=== PATIENT | male | born 1940 | race Caucasian/White ===

== ENCOUNTER → 2016-07-21 | Outpatient (CLI) | payer OTHER, BC ==
[~2016-07-21] MED LIST: ALPR-411 PO; ASPEC81 PO; ASPI325T45 PO; ASPI81TA21 PO; ATOR-24 PO; BUPR-102 PO; CLR/5 PO; DOCU100C31 PO; DUTA0.5C PO; EPP3/2 IM; FURO-85 PO; IBUP-1427 PO; LPT40 PO; LSN25 PO; METH500T3 PO; METHPOW7 PO; METO-478 PO; METO25TA3 PO; MULT-506 PO; MULT-845 PO; NTRSLP4 SL; OMEG-112 PO; OMEP40CA41 PO; PLV75 PO; PRT40 PO; TAMS0.4C38 PO
== END | disposition home or self-care (01) ==
LOC: C.RDSM 11:58
PROVIDERS: ATTEND Orthopaedic Surgery
DX: M18.11 Unilateral primary osteoarthritis of first carpometacarpal joint, right hand (principal)

== ENCOUNTER 2016-11-14 23:30 | Inpatient (IN) | payer OTHER, BC ==
[~2016-11-14] VITALS: Ht 172.7 cm; Wt 70.2 kg
[~2016-11-14 23:30] MED LIST changes: -ASPI325T45 PO; -ASPI81TA21 PO; -ATOR-24 PO; -DUTA0.5C PO; -FURO-85 PO; -IBUP-1427 PO; -LPT40 PO; -LSN25 PO; -METH500T3 PO; -METO-478 PO; -METO25TA3 PO; -MULT-845 PO; -NTRSLP4 SL; -OMEP40CA41 PO; -PLV75 PO; -PRT40 PO
[2016-11-14] MEDS ORDERED: MoRPHine SULFATE 4 MG/ML 1 ML CARP\\VIAL IV STA (23:40)
[2016-11-14] MEDS ORDERED: ONDANSETRON INJ 2 MG/ML 2 ML VIAL IV STA (23:40)
[2016-11-14 23:48] LABS: BASO % 0.5 %; BASO ABS # 0.05 K/uL (0-0.2); COMPLETE YES; EOS % 2.1 %; HEMATOCRIT 44.6 % (42-52); IG% 0.4 %; LYMPH % 45.3 %; LYMPH ABS # 4.92 K/uL (1.2-3.4); MEAN CELL VOLUME 93.9 fL (80-100); MEAN CORPUSCULAR HEMOGLOBIN 31.4 pg (25-34); MEAN CORPUSCULAR HGB CONC 33.4 g/dl (32-36); MEAN PLATELET VOLUME 9.9 fL (7.4-10.4); MONO % 7.6 %; NEUT % 44.1 %; PLATELET COUNT 351 K/uL (130-400); RED BLOOD COUNT 4.75 M/uL (4.7-6.1); WHITE BLOOD COUNT 10.86 K/uL (4.8-10.8)
[2016-11-14] MEDS ORDERED: NITROGLYCERIN 0.4 MG SL PER TAB CHARGE ONE (23:55)
[2016-11-14] MEDS: NITROGLYCERIN 0.4 MG SL PER TAB CHARGE SL PRN (23:58)
[2016-11-15] VITALS (41 sets, daily range): BP systolic 122–164; BP diastolic 70–118; PULSE 60–98; TEMP 36.5–36.9; O2SAT 92–98; Ht 172.7 cm; Wt 70.2 kg
[2016-11-15] MEDS ORDERED: IBUP-1427 PO (00:01)
[2016-11-15] MEDS ORDERED: DUTA0.5C PO (00:01)
[2016-11-15] MEDS ORDERED: ASPI81TA21 PO (00:01)
[2016-11-15] MEDS ORDERED: OMEP40CA41 PO (00:01)
[2016-11-15] MEDS ORDERED: METH500T3 PO (00:01)
[2016-11-15] MEDS ORDERED: MULT-845 PO (00:01)
[2016-11-15 00:02] LABS: PROTHROMBIN TIME (PATIENT) 10.6 SECONDS (9.0-12.0)
[2016-11-15] MEDS ORDERED: ASPI325T45 PO (00:02)
[2016-11-15 00:03] LABS: ISTAT HEMOGLOBIN 13.9 g/dl (14.0-18.0); ISTAT IONIZED CALCIUM 1.16 mmol/l (1.12-1.32)
[2016-11-15] MEDS ORDERED: NiCARDipine HCL INJ 2.5 MG/ML 10 ML AMP ONE ×2 (00:03→16:54)
[2016-11-15] MEDS ORDERED: FENTANYL CITRATE INJ 50 MCG/1 ML 2 ML VIAL ONE ×2 (00:03→16:55)
[2016-11-15] MEDS ORDERED: HEPARIN SOD (PORCINE) 1000 UNIT/ML 10 ML VIAL ONE ×3 (00:04→16:54)
[2016-11-15] MEDS ORDERED: MIDAZOLAM HCL 1 MG/ML 2ML VIAL ONE ×2 (00:04→16:55)
[2016-11-15 00:05] LABS: ALT/SGPT 32 U/L (12-78); BLOOD UREA NITROGEN 22 mg/dl (7-18); BUN/CREATININE RATIO 21.5 (10-20); CALCIUM 9.5 mg/dl (8.5-10.1); CARBON DIOXIDE 28 mmol/L (21-32); CHLORIDE 107 mmol/L (98-107); GLUCOSE 130 mg/dl (70-99); POTASSIUM 3.8 mmol/L (3.5-5.1); SODIUM 141 mmol/L (136-145)
[2016-11-15 00:08] LABS: ALKALINE PHOSPHATASE 54 U/L (45-117); AST/SGOT 23 U/L (15-37)
[2016-11-15] MEDS: NITROGLYCERIN 0.4 MG SL PER TAB CHARGE SL PRN (00:08)
--- NOTE | 2016-11-15 00:20 | EMERGENCY ROOM VISIT NOTE ---
History Report prepared by Ron: Najma Burton Under the Supervision of: Dr. Gary Reveles D.O. First contact with patient: 23:32 Chief Complaint: CARDIAC ASSESSMENT Stated Complaint: SHORT OF BREATH/CARDIAC ASSESSMENT History of Present Illness The patient is a 76 year old male who presents to the Emergency Room with complaints of an episode of chest pain starting two hours ago. The patient states that when the pain started he was sitting at his computer and it was a 10 /10 in severity. The patient states that it centralized and radiates out to his left arm and middle of his back. The patient currently rates his pain as a 7/10 in severity. The patient denies ever having a heart attack in the past, shortness of breath, and nausea. Source of History: patient Onset: two hours ago Position: chest Symptom Intensity: 7/10 Quality: other (radiating) Timing: other (episode) Associated Symptoms: + back pain, No SOB, No nausea Note: The patient complains of left arm pain. The patient denies ever having a heart attack. Review of Systems See HPI for pertinent positives and negatives. A total of ten systems were reviewed and were otherwise negative. Past Medical & Surgical Medical Problems: (1) BPH (benign prostatic hyperplasia) (2) Sinus node dysfunction Surgical Problems: (1) H/O hemorrhoidectomy (2) History of carpal tunnel surgery (3) History of tonsillectomy and adenoidectomy Family History Patient reports no known family medical history. Social History Smoking Status: Former Smoker Drug Use: none Marital Status: Occupation Status: retired Current/Historical Medications Scheduled Aspirin Enteric Coated (Ecotrin Or Generic), 81 MG PO DAILY Bupropion Hcl (Smoking [place] (Bupropion Hcl Sr), 1 TAB PO QAM Dutasteride (Avodart), 0.5 MG PO DAILY Epinephrine (Epipen), 0.3 MG IM UD Methylcellulose (Laxative) (Citrucel), 2 TABS PO DAILY Multiple Vitamins W/ Minerals (Centrum Silver Adult 50+), 1 TAB PO DAILY Vjlsa-2-Eglv Ethyl Esters ([place]-3), 1 CAP PO QAM Omeprazole (Prilosec), 40 MG PO DAILY Tamsulosin Hcl (Flomax), 2 TABS PO QPM Scheduled PRN Alprazolam (Xanax), 0.5 MG PO TID PRN for Anxiety/Agitation Aspirin (Aspirin), 650 MG PO DIRECTED PRN for Chest Pain Desloratadine (Clarinex), 5 MG PO DAILY PRN for PRN Docusate Sodium (Docusate Sodium), 1 CAP PO QAM PRN for Constipation Ibuprofen Tab (Motrin), 600 MG PO TID PRN for Pain Allergies Coded Allergies: BEE STING (Verified Allergy, Intermediate, PASSED OUT, 11/14/16) Escitalopram (Verified Allergy, Unknown, UNKNOWN, 11/14/16) Paroxetine (Verified Allergy, Unknown, UNKNOWN, 11/14/16) Quetiapine (Verified Allergy, Unknown, UNKNOWN, 11/14/16) Venlafaxine (Verified Allergy, Unknown, UNKNOWN, 11/14/16) Codeine (Verified Adverse Reaction, Mild, NAUSEA AND VOMITNG, 11/14/16) Physical Exam Vital Signs Date Time Temp Pulse Resp B/P (MAP) Pulse Ox O2 Delivery O2 Flow Rate FiO2 11/15/16 00:20 66 12 144/85 98 11/15/16 00:16 66 12 144/85 98 Nasal Cannula 2.0 11/15/16 00:07 67 21 146/83 98 Room Air 11/15/16 00:01 67 14 156/84 99 Nasal Cannula 2.0 11/14/16 23:56 147/88 11/14/16 23:50 66 98 11/14/16 23:49 150/88 11/14/16 23:45 99 Nasal Cannula 2.0 11/14/16 23:40 64 19 11/14/16 23:35 64 11/14/16 23:33 158/95 11/14/16 23:30 97 Room Air 11/14/16 23:30 36.4 65 24 158/95 97 Room Air 11/14/16 23:30 97 Room Air Physical Exam GENERAL: Awake, alert, well-appearing, in no distress HENT: Normocephalic, atraumatic. Oropharynx unremarkable. EYES: Normal conjunctiva. Sclera non-icteric. NECK: Supple. No nuchal rigidity. FROM. No JVD. RESPIRATORY: Clear to auscultation. CARDIAC: Regular rate, normal rhythm. Extremities warm and well perfused. Pulses equal. ABDOMEN: Soft, non-distended. No tenderness to palpation. No rebound or guarding. No masses. RECTAL: Deferred. MUSCULOSKELETAL: Chest examination reveals no tenderness. The back is symmetrical on inspection without obvious abnormality. There is no CVA tenderness to palpation. No joint edema. LOWER EXTREMITIES: Calves are equal size bilaterally and non-tender. No edema. No discoloration. NEURO: Normal sensorium. No sensory or motor deficits noted. SKIN: No rash or jaundice noted. Diaphoretic. Medical Decision & Procedures ER Provider Diagnostic Interpretation: CHEST X-RAY: Findings: The results were interperted by me. There is a slight increased pulmonary markings bilaterally. Pacemaker present. No pneumothorax present. Laboratory Results 11/14/16 22:35 Red Blood Count 4.75, Mean Corpuscular Volume 93.9, Mean Corpuscular Hemoglobin 31.4, Mean Corpuscular Hemoglobin Concent 33.4, Mean Platelet Volume 9.9, Neutrophils (%) (Auto) 44.1, Lymphocytes (%) (Auto) 45.3, Monocytes (%) (Auto) 7.6, Eosinophils (%) (Auto) 2.1, Basophils (%) (Auto) 0.5, Neutrophils # (Auto) 4.79, Lymphocytes # (Auto) 4.92, Monocytes # (Auto) 0.83, Eosinophils # (Auto) 0.23, Basophils # (Auto) 0.05 11/14/16 22:35 Test 11/14/16 22:35 11/14/16 23:41 11/14/16 23:49 White Blood Count 10.86 K/uL (4.8-10.8) Red Blood Count 4.75 M/uL (4.7-6.1) Hemoglobin 14.9 g/dL (14.0-18.0) Hematocrit 44.6 % (42-52) Mean Corpuscular Volume 93.9 fL (80-100) Mean Corpuscular Hemoglobin 31.4 pg (25-34) Mean Corpuscular Hemoglobin Concent 33.4 g/dl (32-36) Platelet Count 351 K/uL (130-400) Mean Platelet Volume 9.9 fL (7.4-10.4) Neutrophils (%) (Auto) 44.1 % Lymphocytes (%) (Auto) 45.3 % Monocytes (%) (Auto) 7.6 % Eosinophils (%) (Auto) 2.1 % Basophils (%) (Auto) 0.5 % Neutrophils # (Auto) 4.79 K/uL (1.4-6.5) Lymphocytes # (Auto) 4.92 K/uL (1.2-3.4) Monocytes # (Auto) 0.83 K/uL (0.11-0.59) Eosinophils # (Auto) 0.23 K/uL (0-0.5) Basophils # (Auto) 0.05 K/uL (0-0.2) RDW Standard Deviation 46.3 fL (36.4-46.3) RDW Coefficient of Variation 13.5 % (11.5-14.5) Immature Granulocyte % (Auto) 0.4 % Immature Granulocyte # (Auto) 0.04 K/uL (0.00-0.02) Prothrombin Time 10.6 SECONDS (9.0-12.0) Prothromb Time International Ratio 1.0 (0.9-1.1) Est Creatinine Clear Calc Drug Dose 54.9 ml/min Estimated GFR () 83.2 Estimated GFR (Non- 71.8 BUN/Creatinine Ratio 21.5 (10-20) Calcium Level 9.5 mg/dl (8.5-10.1) Total Bilirubin 0.5 mg/dl (0.2-1) Direct Bilirubin < 0.1 mg/dl (0-0.2) Aspartate Amino Transf (AST/SGOT) 23 U/L (15-37) Alanine Aminotransferase (ALT/SGPT) 32 U/L (12-78) Alkaline Phosphatase 54 U/L (45-117) Total Protein 7.9 gm/dl (6.4-8.2) Albumin 4.0 gm/dl (3.4-5.0) Bedside Troponin I < 0.030 ng/ml (0-0.045) Bedside Hemoglobin 13.9 g/dl (14.0-18.0) Bedside Hematocrit 41 % (42-52) Bedside Sodium 140 mEq/L (135-144) Bedside Potassium 3.9 mEq/L (3.3-5.0) Bedside Chloride 104 mEq/L (101-112) Bedside Total CO2 22 mEq/l (24-31) Anion Gap 19.0 mmol/L (16-25) Bedside Blood Urea Nitrogen 21 mg/dl (7-18) Bedside Creatinine 1.0 mg/dl (0.6-1.3) Bedside Glucose (other) 154 mg/dl (70-99) Bedside Ionized Calcium (Shruthi) 1.16 mmol/l (1.12-1.32) Laboratory results reviewed by me Medications Administered Medications (Trade) Dose Ordered Sig/Aura Route Start Time Stop Time Status Last Admin Dose Admin Morphine Sulfate (MoRPHine SULFATE INJ) 4 mg NOW STAT IV 11/14/16 23:40 11/14/16 23:41 DC 11/14/16 23:47 4 MG Ondansetron HCl (Zofran Inj) 4 mg NOW STAT IV 11/14/16 23:40 11/14/16 23:41 DC 11/14/16 23:47 4 MG Nitroglycerin (Nitrostat Tab) 0.4 mg PRN PRN SL 11/15/16 00:00 12/15/16 00:00 11/15/16 00:08 0.4 MG ECG Indication: chest pain Rate (beats per minute): 64 Rhythm: other (paced rhythm) Findings: ST elevation, other (morphology change) Comparison ECG Date: 07/22/2015 Change: Change in morphology of V2-V6. ED Course 2333: The patient was evaluated in room B7. A complete history and physical exam was performed. 2339: I called a Heart Alert on the patient at this time. 2340: Ordered Zofran Inj 4 mg IV, Morphine Sulfate 4 mg IV. 2341: Discussed the patient's case with Dr. Osei. The patient will be evaluated for further treatment and disposition. 2355: Ordered Nitroglycerin 0.4 mg .ROUTE. 0021: The patient will be taken to the cardiac pharmacy laboratory technician. was at bedside at this time. Medical Decision Differential diagnosis: Etiologies such as cardiac ischemia, aortic dissection, pulmonary embolism, pneumonia, pneumothorax, musculoskeletal, infections, pericarditis, myocarditis , esophageal rupture, gastrointestinal, as well as others were entertained. Pt had cardiac alert called; EKG concerning for anterolateral LA; seen by Dr Osei at bedside; brought to pharmacy laboratory technician; I spoke with regarding patient's condition Medication Reconcilliation Current Medication List: was personally reviewed by me Blood Pressure Screening Patient's blood pressure: Elevated blood pressure Will be further evaluated in ICU. Consults Time Called: 2339 Consulting Physician: Dr. osei Returned Call: 2340 Discussed the patient's case with Dr. Osei. The patient will be evaluated for further treatment and disposition. Impression Primary Impression: Anterolateral myocardial infarction Critical Care I have personally spent greater than 35 minutes of critical care time in the direct management of this patient. This includes bedside care, interpretation of diagnostic studies, and testing, discussion with consultants, patient, and family members, and other required patient management activities. This 35 minutes is in excess of all separately billable procedures. Scribe Attestation The scribe's documentation has been prepared under my direction and personally reviewed by me in its entirety. I confirm that the note above accurately reflects all work, treatment, procedures, and medical decision making performed by me. Departure Information Dispostion Being Evaluated By Hospitalist Referrals Jay Salvador M.D. (PCP) Patient Instructions My [facility]
[2016-11-15] MEDS ORDERED: CLOPIDOGREL BISULFATE 300 MG TAB PO ONE (01:17)
[2016-11-15] MEDS ORDERED: EPTIFIBATIDE BOLUS / DRIP IV ONE (01:45)
[2016-11-15] MEDS ORDERED: ALPRAZOLAM 0.5 MG TAB PO PRN ×2 (01:45→16:45)
[2016-11-15] MEDS ORDERED: ACETAMINOPHEN 325 MG TAB PO PRN (01:45)
--- NOTE | 2016-11-15 01:50 | Procedure Note ---
Pre-Mod Sedation Assessment General Date of Moderate Sedation: Nov 15, 2016. Vital Signs: Vital Signs Past 12 Hours Date Time Temp Pulse Resp B/P (MAP) Pulse Ox O2 Delivery O2 Flow Rate FiO2 11/15/16 00:20 66 12 144/85 98 11/15/16 00:16 66 12 144/85 98 Nasal Cannula 2.0 11/15/16 00:07 67 21 146/83 98 Room Air 11/15/16 00:01 67 14 156/84 99 Nasal Cannula 2.0 11/14/16 23:56 147/88 11/14/16 23:50 66 98 11/14/16 23:49 150/88 11/14/16 23:45 99 Nasal Cannula 2.0 11/14/16 23:40 64 19 11/14/16 23:35 64 11/14/16 23:33 158/95 11/14/16 23:30 97 Room Air 11/14/16 23:30 36.4 65 24 158/95 97 Room Air 11/14/16 23:30 97 Room Air Review Cardiovascular: regular rate, rhythm, no edema Abdomen: normal bowel sounds, non tender Lungs: chest non-tender, lungs clear Airway Class: II Pre-Sedation Airway Assessment Oral Cavity: Dental Abnormalities Able to Visualize Vocal Cords: No Short Thick Neck: No Hx of Sleep Apnea: No Smoking Status: Former Smoker Mallampati Classification: Class III ASA Classification: Class III Procedure Planning Contraindications-for Mod Sed: None Yes Notes The planned sedation has been discussed with the patient and consent obtained. I have identified the patient, determined the appropriateness of sedation and have assessed the patient immediately prior to the procedure. All medicine(s) and interventions are by my order.
--- NOTE | 2016-11-15 01:51 | Procedure Note ---
Post-Mod Sedation Assessment General Date of Moderate Sedation Nov 15, 2016. Vital Signs: Vital Signs Past 12 Hours Date Time Temp Pulse Resp B/P (MAP) Pulse Ox O2 Delivery O2 Flow Rate FiO2 11/15/16 00:20 66 12 144/85 98 11/15/16 00:16 66 12 144/85 98 Nasal Cannula 2.0 11/15/16 00:07 67 21 146/83 98 Room Air 11/15/16 00:01 67 14 156/84 99 Nasal Cannula 2.0 11/14/16 23:56 147/88 11/14/16 23:50 66 98 11/14/16 23:49 150/88 11/14/16 23:45 99 Nasal Cannula 2.0 11/14/16 23:40 64 19 11/14/16 23:35 64 11/14/16 23:33 158/95 11/14/16 23:30 97 Room Air 11/14/16 23:30 36.4 65 24 158/95 97 Room Air 11/14/16 23:30 97 Room Air Review - Discharge Criteria Vital Signs Stable: Yes Alert/Oriented/Conversant: Yes Returned to Baseline Mental St: Yes Nausea Absent/Minimal: Yes Pain/Discomfort/Absent/Minimal: Yes Normal/Baseline Respirations: Yes Active Bleeding?: No Pt Received D/C Instructions: N/A Prescriptions Given: None Specific Proced. D/C Criteria Distal Pulses Present (Cardiac: Yes Groin site assessed-Card Cath: N/A Voided Prior To Discharge: N/A Discharged Patients Adult Escort/Transportation: Yes
--- NOTE | 2016-11-15 02:07 | Cardiac Catheterization ---
Procedure Note Procedure Date Nov 15, 2016. Pre-Procedure Diagnosis Acute Coronary Syndrome AUC Score 8 Post-Procedure Diagnosis Severe CAD, Successful PCI, Decreased LV Systolic Function, Normal Intracardiac Pressures Procedure(s) Performed Coronary Angiography, Left Heart Cath, LV Angiography, Drug Eluting Stent Call Center Representative Jose Entrance Guard(s) Adrian Estimated Blood Loss 20 Medication(s) Clopidogrel, Fentanyl, Heparin, Integrilin, Nitroglycerin, Versed, Lidocaine 1% Summary of Findings Indication: STEMI/Heart Alert Access: 6Fr Right Radial Artery Catheters: [place], Pigtail; EBU 3.5 guide Findings: LM - Luminal irregularities LAD - Moderate caliber, 30-40% diffuse proximal to mid disease, 100% acutely occluded mid LAD after take-off of small 2nd diagonal; Diffusely diseased small 1st diagonal. Post intervention distal LAD small vessel to apex with luminal irregularities. Circumflex - Large, dominant vessel with luminal irregularities; gives off 2 small OMs and 2 moderate caliber L-PLBs and L-PDA all without significant disease. RCA - Small, non-dominant vessel. LVEDP - 15 LVEF 45-50%, apical hypokinesis -- PCI -- Antithrombotic therapy: Heparin, Integrilin, Clopidogrel Procedure: LM cannulated with EBU 3.5 guide BMW wire passed across lesion into distal vessel Mid LAD lesion predilated with 2.0 compliant balloon Dilated lesion stented with 2.5 x 33 Xience REGULO Stent post-dilated with 2.75 noncompliant balloon IC vasodilators administered for spasm Post procedure BRITTANY 3 flow, stent well expanded with minimal residual stenosis and no apparent cardiac complications. Started on integrilin for questionable minimal residual thrombus. Arterial Closure: TR Band Summary: 1. Acutely occluded mid LAD 2. Mild-moderate residual proximal LAD disease (30-40%) 3. Normal intracardiac filling pressure 4. Successful PCI of mid LAD with 2.5 x 33 Xience REGULO (post-dilated to 2.75) Recommendations: Admit to ICU for continued monitoring Loaded with Clopidogrel 600 mg in laborer demolition Continue Integrilin for 8 hours Continue dual-antiplatelet therapy with ASA/Clopidogrel for 1 year Trend troponins until peak, Check Echo Uptitrate beta-saige/VIDYA as BP allows High-dose statin Consult cardiac Rehab Previously followed by Dr. Jackson for his cardiac disease. Hemodynamics Rest Ao: 137/64/99 Final Ao: 145/59/93 LV: 142/15 Recommendations PCI without planned CABG Specimens None Radiation Exposure (mGy) 3060 Contrast (mls) 175 Visi Fluids (cc crystalloids) 20 NSS Drains None Anesthesia Moderate Procedural Complication(s) None Disposition ICU ACC Data Cardiac Status Clinical evaluation leading to the procedure CAD Presntation: STEMI STEMI or Non-STEMI: Symptom Onset Date/Time: 20:00 Thrombolytics: No Anginal Classification: CCS IV Heart Failure: No, NYHA Class: CCS I Cardiogenic Shock w/in 24Hrs: No Cardiac Arrest w/in 24Hrs: No Imaging studies past 6 months: No Stress studies past 6 months: No Coronary Anatomy Dominant: Left Left Main (% Stenosis): Normal LAD (% Stenosis): Proximal (30-40%), Mid (100) Circumflex (% Stenosis): Normal L PDA (% Stenosis): Normal Diagnostic Physician's Name: Negro Garcia MD Status: Emergency Closure Device Percutaneous Entry Location: Radial Closure Device: Radial Band Recommendations: PCI without planned CABG PCI Indication: Immediate PCI for STEMI Lesion Segment Name: Mid LAD Culprit Artery: Yes Stenosis Prior to Rx (%): 100 Chronic Total Occlusion: No IVUS: No FFR: No Pre-Procedure BRITTANY Flow: 0 Previously Treated Lesion: No Lesion Complexity: Non-High/Non-C Lesion Length (mm): 25 Thrombus Present: Yes Bifurcation Lesion: Yes Guidewire Across Lesion: Yes Guidewire: Stenosis Post-Procedure (%): 0 Post-Procedure BRITTANY Flow: 3 Device(s) Deployed: Yes Intraprocedure Events Significant Dissection: No Perforation: No
--- NOTE | 2016-11-15 02:08 | Critical Care Consultation ---
Critical Care Consultation Date of Consultation: Nov 15, 2016. Attending Physician: Dr. Reddy Reason for Consultation: S/P Cardiac Catheterization secondary to STEMI History of Present Illness Te Brock a 76-year-old male who presented to the emergency department this evening for 10/10 chest pain that was central and radiated down his left arm and the middle his back while sitting at his computer. Patient was transported via EMS and upon arrival to emergency room severity had decreased to 7/10. Patient has denied prior heart attack and as of that time had not experienced nausea or vomiting. Patient underwent EKG that that was deemed somewhat unremarkable secondary to paced rhythm per cardiology report and had a negative [id number] troponin level. A heart alert was called secondary to patient's symptomatic details after patient was seen by Dr. Garcia. He was subsequently taken to the cardiac labelling machine operator and received 1 REGULO to the 100% occluded Mid-LAD via Right Radial approach. Per wholesale agronomist report left ventricle function appears about 40-45%. Patient left Research Quality Assurance Analyst chest pain-free on a Plavix load with Integrilin to run for 8 hours. Only other prior cardiac history was an episode of complete heart block at which time the patient received a pacemaker in 2015. Patient does take alpha blocking medication for BPH and was a prior smoker. Patient's past medical history is positive for recent episodes of GERD. Per outpatient records patient had been complaining of continued symptoms and was to be scheduled for an EGD. Omeprazole 40 mg daily was added to the patient's regimen and he was also told to continue Zantac as needed. Otherwise patient is treated by Jay Salvador, Internal Medicine, for hypertension, BPH and depression. At presentation to the intensive care unit patient denies fever/chills, malaise , dizziness or lightheadedness. Patient denies nausea/vomiting/recent change in bowel or bladder habits. Patient is now chest pain-free, without pressure or awareness of tachyarrhythmia. Patient denies cough, dyspnea, shortness of breath or wheezing. Patient denies abdominal pain. Patient denies numbness or tingling of extremities. Past Medical/Surgical History Medical Problems: BPH (benign prostatic hyperplasia) Sinus node dysfunction Acquired Heart Block requiring Cardiac Pacemaker Bee Sting Allergy Cardiac Murmur Constipation Diverticulitis Depression GERD Insomnia Erectile Dysfunction Internal Hemorrhoids Nocturia History of Pulmonary Nodule Surgical Problems: H/O hemorrhoidectomy History of carpal tunnel surgery History of tonsillectomy and adenoidectomy Pacemaker Placement Family History Patient reports no known family medical history. Family Hx of Bipolar Disorder, ETOH Abuse, Cardiac Disorders, Kidney Disease, Lung CA, OH, Heart Disease, and Throat CA. Social History Smoking Status: Former Smoker Drug Use: none Marital Status: Housing Status: lives with family Occupation Status: retired Allergies Coded Allergies: BEE STING (Verified Allergy, Intermediate, PASSED OUT, 11/14/16) Escitalopram (Verified Allergy, Unknown, UNKNOWN, 11/14/16) Paroxetine (Verified Allergy, Unknown, UNKNOWN, 11/14/16) Quetiapine (Verified Allergy, Unknown, UNKNOWN, 11/14/16) Venlafaxine (Verified Allergy, Unknown, UNKNOWN, 11/14/16) Codeine (Verified Adverse Reaction, Mild, NAUSEA AND VOMITNG, 11/14/16) Home Medications Scheduled Aspirin Enteric Coated (Ecotrin Or Generic), 81 MG PO DAILY Bupropion Hcl (Smoking Deterre (Bupropion Hcl Sr), 1 TAB PO QAM Dutasteride (Avodart), 0.5 MG PO DAILY Epinephrine (Epipen), 0.3 MG IM UD Methylcellulose (Laxative) (Citrucel), 2 TABS PO DAILY Multiple Vitamins W/ Minerals (Centrum Silver Adult 50+), 1 TAB PO DAILY Svstp-5-Lpil Ethyl Esters (Lydia-3), 1 CAP PO QAM Omeprazole (Prilosec), 40 MG PO DAILY Tamsulosin Hcl (Flomax), 2 TABS PO QPM Scheduled PRN Alprazolam (Xanax), 0.5 MG PO TID PRN for Anxiety/Agitation Aspirin (Aspirin), 650 MG PO DIRECTED PRN for Chest Pain Desloratadine (Clarinex), 5 MG PO DAILY PRN for PRN Docusate Sodium (Docusate Sodium), 1 CAP PO QAM PRN for Constipation Ibuprofen Tab (Motrin), 600 MG PO TID PRN for Pain Current Inpatient Medications Current Inpatient Medications Medications (Trade) Dose Ordered Sig/Aura Route Start Time Stop Time Status Last Admin Dose Admin Nitroglycerin (Nitrostat Tab) 0.4 mg PRN PRN SL 11/15/16 00:00 12/15/16 00:00 11/15/16 00:08 0.4 MG Review of Systems 12 systems reviewed and negative other than previously mentioned in the HPI. Physical Exam Date Time Temp Pulse Resp B/P (MAP) Pulse Ox O2 Delivery O2 Flow Rate FiO2 11/15/16 00:20 66 12 144/85 98 11/15/16 00:16 66 12 144/85 98 Nasal Cannula 2.0 11/15/16 00:07 67 21 146/83 98 Room Air 11/15/16 00:01 67 14 156/84 99 Nasal Cannula 2.0 11/14/16 23:56 147/88 11/14/16 23:50 66 98 11/14/16 23:49 150/88 11/14/16 23:45 99 Nasal Cannula 2.0 11/14/16 23:40 64 19 11/14/16 23:35 64 11/14/16 23:33 158/95 11/14/16 23:30 97 Room Air 11/14/16 23:30 36.4 65 24 158/95 97 Room Air 11/14/16 23:30 97 Room Air Vital Signs - as noted Laboratory Data - as noted Physical Exam: General - NAD Eyes - PERRL, EOMI No icterus, gaze conjugate ENT - Mucosa moist, absent upper teeth, multiple missing lower teeth, dentures in room, no lesions or candidiasis Neck - Supple, trachea midline, no masses or lymphadenopathy, no JVD or bruits Lungs - No paradoxical chest wall movement, clear to auscultation bilaterally, no wheezes, rales, or rhonchi Heart - Reg rate and rhythm, Grade 1 murmur; No rubs, clicks, or gallops appreciated Abdomen - BS present, no bruits noted, tympanic to percussion, soft, nontender, nondistended, no organomegaly Extremities - No edema, pedal pulses intact Neuro - A&O X 4 Strength extremities equal and appropriate bilaterally Reflexes: normal and equal CN:PERRL, EOMI, no facial asymmetry, uvula/tongue midline Laboratory Results Last 24 Hours Test 11/14/16 22:35 11/14/16 23:41 11/14/16 23:49 White Blood Count 10.86 K/uL Red Blood Count 4.75 M/uL Hemoglobin 14.9 g/dL Hematocrit 44.6 % Mean Corpuscular Volume 93.9 fL Mean Corpuscular Hemoglobin 31.4 pg Mean Corpuscular Hemoglobin Concent 33.4 g/dl Platelet Count 351 K/uL Mean Platelet Volume 9.9 fL Neutrophils (%) (Auto) 44.1 % Lymphocytes (%) (Auto) 45.3 % Monocytes (%) (Auto) 7.6 % Eosinophils (%) (Auto) 2.1 % Basophils (%) (Auto) 0.5 % Neutrophils # (Auto) 4.79 K/uL Lymphocytes # (Auto) 4.92 K/uL Monocytes # (Auto) 0.83 K/uL Eosinophils # (Auto) 0.23 K/uL Basophils # (Auto) 0.05 K/uL RDW Standard Deviation 46.3 fL RDW Coefficient of Variation 13.5 % Immature Granulocyte % (Auto) 0.4 % Immature Granulocyte # (Auto) 0.04 K/uL Prothrombin Time 10.6 SECONDS Prothromb Time International Ratio 1.0 Sodium Level 141 mmol/L Potassium Level 3.8 mmol/L Chloride Level 107 mmol/L Carbon Dioxide Level 28 mmol/L Anion Gap 6.0 mmol/L 19.0 mmol/L Blood Urea Nitrogen 22 mg/dl Creatinine 1.00 mg/dl Est Creatinine Clear Calc Drug Dose 54.9 ml/min Estimated GFR () 83.2 Estimated GFR (Non- 71.8 BUN/Creatinine Ratio 21.5 Random Glucose 130 mg/dl Calcium Level 9.5 mg/dl Total Bilirubin 0.5 mg/dl Direct Bilirubin < 0.1 mg/dl Aspartate Amino Transf (AST/SGOT) 23 U/L Alanine Aminotransferase (ALT/SGPT) 32 U/L Alkaline Phosphatase 54 U/L Total Protein 7.9 gm/dl Albumin 4.0 gm/dl Bedside Troponin I < 0.030 ng/ml Bedside Hemoglobin 13.9 g/dl Bedside Hematocrit 41 % Bedside Sodium 140 mEq/L Bedside Potassium 3.9 mEq/L Bedside Chloride 104 mEq/L Bedside Total CO2 22 mEq/l Bedside Blood Urea Nitrogen 21 mg/dl Bedside Creatinine 1.0 mg/dl Bedside Glucose (other) 154 mg/dl Bedside Ionized Calcium (Shruthi) 1.16 mmol/l Diagnostic Results CXR 11/14/16 4885 No Formal Read Pending Per my independent read: No acute bony abnormalities Possibly mild pulmonary congestion No consolidation or pleural effusion noted No pneumothorax noted Cardiac silhouette appears enlarged Pacemaker in place Spinal processes Assessment & Plan (1) AMI (acute myocardial infarction) (2) Anterolateral myocardial infarction PLAN: CV: Acute OH * Obtain EKG post-cath and with reoccurring chest pain * Trend troponin every 8 * Obtain ECHO * Remove R Radial TR Band per Protocol * Monitor on telemetry * Will order lipid panel * Consult cardiology: Dr. Jackson previously treated pt * Begin Post OH Medications * ASA, BB, ACEi, Statin * Dual Antiplatelet Therapy x 1yr (ASA & Plavix) Resp: * Supplemental oxygen as required * Currently adequate saturations on 2 L nasal cannula; wean as tolerated * Monitor for changes Neuro: * Pain free currently: May expect reperfusion pain * Continue home Wellbutrin regimen for depression * Xanax ordered for when necessary anxiety Fluids/Renal: * Monitor I's and O's * Normal saline at 100 mL per hour: Monitor for signs of overload * Follow daily PRP * Continue home tamsulosin regimen * will bring in Avodart (hospital does not stock) ID: * No current signs or symptoms of infection * Monitor CBC and fever curve GI/Nutrition: * Patient order Colace; PRN constipation * Outpatient records list as prior problem Heme: * Monitor for signs and symptoms of bleeding * Right radial TR Band in place Endocrine: * Accu-Checks per protocol, started insulin infusion for 2 blood sugars greater than 180 * No prior diagnosis of diabetes/thyroid disease * Obtain hemoglobin A1c CCT: 0 Minutes; Level 3 in-patient Billing; This time is exclusive of all separately billable procedures. Thank you for involving us in the care of this patient. Please refer to Dr. Ralph Garcia's addendum for further recommendations. I have personally evaluated and examined this patient. I agree with assessment and plan of Aileen Shelley PA-C. [facility], stable for downgrade. Episode of likely reperfusion chest pain. Anti-emetics for nausea.
[2016-11-15] MEDS ORDERED: EPTIFIBATIDE INJ 75 MG PREMIXED IV SCH (02:15)
[2016-11-15] MEDS ORDERED: SODIUM CHLORIDE 0.9% 1000ML 1,000 ML IV SCH (02:15)
[2016-11-15] MEDS ORDERED: DOCUSATE SODIUM 100 MG CAP PO PRN (02:15)
[2016-11-15] MEDS ORDERED: ONDANSETRON INJ 2 MG/ML 2 ML VIAL ONE (05:43)
--- NOTE | 2016-11-15 05:43 | DIAGNOSTIC IMAGING REPORT ---
CHEST ONE VIEW PORTABLE CLINICAL HISTORY: CHEST PAIN dyspnea COMPARISON STUDY: 07/23/2015 FINDINGS: Findings of developing interstitial edema. Mild stable cardiomegaly. Permanent bipolar cardiac pacemaker. IMPRESSION: Developing interstitial edema/congestive failure The above report was generated using voice recognition software. It may contain grammatical, syntax or spelling errors. Electronically signed by: Corey Cloud M.D. 11/15/2016 5:42 AM Dictated Date/Time: 11/15/2016 5:41 AM
[2016-11-15] MEDS ORDERED: NURSING VERBAL MED ORDER PRN (05:45)
[2016-11-15] MEDS ORDERED: ONDANSETRON INJ 2 MG/ML 2 ML VIAL IV PRN ×2 (06:00)
[2016-11-15 06:19] LABS: HEMATOCRIT 40.7 % (42-52); MEAN CELL VOLUME 93.6 fL (80-100); MEAN CORPUSCULAR HGB CONC 34.2 g/dl (32-36); MEAN PLATELET VOLUME 9.2 fL (7.4-10.4); PLATELET COUNT 280 K/uL (130-400); RED BLOOD COUNT 4.35 M/uL (4.7-6.1); WHITE BLOOD COUNT 13.77 K/uL (4.8-10.8)
[2016-11-15 07:09] LABS: BLOOD UREA NITROGEN 21 mg/dl (7-18); BUN/CREATININE RATIO 24.7 (10-20); CALCIUM 8.9 mg/dl (8.5-10.1); CARBON DIOXIDE 24 mmol/L (21-32); CHLORIDE 107 mmol/L (98-107); CREATININE 0.83 mg/dl (0.60-1.40); GLUCOSE 133 mg/dl (70-99); MAGNESIUM 2.1 mg/dl (1.8-2.4); SODIUM 138 mmol/L (136-145)
[2016-11-15] MEDS ORDERED: NURSING VERBAL MED ORDER ONE ×3 (07:15→18:30)
[2016-11-15 07:40] LABS: CHOLESTEROL/HDL RATIO 2.5
[2016-11-15] MEDS: AVODART~ORDER AWAITING ACTION SCH ×2 (08:00→16:00)
[2016-11-15] MEDS ORDERED: METOPROLOL TARTRATE 25 MG TAB PO SCH (09:00)
[2016-11-15] MEDS ORDERED: PANTOprazole SOD 40 MG TAB PO SCH (09:00)
[2016-11-15 09:46] LABS: ESTIMATED AVERAGE GLUCOSE 117 mg/dl; HA1C FLAG Normal (Normal)
[2016-11-15] MEDS: LISINOPRIL 5 MG TAB PO SCH (09:56)
[2016-11-15] MEDS: ASPIRIN 81 MG ECTAB PO SCH (09:56)
[2016-11-15] MEDS: CEROVITE ADV FORMULA TAB PO SCH (09:56)
[2016-11-15] MEDS: ATORVASTATIN 40 MG TAB PO SCH (09:56)
[2016-11-15] MEDS: BuPROPion SR 150 MG TABCR PO SCH (09:56)
[2016-11-15] MEDS: CLOPIDOGREL BISULFATE 75 MG TAB PO SCH (09:57)
[2016-11-15] MEDS ORDERED: Integrelin infusion --> STOP ORDER ONE (10:00)
--- NOTE | 2016-11-15 10:00 | History and Physical ---
History & Physical Date & Time of Service: Nov 15, 2016 at 08:08 Chief Complaint: AMI Primary Care Physician: Jay Salvador M.D. History of Present Illness Source: patient The patient is a 76 year old male who presents to the Emergency Room with complaints of an episode of chest pain starting two hours prior to arrival. The patient states that when the pain started he was sitting at his computer and it was a 10/10 in severity. The patient states that it centralized and radiates out to his left arm and middle of his back. He called 911 and apparently because he lives so far out in the [facility] [facility], it took 2 hours total to get to the ER. The patient denies ever having a heart attack in the past, no shortness of breath or nausea. He is very active and has never had anginal symptoms. He was taken as a heart alert to the slabber light and had an acute occlusion of the mid LAD found with REGULO placed. He was loaded with Plavix and started on Integrilin gtt, transferred to the ICU. Troponin this AM is > 200. He is currently chest pain free and feeling well. EF on cath was low at 45-50% Past Medical/Surgical History Past Medical Problems: BPH Heart block 2016 requiring PPM Diverticulitis Anxiety Insomnia Allergies GERD Past Surgical Problems: Hemorrhoidectomy Bilateral carpal tunnel surgery Tonsillectomy and adenoidectomy Pacemaker placement Left thumb repair Family History Patient reports no known family medical history. 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 Smoking Status: Former Smoker (quit age 31 after 10 pack year history) Alcohol Use: occasionally (1-2 beers daily) Drug Use: none Marital Status: Housing status: lives with significant other Occupational Status: retired Multi-Drug Resistant Organisms History of MDRO: No Allergies Coded Allergies: BEE STING (Verified Allergy, Intermediate, PASSED OUT, 11/14/16) Escitalopram (Verified Allergy, Unknown, UNKNOWN, 11/14/16) Paroxetine (Verified Allergy, Unknown, UNKNOWN, 11/14/16) Quetiapine (Verified Allergy, Unknown, UNKNOWN, 11/14/16) Venlafaxine (Verified Allergy, Unknown, UNKNOWN, 11/14/16) Codeine (Verified Adverse Reaction, Mild, NAUSEA AND VOMITNG, 11/14/16) Home Medications Scheduled Aspirin Enteric Coated (Ecotrin Or Generic), 81 MG PO DAILY Bupropion Hcl (Smoking Deterre (Bupropion Hcl Sr), 1 TAB PO QAM Dutasteride (Avodart), 0.5 MG PO DAILY Epinephrine (Epipen), 0.3 MG IM UD Methylcellulose (Laxative) (Citrucel), 2 TABS PO DAILY Multiple Vitamins W/ Minerals (Centrum Silver Adult 50+), 1 TAB PO DAILY Eutno-9-Vjst Ethyl Esters (Norman-3), 1 CAP PO QAM Omeprazole (Prilosec), 40 MG PO DAILY Tamsulosin Hcl (Flomax), 2 TABS PO QPM Scheduled PRN Alprazolam (Xanax), 0.5 MG PO TID PRN for Anxiety/Agitation Aspirin (Aspirin), 650 MG PO DIRECTED PRN for Chest Pain Desloratadine (Clarinex), 5 MG PO DAILY PRN for PRN Docusate Sodium (Docusate Sodium), 1 CAP PO QAM PRN for Constipation Ibuprofen Tab (Motrin), 600 MG PO TID PRN for Pain Review of Systems Constitutional: No problem reported Eyes: No problem reported ENT: No problem reported Respiratory: No problem reported Cardiovascular: No chest pain Abdomen: No pain Musculoskeletal: No problem reported Genitourinary - Male: No problem reported Neurologic: No problem reported Psychiatric: No problem reported Endocrine: No problem reported Hematologic / Lymphatic: No problem reported Integumentary: No problem reported Allergic / Immunologic: No problem reported Physical Exam Vital Signs Date Time Temp Pulse Resp B/P (MAP) Pulse Ox O2 Delivery O2 Flow Rate FiO2 11/15/16 07:01 80 22 154/85 (103) 95 11/15/16 06:42 70 21 157/92 (106) 98 11/15/16 06:31 76 23 160/103 (128) 96 11/15/16 06:01 77 23 163/100 (128) 97 11/15/16 05:31 73 17 154/83 (108) 95 11/15/16 05:01 70 19 154/90 (106) 95 11/15/16 04:31 73 28 155/87 (115) 96 11/15/16 04:01 71 21 148/89 (114) 96 11/15/16 04:00 36.9 11/15/16 04:00 96 Nasal Cannula 2.0 11/15/16 03:46 71 21 164/85 (116) 96 11/15/16 03:31 70 13 144/86 (110) 95 11/15/16 03:16 71 23 154/78 (103) 94 11/15/16 03:01 71 5 144/83 (111) 97 11/15/16 02:46 72 18 146/91 (105) 96 11/15/16 02:37 74 18 130/84 (94) 98 11/15/16 02:05 36.5 71 25 129/70 96 Nasal Cannula 2.0 11/15/16 01:30 69 16 138/78 (98) 97 11/15/16 00:20 66 12 144/85 98 11/15/16 00:16 66 12 144/85 98 Nasal Cannula 2.0 11/15/16 00:07 67 21 146/83 98 Room Air 11/15/16 00:01 67 14 156/84 99 Nasal Cannula 2.0 11/14/16 23:56 147/88 11/14/16 23:50 66 98 11/14/16 23:49 150/88 11/14/16 23:45 99 Nasal Cannula 2.0 11/14/16 23:40 64 19 11/14/16 23:35 64 11/14/16 23:33 158/95 11/14/16 23:30 97 Room Air 11/14/16 23:30 36.4 65 24 158/95 97 Room Air 11/14/16 23:30 97 Room Air General Appearance: WD/WN, no apparent distress Head: normocephalic, atraumatic Eyes: normal inspection, EOMI ENT: hearing grossly normal Neck: supple, no JVD, no carotid bruits, trachea midline Respiratory/Chest: lungs clear, normal breath sounds, no respiratory distress, no accessory muscle use Cardiovascular: regular rate, rhythm, no edema, no gallop, no JVD, no murmur, normal peripheral pulses Abdomen/GI: normal bowel sounds, non tender, soft, no organomegaly, no pulsatile mass Back: normal inspection Extremities/Musculoskelatal: normal inspection, no calf tenderness, no pedal edema, normal range of motion Neurologic/Psych: alert, normal mood/affect, oriented x 3 Skin: normal color, warm/dry, no rash Diagnostics Laboratory Results Results Past 24 Hours Test 11/14/16 22:35 11/14/16 23:41 11/14/16 23:49 11/15/16 01:01 Range/Units White Blood Count 10.86 4.8-10.8 K/uL Red Blood Count 4.75 4.7-6.1 M/uL Hemoglobin 14.9 14.0-18.0 g/dL Hematocrit 44.6 42-52 % Mean Corpuscular Volume 93.9 80-100 fL Mean Corpuscular Hemoglobin 31.4 25-34 pg Mean Corpuscular Hemoglobin Concent 33.4 32-36 g/dl Platelet Count 351 130-400 K/uL Mean Platelet Volume 9.9 7.4-10.4 fL Neutrophils (%) (Auto) 44.1 % Lymphocytes (%) (Auto) 45.3 % Monocytes (%) (Auto) 7.6 % Eosinophils (%) (Auto) 2.1 % Basophils (%) (Auto) 0.5 % Neutrophils # (Auto) 4.79 1.4-6.5 K/uL Lymphocytes # (Auto) 4.92 1.2-3.4 K/uL Monocytes # (Auto) 0.83 0.11-0.59 K/uL Eosinophils # (Auto) 0.23 0-0.5 K/uL Basophils # (Auto) 0.05 0-0.2 K/uL RDW Standard Deviation 46.3 36.4-46.3 fL RDW Coefficient of Variation 13.5 11.5-14.5 % Immature Granulocyte % (Auto) 0.4 % Immature Granulocyte # (Auto) 0.04 0.00-0.02 K/uL Prothrombin Time 10.6 9.0-12.0 SECONDS Prothromb Time International Ratio 1.0 0.9-1.1 Sodium Level 141 136-145 mmol/L Potassium Level 3.8 3.5-5.1 mmol/L Chloride Level 107 98-107 mmol/L Carbon Dioxide Level 28 21-32 mmol/L Anion Gap 6.0 19.0 16-25 mmol/L Blood Urea Nitrogen 22 7-18 mg/dl Creatinine 1.00 0.60-1.40 mg/dl Est Creatinine Clear Calc Drug Dose 54.9 ml/min Estimated GFR () 83.2 Estimated GFR (Non- 71.8 BUN/Creatinine Ratio 21.5 10-20 Random Glucose 130 70-99 mg/dl Calcium Level 9.5 8.5-10.1 mg/dl Total Bilirubin 0.5 0.2-1 mg/dl Direct Bilirubin < 0.1 0-0.2 mg/dl Aspartate Amino Transf (AST/SGOT) 23 15-37 U/L Alanine Aminotransferase (ALT/SGPT) 32 12-78 U/L Alkaline Phosphatase 54 45-117 U/L Total Protein 7.9 6.4-8.2 gm/dl Albumin 4.0 3.4-5.0 gm/dl Bedside Troponin I < 0.030 0-0.045 ng/ml Bedside Hemoglobin 13.9 14.0-18.0 g/dl Bedside Hematocrit 41 42-52 % Bedside Sodium 140 135-144 mEq/L Bedside Potassium 3.9 3.3-5.0 mEq/L Bedside Chloride 104 101-112 mEq/L Bedside Total CO2 22 24-31 mEq/l Bedside Blood Urea Nitrogen 21 7-18 mg/dl Bedside Creatinine 1.0 0.6-1.3 mg/dl Bedside Glucose (other) 154 70-99 mg/dl Bedside Ionized Calcium (Shruthi) 1.16 1.12-1.32 mmol/l Kaolin Activated Coagulation Time 197 94-140 SECONDS Test 11/15/16 05:49 11/15/16 06:11 Range/Units Bedside Glucose 126 70-99 mg/dl White Blood Count 13.77 4.8-10.8 K/uL Red Blood Count 4.35 4.7-6.1 M/uL Hemoglobin 13.9 14.0-18.0 g/dL Hematocrit 40.7 42-52 % Mean Corpuscular Volume 93.6 80-100 fL Mean Corpuscular Hemoglobin 32.0 25-34 pg Mean Corpuscular Hemoglobin Concent 34.2 32-36 g/dl RDW Standard Deviation 46.9 36.4-46.3 fL RDW Coefficient of Variation 13.5 11.5-14.5 % Platelet Count 280 130-400 K/uL Mean Platelet Volume 9.2 7.4-10.4 fL Sodium Level 138 136-145 mmol/L Potassium Level 4.0 3.5-5.1 mmol/L Chloride Level 107 98-107 mmol/L Carbon Dioxide Level 24 21-32 mmol/L Anion Gap 7.0 3-11 mmol/L Blood Urea Nitrogen 21 7-18 mg/dl Creatinine 0.83 0.60-1.40 mg/dl Est Creatinine Clear Calc Drug Dose 70.9 ml/min Estimated GFR () 97.7 Estimated GFR (Non- 84.3 BUN/Creatinine Ratio 24.7 10-20 Random Glucose 133 70-99 mg/dl Calcium Level 8.9 8.5-10.1 mg/dl Phosphorus Level 3.0 2.5-4.9 mg/dl Magnesium Level 2.1 1.8-2.4 mg/dl Troponin I > 200.000 0-0.045 ng/ml Triglycerides Level 87 0-150 mg/dl Cholesterol Level 152 0-200 mg/dl HDL Cholesterol 62 mg/dl LDL Cholesterol, Calculated 73 mg/dl VLDL Cholesterol, Calculated 17 mg/dl Cholesterol/HDL Ratio 2.5 Microbiology Results 11/15/16 MRSA DNA Surveillance Screen, Received Pending Diagnostic Radiology CHEST ONE VIEW PORTABLE CLINICAL HISTORY: CHEST PAIN dyspnea COMPARISON STUDY: 07/23/2015 FINDINGS: Findings of developing interstitial edema. Mild stable cardiomegaly. Permanent bipolar cardiac pacemaker. IMPRESSION: Developing interstitial edema/congestive failure EKG 1st ECG: AV-dual paced, possible ST elevation anterolateral leads 2nd ECG: AV dual paced, ST elevation/morphology improved more towards normal Impression Assessment and Plan Pt is a 76 yo male with a h/o BPH, heart block with PPM, here with STEMI. Had urgent placement of REGULO to mid LAD which was acutely occluded. STEMI/CAD/Acute systolic CHF, s/p REGULO to mid LAD. Age is really his only risk factor. Lipid panel actually looks excellent. -Admitted to ICU for monitoring on Integrilin gtt--> ok to transfer to tele after Integrilin gtt completed this AM -Loaded with Clopidogrel 600 mg in slab[facility] -Continue dual-antiplatelet therapy with ASA/Clopidogrel for 1 year -Trend troponins until peak -Check Echo -Primary Waiter consulted -Uptitrate beta-saige/VIDYA as BP allows -started High-dose statin -Consult cardiac Rehab -monitor for signs of worsening CHF and given IV lasix prn -follow for arrhythmia, lyte changes BPH-stable, no current issues -continue Flomax -his will bring in his dutasteride from home Anxiety, Insomnia- stable -continue buproprion 150mg SR daily although unclear why he is on this once daily as it is a bid drug--> perhaps it caused trouble sleeping with the evening dosing -continue alprazolam prn sleep but he reports he only takes 1/2 tab at home of the 0.5mg tabs--> change dose here to 0.25mg prn Proph-can start heparin SQ in the AM Dispo-tx to tele today from ICU -likely to home tomorrow if stable Advanced Directives Existing Living Will: Yes Existing Power of Digital Marketing Officer: Yes VTE Prophylaxis VTE Risk Assessment Done? Y/N: Yes Risk Level: Moderate Given or contraindicated: Other Anticoagulation (Integrilin gtt) Additional Copies To Jay Salvador M.D.
--- NOTE | 2016-11-15 10:06 | ECHOCARDIOGRAM REPORT ---
*NOTICE TO RECEIVING DEMOCRAT AGENCY This information is strictly Confidential and protected under [place] law. [place] law prohibits you from making any further disclosure of this information unless further disclosure is expressly permitted by the written consent of the person to whom it pertains or is authorized by law. A general authorization for the release of medical or other information is not sufficient for this purpose. Hospital accepts no responsibility if the information is made available to any other person, INCLUDING THE PATIENT. Interpretation Summary * Name: JUAN ALBERTO MEADOWS Study Date: 11/15/2016 06:46 AM BP: 154/90 mmHg * Patient Location: E110 HR: 70 * : 1940 (M/d/yyyy) Gender: Male Height: 66 in * Age: 76 yrs Ethnicity: CA Weight: 160 lb * Ordering Physician: Negro Garcia * Referring Physician: Self, Referred * Performed By: Susan Og RCS * * Reason For Study: AMI * BSA: 1.8 m2 * -- Conclusions -- * Normal LV chamber size with mild concentric LVH. * Moderately reduced LV systolic function, EF 35-40%. * Severe hypokinesis to akinesis of the mid to apical anterior/anteroseptal quiroga. Akinesis of the apex along with moderate hypokinesis of the mid inferior wall. * The right ventricular cavity size is normal (basal dimension <4.2 cm in right ventricular apical 4-chamber view). Normal RV systolic function by TAPSE. * Mild mitral regurgitation. * Mild tricuspid regurgitation. * Mild left atrial enlargement. * PASP of 38 mmHg assuming a RA pressure of 3 mmHg. Procedure Details * A complete two-dimensional transthoracic echocardiogram was performed (2D, M-mode, Doppler and color flow Doppler). Left Ventricle * The left ventricle is normal in size. * There is mild concentric left ventricular hypertrophy. * Ejection Fraction = 35-40%. * Left ventricular systolic function is moderately reduced. * Severe hypokinesis to akinesis of the mid to apical anterior/anteroseptal quiroga. Akinesis of the apex along with moderate hypokinesis of the mid inferior wall. Right Ventricle * The right ventricular cavity size is normal (basal dimension <4.2 cm in right ventricular apical 4-chamber view). * There is a pacemaker lead in the right ventricle. * The right ventricular systolic function is normal as assessed by tricuspid annular plane systolic excursion (TAPSE) (normal >1.5 cm). Atria * The left atrium is mildly dilated. * Right atrial size is normal. * No ASD detected; PFO is not assessed. Mitral Valve * The mitral valve anatomy is normal. * There is no mitral valve stenosis. * There is mild mitral regurgitation. Tricuspid Valve * The tricuspid valve anatomy is normal. * There is no tricuspid stenosis. * There is mild tricuspid regurgitation. Aortic Valve * The aortic valve is normal in structure and function. Pulmonic Valve * The pulmonary valve is not well seen, but the Doppler examination is normal without significant regurgitation or stenosis. Great Vessels * The aortic root and proximal ascending aorta are normal sized. Pericardium/Pleural * There is no pericardial effusion. MMode 2D Measurements and Calculations IVSd 1.1 cm IVSs 1.2 cm LVIDd 4.8 cm LVIDs 4.0 cm LVPWd 1.1 cm LVPWs 1.3 cm IVS/LVPW 1.0 FS 16.4 % EDV(Teich) 108.5 ml ESV(Teich) 71.2 ml EF(Teich) 34.4 % EDV(cubed) 111.9 ml ESV(cubed) 65.4 ml EF(cubed) 41.5 % % IVS thick 6.5 % % LVPW thick 22.1 % LV mass(C)d 193.6 grams LV mass(C)dI 106.4 grams/m\S\2 LV mass(C)s 177.6 grams LV mass(C)sI 97.6 grams/m\S\2 CO(Teich) 2.6 l/min CI(Teich) 1.4 l/min/m\S\2 SV(Teich) 37.3 ml SI(Teich) 20.5 ml/m\S\2 CO(cubed) 3.3 l/min CI(cubed) 1.8 l/min/m\S\2 SV(cubed) 46.5 ml SI(cubed) 25.5 ml/m\S\2 Ao root diam 3.5 cm Ao root area 9.7 cm\S\2 ACS 1.7 cm LA dimension 4.6 cm asc Aorta Diam 2.9 cm LA/Ao 1.3 LVAd ap4 32.8 cm\S\2 LVLd ap4 8.2 cm EDV(MOD-sp4) 106.0 ml LVAs ap4 25.4 cm\S\2 LVLs ap4 7.9 cm ESV(MOD-sp4) 66.0 ml EF(MOD-sp4) 37.7 % LVAd ap2 24.3 cm\S\2 LVLd ap2 7.7 cm EDV(MOD-sp2) 64.0 ml LVAs ap2 18.2 cm\S\2 LVLs ap2 6.9 cm ESV(MOD-sp2) 39.0 ml EF(MOD-sp2) 39.1 % CO(MOD-sp4) 2.8 l/min CI(MOD-sp4) 1.5 l/min/m\S\2 SV(MOD-sp4) 40.0 ml SI(MOD-sp4) 22.0 ml/m\S\2 CO(MOD-sp2) 1.8 l/min CI(MOD-sp2) 0.96 l/min/m\S\2 SV(MOD-sp2) 25.0 ml SI(MOD-sp2) 13.7 ml/m\S\2 Doppler Measurements and Calculations MV E max patricia 133.3 cm/sec MV P1/2t max patricia 180.0 cm/sec MV P1/2t 54.9 msec MVA(P1/2t) 4.0 cm\S\2 MV dec slope 960.1 cm/sec\S\2 MV dec time 0.16 sec Ao V2 max 95.0 cm/sec Ao max PG 3.6 mmHg Ao max PG (full) 0.96 mmHg LV V1 max PG 2.7 mmHg LV V1 max 81.4 cm/sec PA V2 max 123.9 cm/sec PA max PG 6.1 mmHg PI max patricia 268.8 cm/sec PI max PG 28.9 mmHg PI dec slope 151.7 cm/sec\S\2 PI P1/2t 519.0 msec TR max patricia 297.5 cm/sec
--- NOTE | 2016-11-15 11:50 | CARDIOLOGY CONSULTATION ---
DATE OF CONSULTATION: 11/15/2016 DATE OF CONSULTATION: 11/15/2016 CONSULTATION REQUESTED BY: Dr. Rodriguez. REASON FOR CONSULTATION: Acute myocardial infarction. HISTORY OF PRESENT ILLNESS: Mr. Brock is a very pleasant 76-year-old gentleman who was previously seen in our cardiology practice by Dr. Jackson, Dr. Sharma and Corey Joseph for his underlying conduction system disease. He presented to [facility] very early in the morning of 11/15/2016 with a complaint of chest and back pain. The patient states he was in his normal state of health yesterday and simply sitting at his computer last night reading, not feeling overly anxious or stressed when he suddenly developed severe left shoulder pain. He states it started in his shoulder and then radiated into his back and then up into his chest and into his neck. He never had any previous similar episodes and ranks the pain as 10/10. He did have some associated diaphoresis and shortness of breath. He became concerned and his called EMS. In the ambulance his EKG showed a paced rhythm. He was given sublingual nitroglycerin without any significant improvement. Upon arrival to the Emergency Department a heart alert was called. He was seen emergently by Dr. Garcia. He was taken to the cardiac catheterization lab where he was found to have occluded mid LAD that was opened successfully with a Xience drug-eluting stent and he was admitted to the intensive care unit. The patient states his symptoms completely resolved with dilation of the artery and he has not had any further since. Currently, he is resting comfortably in the intensive care unit and feeling well overall. PAST SURGICAL HISTORY: 1. Medtronic dual chamber permanent pacemaker placement July 2015. 2. Colonoscopy. 3. Trigger finger repair. 4. Tonsil and adenoidectomy. 5. Bilateral carpal tunnel surgery. 6. Hemorrhoidectomy. MEDICAL ILLNESSES: 1. 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 2. Anxiety. 3. Benign prostatic hypertrophy. 4. Insomnia. 5. Diverticulosis. FAMILY HISTORY: Noncontributory. SOCIAL HISTORY: The patient has a very remote tobacco use history, quit 45 years ago. Drinks beer on a regular basis. Denies any recreational drug use. He is and lives at home with his . He has 2 daughters who are in good health. 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 REVIEW OF SYSTEMS: As per HPI, all other review of systems reviewed and negative at this time. ALLERGIES: No known drug allergies. BEE STINGS CAUSE ANAPHYLAXIS. MEDICATIONS AN OUTPATIENT: 1. Aspirin 81 mg daily. 2. Xanax as needed. 3. Flomax b.i.d. 4. Bupropion b.i.d. 5. Clarinex daily. 6. Multivitamin daily. PHYSICAL EXAMINATION: VITALS: Temperature 36.8, pulse 79, respiratory rate 12, blood pressure 145/86, saturating 97% on 2 liters nasal cannula. GENERAL: Awake, alert, oriented x3 in no acute distress. HEAD, EYES, EARS, NOSE, AND THROAT: Normocephalic, atraumatic. Pupils equal, round, and reactive to light and accommodation. Extraocular muscles intact. Anicteric sclerae. Moist mucous membranes. NECK: No JVD, no bruit. CARDIOVASCULAR: Regular. Positive S4. Normal S1 and S2. No S3. Mild 2/6 holosystolic ejection murmur greatest at the left sternal border midclavicular line, fifth intercostal space with radiation to the left axilla. No rubs. PULMONARY: Clear to auscultation bilaterally. No rales, rhonchi, or wheezing. ABDOMEN: Bowel sounds x4, soft. No rebound, guarding, tenderness. No organomegaly. EXTREMITIES: No clubbing, cyanosis or edema. +2 pedal pulses bilaterally. SKIN: Warm and dry. TEST RESULTS: Cardiac catheterization showed a left main with mild luminal irregularities. LAD was a moderate caliber vessel, 30-40% proximal to mid disease, 100% acutely occluded mid LAD after the takeoff of small second diagonal. Post-intervention distal LAD was a small vessel to the apex with luminal irregularities. RCA was small, nondominant vessel. Circumflex was large, dominant with luminal irregularities. EF 45-50% with apical hypokinesis. A 2D echocardiogram was read as normal LV chamber size with mild concentric LVH, moderately reduced LV systolic function, EF 35-40%. Severe hypokinesis to akinesis of the mid to apical anterior and anterior septal quiroga. Akinesis of the apex along with moderate hypokinesis of the mid inferior wall. Normal RV systolic function, mild mitral regurgitation, mild tricuspid regurgitation. PA systolic pressure of 30 mmHg. Troponin of greater than 200. IMPRESSIONS: 1. Acute myocardial infarction, status post successful angioplasty with a drug-eluting stent to the mid left anterior descending. 2. Moderately reduced left ventricular systolic function, ejection fraction 35-40%, acutely. 3. History of trifascicular block status post permanent pacemaker placement. RECOMMENDATIONS: It was my pleasure to see Mr. Brock in consultation today. From a cardiac standpoint, he is doing very well considering the circumstances. He is now completely symptom free and he was successfully revascularized. He has been on Integrilin drip as per protocol from the phlebotomy lab assistant. He has been started on aspirin and Plavix along with beta saige and VIDYA inhibitor. His blood pressure is a little on the high side at this point, so I will increase the frequency of his beta saige and take the metoprolol to 25 mg q. 6 hours. Luckily, he does have the pacemaker in place for heart rate control. Otherwise, he will be monitored in the intensive care unit for approximately 24 hours and then likely be moved to telemetry where I would like to monitor him for an additional 48 hours. His medications will be titrated at that time. Thank you very much for allowing me to participate in the care of your patient.
--- NOTE | 2016-11-15 12:18 | History & Physical Bridge Note ---
H&P Re-Evaluation Bridge Note: I have examined the patient, reviewed the History & Physical and in the interval since the performance of the History & Physical I have noted the following changes of clinical significance: No changes noted family at bedside pt marked was totally shaved of manning
[2016-11-15] MEDS ORDERED: NITROGLYCERIN 0.4 MG SL PER TAB CHARGE SL STA (12:32)
[2016-11-15] MEDS ORDERED: NITROGLYCERIN 0.4 MG SL PER TAB CHARGE ONE (12:36)
[2016-11-15] MEDS ORDERED: MoRPHine SULFATE 2 MG/ML CARP ONE (12:36)
[2016-11-15] MEDS ORDERED: MoRPHine SULFATE 2 MG/ML CARP IV PRN (12:45)
[2016-11-15] MEDS ORDERED: NITROGLYCERIN 0.4 MG SL PER TAB CHARGE SL PRN (12:45)
[2016-11-15] MEDS: METOPROLOL TARTRATE 25 MG TAB PO SCH ×2 (13:17→19:35)
[2016-11-15] MEDS ORDERED: ALPRAZOLAM 0.25 MG TAB PO PRN (14:00)
[2016-11-15] MEDS ORDERED: PROMETHAZINE HCL INJ 12.5 MG in SODIUM CHLORIDE 0.9% 50ML 50 ML IV PRN (16:00)
[2016-11-15] MEDS ORDERED: METOPROLOL TARTRATE 1 MG/ML VIAL IV STA (16:32)
[2016-11-15] MEDS ORDERED: LORAZEPAM 0.5 MG TAB ONE (16:35)
[2016-11-15] MEDS ORDERED: HYDROmorphone INJ 0.5 MG/0.5 ML SYR IV PRN (16:45)
--- NOTE | 2016-11-15 16:48 | Progress Note ---
Progress Note Date of Service Nov 15, 2016. Progress Note Called by nursing: patient with recurrent chest pressure along with nausea and vomiting did receive morphine earlier for recurrent pain that was thought to be reperfusion in nature hx of nausea/vomiting with codeine but not morphine at bedside, discussed with her: states that patient is anxious at baseline and she believes he is anxious now ekg unchanged with v-pacing no benefit to repeat echo at this time given wall motion abnormalities on previous study patient did already receive plavix load, aspirin and 8 hour of integrilin patient given lopressor 5mg IV, zofran, nitro and to be given ativan pain now radiating through to the back discussed with Dr. Garcia, patient to be taken back to labeling strategist now to re- evaluate stent to rule out acute stent thombosis discussed with patient and , both in agreement
[2016-11-15] MEDS ORDERED: NITROGLYCERIN/D5W 100MCG/ML 20ML SYR ONE (16:55)
--- NOTE | 2016-11-15 16:57 | Critical Care Progress Note ---
Critical Care Progress Note Date of Service Nov 15, 2016. Critical Care Progress Note I was approached by nursing staff and asked to assess patient secondary to complaints of chest discomfort and ongoing nausea. A repeat EKG was ordered secondary to complaints of pain. I did assess the patient. He did appear somewhat uncomfortable and described his main complaint is been nauseated. He does report that he has been nauseated since his catheterization. He does have some reproducible tenderness to palpation to the LEFT-sided anterior chest wall. Heart sounds demonstrate a regular rate and rhythm without pericardial friction rub, murmur, or gallop appreciated. Lungs are clear to auscultation without wheezing or rales. Cranial nerves II through XII grossly intact. Repeat EKG was obtained and reviewed by myself as well as cardiology and interventional cardiology. EKG shows normalization of lateral T-wave elevation in the setting of a paced rhythm. This does appear to have improved from this morning's reading. After conversation with the patient, cardiology felt it best for repeat catheterization secondary to the patient's vague symptomatology in the setting of difficult to assess EKG paced rhythms as well as poor echo data secondary to stunned myocardium. The patient was emergently taken to the catheterization suite for repeat cardiac catheterization.
[2016-11-15] MEDS ORDERED: FUROSEMIDE 40 MG/4 ML VIAL ONE (17:23)
--- NOTE | 2016-11-15 18:18 | Procedure Note ---
Post-Mod Sedation Assessment General Date of Moderate Sedation Nov 15, 2016. Vital Signs: Vital Signs Past 12 Hours Date Time Temp Pulse Resp B/P (MAP) Pulse Ox O2 Delivery O2 Flow Rate FiO2 11/15/16 16:00 Nasal Cannula 2.0 11/15/16 16:00 36.9 72 19 158/89 (112) 95 Nasal Cannula 2.0 11/15/16 14:00 60 24 131/74 (93) 94 Nasal Cannula 2.0 11/15/16 12:00 Nasal Cannula 2.0 11/15/16 12:00 36.9 82 18 155/95 (115) 93 Nasal Cannula 2.0 11/15/16 10:00 81 18 143/118 (126) 92 Nasal Cannula 2.0 11/15/16 08:00 Nasal Cannula 2.0 11/15/16 08:00 36.8 79 18 145/86 (105) 97 Nasal Cannula 2.0 11/15/16 07:01 80 22 154/85 (103) 95 11/15/16 06:42 70 21 157/92 (106) 98 11/15/16 06:31 76 23 160/103 (128) 96 Review - Discharge Criteria Vital Signs Stable: Yes Alert/Oriented/Conversant: Yes Returned to Baseline Mental St: Yes Nausea Absent/Minimal: Yes Pain/Discomfort/Absent/Minimal: Yes Normal/Baseline Respirations: Yes Active Bleeding?: No Pt Received D/C Instructions: N/A Prescriptions Given: None Specific Proced. D/C Criteria Distal Pulses Present (Cardiac: Yes Groin site assessed-Card Cath: N/A Voided Prior To Discharge: N/A Discharged Patients Adult Escort/Transportation: Yes
--- NOTE | 2016-11-15 18:18 | Procedure Note ---
Pre-Mod Sedation Assessment General Date of Moderate Sedation: Nov 15, 2016. Vital Signs: Vital Signs Past 12 Hours Date Time Temp Pulse Resp B/P (MAP) Pulse Ox O2 Delivery O2 Flow Rate FiO2 11/15/16 16:00 Nasal Cannula 2.0 11/15/16 16:00 36.9 72 19 158/89 (112) 95 Nasal Cannula 2.0 11/15/16 14:00 60 24 131/74 (93) 94 Nasal Cannula 2.0 11/15/16 12:00 Nasal Cannula 2.0 11/15/16 12:00 36.9 82 18 155/95 (115) 93 Nasal Cannula 2.0 11/15/16 10:00 81 18 143/118 (126) 92 Nasal Cannula 2.0 11/15/16 08:00 Nasal Cannula 2.0 11/15/16 08:00 36.8 79 18 145/86 (105) 97 Nasal Cannula 2.0 11/15/16 07:01 80 22 154/85 (103) 95 11/15/16 06:42 70 21 157/92 (106) 98 11/15/16 06:31 76 23 160/103 (128) 96 Review Cardiovascular: regular rate, rhythm, no edema Abdomen: normal bowel sounds, non tender Lungs: chest non-tender, + respiratory distress, + accessory muscle use, + rales Airway Class: II Pre-Sedation Airway Assessment Oral Cavity: Dentures Able to Visualize Vocal Cords: No Short Thick Neck: No Hx of Sleep Apnea: No Smoking Status: Former Smoker (quit age 31 after 10 pack year history) Mallampati Classification: Class III ASA Classification: Class III Procedure Planning Contraindications-for Mod Sed: None Yes Notes The planned sedation has been discussed with the patient and consent obtained. I have identified the patient, determined the appropriateness of sedation and have assessed the patient immediately prior to the procedure. All medicine(s) and interventions are by my order.
[2016-11-15 18:43] LABS: ISTAT ARTERIAL BLOOD GAS HCO3 24 meq/L (19-24); ISTAT ARTERIAL BLOOD GAS PCO2 43 mmHg (35-46); ISTAT ARTERIAL BLOOD GAS PO2 < 32 mmHg (80-95); ISTAT ARTERIAL BLOOD GAS pH 7.36 (7.35-7.45); ISTAT CARBON DIOXIDE 25 mEq/l (24-31)
[2016-11-15 18:43] LABS: ISTAT ARTERIAL BLOOD GAS HCO3 26 meq/L (19-24); ISTAT ARTERIAL BLOOD GAS PCO2 44 mmHg (35-46); ISTAT ARTERIAL BLOOD GAS PO2 < 32 mmHg (80-95); ISTAT ARTERIAL BLOOD GAS pH 7.38 (7.35-7.45); ISTAT CARBON DIOXIDE 27 mEq/l (24-31)
[2016-11-15 18:43] LABS: ISTAT ARTERIAL BLOOD GAS HCO3 24 meq/L (19-24); ISTAT ARTERIAL BLOOD GAS PCO2 38 mmHg (35-46); ISTAT ARTERIAL BLOOD GAS PO2 64 mmHg (80-95); ISTAT ARTERIAL BLOOD GAS pH 7.41 (7.35-7.45); ISTAT CARBON DIOXIDE 25 mEq/l (24-31)
--- NOTE | 2016-11-15 18:54 | Cardiac Catheterization ---
Procedure Note Procedure Date Nov 15, 2016. Pre-Procedure Diagnosis Acute Coronary Syndrome AUC Score 8 Post-Procedure Diagnosis Severe CAD, Successful PCI, Elevated Intracardiac Pressures Procedure(s) Performed Coronary Angiography, Left Heart Cath, Right Heart Cath, PTCA Contingents Supervisor Jose Paperhanger Apprentice(s) Domingo Estimated Blood Loss 20 Medication(s) Fentanyl, Heparin, Nitroglycerin, Lidocaine 1% lasix Summary of Findings Indication: Recurrent severe angina with concern for acute stent thrombosis following PPCI to acutely occluded LAD Access: 6Fr Right Radial Artery; 7Fr Right Femoral Vein Catheters: EBU 3.5 guide; pigtail, 7Fr [place] Findings: LM - Luminal irregularities (unchanged) LAD - Moderate caliber, 30-40% diffuse proximal to mid disease, patent mid LAD stent with BRITTANY 3 flow (unchanged). 95% ostial stenosis of 2nd diagonal at the site of previously placed stent with BRITTANY 2 flow in diagonal (Ostial stenosis more severe than immediately post procedure) Circumflex - Large, dominant vessel with luminal irregularities; gives off 2 small OMs and 2 moderate caliber L-PLBs and L-PDA all without significant disease (unchanged) RCA - Small, non-dominant vessel. At beginning of case patient became increasingly dyspneic, hypoxic and appeared to be in acute heart failure. RHC done to assess hemodynamics: Initially pre-intervention: PA 54/21/41 PCW 30 AoSat 92% on 10L PaSat 55% ESTEFANIA/CI 3.2/1.8 Given 40mg IV lasix, IC nitroglycerin, and fentanyl 2nd diagonal small but as still having active pain decision made to proceed with PCI -- PCI -- Antithrombotic therapy: Heparin, Clopidogrel Procedure: LM cannulated with EBU 3.5 guide Solar Business Developer 50 wire passed into inferior branch of 2nd diagonal Ostial stenosis/stent struts dilated with 1.5 compliant balloon. Whisper placed into superior branch of 2nd diagonal Lesion gently dilated with 2.0 compliant balloon. Post procedure improved flow in diagonal, now BRITTANY 3. 30-40% residual stenosis, minimal non-flow limiting dissection at ostium. Arterial Closure: TR Band Post Intervention RHC: RA 2 RV 47/5 PA 46/18 (34) LVEDP 23 PaSat 54% Summary: 1. Severe ostial stenosis of small 2nd diagonal 2. Acute heart failure/pulmonary edema/hypoxemia 3. Successful PTCA of 2nd diagonal ostium with 2.0 balloon. 4. Improved left sided filling pressures and respiratory status post diuresis Recommendations: Return to ICU for continued monitoring Continue dual-antiplatelet therapy with ASA/Clopidogrel Will remove right femoral sheath in 2 hours Hold additional IV fluids, monitor I/Os -- additional nitrates, diuretics as needed for symptoms overnight. Continued heart failure management in AM per Dr. Pritchard. Hemodynamics Rest Ao: 144/84/111 Final Ao: 162/90/120 LV: 161/23 Recommendations PCI without planned CABG Specimens None Radiation Exposure (mGy) 2322 Contrast (mls) 120 Visi Fluids (cc crystalloids) 110 Drains None Anesthesia Moderate Procedural Complication(s) None Disposition ICU ACC Data Cardiac Status Clinical evaluation leading to the procedure CAD Presntation: Non STEMI Anginal Classification: CCS IV Heart Failure: Yes, NYHA Class: CCS IV Cardiogenic Shock w/in 24Hrs: No Cardiac Arrest w/in 24Hrs: No Imaging studies past 6 months: Yes Stress studies past 6 months: No Diagnostic Physician's Name: Negro Garcia MD Status: Urgent Closure Device Percutaneous Entry Location: Radial Closure Device: Radial Band Recommendations: PCI without planned CABG PCI Indication: PCI for high risk Non-STEMI Lesion Segment Name: 2nd diagonal ostium Culprit Artery: Yes Stenosis Prior to Rx (%): 95 Chronic Total Occlusion: No IVUS: No FFR: No Pre-Procedure BRITTANY Flow: 2 Previously Treated Lesion: No Lesion Complexity: Non-High/Non-C Lesion Length (mm): 6 Thrombus Present: No Bifurcation Lesion: Yes Guidewire Across Lesion: Yes Guidewire: Stenosis Post-Procedure (%): 30 Post-Procedure BRITTANY Flow: 3 Device(s) Deployed: No Intraprocedure Events Significant Dissection: No Perforation: No
--- NOTE | 2016-11-15 20:35 | Progress Note ---
Progress Note Date of Service Nov 15, 2016. (Phillip Mccrary MD) Resident Physician Supervision Note: Dr. Mccrary was resident physician during care of patient. I separately evaluated patient and did history and exam. I discussed the case with the resident and generally agree with the findings and plan. Patient had persistent vague symptoms of mild chest pain as well as nausea with significant vomiting and retching. He ultimately went back to the cardiovascular lab director and had balloon angioplasty of small vessels. He has significant improvement in his symptomatology. This patient wasn't obviously had a atypical presentation. He remains in the ICU for further monitoring. Documented By: Ralph Garcia DO (Ralph Garcia, D.O.) Progress Note Around 16:20 patient experienced recurrence of Chest pain radiating to back. Previous Troponins were trending down from >200 however patient was evaluated by Cardiology and it was decided he would go back to flower shop laborer/designer for evaluation. During Cath, patient was found to have severe ostial stenosis of small 2nd diagonal which was managed with 2.0 DIRECTOR OF EDUCATION AND TRAINING balloon in addition to Acute Heart Failure, Hypoxia, , Pulmonary Edema . Patient was subsequently returned to ICU for monitoring . He denied further Chest pain, SOB, palpitation. although did report lightheadedness following procedure. He was maintained on dual antiplatelet therapy with ASA, Clopidogrel. Per Cardiology, IV fluids to be held, with monitoring of I/Os (Phillip Mccrary MD)
[2016-11-15] MEDS ORDERED: FUROSEMIDE INJ 40 MG in SYRINGE 0 ML IV ONE (21:00)
[2016-11-15] MEDS ORDERED: TAMSULOSIN HCL 0.4 MG CAP PO SCH (21:00)
[2016-11-16] VITALS (78 sets, daily range): BP systolic 74–140; BP diastolic 50–119; PULSE 60–94; TEMP 36.6–36.8; O2SAT 90–98
[2016-11-16] MEDS: METOPROLOL TARTRATE 25 MG TAB PO SCH ×4 (01:02→18:00)
[2016-11-16 05:52] LABS: BASO % 0.1 %; BASO ABS # 0.02 K/uL (0-0.2); COMPLETE YES; EOS % 0.1 %; HEMATOCRIT 47.9 % (42-52); IG% 0.4 %; LYMPH % 12.8 %; LYMPH ABS # 2.33 K/uL (1.2-3.4); MEAN CELL VOLUME 93.2 fL (80-100); MEAN CORPUSCULAR HEMOGLOBIN 30.5 pg (25-34); MEAN CORPUSCULAR HGB CONC 32.8 g/dl (32-36); MEAN PLATELET VOLUME 9.5 fL (7.4-10.4); MONO % 10.1 %; NEUT % 76.5 %; PLATELET COUNT 319 K/uL (130-400); RED BLOOD COUNT 5.14 M/uL (4.7-6.1); WHITE BLOOD COUNT 18.22 K/uL (4.8-10.8)
[2016-11-16 06:25] LABS: CALCIUM 8.6 mg/dl (8.5-10.1); CREATININE 0.92 mg/dl (0.60-1.40); POTASSIUM 3.7 mmol/L (3.5-5.1)
[2016-11-16 06:30] LABS: MAGNESIUM 2.2 mg/dl (1.8-2.4); PHOSPHORUS 3.2 mg/dl (2.5-4.9)
[2016-11-16] MEDS: POTASSIUM CHLORIDE 20 MEQ TABCR PO SCH ×2 (06:35→10:13)
[2016-11-16] MEDS: CLOPIDOGREL BISULFATE 75 MG TAB PO SCH (08:05)
[2016-11-16] MEDS: ATORVASTATIN 40 MG TAB PO SCH (08:06)
[2016-11-16] MEDS: ASPIRIN 81 MG ECTAB PO SCH (08:06)
[2016-11-16] MEDS: LISINOPRIL 5 MG TAB PO SCH (08:08)
[2016-11-16] MEDS: PANTOprazole SOD 40 MG TAB PO SCH (08:09)
[2016-11-16] MEDS: BuPROPion SR 150 MG TABCR PO SCH (08:09)
[2016-11-16] MEDS: CEROVITE ADV FORMULA TAB PO SCH (08:09)
[2016-11-16] MEDS: DUTASTERIDE 0.5MG PO SCH ×2 (08:14)
[2016-11-16] MEDS ORDERED: BISACODYL 5 MG TABEC PO ONE (09:45)
--- NOTE | 2016-11-16 09:49 | Cardiology Follow-Up ---
Subjective Subjective Date of Service: Nov 16, 2016. Pt evaluation today including: conversation w/ patient, physical exam, chart review, lab review, review of studies, review of inpatient medication list Additional Details: Pt seen and examined, states that he feels well today, just a little tired. Denies any further chest pain since coming back from labor conciliator last PM. No significant sob either, diuresing well after receiving 2 doses of lasix. Denies palpitations, lightheadedness or dizziness. Tele reviewed: sinus rhythm with ventricular pacing without arrhythmia or significant ecopy or pauses. Problem List Medical Problems: (1) Anterolateral myocardial infarction Status: Acute (2) Colonic diverticular abscess Status: Acute (3) Diverticulitis Status: Acute Review of Systems Respiratory: No see HPI, No cough, No sputum, No wheezing, No shortness of breath, No dyspnea on exertion, No dyspnea at rest, No hemoptysis, No problem reported Cardiac: No see HPI, No chest pain, No orthopnea, No PND, No edema, No claudication, No palpitations, No problem reported Objective Vital Signs Last Vital Signs Documentation Date Time Temp Pulse Resp B/P (MAP) Pulse Ox O2 Delivery O2 Flow Rate FiO2 11/16/16 09:13 83 78/53 (61) 78 11/16/16 08:07 17 96 11/16/16 07:30 Nasal Cannula 2.0 11/16/16 07:30 36.7 Physical Exam: General Appearance: WD/WN, no apparent distress Eyes: bilateral eyes normal inspection, bilateral eyes PERRL, bilateral eyes EOMI ENT: normal ENT inspection, hearing grossly normal, pharynx normal Neck: supple, no adenopathy, thyroid normal, no JVD, no carotid bruits, trachea midline Respiratory/Chest: chest non-tender, normal breath sounds, no respiratory distress, no accessory muscle use, + crackles (faint bibasilar) Cardiovascular: regular rate, rhythm, no edema, no JVD, no murmur, + gallop/S4 Abdomen: normal bowel sounds, non tender, soft, no organomegaly, no pulsatile mass Extremities: normal inspection, no pedal edema, no calf tenderness Neurologic/Psychiatric: check and transfer beader II-XII nml as tested, no motor/sensory deficits, alert, normal mood/affect, oriented x 3 Skin: normal color, warm/dry, no rash Lymphatic: no adenopathy Assessment and Plan 1. CAD s/p STEMI and subsequent NSTEMI repeat cath revealed a widely patent LAD stent with new branch vessel disease underwent poba of two relatively small diags with resolution of chest discomfort has been tolerating asa and plavix without issue bp a little low this AM, will hold morning meds and follow closely ideally would like to get metoprolol into him if possible 2. acute ischemic cardiomyopathy wall motion pattern follow LAD distribution hopefully myocardium is only stunned will ultimately place patient on metoprolol succinate, chay-i and possible spironolactone to aid in myocardial recovery no indication for ICD or lifevest, will follow will hold off further diuretics for now given relatively low bp but will follow volume status clinically ok to transfer to [facility] from cardiac standpoint
--- NOTE | 2016-11-16 11:24 | Critical Care Progress Note ---
Critical Care Progress Note Date of Service Nov 16, 2016. ICU Day ICU Day Number: [address] Garcia Subjective Patient is a 76-year-old male who initially presented to the emergency setting on 11/14 in the early hours complaining of chest discomfort. He subsequently underwent cardiac catheterization with stenting of his LAD. Throughout yesterday (11/15) the patient had complaints of ongoing nausea as well as transient episodes of chest discomfort which culminated in significant chest pressure on the way to repeat cardiac catheterization. He did have what was thought to be acute heart failure. He did receive IV Lasix during cath procedure. He was found to have a 95% ostial stenosis of the second diagonal which was corrected with balloon angioplasty with success. After procedure, the patient was reportedly pain-free. Patient reports no events throughout the night. He denies any discomfort rated his pain as 0/10. He reports feeling "100% better" and than yesterday. He is tolerating his breakfast. He does not feel nauseated. He has no complaints of LEFT-sided arm pain. The patient denies any headaches, dizziness, lightheadedness, chest pain, palpitations, shortness of breath, nausea, vomiting, or abdominal pain. Objective VITAL SIGNS - Vital signs and nursing notes were reviewed. GENERAL - 76-year-old male appearing his stated age who is in no acute distress. Communicates well with provider and answers questions appropriately. NECK - Neck with FROM. Supple to palpation. LUNGS - Chest wall symmetric without accessory muscle use, intercostals retractions, or central cyanosis. Normal vesicular breath sounds CTA B/L. No wheezes, rales, or rhonchi appreciated. CARDIAC - RRR with S1/S2. No murmur, rubs, or gallops appreciated. No reproducible tenderness to palpation appreciated over the anterior chest wall. ABDOMEN - Abdominal contour flat and without pulsations or visible masses. BS normoactive all four quadrants. No tenderness, palpable masses, hepatosplenomegaly, or ascites noted. EXTREMITIES - No clubbing or peripheral cyanosis. No pretibial edema present. +3 /5 radial and dorsalis pedis pulses palpated throughout. +5/5 strength noted in UE/LE bilaterally. NEUROLOGIC - Cranial nerves II through XII grossly intact. Sensory intact to light touch throughout. PSYCH - A&Ox3 and cooperates fully with examiner. Pt is very pleasant and interacts well with examiner. Current SOFA Score SOFA Score Response (Comments) Value Platelets (x10) > 150 0 Bilirubin (mg/dL) < 1.2 0 Wilda Coma Score 15 0 Level of Hypotension MAP less than 70 1 Creatinine (mg/dL) < 1.2 0 Total 1 Assessment & Plan (1) AMI (acute myocardial infarction) (2) Anterolateral myocardial infarction Neuro - * Patient alert and oriented. CAM ICU - NEGATIVE. * Complaining of no discomfort at this point. * Continue Rx for Anxiety as needed. CV - * s/p Anterolateral VA with REGULO to Mid LAD. Patient with persistent symptoms of nausea as well as return of chest discomfort later in the afternoon. Patient was assessed by cardiology and taken back to the laborer/key man. At this point, the patient became hypoxic and had significant chest discomfort. He developed acute heart failure. The patient responded well to treatments during catheterization. * Successful balloon angioplasty to a 95% occluded ostial stenosis of the second diagonal. Patient pain-free throughout the night. * Patient remains slightly hypotensive. This certainly may be attributed to medication effect. Additionally, repeat echocardiogram within the next few days may be prudent for evaluation of improvement of cardiac contractility in the setting of recent VA, especially given his poor function noted on initial electrocardiogram. * Will discontinue IV fluids and transition to by mouth fluids primarily in the setting of Acute Heart Failure s/o VA. * Overall, patient doing well and will be transferred to telemetry per Cardiology. RESPIRATORY - * Saturating well on 2 L nasal cannula. No distress. * Continue to titrate to room air. GI - * Patient tolerating diet. * Patient is complaining of not having a bowel movement since Monday. Did provide 5 mg Dulcolax to facilitate BM. RENAL/LYTES: * Continue to monitor BMP in the setting of 2 catheterizations with dye load in a 24 hour period. BUN/creatinine stable at this time. * Discontinue IV fluids secondary to acute heart failure status post VA. Patient tolerating by mouth food/fluids. : * Continue his home medications. ENDO: * Continue monitoring BSG's. HEME: * H&H stable. * Slight leukocytosis in the setting of recent cardiac stress. * TR Band site without active bleeding or significant hematoma. ID: * Leukocytosis in the setting of recent stress of VA with catheterization 2. Likely related to stress and demargination effect versus infectious etiology, but will continue to trend fever curve and monitor for signs of infection. LINES: * PIVs intact. DVT Prophylaxis: * Heparin SQ. CCT: 0 Minutes; Level 3 in-patient Billing; This time is exclusive of all separately billable procedures. Thank you for involving us in the care of this patient. Please refer to Dr. Ralph Garcia's addendum for further recommendations. I have personally evaluated and examined this patient. I agree with assessment and plan of Marguerite Galloway PA-C. Blood pressures remained soft, however patient remains asymptomatic. Held morning dose of antihypertensives. Patient may require holding his Flomax or separate the dosing of antihypertensives throughout the day Consults & Procedures Consultants: Drs. Garcia and Macho Procedures: Pt s/p repeat cardiac cath w/ balloon angioplasty. Data Medications: Current Inpatient Medications Medications (Trade) Dose Ordered Sig/Aura Route Start Time Stop Time Status Last Admin Dose Admin Aspirin (Ecotrin Tab) 81 mg QAM PO 11/15/16 09:00 12/15/16 08:59 11/16/16 08:06 81 MG Clopidogrel Bisulfate (plAVix TAB) 75 mg QAM PO 11/15/16 09:00 12/15/16 08:59 11/16/16 08:05 75 MG Atorvastatin Calcium (Lipitor Tab) 80 mg QAM PO 11/15/16 09:00 12/15/16 08:59 11/16/16 08:06 80 MG Lisinopril (Zestril Tab) 5 mg QAM PO 11/15/16 09:00 12/15/16 08:59 11/15/16 09:56 5 MG Acetaminophen (Tylenol Tab) 650 mg Q4H PRN PO 11/15/16 01:45 12/15/16 01:44 Docusate Sodium (coLACE CAP) 100 mg QAM PRN PO 11/15/16 02:15 12/15/16 02:14 Multivitamins/ Minerals (Multivitamin W/ Minerals Tab) 1 tab DAILY PO 11/15/16 09:00 12/15/16 08:59 11/16/16 08:09 1 TAB Tamsulosin HCl (Flomax Cap) 0.8 mg QPM PO 11/15/16 21:00 12/15/16 20:59 11/15/16 21:15 0.8 MG Bupropion HCl (Wellbutrin-Sr Tab) 150 mg DAILY PO 11/15/16 09:00 12/15/16 08:59 11/16/16 08:09 150 MG Ondansetron HCl (Zofran Inj) 4 mg Q6H PRN IV 11/15/16 06:00 12/15/16 05:59 Pantoprazole Sodium (Protonix Tab) 40 mg Q24H PO 11/15/16 07:00 12/15/16 06:59 Future hold 11/16/16 08:09 40 MG Heparin Sodium (Porcine) (Heparin Sq 5000 Unit/0.5ml) 5,000 unit Q8 SQ 11/16/16 14:00 12/16/16 13:59 Metoprolol Tartrate (Lopressor Tab) 25 mg Q6 PO 11/15/16 12:00 12/15/16 11:59 11/16/16 01:02 25 MG Nitroglycerin (Nitrostat Tab) 0.4 mg PRN PRN SL 11/15/16 12:45 12/15/16 12:44 Morphine Sulfate (MoRPHine SULFATE INJ) 2 mg Q4 PRN IV 11/15/16 12:45 11/29/16 12:44 Promethazine HCl 12.5 mg/Sodium Chloride 50.5 ml @ 204 mls/hr Q6H PRN IV 11/15/16 16:00 12/15/16 15:59 11/15/16 16:18 204 MLS/HR Dutasteride (Avodart) 0.5 mg DAILY PO 11/16/16 09:00 12/16/16 08:59 11/16/16 08:14 0.5 MG Alprazolam (Xanax Tab) 0.5 mg Q6H PRN PO 11/15/16 16:45 12/15/16 16:44 Hydromorphone HCl (Dilaudid Inj) 0.5 mg Q3HWA PRN IV 11/15/16 16:45 11/29/16 16:44 Vital Signs: Date Time Temp Pulse Resp B/P (MAP) Pulse Ox O2 Delivery O2 Flow Rate FiO2 11/16/16 09:13 83 78/53 (61) 78 11/16/16 08:07 79 17 90/53 (60) 96 11/16/16 08:06 79 18 80/50 (54) 96 11/16/16 08:04 73 15 88/55 (63) 95 11/16/16 08:01 76 25 95/58 (67) 11/16/16 08:00 76 25 94 11/16/16 07:45 80 9 95 11/16/16 07:30 Nasal Cannula 2.0 11/16/16 07:30 83 16 96 11/16/16 07:30 36.7 66 16 102/63 (76) 98 Nasal Cannula 2.0 11/16/16 07:16 66 18 102/63 (67) 97 11/16/16 07:15 66 26 98 11/16/16 07:01 66 25 107/62 (71) 95 11/16/16 07:00 64 27 96 11/16/16 06:01 60 27 112/63 (79) 95 Nasal Cannula 2.0 11/16/16 05:01 36.8 60 27 112/63 (79) 95 Nasal Cannula 2.0 11/16/16 04:01 79 28 132/79 (96) 93 Nasal Cannula 2.0 11/16/16 04:00 Nasal Cannula 2.0 11/16/16 03:01 68 26 113/75 (88) 91 Nasal Cannula 2.0 11/16/16 02:01 67 23 130/76 (94) 95 Nasal Cannula 2.0 11/16/16 01:31 88 29 138/82 (100) 94 Nasal Cannula 2.0 11/16/16 01:01 87 27 134/86 (102) 95 Nasal Cannula 2.0 11/16/16 00:35 88 25 128/89 (102) 95 Nasal Cannula 2.0 11/16/16 00:31 36.8 91 16 140/119 (126) 94 Nasal Cannula 2.0 11/16/16 00:01 86 28 132/82 (99) 95 Nasal Cannula 2.0 11/16/16 00:00 Nasal Cannula 2.0 11/15/16 23:31 90 27 132/79 (96) 94 Nasal Cannula 2.0 11/15/16 23:01 89 24 127/85 (99) 94 Nasal Cannula 2.0 11/15/16 22:31 86 29 122/83 (96) 94 11/15/16 22:01 88 29 138/90 (106) 94 11/15/16 21:32 98 21 140/94 (109) 93 Nasal Cannula 2.0 11/15/16 21:01 89 28 142/82 (102) 93 Nasal Cannula 2.0 11/15/16 20:36 90 27 143/79 (100) 95 Nasal Cannula 2.0 11/15/16 20:31 90 31 143/79 (100) 95 Nasal Cannula 2.0 11/15/16 20:30 88 20 143/79 (100) 95 Nasal Cannula 2.0 11/15/16 20:26 89 26 149/93 (111) 95 Nasal Cannula 2.0 11/15/16 20:25 88 20 149/93 (111) 95 Nasal Cannula 2.0 11/15/16 20:21 90 27 145/95 (112) 95 Nasal Cannula 2.0 11/15/16 20:20 89 20 145/95 (112) 95 Nasal Cannula 2.0 11/15/16 20:16 88 19 145/87 (106) 95 Nasal Cannula 2.0 11/15/16 20:15 87 19 145/87 (106) 95 Nasal Cannula 2.0 11/15/16 20:11 87 21 146/94 (111) 95 Nasal Cannula 2.0 11/15/16 20:10 87 21 146/94 (111) 95 Nasal Cannula 2.0 11/15/16 20:09 86 28 143/95 (111) 96 Nasal Cannula 2.0 11/15/16 20:01 88 26 148/91 (110) 95 Nasal Cannula 2.0 11/15/16 20:00 Nasal Cannula 2.0 11/15/16 19:46 36.9 83 28 148/107 (121) 95 Nasal Cannula 2.0 11/15/16 18:28 87 24 149/95 (113) 94 Nasal Cannula 6 11/15/16 18:13 91 27 156/105 (122) 94 Mask 15 11/15/16 16:00 Nasal Cannula 2.0 11/15/16 16:00 36.9 72 19 158/89 (112) 95 Nasal Cannula 2.0 11/15/16 14:00 60 24 131/74 (93) 94 Nasal Cannula 2.0 11/15/16 12:00 Nasal Cannula 2.0 11/15/16 12:00 36.9 82 18 155/95 (115) 93 Nasal Cannula 2.0 Laboratory Results: Last 24 Hours Test 11/15/16 13:51 11/15/16 17:22 11/15/16 17:30 11/15/16 17:41 Troponin I 96.600 ng/ml Bedside Blood Gas pH (LAB) 7.36 7.41 Bedside Blood Gas pCO2 (LAB) 43 mmHg 38 mmHg Bedside Blood Gas pO2 (LAB) < 32 mmHg 64 mmHg Bedside Blood Gas HCO3 (LAB) 24 meq/L 24 meq/L Bedside Blood Gas Total CO2 25 mEq/l 25 mEq/l Bedside Blood Gas Base Excess (LAB) -1.0 meq/L -1.0 meq/L Bedside Blood Gas O2 Saturation 55.0 % 92.0 % Kaolin Activated Coagulation Time 230 SECONDS Test 11/15/16 18:09 11/15/16 18:12 11/15/16 22:00 11/16/16 05:36 Bedside Blood Gas pH (LAB) 7.38 Bedside Blood Gas pCO2 (LAB) 44 mmHg Bedside Blood Gas pO2 (LAB) < 32 mmHg Bedside Blood Gas HCO3 (LAB) 26 meq/L Bedside Blood Gas Total CO2 27 mEq/l Bedside Blood Gas Base Excess (LAB) 1.0 meq/L Bedside Blood Gas O2 Saturation 54.0 % Kaolin Activated Coagulation Time 241 SECONDS Troponin I 87.200 ng/ml White Blood Count 18.22 K/uL Red Blood Count 5.14 M/uL Hemoglobin 15.7 g/dL Hematocrit 47.9 % Mean Corpuscular Volume 93.2 fL Mean Corpuscular Hemoglobin 30.5 pg Mean Corpuscular Hemoglobin Concent 32.8 g/dl Platelet Count 319 K/uL Mean Platelet Volume 9.5 fL Neutrophils (%) (Auto) 76.5 % Lymphocytes (%) (Auto) 12.8 % Monocytes (%) (Auto) 10.1 % Eosinophils (%) (Auto) 0.1 % Basophils (%) (Auto) 0.1 % Neutrophils # (Auto) 13.95 K/uL Lymphocytes # (Auto) 2.33 K/uL Monocytes # (Auto) 1.84 K/uL Eosinophils # (Auto) 0.01 K/uL Basophils # (Auto) 0.02 K/uL RDW Standard Deviation 46.8 fL RDW Coefficient of Variation 13.6 % Immature Granulocyte % (Auto) 0.4 % Immature Granulocyte # (Auto) 0.07 K/uL Sodium Level 137 mmol/L Potassium Level 3.7 mmol/L Chloride Level 103 mmol/L Carbon Dioxide Level 28 mmol/L Anion Gap 6.0 mmol/L Blood Urea Nitrogen 21 mg/dl Creatinine 0.92 mg/dl Est Creatinine Clear Calc Drug Dose 64.0 ml/min Estimated GFR () 92.0 Estimated GFR (Non- 79.4 BUN/Creatinine Ratio 23.0 Random Glucose 136 mg/dl Calcium Level 8.6 mg/dl Phosphorus Level 3.2 mg/dl Magnesium Level 2.2 mg/dl
[2016-11-16] MEDS: HEPARIN SOD 5000 UNIT/0.5 ML CARP SQ SCH ×2 (13:43→22:48)
--- NOTE | 2016-11-16 14:30 | Hospitalist Progress Note ---
Hospitalist Progress Note Date of Service Nov 16, 2016. Subjective Pt evaluation today including: conversation w/ patient, physical exam, conversation w/ recruiting and selection consultant ([employer]) Pt feeling much better than yesterday. 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 No SOB but was diuresed last night with lasix 40mg IV x 2 after having acute pulm edema and hypoxia. Has diuresed and now no longer hypoxic. BPs running quite low today down to 70s systolic. He thea not able to get his metoprolol or lisinopril today Respiratory: No shortness of breath Cardiovascular: No chest pain Abdomen: + constipation, No nausea, No vomiting Musculoskeletal: + joint pain (chronic right shoulder pain) All Other Systems: Reviewed and Negative Objective Vital Signs Date Time Temp Pulse Resp B/P (MAP) Pulse Ox O2 Delivery O2 Flow Rate FiO2 11/16/16 13:10 84/56 (65) 11/16/16 13:04 81 16 77/50 (54) 94 11/16/16 13:01 81 9 80/54 (57) 93 11/16/16 13:00 82 24 83/57 (61) 93 11/16/16 12:45 80 21 95 11/16/16 12:31 84 18 74/51 (58) 95 11/16/16 12:30 87 21 96 11/16/16 12:15 81 22 96 11/16/16 12:01 79 22 91/58 (62) 95 11/16/16 12:00 81 25 95 11/16/16 11:47 82 16 92/61 (71) 95 11/16/16 11:45 85 22 92 11/16/16 11:37 84 17 96/58 (61) 94 11/16/16 11:30 80 26 95 11/16/16 11:14 36.7 80 16 96/58 (71) 95 Room Air 11/16/16 11:01 77 20 103/57 (63) 92 11/16/16 11:00 74 23 93 11/16/16 10:46 76 20 99/59 (63) 92 11/16/16 10:45 75 20 92 11/16/16 10:31 75 20 99/59 (68) 95 8/2/17 10:30 77 24 96 11/16/16 10:16 76 18 96/56 (63) 96 11/16/16 10:15 77 22 96 11/16/16 10:01 66 25 92/53 (58) 95 11/16/16 10:00 67 26 95 11/16/16 09:46 66 25 92/56 (61) 94 11/16/16 09:45 66 25 94 11/16/16 09:31 70 24 89/52 (68) 94 11/16/16 09:30 75 25 94 11/16/16 09:16 65 24 95/54 (63) 96 11/16/16 09:15 67 26 97 11/16/16 09:13 83 78/53 (61) 78 11/16/16 09:11 81 18 78/53 (60) 96 11/16/16 09:01 81 27 92/62 (64) 96 11/16/16 09:00 79 18 96 11/16/16 08:07 79 17 90/53 (60) 96 11/16/16 08:06 79 18 80/50 (54) 96 11/16/16 08:04 73 15 88/55 (63) 95 11/16/16 08:01 76 25 95/58 (67) 11/16/16 08:00 76 25 94 11/16/16 07:45 80 9 95 11/16/16 07:30 Nasal Cannula 2.0 11/16/16 07:30 83 16 96 11/16/16 07:30 36.7 66 16 102/63 (76) 98 Nasal Cannula 2.0 11/16/16 07:16 66 18 102/63 (67) 97 11/16/16 07:15 66 26 98 11/16/16 07:01 66 25 107/62 (71) 95 11/16/16 07:00 64 27 96 11/16/16 06:01 60 27 112/63 (79) 95 Nasal Cannula 2.0 11/16/16 05:01 36.8 60 27 112/63 (79) 95 Nasal Cannula 2.0 11/16/16 04:01 79 28 132/79 (96) 93 Nasal Cannula 2.0 11/16/16 04:00 Nasal Cannula 2.0 11/16/16 03:01 68 26 113/75 (88) 91 Nasal Cannula 2.0 11/16/16 02:01 67 23 130/76 (94) 95 Nasal Cannula 2.0 11/16/16 01:31 88 29 138/82 (100) 94 Nasal Cannula 2.0 11/16/16 01:01 87 27 134/86 (102) 95 Nasal Cannula 2.0 11/16/16 00:35 88 25 128/89 (102) 95 Nasal Cannula 2.0 11/16/16 00:31 36.8 91 16 140/119 (126) 94 Nasal Cannula 2.0 11/16/16 00:01 86 28 132/82 (99) 95 Nasal Cannula 2.0 11/16/16 00:00 Nasal Cannula 2.0 11/15/16 23:31 90 27 132/79 (96) 94 Nasal Cannula 2.0 11/15/16 23:01 89 24 127/85 (99) 94 Nasal Cannula 2.0 11/15/16 22:31 86 29 122/83 (96) 94 11/15/16 22:01 88 29 138/90 (106) 94 11/15/16 21:32 98 21 140/94 (109) 93 Nasal Cannula 2.0 11/15/16 21:01 89 28 142/82 (102) 93 Nasal Cannula 2.0 11/15/16 20:36 90 27 143/79 (100) 95 Nasal Cannula 2.0 11/15/16 20:31 90 31 143/79 (100) 95 Nasal Cannula 2.0 11/15/16 20:30 88 20 143/79 (100) 95 Nasal Cannula 2.0 11/15/16 20:26 89 26 149/93 (111) 95 Nasal Cannula 2.0 11/15/16 20:25 88 20 149/93 (111) 95 Nasal Cannula 2.0 11/15/16 20:21 90 27 145/95 (112) 95 Nasal Cannula 2.0 11/15/16 20:20 89 20 145/95 (112) 95 Nasal Cannula 2.0 11/15/16 20:16 88 19 145/87 (106) 95 Nasal Cannula 2.0 11/15/16 20:15 87 19 145/87 (106) 95 Nasal Cannula 2.0 11/15/16 20:11 87 21 146/94 (111) 95 Nasal Cannula 2.0 11/15/16 20:10 87 21 146/94 (111) 95 Nasal Cannula 2.0 11/15/16 20:09 86 28 143/95 (111) 96 Nasal Cannula 2.0 11/15/16 20:01 88 26 148/91 (110) 95 Nasal Cannula 2.0 11/15/16 20:00 Nasal Cannula 2.0 11/15/16 19:46 36.9 83 28 148/107 (121) 95 Nasal Cannula 2.0 11/15/16 18:28 87 24 149/95 (113) 94 Nasal Cannula 6 11/15/16 18:13 91 27 156/105 (122) 94 Mask 15 11/15/16 16:00 Nasal Cannula 2.0 11/15/16 16:00 36.9 72 19 158/89 (112) 95 Nasal Cannula 2.0 Physical Exam General Appearance: WD/WN, no apparent distress Eyes: normal inspection, sclerae normal ENT: hearing grossly normal Neck: trachea midline Respiratory/Chest: lungs clear, normal breath sounds, no respiratory distress, no accessory muscle use Cardiovascular: regular rate, rhythm, no edema, no gallop, no murmur Abdomen: normal bowel sounds, non tender, soft, no organomegaly, no pulsatile mass Extremities: non-tender, normal inspection, no pedal edema, no calf tenderness Neurologic/Psychiatric: alert, normal mood/affect, oriented x 3 Skin: normal color, warm/dry, no rash Laboratory Results Last 24 Hours Test 11/15/16 17:22 11/15/16 17:30 11/15/16 17:41 11/15/16 18:09 Bedside Blood Gas pH (LAB) 7.36 7.41 7.38 Bedside Blood Gas pCO2 (LAB) 43 mmHg 38 mmHg 44 mmHg Bedside Blood Gas pO2 (LAB) < 32 mmHg 64 mmHg < 32 mmHg Bedside Blood Gas HCO3 (LAB) 24 meq/L 24 meq/L 26 meq/L Bedside Blood Gas Total CO2 25 mEq/l 25 mEq/l 27 mEq/l Bedside Blood Gas Base Excess (LAB) -1.0 meq/L -1.0 meq/L 1.0 meq/L Bedside Blood Gas O2 Saturation 55.0 % 92.0 % 54.0 % Kaolin Activated Coagulation Time 230 SECONDS Test 11/15/16 18:12 11/15/16 22:00 11/16/16 05:36 Kaolin Activated Coagulation Time 241 SECONDS Troponin I 87.200 ng/ml White Blood Count 18.22 K/uL Red Blood Count 5.14 M/uL Hemoglobin 15.7 g/dL Hematocrit 47.9 % Mean Corpuscular Volume 93.2 fL Mean Corpuscular Hemoglobin 30.5 pg Mean Corpuscular Hemoglobin Concent 32.8 g/dl Platelet Count 319 K/uL Mean Platelet Volume 9.5 fL Neutrophils (%) (Auto) 76.5 % Lymphocytes (%) (Auto) 12.8 % Monocytes (%) (Auto) 10.1 % Eosinophils (%) (Auto) 0.1 % Basophils (%) (Auto) 0.1 % Neutrophils # (Auto) 13.95 K/uL Lymphocytes # (Auto) 2.33 K/uL Monocytes # (Auto) 1.84 K/uL Eosinophils # (Auto) 0.01 K/uL Basophils # (Auto) 0.02 K/uL RDW Standard Deviation 46.8 fL RDW Coefficient of Variation 13.6 % Immature Granulocyte % (Auto) 0.4 % Immature Granulocyte # (Auto) 0.07 K/uL Sodium Level 137 mmol/L Potassium Level 3.7 mmol/L Chloride Level 103 mmol/L Carbon Dioxide Level 28 mmol/L Anion Gap 6.0 mmol/L Blood Urea Nitrogen 21 mg/dl Creatinine 0.92 mg/dl Est Creatinine Clear Calc Drug Dose 64.0 ml/min Estimated GFR () 92.0 Estimated GFR (Non- 79.4 BUN/Creatinine Ratio 23.0 Random Glucose 136 mg/dl Calcium Level 8.6 mg/dl Phosphorus Level 3.2 mg/dl Magnesium Level 2.2 mg/dl Assessment and Plan Pt is a 76 yo male with a h/o BPH, heart block with PPM, here with STEMI. Had urgent placement of REGULO to mid LAD which was acutely occluded. STEMI/CAD/Acute systolic CHF, s/p REGULO to mid LAD and then went back to pathology laboratory aides teacher later the same day for recurrent angina and had POBA of 2 branch vessels that were worse than on first cath. Age is really his only risk factor. Lipid panel actually looks excellent. He had no h/o angina ever by history. He did receive a steroid injection in his right shoulder a few days prior to his STEMI but not clear if this played any role. Troponin >200--> 96--> 87 ECHO: Normal LV chamber size with mild concentric LVH. * Moderately reduced LV systolic function, EF 35-40%. * Severe hypokinesis to akinesis of the mid to apical anterior/anteroseptal quiroga. Akinesis of the apex along with moderate hypokinesis of the mid inferior wall. * The right ventricular cavity size is normal (basal dimension <4.2 cm in right ventricular apical 4-chamber view). Normal RV systolic function by TAPSE. * Mild mitral regurgitation. * Mild tricuspid regurgitation. * Mild left atrial enlargement. * PASP of 38 mmHg assuming a RA pressure of 3 mmHg. -continue ICU for monitoring given hypotension which is likely secondary to diuretics and metoprolol,lisinopril (he normally runs low on his BP he states) -Continue dual-antiplatelet therapy with ASA/Clopidogrel for at least 1 year -hopeful that EF will recover -Primary Operator Control Room consulted -hold metoprolol and lisinopril for low BP but hopefully can eventually get back on and give Toprol XL, lisinopril,, and possibly aldactone as per Cardiology -started High-dose statin -Consult cardiac Rehab -monitor for signs of worsening CHF and give IV lasix prn -follow for arrhythmia, lyte changes BPH-stable, no current issues -hold Flomax for hypotension for now -continue dutasteride from home Anxiety, Insomnia- stable -continue buproprion 150mg SR daily although unclear why he is on this once daily as it is a bid drug--> perhaps it caused trouble sleeping with the evening dosing -continue alprazolam prn sleep but he reports he only takes 1/2 tab at home of the 0.5mg tabs--> change dose here to 0.25mg prn Proph- heparin SQ Dispo-continued ICU status
[2016-11-17] VITALS (30 sets, daily range): BP systolic 76–110; BP diastolic 47–68; PULSE 68–122; TEMP 36.6–37.2; O2SAT 88–98
[2016-11-17] MEDS: METOPROLOL TARTRATE 25 MG TAB PO SCH ×4 (06:00→18:40)
[2016-11-17 06:05] LABS: BASO % 0.2 %; BASO ABS # 0.03 K/uL (0-0.2); COMPLETE YES; EOS % 0.8 %; HEMATOCRIT 42.7 % (42-52); IG% 0.4 %; LYMPH % 23.5 %; LYMPH ABS # 3.23 K/uL (1.2-3.4); MEAN CELL VOLUME 93.4 fL (80-100); MEAN CORPUSCULAR HEMOGLOBIN 31.7 pg (25-34); MEAN PLATELET VOLUME 9.5 fL (7.4-10.4); MONO % 12.9 %; NEUT % 62.2 %; PLATELET COUNT 275 K/uL (130-400); RED BLOOD COUNT 4.57 M/uL (4.7-6.1); WHITE BLOOD COUNT 13.75 K/uL (4.8-10.8)
[2016-11-17] MEDS: HEPARIN SOD 5000 UNIT/0.5 ML CARP SQ SCH ×3 (06:38→21:38)
[2016-11-17] MEDS: PANTOprazole SOD 40 MG TAB PO SCH (06:39)
[2016-11-17 06:43] LABS: BUN/CREATININE RATIO 27.4 (10-20); CALCIUM 8.6 mg/dl (8.5-10.1); MAGNESIUM 2.2 mg/dl (1.8-2.4); POTASSIUM 3.8 mmol/L (3.5-5.1)
[2016-11-17 06:49] LABS: PHOSPHORUS 2.4 mg/dl (2.5-4.9)
[2016-11-17] MEDS: ATORVASTATIN 40 MG TAB PO SCH (08:08)
[2016-11-17] MEDS: BuPROPion SR 150 MG TABCR PO SCH (08:08)
[2016-11-17] MEDS: CLOPIDOGREL BISULFATE 75 MG TAB PO SCH (08:09)
[2016-11-17] MEDS: DUTASTERIDE 0.5MG PO SCH ×2 (08:09)
[2016-11-17] MEDS: CEROVITE ADV FORMULA TAB PO SCH (08:09)
[2016-11-17] MEDS: ASPIRIN 81 MG ECTAB PO SCH (08:09)
[2016-11-17] MEDS: LISINOPRIL 5 MG TAB PO SCH (08:10)
[2016-11-17] MEDS: POT PHOSPHATE MONOBASIC W/ SOD TAB PO SCH ×3 (08:10→18:39)
--- NOTE | 2016-11-17 08:49 | Critical Care Progress Note ---
Critical Care Progress Note Date of Service Nov 17, 2016. ICU Day ICU Day Number: [address] Garcia Subjective Overnight, per nursing, patient has been hypotensive in the 80's to 90's systolic, tachycardic up to 110's to 120's. HR has since improved. Patient reports he was asymptomatic during the period of tachycardia. He does report 2 episodes of sharp epigastric pain that lasted a few second which has since resolved. . Patient denies Chest pain, SOB, palpitation, presyncope/syncope, orthopnea, PND Objective GENERAL: alert, well appearing, well nourished, no distress, non-toxic EYE EXAM: normal conjunctiva, PERRL and EOM's grossly intact OROPHARYNX: no exudate, no erythema, lips, buccal mucosa, and tongue normal and mucous membranes are moist, + missing teeth NECK: supple, no nuchal rigidity, no adenopathy, non-tender, mildly elevated JVD LUNGS: Clear to auscultation. Normal chest wall mechanics HEART: no murmurs, S1 normal and S2 normal ABDOMEN: abdomen soft, non-tender, normo-active bowel sounds, no masses, no rebound or guarding. SKIN: no rashes and no bruising UPPER EXTREMITIES: upper extremities are grossly normal. LOWER EXTREMITIES: No pitting edema. NEURO EXAM: Normal sensorium, cranial nerves II-XII grossly intact, normal speech, no gross weakness of arms, no gross weakness of legs. 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 Dec'd Metoprolol to12.5 g q6, Continue Lisinopril, Flomax Held CV drips: off vasoactive medications Rhythm: Sinus ECHO: Echo dated (11/15): Moderately reduced LV systolic function, EF 35-40% . Severe hypokinesis to akinesis of the mid to apical anterior/ anteroseptal quiroga. Akinesis of the apex along with moderate hypokinesis of the mid inferior wall Fluids/Renal: Mild Hypophosphatemia: Continue KPhos supplementation IV Fluids: Fluids from intravenous medications Net Urine:IN 900, Out: 2074, Net Output put x24 hrs 1175 Smith: None GI/Nutrition: Feeding: AHA diet Prophylaxis: On PPI Bowel movements: 1 BM today Stool softeners: Colace Endocrine: Last 24 hour glucose: Ranging 106 to 136 Hematology: Hemoglobin: 14.5 DVT prophylaxis: Heparin 5000 3 times a day Infectious Disease/Immunology: Tmax: 36.6 Disposition: Transfer to Tele PT/OT Resident Physician Supervision Note: Dr. Mccrary was resident physician during care of patient. I separately evaluated patient and did history and exam. I discussed the case with the resident and generally agree with the findings and plan. discussed with Dr. Rodriguez of hospitalist service Documented By: Ralph Garcia DO Consults & Procedures Consultants: Drs. Garcia and Macho Procedures: Pt s/p repeat cardiac cath w/ balloon angioplasty. Data Medications: Current Inpatient Medications Medications (Trade) Dose Ordered Sig/Aura Route Start Time Stop Time Status Last Admin Dose Admin Aspirin (Ecotrin Tab) 81 mg QAM PO 11/15/16 09:00 12/15/16 08:59 11/17/16 08:09 81 MG Clopidogrel Bisulfate (plAVix TAB) 75 mg QAM PO 11/15/16 09:00 12/15/16 08:59 11/17/16 08:09 75 MG Atorvastatin Calcium (Lipitor Tab) 80 mg QAM PO 11/15/16 09:00 12/15/16 08:59 11/17/16 08:08 80 MG Lisinopril (Zestril Tab) 5 mg QAM PO 11/15/16 09:00 12/15/16 08:59 11/15/16 09:56 5 MG Acetaminophen (Tylenol Tab) 650 mg Q4H PRN PO 11/15/16 01:45 12/15/16 01:44 Docusate Sodium (coLACE CAP) 100 mg QAM PRN PO 11/15/16 02:15 12/15/16 02:14 Multivitamins/ Minerals (Multivitamin W/ Minerals Tab) 1 tab DAILY PO 11/15/16 09:00 12/15/16 08:59 11/17/16 08:09 1 TAB Tamsulosin HCl (Flomax Cap) 0.8 mg QPM PO 11/15/16 21:00 12/15/16 20:59 Future Hold 11/15/16 21:15 0.8 MG Bupropion HCl (Wellbutrin-Sr Tab) 150 mg DAILY PO 11/15/16 09:00 12/15/16 08:59 11/17/16 08:08 150 MG Ondansetron HCl (Zofran Inj) 4 mg Q6H PRN IV 11/15/16 06:00 12/15/16 05:59 Pantoprazole Sodium (Protonix Tab) 40 mg Q24H PO 11/15/16 07:00 12/15/16 06:59 Future hold 11/17/16 06:39 40 MG Heparin Sodium (Porcine) (Heparin Sq 5000 Unit/0.5ml) 5,000 unit Q8 SQ 11/16/16 14:00 12/16/16 13:59 11/17/16 06:38 5,000 UNIT Nitroglycerin (Nitrostat Tab) 0.4 mg PRN PRN SL 11/15/16 12:45 12/15/16 12:44 Morphine Sulfate (MoRPHine SULFATE INJ) 2 mg Q4 PRN IV 11/15/16 12:45 11/29/16 12:44 Promethazine HCl 12.5 mg/Sodium Chloride 50.5 ml @ 204 mls/hr Q6H PRN IV 11/15/16 16:00 12/15/16 15:59 11/15/16 16:18 204 MLS/HR Dutasteride (Avodart) 0.5 mg DAILY PO 11/16/16 09:00 12/16/16 08:59 11/17/16 08:09 0.5 MG Alprazolam (Xanax Tab) 0.5 mg Q6H PRN PO 11/15/16 16:45 12/15/16 16:44 Hydromorphone HCl (Dilaudid Inj) 0.5 mg Q3HWA PRN IV 11/15/16 16:45 11/29/16 16:44 Potassium/ Phosphorus/Sodium (Phospha 250 Neutral 155-852-130 Mg) 1 tab Q4H PO 11/17/16 07:30 11/17/16 15:31 11/17/16 08:10 1 TAB Metoprolol Tartrate (Lopressor Tab) 12.5 mg Q6 PO 11/17/16 12:00 12/17/16 11:59 11/17/16 08:09 12.5 MG Vital Signs: Date Time Temp Pulse Resp B/P (MAP) Pulse Ox O2 Delivery O2 Flow Rate FiO2 11/17/16 07:30 Room Air 11/17/16 07:30 36.6 71 18 104/53 (70) 93 Room Air 11/17/16 06:01 71 21 86/51 (63) 93 11/17/16 04:01 79 25 96/53 (67) 95 11/17/16 04:00 Room Air 11/17/16 03:01 105 23 93/53 (66) 90 11/17/16 03:01 105 23 93/53 (66) 90 11/17/16 03:00 101 24 91 11/17/16 02:04 102 16 92/55 (67) 94 11/17/16 02:04 102 16 92/55 (67) 94 11/17/16 02:03 103 14 76/47 (57) 94 11/17/16 02:03 103 14 76/47 (57) 94 11/17/16 02:02 100 12 78/47 (57) 91 11/17/16 02:02 100 12 78/47 (57) 91 11/17/16 02:00 101 0 90 11/17/16 01:01 93 23 89/61 (70) 93 11/17/16 01:01 93 23 89/61 (70) 93 11/17/16 01:00 96 17 91 11/17/16 00:01 95 24 97/59 (72) 94 11/17/16 00:01 95 24 97/59 (72) 94 11/17/16 00:00 98 25 94 11/17/16 00:00 Room Air 11/16/16 23:01 94 23 93/53 (66) 92 11/16/16 22:01 93 21 90/59 (69) 94 Room Air 11/16/16 21:01 91 23 103/69 (80) 92 Room Air 11/16/16 20:02 36.6 92 21 84/62 (69) 93 Room Air 11/16/16 20:00 Room Air 11/16/16 19:30 93 24 94 11/16/16 19:01 92 22 99/60 (85) 93 11/16/16 19:00 89 19 95 11/16/16 18:30 91 16 94 11/16/16 18:08 88 25 83/56 (66) 96 11/16/16 18:01 89 28 93/55 (65) 96 11/16/16 18:00 91 25 98 11/16/16 17:30 88 26 95 11/16/16 17:01 92 23 90/55 (78) 93 11/16/16 17:00 90 18 95 11/16/16 16:30 87 22 95 11/16/16 16:01 36.6 84 20 84/53 (56) 11/16/16 16:00 87 21 95 11/16/16 15:31 79 23 104/57 (61) 11/16/16 15:30 80 23 91 11/16/16 15:16 80 23 98/68 (79) 91 11/16/16 15:01 78 23 89/56 (65) 90 11/16/16 15:00 80 25 90 11/16/16 13:10 84/56 (65) 11/16/16 13:04 81 16 77/50 (54) 94 11/16/16 13:01 81 9 80/54 (57) 93 11/16/16 13:00 82 24 83/57 (61) 93 11/16/16 12:45 80 21 95 11/16/16 12:31 84 18 74/51 (58) 95 11/16/16 12:30 87 21 96 11/16/16 12:15 81 22 96 11/16/16 12:01 79 22 91/58 (62) 95 11/16/16 12:00 81 25 95 11/16/16 11:47 82 16 92/61 (71) 95 11/16/16 11:45 85 22 92 11/16/16 11:37 84 17 96/58 (61) 94 11/16/16 11:30 80 26 95 11/16/16 11:14 36.7 80 16 96/58 (71) 95 Room Air 11/16/16 11:01 77 20 103/57 (63) 92 11/16/16 11:00 74 23 93 11/16/16 10:46 76 20 99/59 (63) 92 11/16/16 10:45 75 20 92 11/16/16 10:31 75 20 99/59 (68) 95 11/16/16 10:30 77 24 96 11/16/16 10:16 76 18 96/56 (63) 96 11/16/16 10:15 77 22 96 11/16/16 10:01 66 25 92/53 (58) 95 11/16/16 10:00 67 26 95 11/16/16 09:46 66 25 92/56 (61) 94 11/16/16 09:45 66 25 94 11/16/16 09:31 70 24 89/52 (68) 94 11/16/16 09:30 75 25 94 11/16/16 09:16 65 24 95/54 (63) 96 11/16/16 09:15 67 26 97 11/16/16 09:13 83 78/53 (61) 78 11/16/16 09:11 81 18 78/53 (60) 96 11/16/16 09:01 81 27 92/62 (64) 96 11/16/16 09:00 79 18 96 Laboratory Results: Last 24 Hours Test 11/17/16 05:56 White Blood Count 13.75 K/uL Red Blood Count 4.57 M/uL Hemoglobin 14.5 g/dL Hematocrit 42.7 % Mean Corpuscular Volume 93.4 fL Mean Corpuscular Hemoglobin 31.7 pg Mean Corpuscular Hemoglobin Concent 34.0 g/dl Platelet Count 275 K/uL Mean Platelet Volume 9.5 fL Neutrophils (%) (Auto) 62.2 % Lymphocytes (%) (Auto) 23.5 % Monocytes (%) (Auto) 12.9 % Eosinophils (%) (Auto) 0.8 % Basophils (%) (Auto) 0.2 % Neutrophils # (Auto) 8.56 K/uL Lymphocytes # (Auto) 3.23 K/uL Monocytes # (Auto) 1.77 K/uL Eosinophils # (Auto) 0.11 K/uL Basophils # (Auto) 0.03 K/uL RDW Standard Deviation 46.9 fL RDW Coefficient of Variation 13.7 % Immature Granulocyte % (Auto) 0.4 % Immature Granulocyte # (Auto) 0.05 K/uL Sodium Level 137 mmol/L Potassium Level 3.8 mmol/L Chloride Level 104 mmol/L Carbon Dioxide Level 29 mmol/L Anion Gap 4.0 mmol/L Blood Urea Nitrogen 27 mg/dl Creatinine 1.00 mg/dl Est Creatinine Clear Calc Drug Dose 58.9 ml/min Estimated GFR () 83.2 Estimated GFR (Non- 71.8 BUN/Creatinine Ratio 27.4 Random Glucose 106 mg/dl Calcium Level 8.6 mg/dl Phosphorus Level 2.4 mg/dl Magnesium Level 2.2 mg/dl Resident Tracking Resident Involvement: Resident Care Provided Care Provided: Adult Hospital Medicine
[2016-11-17] MEDS ORDERED: BACITRACIN OINT 15 GM TUBE EXT ONE (10:23)
--- NOTE | 2016-11-17 10:30 | Hospitalist Progress Note ---
Hospitalist Progress Note Date of Service Nov 17, 2016. Subjective Pt evaluation today including: conversation w/ patient Voiding: no voiding problems Pt doing very well, BPs improved, voiding, had a BM. No further CP, no SOB. Is OOB to chair currently. No arrhythmias on tele All Other Systems: Reviewed and Negative Objective Vital Signs Date Time Temp Pulse Resp B/P (MAP) Pulse Ox O2 Delivery O2 Flow Rate FiO2 11/17/16 10:01 88 20 99/57 (69) 94 11/17/16 10:00 89 22 96 11/17/16 09:31 99 19 95/68 (89) 90 11/17/16 09:30 90 20 88 11/17/16 09:01 85 20 96/60 (75) 94 11/17/16 09:00 85 16 94 11/17/16 08:31 107 20 98/59 (66) 95 11/17/16 08:30 108 20 95 11/17/16 08:01 111 25 96/57 (67) 97 11/17/16 08:00 112 22 97 11/17/16 07:30 Room Air 11/17/16 07:30 36.6 71 18 104/53 (70) 93 Room Air 11/17/16 07:30 122 27 98 11/17/16 07:01 68 1 104/59 (66) 94 11/17/16 07:00 69 13 96 11/17/16 06:01 71 21 86/51 (63) 93 11/17/16 04:01 79 25 96/53 (67) 95 11/17/16 04:00 Room Air 11/17/16 03:01 105 23 93/53 (66) 90 11/17/16 03:01 105 23 93/53 (66) 90 11/17/16 03:00 101 24 91 11/17/16 02:04 102 16 92/55 (67) 94 11/17/16 02:04 102 16 92/55 (67) 94 11/17/16 02:03 103 14 76/47 (57) 94 11/17/16 02:03 103 14 76/47 (57) 94 11/17/16 02:02 100 12 78/47 (57) 91 11/17/16 02:02 100 12 78/47 (57) 91 11/17/16 02:00 101 0 90 11/17/16 01:01 93 23 89/61 (70) 93 11/17/16 01:01 93 23 89/61 (70) 93 11/17/16 01:00 96 17 91 11/17/16 00:01 95 24 97/59 (72) 94 11/17/16 00:01 95 24 97/59 (72) 94 11/17/16 00:00 98 25 94 11/17/16 00:00 Room Air 11/16/16 23:01 94 23 93/53 (66) 92 11/16/16 22:01 93 21 90/59 (69) 94 Room Air 11/16/16 21:01 91 23 103/69 (80) 92 Room Air 11/16/16 20:02 36.6 92 21 84/62 (69) 93 Room Air 11/16/16 20:00 Room Air 11/16/16 19:30 93 24 94 11/16/16 19:01 92 22 99/60 (85) 93 11/16/16 19:00 89 19 95 11/16/16 18:30 91 16 94 11/16/16 18:08 88 25 83/56 (66) 96 11/16/16 18:01 89 28 93/55 (65) 96 11/16/16 18:00 91 25 98 11/16/16 17:30 88 26 95 11/16/16 17:01 92 23 90/55 (78) 93 11/16/16 17:00 90 18 95 11/16/16 16:30 87 22 95 11/16/16 16:01 36.6 84 20 84/53 (56) 11/16/16 16:00 87 21 95 11/16/16 15:31 79 23 104/57 (61) 11/16/16 15:30 80 23 91 11/16/16 15:16 80 23 98/68 (79) 91 11/16/16 15:01 78 23 89/56 (65) 90 11/16/16 15:00 80 25 90 11/16/16 13:10 84/56 (65) 11/16/16 13:04 81 16 77/50 (54) 94 11/16/16 13:01 81 9 80/54 (57) 93 11/16/16 13:00 82 24 83/57 (61) 93 11/16/16 12:45 80 21 95 11/16/16 12:31 84 18 74/51 (58) 95 11/16/16 12:30 87 21 96 11/16/16 12:15 81 22 96 11/16/16 12:01 79 22 91/58 (62) 95 11/16/16 12:00 81 25 95 11/16/16 11:47 82 16 92/61 (71) 95 11/16/16 11:45 85 22 92 11/16/16 11:37 84 17 96/58 (61) 94 11/16/16 11:30 80 26 95 11/16/16 11:14 36.7 80 16 96/58 (71) 95 Room Air 11/16/16 11:01 77 20 103/57 (63) 92 11/16/16 11:00 74 23 93 11/16/16 10:46 76 20 99/59 (63) 92 11/16/16 10:45 75 20 92 11/16/16 10:31 75 20 99/59 (68) 95 11/16/16 10:30 77 24 96 Physical Exam General Appearance: WD/WN, no apparent distress Eyes: normal inspection, sclerae normal ENT: hearing grossly normal Neck: trachea midline Respiratory/Chest: lungs clear, normal breath sounds, no respiratory distress, no accessory muscle use Cardiovascular: regular rate, rhythm, no edema, no gallop, no murmur Abdomen: normal bowel sounds, non tender, soft, no organomegaly, no pulsatile mass Extremities: non-tender, normal inspection, no pedal edema, no calf tenderness Neurologic/Psychiatric: alert, normal mood/affect, oriented x 3 Skin: normal color, warm/dry, no rash Laboratory Results Last 24 Hours Test 11/17/16 05:56 White Blood Count 13.75 K/uL Red Blood Count 4.57 M/uL Hemoglobin 14.5 g/dL Hematocrit 42.7 % Mean Corpuscular Volume 93.4 fL Mean Corpuscular Hemoglobin 31.7 pg Mean Corpuscular Hemoglobin Concent 34.0 g/dl Platelet Count 275 K/uL Mean Platelet Volume 9.5 fL Neutrophils (%) (Auto) 62.2 % Lymphocytes (%) (Auto) 23.5 % Monocytes (%) (Auto) 12.9 % Eosinophils (%) (Auto) 0.8 % Basophils (%) (Auto) 0.2 % Neutrophils # (Auto) 8.56 K/uL Lymphocytes # (Auto) 3.23 K/uL Monocytes # (Auto) 1.77 K/uL Eosinophils # (Auto) 0.11 K/uL Basophils # (Auto) 0.03 K/uL RDW Standard Deviation 46.9 fL RDW Coefficient of Variation 13.7 % Immature Granulocyte % (Auto) 0.4 % Immature Granulocyte # (Auto) 0.05 K/uL Sodium Level 137 mmol/L Potassium Level 3.8 mmol/L Chloride Level 104 mmol/L Carbon Dioxide Level 29 mmol/L Anion Gap 4.0 mmol/L Blood Urea Nitrogen 27 mg/dl Creatinine 1.00 mg/dl Est Creatinine Clear Calc Drug Dose 58.9 ml/min Estimated GFR () 83.2 Estimated GFR (Non- 71.8 BUN/Creatinine Ratio 27.4 Random Glucose 106 mg/dl Calcium Level 8.6 mg/dl Phosphorus Level 2.4 mg/dl Magnesium Level 2.2 mg/dl Assessment and Plan Pt is a 76 yo male with a h/o BPH, heart block with PPM, here with STEMI. Had urgent placement of REGULO to mid LAD which was acutely occluded. STEMI/CAD/Acute systolic CHF, s/p REGULO to mid LAD and then went back to labor commissioner later the same day for recurrent angina and had POBA of 2 branch vessels that were worse than on first cath. Age is really his only risk factor. Lipid panel actually looks excellent. He had no h/o angina ever by history. He did receive a steroid injection in his right shoulder a few days prior to his STEMI but not clear if this played any role. Troponin >200--> 96--> 87 ECHO: Normal LV chamber size with mild concentric LVH. * Moderately reduced LV systolic function, EF 35-40%. * Severe hypokinesis to akinesis of the mid to apical anterior/anteroseptal quiroga. Akinesis of the apex along with moderate hypokinesis of the mid inferior wall. * The right ventricular cavity size is normal (basal dimension <4.2 cm in right ventricular apical 4-chamber view). Normal RV systolic function by TAPSE. * Mild mitral regurgitation. * Mild tricuspid regurgitation. * Mild left atrial enlargement. * PASP of 38 mmHg assuming a RA pressure of 3 mmHg. -Doing very well, no arrhythmias on tele, Hypotensive but asymptomatic, has improved today, able to give lower dose metoprolol -Continue dual-antiplatelet therapy with ASA/Clopidogrel for at least 1 year -hopeful that EF will recover -Primary Learning And Development Associate consulted -continue metoprolol 12.5mg po q6h but may need to decrease to q12 -continue lisinopril 5mg daily if BP can tolerate--> if BP still too low, will have to hold off and add on in the future -on dc will switch to Toprol XL, possible lisinopril, and possibly aldactone as per Cardiology -started High-dose statin -Consult cardiac Rehab -monitor for signs of worsening CHF and give IV lasix prn -follow for arrhythmia, lyte changes -can probably dc to home tomorrow BPH-stable, no current issues -continue to hold Flomax for hypotension for now but he does have a significant problem with this in so hopefully can add it back on -continue dutasteride from home Anxiety, Insomnia- stable -continue buproprion 150mg SR daily although unclear why he is on this once daily as it is a bid drug--> perhaps it caused trouble sleeping with the evening dosing -continue alprazolam prn sleep but he reports he only takes 1/2 tab at home of the 0.5mg tabs--> change dose here to 0.25mg prn Proph- heparin SQ Dispo-transfer to tele possibly to home tomorrow
--- NOTE | 2016-11-17 13:21 | Cardiology Follow-Up ---
Subjective Subjective Date of Service: Nov 17, 2016. Pt evaluation today including: conversation w/ patient, physical exam, chart review, lab review, review of studies, review of inpatient medication list Additional Details: Pt seen and examined, oob in chair eating lunch. Denies cp, sob, palpitations, lightheadedness or dizziness. Tolerating walking well. Tele reviewed: v-paced in 90's -100's Problem List Medical Problems: (1) Anterolateral myocardial infarction Status: Acute (2) Colonic diverticular abscess Status: Acute (3) Diverticulitis Status: Acute Review of Systems Respiratory: No see HPI, No cough, No sputum, No wheezing, No shortness of breath, No dyspnea on exertion, No dyspnea at rest, No hemoptysis, No problem reported Cardiac: No see HPI, No chest pain, No orthopnea, No PND, No edema, No claudication, No palpitations, No problem reported Abdomen: + constipation, No nausea, No vomiting Musculoskeletal: + joint pain (chronic right shoulder pain) Objective Vital Signs Last Vital Signs Documentation Date Time Temp Pulse Resp B/P (MAP) Pulse Ox O2 Delivery O2 Flow Rate FiO2 11/17/16 13:18 36.7 96 18 95 2.0 11/17/16 11:01 Room Air 11/17/16 11:01 97/53 (68) Physical Exam: General Appearance: WD/WN, no apparent distress Eyes: bilateral eyes normal inspection, bilateral eyes PERRL, bilateral eyes EOMI ENT: hearing grossly normal, pharynx normal Neck: supple, no adenopathy, thyroid normal, no JVD, trachea midline Respiratory/Chest: lungs clear, normal breath sounds, no respiratory distress, no accessory muscle use Cardiovascular: regular rate, rhythm, no edema, no JVD, no murmur, + gallop/S4 Abdomen: normal bowel sounds, non tender, soft, no organomegaly, no pulsatile mass Extremities: non-tender, normal inspection, no pedal edema, no calf tenderness Neurologic/Psychiatric: financial services intern II-XII nml as tested, no motor/sensory deficits, alert, normal mood/affect, oriented x 3 Skin: normal color, warm/dry, no rash Lymphatic: no adenopathy Assessment and Plan 1. CAD s/p STEMI and subsequent NSTEMI repeat cath revealed a widely patent LAD stent with new branch vessel disease underwent poba of two relatively small diags with resolution of chest discomfort has been tolerating asa and plavix without issue bp remains on the low side tolerating metoprolol tartrate 12.5 mg bid will attempt to uptitrate will hold off on chay for now 2. acute ischemic cardiomyopathy wall motion pattern follow LAD distribution hopefully myocardium is only stunned will ultimately place patient on metoprolol succinate, chay-i and possible spironolactone to aid in myocardial recovery no indication for ICD or lifevest, will follow does not examine as volume overloaded, can give lasix po prn but will follow volume status clinically ok to transfer to tele from cardiac standpoint
[2016-11-17] MEDS: BACITRACIN OINT 15 GM TUBE EXT SCH (21:00)
[2016-11-18 00:16] VITALS: BP 96/56; PULSE 86; TEMP 37.1; O2SAT 95
[2016-11-18 04:49] VITALS: BP 105/63; PULSE 83; TEMP 37.3; O2SAT 96
[2016-11-18 05:58] LABS: BASO % 0.4 %; BASO ABS # 0.05 K/uL (0-0.2); COMPLETE YES; EOS % 1.6 %; HEMATOCRIT 41.3 % (42-52); IG% 0.5 %; LYMPH % 34.8 %; LYMPH ABS # 4.14 K/uL (1.2-3.4); MEAN CELL VOLUME 94.3 fL (80-100); MEAN CORPUSCULAR HEMOGLOBIN 30.6 pg (25-34); MEAN CORPUSCULAR HGB CONC 32.4 g/dl (32-36); MEAN PLATELET VOLUME 9.6 fL (7.4-10.4); NEUT % 50.7 %; PLATELET COUNT 269 K/uL (130-400); RED BLOOD COUNT 4.38 M/uL (4.7-6.1); WHITE BLOOD COUNT 11.89 K/uL (4.8-10.8)
[2016-11-18] MEDS: HEPARIN SOD 5000 UNIT/0.5 ML CARP SQ SCH (06:25)
[2016-11-18 06:30] LABS: BUN/CREATININE RATIO 25.5 (10-20); CALCIUM 8.4 mg/dl (8.5-10.1); MAGNESIUM 2.2 mg/dl (1.8-2.4); POTASSIUM 3.9 mmol/L (3.5-5.1)
[2016-11-18] MEDS: BACITRACIN OINT 15 GM TUBE EXT SCH (07:33)
[2016-11-18] MEDS: PANTOprazole SOD 40 MG TAB PO SCH (07:33)
[2016-11-18] MEDS: CEROVITE ADV FORMULA TAB PO SCH (07:34)
[2016-11-18] MEDS: CLOPIDOGREL BISULFATE 75 MG TAB PO SCH (07:35)
[2016-11-18] MEDS: ASPIRIN 81 MG ECTAB PO SCH (07:35)
[2016-11-18] MEDS: ATORVASTATIN 40 MG TAB PO SCH (07:35)
[2016-11-18 07:36] VITALS: BP 98/65; PULSE 84; TEMP 36.8; O2SAT 96
[2016-11-18] MEDS: BuPROPion SR 150 MG TABCR PO SCH (07:36)
[2016-11-18] MEDS: DUTASTERIDE 0.5MG PO SCH ×2 (07:36)
[2016-11-18] MEDS ORDERED: METOPROLOL TARTRATE 25 MG TAB PO SCH (09:00)
[2016-11-18] MEDS ORDERED: LISINOPRIL 2.5 MG TAB PO SCH (09:00)
--- NOTE | 2016-11-18 10:19 | Cardiology Follow-Up ---
Subjective Subjective Date of Service: Nov 18, 2016. Pt evaluation today including: conversation w/ patient, physical exam, chart review, lab review, review of studies, review of inpatient medication list Additional Details: Pt seen and examined, states that he feels great. Denies cp, sob, palpitations, lightheadedness or dizziness. Tele reviewed: sinus rhythm, v-pacing Problem List Medical Problems: (1) Anterolateral myocardial infarction Status: Acute (2) Colonic diverticular abscess Status: Acute (3) Diverticulitis Status: Acute Review of Systems Respiratory: No see HPI, No cough, No sputum, No wheezing, No shortness of breath, No dyspnea on exertion, No dyspnea at rest, No hemoptysis, No problem reported Cardiac: No see HPI, No chest pain, No orthopnea, No PND, No edema, No claudication, No palpitations, No problem reported Abdomen: + constipation, No nausea, No vomiting Musculoskeletal: + joint pain (chronic right shoulder pain) Objective Vital Signs Last Vital Signs Documentation Date Time Temp Pulse Resp B/P (MAP) Pulse Ox O2 Delivery O2 Flow Rate FiO2 11/18/16 08:00 Room Air 11/18/16 07:36 36.8 84 18 98/65 (76) 96 11/17/16 13:18 2.0 Physical Exam: General Appearance: WD/WN, no apparent distress Eyes: bilateral eyes normal inspection, bilateral eyes PERRL, bilateral eyes EOMI ENT: hearing grossly normal, pharynx normal Neck: supple, no adenopathy, thyroid normal, no JVD, trachea midline Respiratory/Chest: lungs clear, normal breath sounds, no respiratory distress, no accessory muscle use Cardiovascular: regular rate, rhythm, no edema, no JVD, no murmur, + gallop/S4 Abdomen: normal bowel sounds, non tender, soft, no organomegaly, no pulsatile mass Extremities: non-tender, normal inspection, no pedal edema, no calf tenderness Neurologic/Psychiatric: accounts receivable representative II-XII nml as tested, no motor/sensory deficits, alert, normal mood/affect, oriented x 3 Skin: normal color, warm/dry, no rash Lymphatic: no adenopathy Assessment and Plan 1. CAD s/p STEMI and subsequent NSTEMI repeat cath revealed a widely patent LAD stent with new branch vessel disease underwent poba of two relatively small diags with resolution of chest discomfort has been tolerating asa and plavix without issue bp remains on the low side would d/c to home on metoprolol succinate 25mg daily, lisinopril 2.5mg daily , atorvastatin 80mg daily, asa 81mg daily and plavix 75mg daily also lasix 20mg po daily prn sob 2. acute ischemic cardiomyopathy wall motion pattern follow LAD distribution hopefully myocardium is only stunned will arrange f/u with Dr. Jackson in 1 month and likely echo to be ordered at that time ok to d/c to home from cardiac standpoint
[2016-11-18 12:01] VITALS: BP 95/73; PULSE 81; TEMP 36.7; O2SAT 97
[2016-11-18] MEDS ORDERED: NTRSLP4 SL (12:54)
[2016-11-18] MEDS ORDERED: PLV75 PO (12:54)
[2016-11-18] MEDS ORDERED: LSN25 PO (12:54)
[2016-11-18] MEDS ORDERED: METO1TAB31 PO (12:54)
[2016-11-18] MEDS ORDERED: FURO-85 PO (12:54)
[2016-11-18] MEDS ORDERED: PRT40 PO (12:54)
[2016-11-18] MEDS ORDERED: LPT40 PO (12:54)
--- NOTE | 2016-11-18 12:57 | Discharge Instructions ---
Discharge Instructions Date of Service Nov 18, 2016. Admission Reason for Admission: AMI Discharge Discharge Diagnosis / Problem: STEMI, Acute systolic CHF Discharge Goals Goal(s): Improve disease control, Diagnostic testing, Therapeutic intervention Activity Recommendations Activity Limitations: as noted below Exercise/Sports Limitations: until after follow-up appointment (do not exercise or perform strenuous physical activity until cleared by your doctor) Shower/Bathe: no limitations . Instructions / Follow-Up Instructions / Follow-Up Home Care: * Take your medications exactly as directed. Don't skip doses. * Remember that recovery after a heart attack takes time. Plan to rest for at lease 4-8 weeks while you recover. Then return to normal activity when your doctor says it's okay. * Ask your doctor about joining a heart rehabilitation program. * Tell your doctor if you are feeling depressed. Feelings of sadness are common after a heart attack, but it is important that you speak to someone if you are feeling overwhelmed by these feelings. * If you are having chest pain, call 911 for an ambulance. Do NOT drive yourself to the hospital. * Ask your family members to learn CPR. * Learn to take your own blood pressure and pulse. Keep a record of your results. Ask your doctor when you should seek emergency medical attention. He or she will tell you which blood pressure reading is dangerous. Lifestyle Changes: * Maintain a healthy weight. Get help to lose any extra pounds. * Cut back on salt. * Limit canned, dried, packaged, and fast foods. * Don't add salt to your food. * Season foods with herbs instead of salt when you cook. * Break the smoking habit. Enroll in a stop-smoking program to improve your chances of success. * Limit fatty foods. * Ask your doctor about having your lipid levels checked regularly. * Build up your activity according to your doctor's recommendation. * Ask your doctor when it's okay to resume sexual activity. * Tell your doctor about any erectile dysfunction (ED) medication you are taking. Some ED medications are not safe if you take certain heart medications. * Try to manage stress. Follow Up: It is important for you to keep your follow up appointments with your medical provider. Call 911 and go to the Emergency Room if: * You have tightness or pain in your chest that does not go away with rest or Nitroglycerin * You are very short of breath even with rest Call your doctor if any of the following symptoms or problems start or get worse: * Shortness of breath or difficulty breathing * Wake up at night short of breath * Chest pain * Cough * Swelling of your hands, fee, or legs * More fatigued or tired with your normal activity * Palpitations - sudden fast heart beats WEIGHT * Weigh yourself every morning after using the bathroom. * Use the same scale. * Wear the same amount of clothing. * Write your weight down on your chart. * Call your doctor if you gain more than 2-3 pounds in 1-2 days. MEDICATIONS * Use this discharge instruction sheet for instructions. * Take your medications at the time your doctor ordered. * Do not skip a dose of your medicines. * If you miss a dose of medicine, take as soon as possible, but DO NOT DOUBLE A DOSE. * Read your medicine information when you get home. * Know all of the side effects of your medicine. * Call your doctor's office if you have any side effects. * Be sure all of your doctors know what medicine and herbs you take (including cold, flu, and herbal medicine). * Pain Medicine: If you do not get relief from your pain, please call your doctor for help. Take the following with you to your follow-up doctor appointments: * Weight Chart * Medication List * List of questions Do not drink excessive alcohol, beer or wine. Current Hospital Diet Patient's current hospital diet: AHA Diet (Heart Healthy) Discharge Diet Recommended Diet: AHA Diet (Heart Healthy), Low Sodium Diet (2gm Na) Procedures Procedures Performed: Cardiac catheterization x 2 Chest xray Echocardiogram Pending Studies Studies pending at discharge: no Laboratory Results Hemoglobin A1c Test 11/15/16 06:11 Range/Units Estimated Average Glucose 117 mg/dl Hemoglobin A1c 5.7 H 4.5-5.6 % Lipid Panel Test 11/15/16 06:11 Range/Units Triglycerides Level 87 0-150 mg/dl Cholesterol Level 152 0-200 mg/dl HDL Cholesterol 62 mg/dl Cholesterol/HDL Ratio 2.5 LDL Cholesterol, Calculated 73 mg/dl Medical Emergencies . Who to Call and When: Medical Emergencies: If at any time you feel your situation is an emergency, please call 911 immediately. Call 911 immediately or go to your nearest Emergency Room if you experience any of the following: Warning Signs and Symptoms of a Heart Attack * Chest pain that is not relieved by medication * Shortness of breath . Non-Emergent Contact Non-Emergency issues call your: Primary Care Provider, [facility] Erector Call Non-Emergent contact if: you have a fever, your pain is not controlled, your pain is worsening, your pain is unusual for you, your pain is concerning you, wound has increased drainage, wound has increased redness, wound has increased pain, you have any medication questions . . "Provider Documentation" section prepared by Jamaica Rodriguez. . AMI Core Measures Reason no ASA as I/P: Treatment provided - N/A Reason no ASA at D/C: Treatment provided - N/A Reason no statin as I/P: Treatment provided - N/A Reason no statin at D/C: Treatment provided - N/A VTE Core Measure Inpt VTE Proph given/why not?: Unfractionated heparin SQ, Other Anticoagulation (Integrilin gtt)
[2016-11-18 13:10] VITALS: BP 95/73; PULSE 81; TEMP 36.7; O2SAT 97
--- NOTE | 2016-11-23 16:07 | Discharge Summary ---
Discharge Summary Date of Service Nov 18, 2016. Discharge Summary Admission Date: Nov 15, 2016 at 01:49 Discharge Date: Nov 18, 2016 Discharge Disposition: Home Principal Diagnosis: STEMI Problems/Secondary Diagnoses: BPH H/o heart block with PPM CAD Acute systolic CHF Right shoulder impingement syndrome Mild mitral regurgitation. Mild tricuspid regurgitation. Anxiety Insomnia Procedures: Cardiac Catheterization 11/15/16: Summary of Findings Indication: STEMI/Heart Alert Access: 6Fr Right Radial Artery Catheters: Piffard, Pigtail; EBU 3.5 guide Findings: LM - Luminal irregularities LAD - Moderate caliber, 30-40% diffuse proximal to mid disease, 100% acutely occluded mid LAD after take-off of small 2nd diagonal; Diffusely diseased small 1st diagonal. Post intervention distal LAD small vessel to apex with luminal irregularities. Circumflex - Large, dominant vessel with luminal irregularities; gives off 2 small OMs and 2 moderate caliber L-PLBs and L-PDA all without significant disease. RCA - Small, non-dominant vessel. LVEDP - 15 LVEF 45-50%, apical hypokinesis -- PCI -- Antithrombotic therapy: Heparin, Integrilin, Clopidogrel Procedure: LM cannulated with EBU 3.5 guide BMW wire passed across lesion into distal vessel Mid LAD lesion predilated with 2.0 compliant balloon Dilated lesion stented with 2.5 x 33 Xience REGULO Stent post-dilated with 2.75 noncompliant balloon IC vasodilators administered for spasm Post procedure BRITTANY 3 flow, stent well expanded with minimal residual stenosis and no apparent cardiac complications. Started on integrilin for questionable minimal residual thrombus. Arterial Closure: TR Band Summary: 1. Acutely occluded mid LAD 2. Mild-moderate residual proximal LAD disease (30-40%) 3. Normal intracardiac filling pressure 4. Successful PCI of mid LAD with 2.5 x 33 Xience REGULO (post-dilated to 2.75) Repeat Cardiac catheterization 11/15/16: Summary of Findings Indication: Recurrent severe angina with concern for acute stent thrombosis following PPCI to acutely occluded LAD Access: 6Fr Right Radial Artery; 7Fr Right Femoral Vein Catheters: EBU 3.5 guide; pigtail, 7Fr Graton Findings: LM - Luminal irregularities (unchanged) LAD - Moderate caliber, 30-40% diffuse proximal to mid disease, patent mid LAD stent with BRITTANY 3 flow (unchanged). 95% ostial stenosis of 2nd diagonal at the site of previously placed stent with BRITTANY 2 flow in diagonal (Ostial stenosis more severe than immediately post procedure) Circumflex - Large, dominant vessel with luminal irregularities; gives off 2 small OMs and 2 moderate caliber L-PLBs and L-PDA all without significant disease (unchanged) RCA - Small, non-dominant vessel. At beginning of case patient became increasingly dyspneic, hypoxic and appeared to be in acute heart failure. RHC done to assess hemodynamics: Initially pre-intervention: PA 54/21/41 PCW 30 AoSat 92% on 10L PaSat 55% ESTEFANIA/CI 3.2/1.8 Given 40mg IV lasix, IC nitroglycerin, and fentanyl 2nd diagonal small but as still having active pain decision made to proceed with PCI -- PCI -- Antithrombotic therapy: Heparin, Clopidogrel Procedure: LM cannulated with EBU 3.5 guide Allergist 50 wire passed into inferior branch of 2nd diagonal Ostial stenosis/stent struts dilated with 1.5 compliant balloon. Whisper placed into superior branch of 2nd diagonal Lesion gently dilated with 2.0 compliant balloon. Post procedure improved flow in diagonal, now BRITTANY 3. 30-40% residual stenosis, minimal non-flow limiting dissection at ostium. Arterial Closure: TR Band Post Intervention RHC: RA 2 RV 47/5 PA 46/18 (34) LVEDP 23 PaSat 54% Summary: 1. Severe ostial stenosis of small 2nd diagonal 2. Acute heart failure/pulmonary edema/hypoxemia 3. Successful PTCA of 2nd diagonal ostium with 2.0 balloon. 4. Improved left sided filling pressures and respiratory status post diuresis CHEST ONE VIEW PORTABLE CLINICAL HISTORY: CHEST PAIN dyspnea COMPARISON STUDY: 07/23/2015 FINDINGS: Findings of developing interstitial edema. Mild stable cardiomegaly. Permanent bipolar cardiac pacemaker. IMPRESSION: Developing interstitial edema/congestive failure ECHO: * Normal LV chamber size with mild concentric LVH. * Moderately reduced LV systolic function, EF 35-40%. * Severe hypokinesis to akinesis of the mid to apical anterior/anteroseptal quiroga. Akinesis of the apex along with moderate hypokinesis of the mid inferior wall. * The right ventricular cavity size is normal (basal dimension <4.2 cm in right ventricular apical 4-chamber view). Normal RV systolic function by TAPSE. * Mild mitral regurgitation. * Mild tricuspid regurgitation. * Mild left atrial enlargement. * PASP of 38 mmHg assuming a RA pressure of 3 mmHg. Consultations: Cardiology Critical Care Medicine Medication Reconciliation New Medications: Furosemide (Lasix) 20 Mg Tab 20 MG PO QAM for Shortness of Breath, #30 TAB Metoprolol Succinate (Toprol Xl) 25 Mg Tab 1 TAB PO QPM for 30 Days, #30 TAB 0 Refills Atorvastatin (Atorvastatin Calcium) 40 Mg Tab 80 MG PO QAM for 30 Days, #60 TAB Clopidogrel Bisulfate (Clopidogrel) 75 Mg Tab 75 MG PO QAM for 30 Days, #30 TAB Lisinopril (Lisinopril) 2.5 Mg Tab 2.5 MG PO QAM for 30 Days, #30 TAB Nitroglycerin (Nitrostat) 0.4 Mg/1 Tab Subl 0.4 MG SL PRN PRN for Chest Pain, #15 TAB may repeat dose q5min x 3 doses and call 911/go to the ER Pantoprazole (Pantoprazole Sodium) 40 Mg Tab 40 MG PO BID for 30 Days, #60 TAB Continued Medications: Alprazolam (Xanax) 0.5 Mg Tab 0.5 MG PO TID PRN for Anxiety/Agitation, TAB Aspirin Enteric Coated (Ecotrin Or Generic) 81 Mg Tab 81 MG PO DAILY, TAB Bupropion Hcl (Smoking Deterre (Bupropion Hcl Sr) 150 Mg Tab 1 TAB PO QAM for 30 Days, #30 TAB 5 Refills Desloratadine (Clarinex) 5 Mg Tab 5 MG PO DAILY PRN for PRN, TAB Docusate Sodium (Docusate Sodium) 100 Mg Cap 1 CAP PO QAM PRN for Constipation, CAP Dutasteride (Avodart) 0.5 Mg Cap 0.5 MG PO DAILY, CAP Epinephrine (Epipen) 0.3 Mg/0.3 Ml Inj 0.3 MG IM UD Methylcellulose (Laxative) (Citrucel) 500 Mg Tab 2 TABS PO DAILY Multiple Vitamins W/ Minerals (Centrum Silver Adult 50+) 1 Tab Tab 1 TAB PO DAILY Tamsulosin Hcl (Flomax) 0.4 Mg Cap 2 TABS PO QPM, CAP Discontinued Medications: Aspirin (Aspirin) 325 Mg Tab 650 MG PO DIRECTED PRN for Chest Pain GAVE TO HIM WITH C/O "CHEST PAIN". Ibuprofen Tab (Motrin) 600 Mg Tab 600 MG PO TID PRN for Pain, #15 TAB Htqak-6-Ogly Ethyl Esters ([place]-3) 1 Cap Cap 1 CAP PO QAM, CAP Omeprazole (Prilosec) 40 Mg Cap 40 MG PO DAILY, CAP Discharge Exam Doing very well on day of discharge. No further chest pain, no SOB, no significant arrhythmias on tele Review of Systems: Constitutional: No fever Eyes: No problem reported ENT: No problem reported Respiratory: No shortness of breath, No dyspnea on exertion Cardiovascular: No chest pain, No edema, No palpitations Abdomen: No pain, No nausea, No vomiting Musculoskeletal: + joint pain (occasional left pinky toe shooting pains) Genitourinary - Male: No problem reported Neurologic: No problem reported Psychiatric: No problem reported Endocrine: No problem reported Hematologic / Lymphatic: No problem reported Integumentary: No problem reported Physical Exam: General Appearance: WD/WN, no apparent distress Eyes: normal inspection, sclerae normal ENT: hearing grossly normal Neck: trachea midline Respiratory/Chest: lungs clear, normal breath sounds, no respiratory distress, no accessory muscle use Cardiovascular: regular rate, rhythm, no edema, no gallop, no murmur (2+ DP pulses bilat, left pinky toe with no lesions, no erythema, no tenderness), normal peripheral pulses Abdomen / GI: normal bowel sounds, non tender, soft, no organomegaly Extremities: normal inspection, no calf tenderness, normal capillary refill , no pedal edema, normal range of motion Neurologic/Psychiatric: alert, normal mood/affect, oriented x 3 Skin: normal color, warm/dry, no rash Hospital Course Pt is a 76 yo male with a h/o BPH, heart block with PPM, here with STEMI. Had urgent placement of REGULO to mid LAD which was acutely occluded. 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 Age is really his only risk factor. Lipid panel actually looks excellent. He had no h/o angina ever by history. He did receive a steroid injection in his right shoulder a few days prior to his STEMI but not clear if this played any role. Troponin >200--> 96--> 87 ECHO: Normal LV chamber size with mild concentric LVH. * Moderately reduced LV systolic function, EF 35-40%. * Severe hypokinesis to akinesis of the mid to apical anterior/anteroseptal quiroga. Akinesis of the apex along with moderate hypokinesis of the mid inferior wall. * The right ventricular cavity size is normal (basal dimension <4.2 cm in right ventricular apical 4-chamber view). Normal RV systolic function by TAPSE. * Mild mitral regurgitation. * Mild tricuspid regurgitation. * Mild left atrial enlargement. * PASP of 38 mmHg assuming a RA pressure of 3 mmHg. -Doing very well, no arrhythmias on tele, Hypotensive but asymptomatic, has improved today, able to give lower dose metoprolol -Continue dual-antiplatelet therapy with ASA/Clopidogrel for at least 1 year -hopeful that EF will recover in future -[employer] consulted -discharge on Toprol XL 25mg daily, lisinopril 2.5mg daily, atorvastatin 80mg daily, ASA 81 daily, Plavix 75mg daily -Consult cardiac Rehab as outpat -monitor for signs of worsening CHF and may take lasix 20mg daily prn edema or worsening SOB or weight gain -low Na+ diet, daily weights at home -SL NTG tabs prescribed for home use -serious concerns about his remote home location for future-discussed with pt to call 911 urgently if has recurrent symptoms -f/u Cardiology within 2 weeks BPH-stable, no current issues -held Flomax for hypotension in hospital, but added back on for discharge -continue dutasteride Anxiety, Insomnia- stable -continue bupropion 150mg SR daily although unclear why he is on this once daily as it is a bid drug--> perhaps it caused trouble sleeping with the evening dosing -continue alprazolam prn sleep Dispo- to home Total Time Spent: Greater than 30 minutes This includes examination of the patient, discharge planning, medication reconciliation, and communication with other providers. Discharge Instructions Please refer to the electronic Patient Visit Report (Discharge Instructions) for additional information. Follow-Up PCP within 1 week Cardiology within 1-2 weeks Additional Copies To Jay Salvador M.D.; Jordon Jackson M.D.
[2016-12-13] MEDS ORDERED: ATOR-24 PO (15:33)
[2016-12-13] MEDS ORDERED: METO25TA3 PO (15:34)
== END 2016-11-18 13:48 | disposition home or self-care (01) | DRG 246 ==
LOC: EDBD 23:30 → C.EDB 23:31 → C.MSICU 11-15 01:49 → C.2E 11-17 14:49
PROVIDERS: ADMIT Internal Medicine; ATTEND Family Medicine
PROC: 027034Z Dilation of Coronary Artery, One Artery with Drug-eluting Intraluminal Device, Percutaneous Approach (ICD-10-PCS; 2016-11-15)
PROC: 4A023N8 Measurement of Cardiac Sampling and Pressure, Bilateral, Percutaneous Approach (ICD-10-PCS; 2016-11-15)
PROC: 027034Z Dilation of Coronary Artery, One Artery with Drug-eluting Intraluminal Device, Percutaneous Approach (ICD-10-PCS; principal; 2016-11-15 01:55)
PROC: B2151ZZ Fluoroscopy of Left Heart using Low Osmolar Contrast (ICD-10-PCS; principal; 2016-11-15 01:55)
PROC: 4A023N7 Measurement of Cardiac Sampling and Pressure, Left Heart, Percutaneous Approach (ICD-10-PCS; principal; 2016-11-15 01:55)
PROC: B2111ZZ Fluoroscopy of Multiple Coronary Arteries using Low Osmolar Contrast (ICD-10-PCS; principal; 2016-11-15 01:55)
PROC: 3E033GC Introduction of Other Therapeutic Substance into Peripheral Vein, Percutaneous Approach (ICD-10-PCS; principal; 2016-11-15 01:55)
DX: I21.09 ST elevation (STEMI) myocardial infarction involving other coronary artery of anterior wall (principal); I50.21 Acute systolic (congestive) heart failure; T82.855A Stenosis of coronary artery stent, initial encounter; I25.119 Atherosclerotic heart disease of native coronary artery with unspecified angina pectoris; N40.1 Benign prostatic hyperplasia with lower urinary tract symptoms; R35.1 Nocturia; G47.00 Insomnia, unspecified; N52.9 Male erectile dysfunction, unspecified; K21.9 Gastro-esophageal reflux disease without esophagitis; F32.9 Major depressive disorder, single episode, unspecified; F41.9 Anxiety disorder, unspecified; I25.5 Ischemic cardiomyopathy; K57.30 Diverticulosis of large intestine without perforation or abscess without bleeding; K59.00 Constipation, unspecified; I08.3 Combined rheumatic disorders of mitral, aortic and tricuspid valves; E83.39 Other disorders of phosphorus metabolism; Z79.899 Other long term (current) drug therapy; Z79.82 Long term (current) use of aspirin; Z95.0 Presence of cardiac pacemaker; Z91.030 Bee allergy status; Z87.891 Personal history of nicotine dependence; Z88.5 Allergy status to narcotic agent; Z88.8 Allergy status to other drugs, medicaments and biological substances; Z81.1 Family history of alcohol abuse and dependence; Z82.49 Family history of ischemic heart disease and other diseases of the circulatory system; Z80.3 Family history of malignant neoplasm of breast; Z80.8 Family history of malignant neoplasm of other organs or systems; Z81.8 Family history of other mental and behavioral disorders

== ENCOUNTER → 2017-03-02 | Outpatient (CLI) | payer OTHER, BC ==
[~2017-03-02] MED LIST changes: -ASPEC81 PO; +ASPI81TA21 PO; +ATOR-24 PO; +DUTA0.5C PO; +FURO-85 PO; +LSN25 PO; +METH500T3 PO; -METHPOW7 PO; +METO25TA3 PO; -MULT-506 PO; +MULT-845 PO; +NTRSLP4 SL; -OMEG-112 PO; +PLV75 PO; +PRT40 PO
[2017-03-02 13:18] LABS: BASO % 0.2 %; BASO ABS # 0.02 K/uL (0-0.2); COMPLETE YES; EOS % 2.4 %; HEMATOCRIT 39.5 % (42-52); IG% 0.4 %; LYMPH % 35.7 %; LYMPH ABS # 2.88 K/uL (1.2-3.4); MEAN CELL VOLUME 96.6 fL (80-100); MEAN CORPUSCULAR HEMOGLOBIN 31.3 pg (25-34); MEAN CORPUSCULAR HGB CONC 32.4 g/dl (32-36); MEAN PLATELET VOLUME 10.2 fL (7.4-10.4); MONO % 8.1 %; NEUT % 53.2 %; PLATELET COUNT 250 K/uL (130-400); RED BLOOD COUNT 4.09 M/uL (4.7-6.1); WHITE BLOOD COUNT 8.07 K/uL (4.8-10.8)
[2017-03-02 14:22] LABS: FERRITIN 71.2 ng/ml (8.0-388.0)
== END | disposition home or self-care (01) ==
LOC: C.LABBC 09:54
PROVIDERS: ATTEND Internal Medicine
DX: D64.9 Anemia, unspecified (principal)

== ENCOUNTER → 2017-05-05 | Outpatient (CLI) | payer OTHER, BC ==
[2017-05-05 16:56] LABS: BASO % 0.2 %; BASO ABS # 0.02 K/uL (0-0.2); COMPLETE YES; EOS % 1.4 %; EOS ABS # 0.12 K/uL (0-0.5); HEMATOCRIT 40.6 % (42-52); HEMOGLOBIN 13.4 g/dL (14.0-18.0); IG# 0.03 K/uL (0.00-0.02); IG% 0.4 %; LYMPH ABS # 3.12 K/uL (1.2-3.4); MEAN CELL VOLUME 95.1 fL (80-100); MEAN CORPUSCULAR HEMOGLOBIN 31.4 pg (25-34); MEAN PLATELET VOLUME 10.2 fL (7.4-10.4); MONO % 5.8 %; MONO ABS # 0.49 K/uL (0.11-0.59); NEUT % 55.2 %; NEUT ABS # 4.65 K/uL (1.4-6.5); PLATELET COUNT 242 K/uL (130-400); RED BLOOD COUNT 4.27 M/uL (4.7-6.1); RED CELL DISTRIBUTION WIDTH CV 14.1 % (11.5-14.5); RED CELL DISTRIBUTION WIDTH SD 48.6 fL (36.4-46.3); WHITE BLOOD COUNT 8.43 K/uL (4.8-10.8)
[2017-05-05 17:06] LABS: FERRITIN 85.4 ng/ml (8.0-388.0)
== END | disposition home or self-care (01) ==
LOC: C.LABBC 12:48
DX: D64.9 Anemia, unspecified (principal)

== ENCOUNTER → 2017-06-15 | Outpatient (CLI) | payer OTHER, BC ==
[~2017-06-15] MED LIST changes: +CLOP1TAB15 PO; -CLR/5 PO; +FRS/40 PO; +LORA10CA2 PO; -LSN25 PO; +NTRGSL/4 UT; -NTRSLP4 SL; +PANT40TA PO; -PLV75 PO; +POTASSIUM PO; -PRT40 PO; +VITRON C PO
--- NOTE | 2017-06-15 11:14 | DIAGNOSTIC IMAGING REPORT ---
MRI OF THE RIGHT SHOULDER WITHOUT CONTRAST CLINICAL HISTORY: Right shoulder pain and decreased range of motion. Injury in September 2016. COMPARISON STUDY: Right shoulder radiographs November 09, 2016. TECHNIQUE: Utilizing a 1.5 Shahana magnet and dedicated coil, multiplanar, multiecho imaging of the right shoulder was performed without intravenous or intra-articular contrast. FINDINGS: Alignment of the right shoulder is anatomic. There is moderate osteoarthritis of the acromioclavicular joint with subacromial spurring. There is a moderate amount of fluid within the subacromial/subdeltoid bursa. There is mild arthritis of the right glenohumeral joint. There is no suspicious marrow replacement. There is no fracture. The proximal long head of the biceps tendon is medially subluxed and the tendon is enlarged and contains increased signal consistent with tendinopathy and partial-thickness tear. The glenoid labrum is suboptimally assessed on this nonarthrogram exam. However, there is a suspected tear within the posterior superior glenoid labrum. Note is made of a large full-thickness tear of distal supraspinatus which is retracted 1.9 cm proximally. There is moderate muscular atrophy of supraspinous. There is a high grade partial-thickness tear of distal infraspinatus with tendinopathy. There is mild muscular atrophy of infraspinatus. Interstitial tear within infraspinatus is noted. Teres minor is intact. Distal subscapularis is attenuated with possible partial-thickness tear. There is no full-thickness tear of subscapularis. IMPRESSION: 1. Large full-thickness tear of distal supraspinatus with 1.9 cm of tendon retraction and moderate muscular atrophy. 2. High-grade partial-thickness tears of infraspinatus with interstitial tears and mild muscular atrophy of infraspinatus. 3. Possible partial-thickness tear of subscapularis. 4. Proximal long head of the biceps tendon medially subluxed with partial-thickness tear and associated tendinopathy. 5. Suspected posterior superior glenoid labral tear. 6. Moderate amount of fluid within the subacromial/subdeltoid bursa. Moderate acromioclavicular joint osteoarthritis with spurring. Electronically signed by: Scott Frank M.D. 06/15/2017 11:13 AM Dictated Date/Time: 06/15/2017 11:04 AM
== END | disposition home or self-care (01) ==
LOC: C.MRI 09:41
PROVIDERS: ATTEND Orthopaedic Surgery
DX: M25.511 Pain in right shoulder (principal)

== ENCOUNTER → 2017-11-24 | Day surgery (SDC) | payer OTHER, BC ==
[2017-10-16 15:08] VITALS: BMI 25.0
--- NOTE | 2017-10-23 13:00 | PAT Medication Instructions ---
Service Date Oct 23, 2017. Current Home Medication List Alprazolam (Xanax), 0.5 MG PO HS Aspirin Enteric Coated (Ecotrin Or Generic), 81 MG PO QAM Atorvastatin (Lipitor), 40 MG PO QAM Bupropion Hcl (Smoking Deterre (Bupropion Hcl Sr), 1 TAB PO QAM Clopidogrel (Plavix), 75 MG PO QAM Dutasteride (Avodart), 0.5 MG PO QPM Epinephrine (Epipen), 0.3 MG IM UD Furosemide (Lasix), 20 MG PO 5XWEEK Furosemide (Lasix), 40 MG PO 2XWEEK Loratadine (Claritin), 10 MG PO PRN Losartan Potassium (Cozaar), 25 MG PO QAM Methylcellulose (Laxative) (Citrucel), 2 TABS PO QAM Metoprolol Succ (Toprol Xl) (Toprol-Xl), 25 MG PO QAM Multiple Vitamins W/ Minerals (Centrum Silver Adult 50+), 1 TAB PO QAM Nitroglycerin (Nitrostat), 0.4 MG UT PRN Pantoprazole (Protonix), 40 MG PO QAM Potassium Chloride (Micro-K Ext Rel), 10 MEQ PO QPM Tamsulosin Hcl (Flomax), 1 TABS PO BID [Vitron C], 1 TAB PO QPM Medication Instructions For Your Scheduled Surgery -Check with surgeon and cardiology for instructions for: Aspirin Enteric Coated (Ecotrin Or Generic), 81 MG PO QAM Clopidogrel (Plavix), 75 MG PO QAM -Continue as directed: Epinephrine (Epipen), 0.3 MG IM UD Nitroglycerin (Nitrostat), 0.4 MG UT PRN - Hold the following medications the morning of surgery: Furosemide (Lasix), 20 MG PO 5XWEEK Furosemide (Lasix), 40 MG PO 2XWEEK Loratadine (Claritin), 10 MG PO PRN Losartan Potassium (Cozaar), 25 MG PO QAM Methylcellulose (Laxative) (Citrucel), 2 TABS PO QAM Multiple Vitamins W/ Minerals (Centrum Silver Adult 50+), 1 TAB PO QAM - Take the following medications the morning of surgery with a sip of water: Atorvastatin (Lipitor), 40 MG PO QAM Bupropion Hcl (Smoking Deterre (Bupropion Hcl Sr), 1 TAB PO QAM Metoprolol Succ (Toprol Xl) (Toprol-Xl), 25 MG PO QAM Pantoprazole (Protonix), 40 MG PO QAM Tamsulosin Hcl (Flomax), 1 TABS PO BID - Take the following medications as scheduled the night before surgery: Alprazolam (Xanax), 0.5 MG PO HS Dutasteride (Avodart), 0.5 MG PO QPM Loratadine (Claritin), 10 MG PO PRN Potassium Chloride (Micro-K Ext Rel), 10 MEQ PO QPM Tamsulosin Hcl (Flomax), 1 TABS PO BID [Vitron C], 1 TAB PO QPM If you have any questions please call us at [phone] or [phone] or [phone]
--- NOTE | 2017-11-22 08:13 | HISTORY & PHYSICAL EXAMINATION ---
DATE OF ADMISSION: 11/24/2017 CHIEF COMPLAINT: Right rotator cuff repair and CMC arthritis. HISTORY OF PRESENT ILLNESS: Te is a 77-year-old male who was diagnosed a year ago with rotator cuff tear of his right shoulder. Unfortunately, after his diagnosis, he had a heart attack and had to have stents placed. He has had constant pain and weakness in his shoulder since. MRI showed an anterior superior rotator cuff tear. He has finally been cleared by cardiology to proceed with shoulder arthroscopy. He is also complaining of a lot of pain in his right thumb. He had injections in his CMC joint in the past which have helped but are no longer helping. He does have a history of CMC arthroplasty of his left thumb, which was successful. He was hoping to have a CMC arthroplasty of his right at the time of surgery. PAST MEDICAL HISTORY: Significant for pacemaker placement for bradycardia in 2017 and an PA in 2017, which required stent placement. PAST SURGICAL HISTORY: Significant for CMC arthroplasty of his left hand, tonsillectomy, pacemaker placement in 2017, hemorrhoids removed, and cardiac stent placement in 2017. ALLERGIES: BEE STINGS AND CODEINE. MEDICATIONS: Include Avodart, loratadine, Lipitor, Plavix, Lasix, Toprol, Protonix, Flomax, Wellbutrin, Xanax, aspirin, and losartan. FAMILY HISTORY: Significant for heart disease and lung cancer. SOCIAL HISTORY: Patient is , has 1-2 drinks a week, has a 15-year-old history of tobacco use. He is very active, has 2 kids. REVIEW OF SYSTEMS: He complains mostly of right shoulder and thumb pain. All other pertinent review of systems negative. PHYSICAL EXAMINATION: GENERAL: He is awake, alert, and oriented x3. He is in no apparent distress. He is very pleasant. HEENT: Pupils are equal, round, and reactive to light. Extraocular motions intact. Oral mucosa is pink and moist. CARDIOVASCULAR: The heart has regular rate per radial pulse. RESPIRATORY: The lungs enid symmetrically bilaterally with no audible breath sounds. GASTROINTESTINAL: The abdomen is soft, nontender, nondistended. MUSCULOSKELETAL: On physical examination of the right shoulder, he has decreased range of motion with 120 degrees of forward elevation and 120 degrees of abduction. He has 3/5 muscle strength with a full can testing and 4/5 muscle strength with external rotation. Mildly positive belly press test. Tenderness to palpation on the far anterior lateral subacromial space. He also has tenderness to palpation over CMC joint of his right thumb. He has a mild deformity in that area. Positive axial grind test. 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 IMPRESSION: 1. Large anterior superior rotator cuff tear of the right shoulder. 2. Carpometacarpal arthritis of the right hand. PLAN: We will proceed with a right shoulder arthroscopy to include rotator cuff repair as well as CMC arthroplasty of the right hand. Postoperatively, he will be placed in an arm sling and discharged to home with oral pain medications.
[~2017-11-24] VITALS: Ht 167.6 cm; Wt 76.5 kg
[~2017-11-24] MED LIST changes: +ASPI-319 PO; -ASPI81TA21 PO; +ATROPINE SULFATE 0.1 MG/ML 5ML SYR IV PRN; +BUPIVACAINE/EPINEPHRINE 0.5% MPF 1:200,000 30 ML VIAL ONE; +CEFAZOLIN 2000MG IV PUSH 15 ML IV SCH; +DEXAMETHASONE SOD INJ 4 MG/ML VIAL ONE; -DOCU100C31 PO; +ETOMIDATE 2 MG/ML 20 ML VIAL IV ONE; +EpHEDrine SULFATE INJ 50 MG/ML AMP IV PRN; +EpINEphrine HCL INJ 1 MG/ML 1ML SYRINGE ONE; +FENTANYL CITRATE INJ 50 MCG/1 ML 2 ML VIAL IV PRN; +FENTANYL CITRATE INJ 50 MCG/1 ML 2 ML VIAL ONE; +LACTATED RINGER'S 1000ML 1,000 ML IV SCH; +LACTATED RINGER'S 1000ML IV SCH; +LOSA25TA18 PO; +MIDAZOLAM HCL 1 MG/ML 2ML VIAL ONE; +ONDANSETRON INJ 2 MG/ML 2 ML VIAL IV PRN; +ONDANSETRON INJ 2 MG/ML 2 ML VIAL ONE; +OXYC-57 PO; +OXYCODONE/ACETAMINOPHEN 5-325 TAB PO PRN; +POTA10CA28 PO; -POTASSIUM PO; +PROPOFOL IV EMULSION 10 MG/ML 20 ML VIAL ONE; +ROCURONIUM BROMIDE 10 MG/ML 5 ML VIAL ONE; +ROPIVACAINE 0.5% 5 MG/ML 30 ML VIAL ONE; +SODIUM CHLORIDE 0.9% 1000ML 1,000 ML IV SCH
--- NOTE | 2017-11-24 08:36 | History & Physical Bridge Note ---
H&P Re-Evaluation Bridge Note: I have examined the patient, reviewed the History & Physical and in the interval since the performance of the History & Physical I have noted the following changes of clinical significance: No changes noted
[2017-11-24 09:39] VITALS: BP 152/79; PULSE 64; TEMP 36.5; O2SAT 97; Ht 167.6 cm; Wt 76.5 kg
--- NOTE | 2017-11-24 12:42 | DIAGNOSTIC IMAGING REPORT ---
R WRIST 2 VIEWS CLINICAL HISTORY: 77 years-old Male presenting with RT ARTHOPLASTY. TECHNIQUE: 1 fluoroscopic image(s) recorded as part of an intraoperative procedure. COMPARISON: 10/23/2017. FINDINGS/IMPRESSION: Soft tissue defect at the level of the radial aspect of the second carpal row. Interval resection of the trapezium. Soft tissue emphysema noted. Please see surgical report for further details. Fluoroscopy dosage (mGy): 0.71. Fluoroscopy time: 43.5 seconds. Number or time of fluoroscopic spot images: 0. Electronically signed by: Jay Madrid M.D. 11/24/2017 12:40 PM Dictated Date/Time: 11/24/2017 12:39 PM
--- NOTE | 2017-11-24 13:19 | [facility] Post Operative Brief Note ---
Immediate Operative Summary Operative Date Nov 24, 2017. Pre-Operative Diagnosis Large anterior superior rotator cuff tear of the right shoulder; Carpometacarpal arthritis of the right hand. Post-Operative Diagnosis Same as preoperative Procedure(s) Performed Right Shoulder Arthroscopy with Large Rotator Cuff Repair, Right Carpometacarpal Arthroplasty Surgeon Dr. Ralph Hodges Side Piece Coverer Surgeon(s) Cyril Galdamez PA-C Estimated Blood Loss 5ml Findings Consistent with Post-Op Diagnosis Specimens None Anesthesia Type General Regional
--- NOTE | 2017-11-24 13:43 | Discharge Instructions ---
Discharge Instructions Date of Service Nov 24, 2017. Admission Reason for Admission: Large Rotator Cuff Tear Right Shoulder Discharge Discharge Diagnosis / Problem: SAME ABOVE Discharge Goals Goal(s): Decrease discomfort, Improve function Activity Recommendations Activity Limitations: as noted below Lifting Limitations: until after follow-up appointment Exercise/Sports Limitations: until after follow-up appointment Shower/Bathe: tomorrow . Instructions / Follow-Up Instructions / Follow-Up MEDICATIONS: * Resume previous medications unless instructed otherwise by your surgeon. * Always take pain medication on a full stomach or with food to avoid upset stomach. * Do not drink alcohol or drive while taking narcotics. * Ibuprofen or Tylenol may be taken if narcotic not needed. SPECIAL CARE INSTRUCTIONS: __ None _X_ Keep extremity elevated and iced x 48 hours; apply ice 20-30 minutes 8-10 times/day. May remove at night. __ Sling __24 hrs/day __ Remove at night _X_ Shoulder Immobilizer (MAY REMOVE AFTER 48 HOURS ONLY TO SHOWER AND FOR THERAPY) _X_ 24 hrs/day __ Remove at night _X_ Dressing __ Maintain until seen in office, may shower with plastic over site _X_ Remove dressings in 24-48 hours and then may shower MAY REMOVE DRESSING ON HAND IN 5 DAYS. COVER WITH PLASTIC BAG WHILE SHOWERING OR KEEP DRY. _X_ Cover incisions with band-aids after showering __ Do not remove steri-strips Call physician if chills or temperature rises above 102 degrees or pain unrelieved by prescribed pain medications at . . Current Hospital Diet Patient's current hospital diet: Discharge Diet Recommended Diet: AHA Diet (Heart Healthy) Fluid Restriction: None Procedures Procedures Performed: Right Shoulder Arthroscopy with Large Rotator Cuff Repair, Right Carpometacarpal Arthroplasty Pending Studies Studies pending at discharge: no Work Instructions Lifting Limitations: NO LIFTING WITH RIGHT ARM Medical Emergencies . Who to Call and When: Medical Emergencies: If at any time you feel your situation is an emergency, please call 911 immediately. . Non-Emergent Contact Non-Emergency issues call your: Surgeon . "Provider Documentation" section prepared by Rene Galdamez. .
--- NOTE | 2017-11-24 13:58 | OPERATIVE REPORT ---
DATE OF OPERATION: 11/24/2017 PREOPERATIVE DIAGNOSIS: Large right rotator cuff tear, with chronic carpometacarpal arthritis of the right wrist. POSTOPERATIVE DIAGNOSIS: Same. PROCEDURE: Right shoulder diagnostic arthroscopy with limited debridement, acromioplasty, large rotator cuff repair, and arthroscopic biceps tenodesis, with a right carpometacarpal suspension arthroplasty using an Arthrex TightRope. SURGEON: Ralph Hodges DO. TOLL LINE REPAIRER: Rene Galdamez PA-C, whose assistance was necessary for positioning the arm and helping with instrumentation. ANESTHESIA: General, with a right interscalene nerve block. COMPLICATIONS: None. CONDITION: Stable to PACU. INDICATIONS: Te is a pleasant 77-year-old male who was diagnosed a year ago with a right rotator cuff tear. He reports after the diagnosis he had a heart attack and stents placed. After a year of conservative treatment, he has been finally cleared for rotator cuff repair. He has also been complaining of chronic right CMC arthritis. He did have a CMC arthroplasty done on his contralateral side in the past and that worked very well. He was hoping to have that done on his right wrist during the procedure. He understands the risks, benefits, alternatives to procedure and elected to proceed. DESCRIPTION OF PROCEDURE: On 11/24/2017, he arrived at [facility] for the above procedures. He was seen in the preoperative holding area, and the operative extremity was identified and signed. He was given a preoperative antibiotic and a right interscalene nerve block. He was taken back to the operating room, laid on table in supine position, and put under general anesthesia. The right hand was prepped and draped in sterile fashion. Timeout was done. The patient's operative extremity was properly identified. The CMC arthroplasty was done first. A radial incision was made along the radial axis of the CMC joint. Care was taken not to disrupt the superficial digital nerves. The adductor tendon was slightly elevated anteriorly, and the thenar muscle was retracted palmarly. The joint capsule was then incised. The trapezium was easily identified. I was able to look at the center of the radius to curvature of the base of the thumb metacarpal. An Arthrex TightRope guidepin was placed through the central axis of the thumb metacarpal into the proximal third of the index metacarpal. A small incision was made at the index metacarpal, and a guidepin was passed out the dorsal side. A 2-0 FiberWire was then passed in a retrograde fashion, and an Arthrex TightRope was then passed from the index metacarpal out the thumb metacarpal. The button then sat flush on the index metacarpal. The wound was irrigated. An additional button was then placed on the thumb metacarpal, and the tails were tied. The placement of the TightRope was checked under fluoroscopy. The trapezium was then removed in piecemeal fashion. Final fluoroscopic images showed anatomic alignment and good tensioning of the TightRope. The wound was then irrigated, and the capsule was closed with 0 Vicryl suture. The tourniquet was deflated. Hemostasis was obtained. Skin was closed with 3-0 Vicryl and 4-0 nylon suture in a mattress fashion. It was then placed in a soft dressing. Attention was then turned to the right shoulder. He was then put into the beachchair position. The right shoulder was then prepped and draped in sterile fashion. Timeout was done. The patient's operative extremity was once again properly identified. A scope was introduced in the posterior portal. Diagnostic arthroscopy showed no cartilage damage to the humeral head or the glenoid. The biceps tendon was subluxated medially and had torn the upper border of the subscapularis but not enough to consider fixation. There was a tear of the entire supraspinatus extending to the upper border of the infraspinatus. The remainder of the infraspinatus and the teres minor were intact. An anterior portal was made. A shaver was used to do a limited debridement of the intraarticular structures, and the biceps tendon was arthroscopically tenotomized for later tenodesis. The scope was then put into the subacromial space. A lateral portal was made. A shaver was used to do a complete subacromial and subdeltoid bursectomy. An ablator was used to tease the coracoacromial ligament off the undersurface of the acromion. A shaver was then used to do a limited acromioplasty to ensure that there were no areas of impingement. Attention was then turned to the rotator cuff. An additional anterior lateral portal was made, and Kalli cannulae were placed in each of the lateral portals. The greater tuberosity was prepared with a ring curette and a microfracture. The rotator cuff was then fixed with an Arthrex SpeedBridge configuration using 4.75 mm BioComposite SwiveLock suture anchors and FiberTapes. This gave a nice knotless SpeedBridge repair. Multiple pictures were taken. The long head of the biceps tendon had been tagged with an Arthrex FiberLink and incorporated into the anterior medial anchor to complete an arthroscopic biceps tenodesis. The scope was then placed back into the glenohumeral joint. The articular margin of the rotator cuff had been restored. Pictures were taken. Arthroscopic instruments removed from the shoulder. Portal sites closed with 3-0 nylon. We then placed it in a soft dressing and regular arm sling. He was then extubated, transferred to a litter. and taken to the postanesthesia care unit in stable condition. He tolerated the procedure well. I attest to the content of the Intraoperative Record and any orders documented therein. Any exception s are noted below.
--- NOTE | 2017-11-24 14:15 | Anesthesiology Progress Note ---
Anesthesia Post Op Note Date & Time Nov 24, 2017 at 14:15 Vital Signs Pain Intensity: 0 Vital Signs Past 12 Hours Date Time Temp Pulse Resp B/P (MAP) Pulse Ox O2 Delivery O2 Flow Rate FiO2 11/24/17 14:10 36.2 60 16 132/75 96 Room Air 11/24/17 14:05 60 16 128/77 96 Room Air 11/24/17 13:55 60 16 133/81 96 Oxymask 11/24/17 13:45 60 16 128/74 95 Oxymask 11/24/17 13:36 36.0 68 16 123/78 98 Oxymask 10 11/24/17 09:39 36.5 64 20 152/79 (103) 97 Room Air Notes Mental Status: alert / awake / arousable, participated in evaluation Pt Amnestic to Procedure: Yes Nausea / Vomiting: adequately controlled Pain: adequately controlled Airway Patency, RR, SpO2: stable & adequate BP & HR: stable & adequate Hydration State: stable & adequate Anesthetic Complications: no major complications apparent
[2017-11-24 14:25] VITALS: BP 122/84; PULSE 61; TEMP 36; O2SAT 95
[2017-11-24 14:55] VITALS: BP 129/71; PULSE 60; TEMP 36.1; O2SAT 63
[2017-11-24 15:25] VITALS: BP 135/79; PULSE 75; TEMP 36.1; O2SAT 95
== END | disposition home or self-care (01) ==
LOC: C.ACU 09:02
PROVIDERS: ATTEND Orthopaedic Surgery
DX: M75.101 Unspecified rotator cuff tear or rupture of right shoulder, not specified as traumatic (principal); M19.041 Primary osteoarthritis, right hand; E78.5 Hyperlipidemia, unspecified; J44.9 Chronic obstructive pulmonary disease, unspecified; I25.10 Atherosclerotic heart disease of native coronary artery without angina pectoris; I50.22 Chronic systolic (congestive) heart failure; M19.90 Unspecified osteoarthritis, unspecified site; K21.9 Gastro-esophageal reflux disease without esophagitis; I25.2 Old myocardial infarction; F41.9 Anxiety disorder, unspecified; I10 Essential (primary) hypertension; Z95.0 Presence of cardiac pacemaker; Z79.02 Long term (current) use of antithrombotics/antiplatelets; Z88.5 Allergy status to narcotic agent; Z88.1 Allergy status to other antibiotic agents; Z88.8 Allergy status to other drugs, medicaments and biological substances; Z79.82 Long term (current) use of aspirin; Z87.891 Personal history of nicotine dependence

== ENCOUNTER 2020-09-16 16:00 | Inpatient (IN) ==
[2020-09-16] MEDS ORDERED: ACETAMINOPHEN 1000 MG/100 ML IV IV ONE (16:24)
[2020-09-16] MEDS ORDERED: ACETAMINOPHEN 1000 MG/100 ML IV IV STA (16:25)
[2020-09-16] MEDS ORDERED: ONDANSETRON INJ 2 MG/ML 2 ML VIAL IV STA (16:29)
[2020-09-16 16:30] LABS: Basophils # (auto) 0.01 K/uL (0-0.2); Basophils % (auto) 0.1 %; Hematocrit (blood only) 39.7 % (42-52); Hemoglobin 13.5 g/dL (14.0-18.0); Immature Granulocytes # (auto) 0.03 K/uL (0.00-0.02); Immature Granulocytes % (auto) 0.4 %; Lymphocytes # (auto) 1.01 K/uL (1.2-3.4); Lymphocytes % (auto) 12.4 %; Mean Corpuscular Hemoglobin 32.1 pg (25-34); Mean Corpuscular Volume 94.3 fL (80-100); Mean Platelet Volume 9.1 fL (7.4-10.4); Monocytes # (auto) 0.45 K/uL (0.11-0.59); Monocytes % (auto) 5.5 %; Neutrophils # (auto) 6.66 K/uL (1.4-6.5); Neutrophils % (auto) 81.6 %; Platelet Count 206 K/uL (130-400); RDW Coefficient of Variation 13.8 % (11.5-14.5); RDW Standard Deviation 47.7 fL (36.4-46.3); Red Blood Count 4.21 M/uL (4.7-6.1); White Blood Count 8.16 K/uL (4.8-10.8)
[2020-09-16 16:53] LABS: Albumin Level 3.2 gm/dl (3.4-5.0); BUN Creatinine Ratio 21.7 (10-20); Calcium 8.9 mg/dl (8.5-10.1); Creatinine Clr Calc Pharmacy 57.7 ml/min; Est GFR (African American) 92.3 ml/min; Est GFR (Non-African American) 79.6 ml/min; Magnesium 2.1 mg/dl (1.8-2.4)
[2020-09-16 16:58] LABS: Albumin Globulin Ratio 0.9 (0.9-2); Bilirubin,Total 0.9 mg/dl (0.2-1); Globulin 3.6 gm/dl (2.5-4.0); Total Protein 6.8 gm/dl (6.4-8.2); Troponin I 0.019 ng/ml (0-0.045)
[2020-09-16 17:09] LABS: Appearance Urine Clear (Clear); Bacteria Urine Automated Negative (Negative); Bilirubin Urine Negative (Negative); Blood Urine 3+ (Negative); Color Urine Dark Yellow; Glucose Urine UA Negative (Negative); Ketones Urine 2+ (Negative); Leukocyte Esterase Urine Negative (Negative); Nitrite Urine Negative (Negative); Protein Urine 1+ (Negative); RBC Urine Automated >30 /hpf (0-4); Specific Gravity Urine 1.023 (1.000-1.030); Urobilinogen Urine Negative (Negative); pH Urine 5.5 (4.5-7.5)
[2020-09-16 17:30] LABS: INR 1.1 (0.9-1.1); Prothrombin Time 11.3 Seconds (9.0-12.0)
--- NOTE | 2020-09-16 17:58 | CT Scan Report ---
CT SCAN OF THE BRAIN WITHOUT IV CONTRAST CLINICAL HISTORY: Generalized weakness. COMPARISON STUDY: CT of the brain dated 11/19/2008. TECHNIQUE: Unenhanced axial CT scan of the brain is performed from the vertex to the skull base. A do se lowering technique was utilized adhering to the principles of ALARA. CT DOSE: 690.05 mGycm FINDINGS: Brain parenchyma: There are age-related involutional changes noting moderate subcortical and periven tricular microangiopathic change. There is no hemorrhage, mass effect, or evidence of acute territori al ischemia by CT criteria. Green-white matter differentiation is preserved. No extra-axial fluid raegan ection is seen. Ventricles, sulci, cisterns: Prominent secondary to involutional change. Intracranial vasculature: There is atherosclerotic calcification of the cavernous carotid and vertebr al arteries. Calvarium: Unremarkable. Sinuses and mastoids: The visualized paranasal sinuses are clear. The mastoid air cells are well pneu matized. Orbits: The bony orbits are grossly intact. There are bilateral ocular lens implants. IMPRESSION: There is no hemorrhage, mass effect, or evidence of acute territorial ischemia by CT nathalia foster. ACT 112: Negative or not required by law. Electronically signed by: Satnam Verdugo M.D. 09/16/2020 5:57 PM
--- NOTE | 2020-09-16 18:13 | CT Scan Report ---
CT SCAN OF THE ABDOMEN AND PELVIS WITHOUT IV CONTRAST CLINICAL HISTORY: Fever. Hematuria. COMPARISON STUDY: Abdominal CT dated 07/03/2015. TECHNIQUE: CT scan of the abdomen and pelvis is performed from the lung bases to the proximal femora. Images are reviewed in the axial, sagittal, and coronal planes. IV contrast was not administered for this examination. Note that the examination was performed in suboptimal fashion without IV contrast. A dose lowering technique was utilized adhering to the principles of ALARA. CT DOSE: 918.90 mGycm FINDINGS: Lung bases: The heart is enlarged and without pericardial effusion. Pacemaker leads are noted. Emphys ematous change is suggested at the lung bases. There is bibasilar scarring/atelectasis. There is trac e right pleural effusion. No airspace consolidation is seen typical for pneumonia. Scattered calcifie d granulomas are observed. A small hiatal hernia is noted. Liver: The unenhanced liver is normal in size, contour, and attenuation. There is no intrahepatic arlene iary ductal dilatation. Gallbladder: Unremarkable. Spleen: Normal in size and attenuation. Pancreas: The unenhanced pancreas is moderately atrophic and grossly unremarkable. Adrenal glands: Unremarkable. Kidneys: The unenhanced kidneys are normal in size and without hydronephrosis. There are no renal terry culi identified. A 4.2 cm cyst is noted in the left upper pole. Abdominal vasculature: The abdominal aorta is normal in course and caliber noting moderate to advance d atherosclerotic calcification. Bowel: There is moderate to advanced diverticulosis of left colon without CT evidence of acute divert iculitis. No bowel obstruction is seen. Mild fecal retention is seen throughout the colon. A portion of the normal appendix is likely seen on image #[id number]. Peritoneum: There is no intraperitoneal free air or abdominal ascites. Lymphadenopathy: None. Pelvic viscera: The prostate gland is diminutive and heterogeneous. The bladder is normal as visualiz ed. There is a fat-containing left inguinal hernia. Skeletal structures: The skeletal structures are osteopenic. There is moderate to advanced lumbosacra l spondylosis. No lytic or blastic lesions are seen. IMPRESSION: 1. There are no acute infectious or inflammatory findings in the abdomen or pelvis. 2. Cardiomegaly and cardiac pacemaker. 3. Trace right pleural effusion. 4. Colonic diverticulosis without CT evidence of acute diverticulitis. 5. Additional findings as above. ACT 112: Negative or not required by law. Electronically signed by: Satnam Verdugo M.D. 09/16/2020 6:11 PM
--- NOTE | 2020-09-16 18:53 | XRay Report ---
SINGLE VIEW CHEST CLINICAL HISTORY: Sepsis. FINDINGS: An AP, portable, upright chest radiograph is compared to study dated 09/01/2020 and correlat ed with chest CT dated 02/23/2010. A 2-lead cardiac pacemaker is unchanged in position. The heart is e nlarged. The pulmonary vasculature is noncongested. Emphysema and chronic interstitial thickening is similar to previous. There is bibasilar scarring/atelectasis. No airspace consolidation or large pleu ral effusion is identified. No pneumothorax is seen. The skeletal structures are osteopenic. The bony thorax is grossly intact. IMPRESSION: 1. Cardiomegaly and cardiac pacemaker. There is no radiographic evidence of congestive failure. 2. Emphysema. 3. No airspace consolidation or large pleural effusion is identified. ACT 112: Negative or not required by law. Electronically signed by: Satnam Verdugo M.D. 09/16/2020 6:52 PM
[2020-09-16] MEDS ORDERED: OPTIRAY 350 500ml IV ONE (19:13)
--- NOTE | 2020-09-16 19:36 | CT Scan Report ---
CT ANGIOGRAM OF THE CHEST CLINICAL HISTORY: Sepsis. COMPARISON STUDY: Chest x-ray dated 09/16/2020. Chest CT dated 02/23/2010. TECHNIQUE: Following the IV administration of 108 cc of Optiray 350, CT angiogram of the chest was pe rformed from the upper abdomen to the thoracic inlet utilizing the pulmonary embolus protocol. Images are reviewed in the axial, sagittal, and coronal planes. 3-D MIPS images are created and assessed. I V contrast was administered without complication. A dose lowering technique was utilized adhering to the principles of ALARA. CT DOSE: 348.24 mGy.cm FINDINGS: Thyroid: Imaged portions of the thyroid gland are normal in size and attenuation. Thoracic aorta: There is atherosclerotic calcification of the thoracic aorta, which is normal in azar chavez and demonstrates standard 3-vessel arch anatomy. No dissection is seen. Pulmonary vasculature: The pulmonary trunk is normal in caliber. There are no filling defects identif ied in main, lobar, or segmental pulmonary branches to suggest pulmonary embolus. Heart: A cardiac pacemaker is present in the left chest wall. The heart is mildly enlarged and withou t pericardial effusion. The coronary arteries are densely calcified. Lungs and pleural spaces: Emphysematous change is noted. The trachea and central airways are clear. T here is trace right pleural effusion. No airspace consolidation is seen typical for pneumonia. Scarri ng/atelectasis is noted at the lung bases. There are scattered calcified granulomas. Mild diffuse per ibronchial thickening is noted. Mediastinum: Subcentimeter mediastinal lymph nodes are not pathologically enlarged by size criteria. Angie: Clear. Axillae: There is no axillary lymphadenopathy. Upper abdomen: Partially visualized upper abdominal viscera is within normal limits. Skeletal structures: The skeletal structures are heterogeneously osteopenic. Degenerative change is n oted in the shoulders and thoracic spine. No lytic or blastic bony lesions are seen. IMPRESSION: 1. There is no evidence of pulmonary embolus in the main, lobar, or segmental pulmonary arteries. 2. Cardiomegaly and cardiac pacemaker. There is no radiographic evidence of congestive failure. 3. Emphysema. 4. There is no airspace consolidation typical for pneumonia. 5. Trace right pleural effusion. 6. Additional findings as above. ACT 112: Negative or not required by law. Electronically signed by: Satnam Verdugo M.D. 09/16/2020 7:35 PM
[2020-09-16] MEDS ORDERED: CEFEPIME 2,000 MG/20 ML VIAL IV STA (19:39)
[2020-09-16] MEDS ORDERED: VANCOMYCIN CONSULT ACTIVE PRN (19:39)
[2020-09-16] MEDS ORDERED: VANCOMYCIN HCL 1,500 MG in SODIUM CHLORIDE 0.9% 500 ML IV ONE (19:39)
--- NOTE | 2020-09-16 19:52 | Emergency Department Note ---
History of Present Illness General Chief complaint: Fever Stated complaint: Fever Weakness Time Seen by Provider: 09/16/20 16:12 History of Present Illness Provider complaint: Fever and weakness Onset (ago): day(s) 2 Associated symptoms: + cough, + fever/chills, + nausea/vomiting (Nausea no vomiting) and + weakness; no chest pain, no headaches and no shortness of breath 80-year-old male presents emergency department for cough and fever. Patient also reports weakness. Patient states his symptoms began 2 days ago. Patient reports nausea but no vomiting. Patient states he has vaccine gets COVID-19 but states he has not been vaccinated against influenza. Patient denies any falls. No vomiting or diarrhea. No hematuria or dysuria. Home Medications Medication Instructions Recorded Confirmed Type aspirin 81 mg PO QAM 02/20/18 09/16/20 History atorvastatin 40 mg PO QAM 02/20/18 09/16/20 History clopidogrel [Plavix] 75 mg PO QAM 02/20/18 09/16/20 History furosemide [Lasix] 20 mg PO QAM 02/20/18 09/16/20 History metoprolol succinate 25 mg PO QAM 02/20/18 09/16/20 History epinephrine 0.3 mg/0.3 mL 0.3 mg IM UD PRN ea 11/09/18 09/16/20 History injection, auto-injector iron,carbonyl 65 mg-vitamin C 125 1 tab PO QPM 11/09/18 09/16/20 History mg tablet,delayed release methylcellulose (laxative) 500 mg 500 mg PO BID tab 11/09/18 09/16/20 History tablet ucuohuoy-opt-xcvei acid 300 1 tab PO QAM 11/09/18 09/16/20 History mcg-lycopene 600 mcg-lutein 300 mcg tablet loratadine 10 mg capsule 10 mg PO QAM 11/26/18 09/16/20 History telmisartan 20 mg tablet 20 mg PO QAM 11/26/18 09/16/20 History nitroglycerin 0.4 mg sublingual 0.4 mg SUBLINGUAL UD PRN #30 tab 05/07/20 09/16/20 Rx tablet alprazolam [Xanax] 2 mg PO HS 08/26/20 09/16/20 History mupirocin 1 appln TOP BID PRN 08/26/20 09/16/20 History pantoprazole 80 mg PO QAM 08/26/20 09/16/20 History potassium chloride 10 meq PO QPM 08/26/20 09/16/20 History alfuzosin 10 mg tablet,extended 10 mg PO DAILY #90 tab 09/09/20 09/16/20 Rx release 24 hr dutasteride 0.5 mg capsule 0.5 mg PO DAILY #90 cap 09/09/20 09/16/20 Rx amoxicillin 2,000 mg PO UD PRN 09/16/20 09/16/20 History Allergies Allergy/AdvReac Type Severity Reaction Status Date / Time bee venom protein (honey bee) Allergy Intermediate stinging Verified 09/16/20 17:06 insects - PASSED OUT/syncope codeine AdvReac Mild NAUSEA AND Verified 09/16/20 17:06 VOMITNG Past Med/Surg History Medical History Anemia Anxiety BPH (benign prostatic hyperplasia) Cancer SKIN 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 Myocardial Infarction 11/14/2016 -- PCI x 1 to LAD, then balloon angioplasty the following day to 2nd Dx due to recurrent symptoms. 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 Follows with [facility] cardio David). Surgical History H/O hemorrhoidectomy History of cardiac cath 2017 History of carpal tunnel release RT/LEFT History of cataract surgery RT/LEFT History of colonoscopy History of esophagogastroduodenoscopy (EGD) History of heart artery stent 2017 1 STENT History of permanent cardiac pacemaker placement For symptomatic bradycardia. History of repair of rotator cuff RT History of thumb surgery RT/LEFT THUMB History of tonsillectomy and adenoidectomy History of tooth extraction Hx of transurethral resection of prostate Nausea and vomiting after administration of anesthetic agent Family History Unknown No problems noted. Mother Alcohol abuse Bipolar disorder Cardiac disorder Myocardial infarction Breast cancer Brother Throat cancer Alcohol abuse Kidney disease Father Alcohol abuse Lung cancer Sister Lung cancer Other No family history of adverse response to anesthesia Denies family history of Ovarian cancer Prostate cancer Clotting disorder Colorectal cancer Social History Smoking Status: Former smoker Tobacco Type: Cigarettes packs per day: 1; Years Smoked: 15; Second Hand Exposure: Yes (hx); Hx Alcohol Use: Yes Alcohol type: beer Alcohol Intake Frequency: Monthly or Less Hx Substance Use: No Preferred Language: Vietnamese Communication Ability: Effective Wind Site Manager Required: No Beliefs That Will Affect Care: None marital status: Current Living Situation: Spouse current occupational status: retired Feels Safe at Home: Yes Childhood Exposure to Second-Hand Smoke: No Dental Care, Regularly: Yes Physical Activity Frequency: Does not Exercise Seatbelt Use: always Sunscreen Use: No Assistive Devices: Denture - Upper, Denture - Lower and Glasses Review of Systems A total of 10 systems reviewed and were otherwise negative Physical Exam Vital Signs Vital Signs - 24 hr 09/16/20 16:04 09/16/20 16:05 09/16/20 16:06 Temperature 38.8 C H Temperature Source Oral Pulse Rate 88 79 77 Pulse Rate from SpO2 Sensor 87 85 Pulse Rhythm Regular Pulse Strength Normal Respiratory Rate 21 19 21 Respiratory Effort / Characteristics Non-Labored Respiratory Depth Normal Respiratory Pattern Regular Blood Pressure 144/98 H 144/98 H Blood Pressure Mean 113 113 Blood Pressure Position Lying Pulse Oximetry 95 95 94 Oxygen Delivery Method Room Air Oxygen Flow Rate Sepsis Recent Fever Within 48 Hours Yes Sepsis New/Unexplained Change in Mental Status No Sepsis Action Taken by Nursing No Action Required 09/16/20 16:11 09/16/20 16:15 09/16/20 16:16 Temperature Temperature Source Pulse Rate 95 H 79 80 Pulse Rate from SpO2 Sensor 92 H 80 80 Pulse Rhythm Pulse Strength Respiratory Rate 19 22 18 Respiratory Effort / Characteristics Respiratory Depth Respiratory Pattern Blood Pressure 125/71 131/64 Blood Pressure Mean 89 86 Blood Pressure Position Pulse Oximetry 93 94 93 Oxygen Delivery Method Oxygen Flow Rate Sepsis Recent Fever Within 48 Hours Sepsis New/Unexplained Change in Mental Status Sepsis Action Taken by Nursing 09/16/20 16:30 09/16/20 16:31 09/16/20 16:43 Temperature Temperature Source Pulse Rate Pulse Rate from SpO2 Sensor Pulse Rhythm Pulse Strength Respiratory Rate 22 24 19 Respiratory Effort / Characteristics Non-Labored Respiratory Depth Respiratory Pattern Blood Pressure 155/70 H Blood Pressure Mean 98 Blood Pressure Position Pulse Oximetry 95 Oxygen Delivery Method Room Air Oxygen Flow Rate Sepsis Recent Fever Within 48 Hours Sepsis New/Unexplained Change in Mental Status Sepsis Action Taken by Nursing 09/16/20 16:45 09/16/20 16:46 09/16/20 17:00 Temperature Temperature Source Pulse Rate 82 79 88 Pulse Rate from SpO2 Sensor 81 79 87 Pulse Rhythm Pulse Strength Respiratory Rate 23 23 16 Respiratory Effort / Characteristics Respiratory Depth Respiratory Pattern Blood Pressure 118/65 102/56 L Blood Pressure Mean 82 71 Blood Pressure Position Pulse Oximetry 94 96 94 Oxygen Delivery Method Oxygen Flow Rate Sepsis Recent Fever Within 48 Hours Sepsis New/Unexplained Change in Mental Status Sepsis Action Taken by Nursing 09/16/20 17:01 09/16/20 17:12 09/16/20 17:15 Temperature 37.5 C Temperature Source Oral Pulse Rate 85 78 Pulse Rate from SpO2 Sensor 82 78 Pulse Rhythm Pulse Strength Respiratory Rate 24 19 Respiratory Effort / Characteristics Respiratory Depth Respiratory Pattern Blood Pressure 105/58 L Blood Pressure Mean 73 Blood Pressure Position Pulse Oximetry 93 91 Oxygen Delivery Method Oxygen Flow Rate Sepsis Recent Fever Within 48 Hours Sepsis New/Unexplained Change in Mental Status Sepsis Action Taken by Nursing 09/16/20 17:16 09/16/20 17:30 09/16/20 17:31 Temperature Temperature Source Pulse Rate 83 86 84 Pulse Rate from SpO2 Sensor 84 85 84 Pulse Rhythm Pulse Strength Respiratory Rate 19 14 14 Respiratory Effort / Characteristics Respiratory Depth Respiratory Pattern Blood Pressure 106/59 L Blood Pressure Mean 74 Blood Pressure Position Pulse Oximetry 92 93 95 Oxygen Delivery Method Oxygen Flow Rate Sepsis Recent Fever Within 48 Hours Sepsis New/Unexplained Change in Mental Status Sepsis Action Taken by Nursing 09/16/20 17:34 09/16/20 18:00 09/16/20 18:16 Temperature Temperature Source Pulse Rate Pulse Rate from SpO2 Sensor 83 Pulse Rhythm Pulse Strength Respiratory Rate 18 18 Respiratory Effort / Characteristics Non-Labored Non-Labored Respiratory Depth Respiratory Pattern Blood Pressure 108/64 Blood Pressure Mean 78 Blood Pressure Position Pulse Oximetry 88 L 98 96 Oxygen Delivery Method Room Air Nasal Cannula Oxygen Flow Rate 2 Sepsis Recent Fever Within 48 Hours Sepsis New/Unexplained Change in Mental Status Sepsis Action Taken by Nursing 09/16/20 18:30 09/16/20 19:00 09/16/20 19:22 Temperature Temperature Source Pulse Rate 71 Pulse Rate from SpO2 Sensor 71 71 Pulse Rhythm Pulse Strength Respiratory Rate 18 17 Respiratory Effort / Characteristics Non-Labored Non-Labored Respiratory Depth Respiratory Pattern Blood Pressure 117/61 Blood Pressure Mean 79 Blood Pressure Position Pulse Oximetry 98 95 98 Oxygen Delivery Method Nasal Cannula Nasal Cannula Nasal Cannula Oxygen Flow Rate 2 2 2 Sepsis Recent Fever Within 48 Hours Sepsis New/Unexplained Change in Mental Status Sepsis Action Taken by Nursing 09/16/20 19:30 09/16/20 19:50 Temperature Temperature Source Pulse Rate Pulse Rate from SpO2 Sensor Pulse Rhythm Pulse Strength Respiratory Rate 18 Respiratory Effort / Characteristics Non-Labored Non-Labored Respiratory Depth Respiratory Pattern Blood Pressure Blood Pressure Mean Blood Pressure Position Pulse Oximetry 95 Oxygen Delivery Method Nasal Cannula Nasal Cannula Oxygen Flow Rate 96 2 Sepsis Recent Fever Within 48 Hours Sepsis New/Unexplained Change in Mental Status Sepsis Action Taken by Nursing Physical Exam GENERAL: He is oriented to person, place, and time. He appears well-developed and well-nourished. He does not appear distressed. HENT: Exam performed. - Head: Normocephalic and atraumatic. - Right Ear: External ear normal. No mastoid tenderness. - Left Ear: External ear normal. No mastoid tenderness. - Mouth/Throat: The oropharynx is clear and moist. No trismus in the jaw. No dental abscesses or uvula swelling. No oropharyngeal exudate or tonsillar abscesses. EYES: Conjunctivae and EOM are normal. Pupils are equal, round, and reactive to light. Right eye exhibits no discharge. Left eye exhibits no discharge. No scleral icterus. NECK: Normal range of motion. Neck supple. No JVD present. No spinous process tenderness present. No carotid bruit present. No rigidity. No tracheal deviation and normal range of motion present. No Brudzinski's sign and no Kernig's sign noted. CV: Normal rate, regular rhythm, normal heart sounds and intact distal pulses. There is no peripheral edema. Palpable radial pulses bue. PULM/CHEST: Diminished breath sounds bilaterally. ABD: The abdomen is soft. Bowel sounds are normal. He has no distension. No mass is present. There is no tenderness. There is no rebound, no guarding, no Sousa's sign and no tenderness at McBurney's point. Rovsig negative. MUSC/SKEL: Normal range of motion. There is no peripheral edema, tenderness or deformity. LYMPH: No cervical adenopathy. NEURO: He is alert and oriented to person, place, and time. He has normal strength. No cranial nerve deficit or sensory deficit. Coordination and gait normal. GCS eye subscore is 4. GCS verbal subscore is 5. GCS motor subscore is 6. Cerebellar tests wnl. SKIN: Skin is warm and dry. He is not diaphoretic. PSYCH: He has a normal mood and affect. Behavior is normal. Judgment and thought content normal. Course Course 1611: The patient was evaluated in room A4. A complete history and physical exam was performed Cardiac monitoring: An order was placed for continuous cardiac monitoring. The monitor shows a rate of 70 with sinus rhythm 1744: Patient oxygen saturation 88% on room air. Patient placed on 2 L nasal cannula which improved his oxygen saturation. 1957: Vital signs stable on supplemental oxygen via 2 L nasal cannula. Labs within normal limits with the exception of AST of 39 and alkaline phosphatase of 39. Urinalysis negative. Imaging within normal limits. COVID-19 swab negative. Influenza pending. Given the patient's fever and hypoxia, patient treated with broad-spectrum antibiotics cefepime and vancomycin. Blood cultures are pending. [facility]. Administered Medications Discontinued Medications Acetaminophen (Acetaminophen 1000 Mg/100 Ml Iv) Confirm Administered Dose 1,000 mg IV .STDoorDash-MED ONE Stop: 09/16/20 16:25 Last Admin: 09/16/20 16:25 Dose: 1,000 mg Documented by: [id number] Acetaminophen (Acetaminophen 1000 Mg/100 Ml Iv) 1,000 mg IV NOW STA Stop: 09/16/20 16:26 Last Admin: 09/16/20 17:12 Dose: Not Given Documented by: [id number] Ioversol (Optiray 350 500ml) 108 ml IV ONCE ONE Stop: 09/16/20 19:14 Last Admin: 09/16/20 19:15 Dose: 108 ml Documented by: [id number] Critical Care Time Critical Care Time: Yes Total Critical Care Time: 43 I have personally spent greater than 43 minutes of critical care time in the direct management of this patient. This includes bedside care, interpretation of diagnostic studies, and testing, discussion with consultants, patient, and family members, and other required patient management activities. This 43 minutes is in excess of all separately billable procedures. Medical Decision Making Laboratory Data Result diagrams: 09/16/20 16:20 09/16/20 16:20 Lab Results 09/16/20 09/16/20 09/16/20 Range/Units 16:18 16:18 16:20 WBC 8.16 (4.8-10.8) K/uL RBC 4.21 L (4.7-6.1) M/uL Hgb 13.5 L (14.0-18.0) g/dL Hct 39.7 L (42-52) % MCV 94.3 (80-100) fL MCH 32.1 (25-34) pg MCHC 34.0 (32-36) g/dL RDW Std Deviation 47.7 H (36.4-46.3) fL RDW Coeff of Harry 13.8 (11.5-14.5) % Plt Count 206 (130-400) K/uL MPV 9.1 (7.4-10.4) fL Immature Gran % (Auto) 0.4 % Neut % (Auto) 81.6 % Lymph % (Auto) 12.4 % [place] % (Auto) 5.5 % Eos % (Auto) 0.0 % Baso % (Auto) 0.1 % Neut # (Auto) 6.66 H (1.4-6.5) K/uL Lymph # (Auto) 1.01 L (1.2-3.4) K/uL [place] # (Auto) 0.45 (0.11-0.59) K/uL Eos # (Auto) 0.00 (0-0.5) K/uL Baso # (Auto) 0.01 (0-0.2) K/uL Immature Gran # (Auto) 0.03 H (0.00-0.02) K/uL PT (9.0-12.0) Seconds INR (0.9-1.1) APTT (21.0-31.0) Seconds PTT Ratio Sodium (136-145) mmol/L Potassium (3.5-5.1) mmol/L Chloride (98-107) mmol/L Carbon Dioxide (21-32) mmol/L Anion Gap (3-11) BUN (7-18) mg/dl Creatinine (0.6-1.4) mg/dl Est Cr Clr Drug Dosing ml/min Est GFR ( Amer) ml/min Est GFR (Non-Af Amer) ml/min BUN/Creatinine Ratio (10-20) Glucose (70-99) mg/dl Lactate (0.4-2.0) mmol/L Calcium (8.5-10.1) mg/dl Magnesium (1.8-2.4) mg/dl Total Bilirubin (0.2-1) mg/dl AST (15-37) U/L ALT (12-78) U/L Alkaline Phosphatase (45-117) U/L Troponin I (0-0.045) ng/ml Total Protein (6.4-8.2) gm/dl Albumin (3.4-5.0) gm/dl Globulin (2.5-4.0) gm/dl Albumin/Globulin Ratio (0.9-2) Procalcitonin (0-0.5) ng/ml Urine Color Urine Appearance (Clear) Urine pH (4.5-7.5) Ur Specific [place] (1.000-1.030) Urine Protein (Negative) Urine Glucose (UA) (Negative) Urine Ketones (Negative) Urine Blood (Negative) Urine Nitrite (Negative) Urine Bilirubin (Negative) Urine Urobilinogen (Negative) Ur Leukocyte Esterase (Negative) Urine WBC (Auto) (0-5) /hpf Urine RBC (Auto) (0-4) /hpf U Hyaline Cast (Auto) (0-5) /lpf U Epithel Cells (Auto) (0-5) /lpf Urine Bacteria (Auto) (Negative) COVID-19 Eval Order Covid19 at [facility] SARS-CoV-2 (PCR) NEGATIVE (Negative) 09/16/20 09/16/20 09/16/20 Range/Units 16:20 16:20 16:20 WBC (4.8-10.8) K/uL RBC (4.7-6.1) M/uL Hgb (14.0-18.0) g/dL Hct (42-52) % MCV (80-100) fL MCH (25-34) pg MCHC (32-36) g/dL RDW Std Deviation (36.4-46.3) fL RDW Coeff of Harry (11.5-14.5) % Plt Count (130-400) K/uL MPV (7.4-10.4) fL Immature Gran % (Auto) % Neut % (Auto) % Lymph % (Auto) % [place] % (Auto) % Eos % (Auto) % Baso % (Auto) % Neut # (Auto) (1.4-6.5) K/uL Lymph # (Auto) (1.2-3.4) K/uL [place] # (Auto) (0.11-0.59) K/uL Eos # (Auto) (0-0.5) K/uL Baso # (Auto) (0-0.2) K/uL Immature Gran # (Auto) (0.00-0.02) K/uL PT (9.0-12.0) Seconds INR (0.9-1.1) APTT (21.0-31.0) Seconds PTT Ratio Sodium 137 (136-145) mmol/L Potassium 4.0 (3.5-5.1) mmol/L Chloride 106 (98-107) mmol/L Carbon Dioxide 23 (21-32) mmol/L Anion Gap 8.0 (3-11) BUN 19 H (7-18) mg/dl Creatinine 0.89 (0.6-1.4) mg/dl Est Cr Clr Drug Dosing 57.7 ml/min Est GFR ( Amer) 92.3 ml/min Est GFR (Non-Af Amer) 79.6 ml/min BUN/Creatinine Ratio 21.7 H (10-20) Glucose 118 H (70-99) mg/dl Lactate 1.4 (0.4-2.0) mmol/L Calcium 8.9 (8.5-10.1) mg/dl Magnesium 2.1 (1.8-2.4) mg/dl Total Bilirubin 0.9 (0.2-1) mg/dl AST 39 H (15-37) U/L ALT 36 (12-78) U/L Alkaline Phosphatase 39 L (45-117) U/L Troponin I 0.019 (0-0.045) ng/ml Total Protein 6.8 (6.4-8.2) gm/dl Albumin 3.2 L (3.4-5.0) gm/dl Globulin 3.6 (2.5-4.0) gm/dl Albumin/Globulin Ratio 0.9 (0.9-2) Procalcitonin 0.32 (0-0.5) ng/ml Urine Color Urine Appearance (Clear) Urine pH (4.5-7.5) Ur Specific [place] (1.000-1.030) Urine Protein (Negative) Urine Glucose (UA) (Negative) Urine Ketones (Negative) Urine Blood (Negative) Urine Nitrite (Negative) Urine Bilirubin (Negative) Urine Urobilinogen (Negative) Ur Leukocyte Esterase (Negative) Urine WBC (Auto) (0-5) /hpf Urine RBC (Auto) (0-4) /hpf U Hyaline Cast (Auto) (0-5) /lpf U Epithel Cells (Auto) (0-5) /lpf Urine Bacteria (Auto) (Negative) COVID-19 Eval Order SARS-CoV-2 (PCR) (Negative) 09/16/20 09/16/20 Range/Units 16:44 17:09 WBC (4.8-10.8) K/uL RBC (4.7-6.1) M/uL Hgb (14.0-18.0) g/dL Hct (42-52) % MCV (80-100) fL MCH (25-34) pg MCHC (32-36) g/dL RDW Std Deviation (36.4-46.3) fL RDW Coeff of Harry (11.5-14.5) % Plt Count (130-400) K/uL MPV (7.4-10.4) fL Immature Gran % (Auto) % Neut % (Auto) % Lymph % (Auto) % [place] % (Auto) % Eos % (Auto) % Baso % (Auto) % Neut # (Auto) (1.4-6.5) K/uL Lymph # (Auto) (1.2-3.4) K/uL [place] # (Auto) (0.11-0.59) K/uL Eos # (Auto) (0-0.5) K/uL Baso # (Auto) (0-0.2) K/uL Immature Gran # (Auto) (0.00-0.02) K/uL PT 11.3 (9.0-12.0) Seconds INR 1.1 (0.9-1.1) APTT 27.0 (21.0-31.0) Seconds PTT Ratio 1.0 Sodium (136-145) mmol/L Potassium (3.5-5.1) mmol/L Chloride (98-107) mmol/L Carbon Dioxide (21-32) mmol/L Anion Gap (3-11) BUN (7-18) mg/dl Creatinine (0.6-1.4) mg/dl Est Cr Clr Drug Dosing ml/min Est GFR ( Amer) ml/min Est GFR (Non-Af Amer) ml/min BUN/Creatinine Ratio (10-20) Glucose (70-99) mg/dl Lactate (0.4-2.0) mmol/L Calcium (8.5-10.1) mg/dl Magnesium (1.8-2.4) mg/dl Total Bilirubin (0.2-1) mg/dl AST (15-37) U/L ALT (12-78) U/L Alkaline Phosphatase (45-117) U/L Troponin I (0-0.045) ng/ml Total Protein (6.4-8.2) gm/dl Albumin (3.4-5.0) gm/dl Globulin (2.5-4.0) gm/dl Albumin/Globulin Ratio (0.9-2) Procalcitonin (0-0.5) ng/ml Urine Color Dark Yellow Urine Appearance Clear (Clear) Urine pH 5.5 (4.5-7.5) Ur Specific [place] 1.023 (1.000-1.030) Urine Protein 1+ H (Negative) Urine Glucose (UA) Negative (Negative) Urine Ketones 2+ H (Negative) Urine Blood 3+ H (Negative) Urine Nitrite Negative (Negative) Urine Bilirubin Negative (Negative) Urine Urobilinogen Negative (Negative) Ur Leukocyte Esterase Negative (Negative) Urine WBC (Auto) 1-5 (0-5) /hpf Urine RBC (Auto) >30 H (0-4) /hpf U Hyaline Cast (Auto) 1-5 (0-5) /lpf U Epithel Cells (Auto) 5-10 H (0-5) /lpf Urine Bacteria (Auto) Negative (Negative) COVID-19 Eval Order SARS-CoV-2 (PCR) (Negative) Imaging Data Radiologist's Impression: Chest X-Ray 09/16/20 16:13 SINGLE VIEW CHEST CLINICAL HISTORY: Sepsis. FINDINGS: An AP, portable, upright chest radiograph is compared to study dated 09/01/2020 and correlated with chest CT dated 02/23/2010. A 2-lead cardiac pacemaker is unchanged in position. The heart is enlarged. The pulmonary vasculature is noncongested. Emphysema and chronic interstitial thickening is similar to previous. There is bibasilar scarring/atelectasis. No airspace consolidation or large pleural effusion is identified. No pneumothorax is seen. The skeletal structures are osteopenic. The bony thorax is grossly intact. IMPRESSION: 1. Cardiomegaly and cardiac pacemaker. There is no radiographic evidence of congestive failure. 2. Emphysema. 3. No airspace consolidation or large pleural effusion is identified. ACT 112: Negative or not required by law. Electronically signed by: Satnam Verdugo M.D. 09/16/2020 6:52 PM Abdomen/Pelvis CT 09/16/20 17:11 CT SCAN OF THE ABDOMEN AND PELVIS WITHOUT IV CONTRAST CLINICAL HISTORY: Fever. Hematuria. COMPARISON STUDY: Abdominal CT dated 07/03/2015. TECHNIQUE: CT scan of the abdomen and pelvis is performed from the lung bases to the proximal femora. Images are reviewed in the axial, sagittal, and coronal planes. IV contrast was not administered for this examination. Note that the examination was performed in suboptimal fashion without IV contrast. A dose lowering technique was utilized adhering to the principles of ALARA. CT DOSE: 918.90 mGycm FINDINGS: Lung bases: The heart is enlarged and without pericardial effusion. Pacemaker leads are noted. Emphysematous change is suggested at the lung bases. There is bibasilar scarring/atelectasis. There is trace right pleural effusion. No airspace consolidation is seen typical for pneumonia. Scattered calcified granulomas are observed. A small hiatal hernia is noted. Liver: The unenhanced liver is normal in size, contour, and attenuation. There is no intrahepatic biliary ductal dilatation. Gallbladder: Unremarkable. Spleen: Normal in size and attenuation. Pancreas: The unenhanced pancreas is moderately atrophic and grossly unremarkable. Adrenal glands: Unremarkable. Kidneys: The unenhanced kidneys are normal in size and without hydronephrosis. There are no renal calculi identified. A 4.2 cm cyst is noted in the left upper pole. Abdominal vasculature: The abdominal aorta is normal in course and caliber noting moderate to advanced atherosclerotic calcification. Bowel: There is moderate to advanced diverticulosis of left colon without CT ev idence of acute diverticulitis. No bowel obstruction is seen. Mild fecal retention is seen throughout the colon. A portion of the normal appendix is likely seen on image #[id number]. Peritoneum: There is no intraperitoneal free air or abdominal ascites. Lymphadenopathy: None. Pelvic viscera: The prostate gland is diminutive and heterogeneous. The bladder is normal as visualized. There is a fat-containing left inguinal hernia. Skeletal structures: The skeletal structures are osteopenic. There is moderate to advanced lumbosacral spondylosis. No lytic or blastic lesions are seen. IMPRESSION: 1. There are no acute infectious or inflammatory findings in the abdomen or pelvis. 2. Cardiomegaly and cardiac pacemaker. 3. Trace right pleural effusion. 4. Colonic diverticulosis without CT evidence of acute diverticulitis. 5. Additional findings as above. ACT 112: Negative or not required by law. Electronically signed by: Satnam Verdugo M.D. 09/16/2020 6:[address] 09/16/20 17:11 CT SCAN OF THE BRAIN WITHOUT IV CONTRAST CLINICAL HISTORY: Generalized weakness. COMPARISON STUDY: CT of the brain dated 11/19/2008. TECHNIQUE: Unenhanced axial CT scan of the brain is performed from the vertex to the skull base. A dose lowering technique was utilized adhering to the principles of ALARA. CT DOSE: 690.05 mGycm FINDINGS: Brain parenchyma: There are age-related involutional changes noting moderate subcortical and periventricular microangiopathic change. There is no hemorrhage, mass effect, or evidence of acute territorial ischemia by CT criteria. Green- white matter differentiation is preserved. No extra-axial fluid collection is seen. Ventricles, sulci, cisterns: Prominent secondary to involutional change. Intracranial vasculature: There is atherosclerotic calcification of the cavernous carotid and vertebral arteries. Calvarium: Unremarkable. Sinuses and mastoids: The visualized paranasal sinuses are clear. The mastoid air cells are well pneumatized. Orbits: The bony orbits are grossly intact. There are bilateral ocular lens implants. IMPRESSION: There is no hemorrhage, mass effect, or evidence of acute territorial ischemia by CT criteria. ACT 112: Negative or not required by law. Electronically signed by: Satnam Verdugo M.D. 09/16/2020 5:57 PM Chest CTA 09/16/20 18:55 CT ANGIOGRAM OF THE CHEST CLINICAL HISTORY: Sepsis. COMPARISON STUDY: Chest x-ray dated 09/16/2020. Chest CT dated 02/23/2010. TECHNIQUE: Following the IV administration of 108 cc of Optiray 350, CT angiogram of the chest was performed from the upper abdomen to the thoracic inlet utilizing the pulmonary embolus protocol. Images are reviewed in the axial, sagittal, and coronal planes. 3-D MIPS images are created and assessed. IV contrast was administered without complication. A dose lowering technique was utilized adhering to the principles of ALARA. CT DOSE: 348.24 mGy.cm FINDINGS: Thyroid: Imaged portions of the thyroid gland are normal in size and attenuation. Thoracic aorta: There is atherosclerotic calcification of the thoracic aorta, which is normal in caliber and demonstrates standard 3-vessel arch anatomy. No dissection is seen. Pulmonary vasculature: The pulmonary trunk is normal in caliber. There are no filling defects identified in main, lobar, or segmental pulmonary branches to suggest pulmonary embolus. Heart: A cardiac pacemaker is present in the left chest wall. The heart is mildly enlarged and without pericardial effusion. The coronary arteries are densely calcified. Lungs and pleural spaces: Emphysematous change is noted. The trachea and central airways are clear. There is trace right pleural effusion. No airspace consolidation is seen typical for pneumonia. Scarring/atelectasis is noted at the lung bases. There are scattered calcified granulomas. Mild diffuse peribronchial thickening is noted. Mediastinum: Subcentimeter mediastinal lymph nodes are not pathologically enlarged by size criteria. Angie: Clear. Axillae: There is no axillary lymphadenopathy. Upper abdomen: Partially visualized upper abdominal viscera is within normal limits. Skeletal structures: The skeletal structures are heterogeneously osteopenic. Degenerative change is noted in the shoulders and thoracic spine. No lytic or blastic bony lesions are seen. IMPRESSION: 1. There is no evidence of pulmonary embolus in the main, lobar, or segmental pulmonary arteries. 2. Cardiomegaly and cardiac pacemaker. There is no radiographic evidence of congestive failure. 3. Emphysema. 4. There is no airspace consolidation typical for pneumonia. 5. Trace right pleural effusion. 6. Additional findings as above. ACT 112: Negative or not required by law. Electronically signed by: Satnam Verdugo M.D. 09/16/2020 7:35 PM ECG Data Additional Comments: Paced rhythm with a rate of 86. NE 286 QRS [address] elevation or ST depression. MDM Narrative 1612: The patient was evaluated in room A4. A complete history and physical exam was performed Cardiac monitoring: An order was placed for continuous cardiac monitoring. The monitor shows a rate of 70 with sinus rhythm 1744: Patient oxygen saturation 88% on room air. Patient placed on 2 L nasal cannula which improved his oxygen saturation. 1957: Vital signs stable on supplemental oxygen via 2 L nasal cannula. Labs within normal limits with the exception of AST of 39 and alkaline phosphatase of 39. Urinalysis negative. Imaging within normal limits. COVID-19 swab negative. Influenza pending. Given the patient's fever and hypoxia, patient treated with broad-spectrum antibiotics cefepime and vancomycin. Blood cultures are pending. Patient will be admitted to the [facility] hospitalist team Dr. Mckeon's team has been notified. Impression & Plan Hypoxia, Fever Discharge Plan Visit Data Chief Complaint: Fever Stated Complaint: Fever Weakness ED Provider: Prudencio Parker Discharge Problem: Hypoxia, Fever Patient Disposition: Being Evaluated by Hospitalist Forms Stand Alone Forms: My [facility] Prescriptions Prescriptions: No Action nitroglycerin [Nitrostat] 0.4 mg tablet, sublingual 0.4 mg Sublingual UD PRN (Reason: Chest Pain) Qty: 30 RF: 1 epinephrine 0.3 mg/0.3 mL auto-injector 0.3 mg IM UD PRN (Reason: anaphylaxis) RF: 0 Citrucel 500 mg tablet 500 mg PO BID RF: 0 Centrum Silver Men 300-600-300 mcg tablet 1 tab PO QAM RF: 0 Vitron-C 65 mg iron- 125 mg tablet,delayed release (DR/EC) 1 tab PO QPM RF: 0 loratadine 10 mg capsule 10 mg PO QAM RF: 0 telmisartan 20 mg tablet 20 mg PO QAM RF: 0 dutasteride [Avodart] 0.5 mg capsule 0.5 mg PO DAILY Qty: 90 RF: 3 alfuzosin [Uroxatral] 10 mg tablet extended release 24 hr 10 mg PO DAILY Qty: 90 RF: 3 atorvastatin 40 mg Tablet 40 mg PO QAM RF: 0 clopidogrel [Plavix] 75 mg Tablet 75 mg PO QAM RF: 0 aspirin 81 mg Tablet,Delayed Release (Dr/Ec) 81 mg PO QAM RF: 0 furosemide [Lasix] 20 mg Tablet 20 mg PO QAM RF: 0 metoprolol succinate 25 mg Tablet Extended Release 24 Hr 25 mg PO QAM RF: 0 potassium chloride 10 mEq Capsule, Extended Release 10 meq PO QPM RF: 0 alprazolam [Xanax] 2 mg Tablet 2 mg PO HS RF: 0 pantoprazole 40 mg tablet,delayed release (DR/EC) 80 mg PO QAM RF: 0 mupirocin 2 % ointment 1 appln TOP BID PRN (Reason: Skin Irritation) RF: 0 amoxicillin 500 mg tablet 2,000 mg PO UD PRN (Reason: Prophylaxis) RF: 0 Referrals Referrals: Jay Salvador MD [Primary Care Provider] - Discharge Problem: Fever Qualifiers: Fever type: unspecified Qualified Code(s): R50.9 - Fever, unspecified
[2020-09-16 20:11] LABS: Influenza A virus by PCR Negative (Negative); Influenza B virus by PCR Negative (Negative)
--- NOTE | 2020-09-16 20:31 | History & Physical Report ---
Date of Service September 16, 2020 Assessment & Plan (1) Fever: Fever as per HPI- no source and no elevated biomarkers - Neutrophil to Lymphocyte Ratio 6:1- PCT 0.32, lactate 1.4, - Lyme negative - Anaplasmosis pending - CRP/ESR pending - Follow overnight, no clear indication for antibiotic therapy at this time and not septic - Await blood culture, urine culture - hernia is not painful or incarcerated (2) Abnormal finding on urinalysis: Elevated RBC with no hematuria - Will resend UA in the morning - Urine is clear without myalgias or muscle pain - ? Passage of small kidney stone - Oral hydration (3) Ischemic cardiomyopathy: No acute needs - Continue Lasix 20 mg PO Qam - Continue metoprolol 25 mg PO qam - Continue atorvastatin 40 mg - NTG PRN (4) CAD (coronary artery disease): As above - He has stopped his Plavix last week for upcoming TKA on Monday - Was directed to start 81mg ASA- this has been continued (5) Osteoarthritis of right knee: As above surgery planned for Monday - Orthopaedics consulted to notify patient is admitted- Dr. Hodges - ASA as above through the [id number]-post operative phase - Heparin Subq for VTE- hold prior to surgery please (6) Hypertension: As above- well controlled (7) Hyperlipidemia: As above (8) Renal cyst: Chronically noted- (9) BPH (benign prostatic hyperplasia): Continue Alfuzosin and dutasteride (10) Iron (Fe) deficiency anemia: Mild remains on iron carbonyl vitamin c tabs. (11) GERD (gastroesophageal reflux disease): Continue PPI History of Present Illness Primary Care Provider: Jay Salvador MD 80 YOM with past medical history ICM with EF 35-40%, CAD with REGULO stent to LAD, Pacemaker for complete HB, HTN, BPH with LUTS, GERD with inactive gastritis, mild Mitral regurgitation. Patient came to the emergency room via EMS today for felling generalized weakness and was unable to get out of his chair. He states that he did not start feeling well yesterday after dinner. They had pork chops and green beans, about 1-2 hours after dinner he just felt little nauseated with fever, his checked his temperature and it was 101.5, this was also associated with some left sided hip pain. He was up and down multiple times through the night to urinate without pain or discomfort. He experienced no nausea or vomiting or diarrhea. In the emergency room he had an episode of d ecreased SPo2 to 88 % while sleeping and was placed on 2L NC. He had routine labs drawn, blood cultures, UA, COVID with Influenza PCR, PCT and Lactate drawn. He had abdominal and pelvis CT scan performed, head CT scan performed, as well as CTA of the chest for PE; he was given 1 dose of Vancomycin and Cefepime by the EMD; and Hospitalist team was notified for admission. Upon further questioning the patient did have 2 tick bites within the last 2 months, with the most recent being on his left flank, where there is still a scabbed over area without any erythema or target sign, had right knee drained a few weeks ago as well with no acute erythema or effusion. Lyme and Anaplasmosis labs sent and pending. Of note the patient is to have his a total knee replacement on Monday at [facility] with Dr. Hodges; due to this, patient will be admitted and follow along with his biomarkers and cultures prior to his surgical procedure. There is no obvious infective source at this time. Temperature 101.8 at 1600, WBC 8, Lactate 1.4, PCT 0.32, COVID negative, Influenza A/B negative. For his low SPO2 while sleeping, the patient remained off oxygen for the entire interview and exam, with lowest SPo2 94%, He was also able to get up to the edge of the bed without assistance and ambulate around the room with no assistance or drop in his oxygenation status, he is voiding spontaneously without discomfort and weakness he was experiencing before is gone. Allergies Allergy/AdvReac Type Severity Reaction Status Date / Time bee venom protein (honey bee) Allergy Intermediate stinging Verified 09/16/20 17:06 insects - PASSED OUT/syncope codeine AdvReac Mild NAUSEA AND Verified 09/16/20 17:06 VOMITNG Home Medications Medication Instructions Recorded Confirmed Type aspirin 81 mg PO QAM 02/20/18 09/16/20 History atorvastatin 40 mg PO QAM 02/20/18 09/16/20 History clopidogrel [Plavix] 75 mg PO QAM 02/20/18 09/16/20 History furosemide [Lasix] 20 mg PO QAM 02/20/18 09/16/20 History metoprolol succinate 25 mg PO QAM 02/20/18 09/16/20 History epinephrine 0.3 mg/0.3 mL 0.3 mg IM UD PRN ea 11/09/18 09/16/20 History injection, auto-injector iron,carbonyl 65 mg-vitamin C 125 1 tab PO QPM 11/09/18 09/16/20 History mg tablet,delayed release methylcellulose (laxative) 500 mg 500 mg PO BID tab 11/09/18 09/16/20 History tablet mzjtjnsa-mwy-fpvsl acid 300 1 tab PO QAM 11/09/18 09/16/20 History mcg-lycopene 600 mcg-lutein 300 mcg tablet loratadine 10 mg capsule 10 mg PO QAM 11/26/18 09/16/20 History telmisartan 20 mg tablet 20 mg PO QAM 11/26/18 09/16/20 History nitroglycerin 0.4 mg sublingual 0.4 mg SUBLINGUAL UD PRN #30 tab 05/07/20 09/16/20 Rx tablet alprazolam [Xanax] 2 mg PO HS 08/26/20 09/16/20 History mupirocin 1 appln TOP BID PRN 08/26/20 09/16/20 History pantoprazole 80 mg PO QAM 08/26/20 09/16/20 History potassium chloride 10 meq PO QPM 08/26/20 09/16/20 History alfuzosin 10 mg tablet,extended 10 mg PO DAILY #90 tab 09/09/20 09/16/20 Rx release 24 hr dutasteride 0.5 mg capsule 0.5 mg PO DAILY #90 cap 09/09/20 09/16/20 Rx amoxicillin 2,000 mg PO UD PRN 09/16/20 09/16/20 History Past Med/Surg History Medical History Anemia Anxiety BPH (benign prostatic hyperplasia) Cancer SKIN 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 Myocardial Infarction 11/14/2016 -- PCI x 1 to LAD, then balloon angioplasty the following day to 2nd Dx due to recurrent symptoms. 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 Follows with [facility] cardio ([facility]). Surgical History H/O hemorrhoidectomy History of cardiac cath 2017 History of carpal tunnel release RT/LEFT History of cataract surgery RT/LEFT History of colonoscopy History of esophagogastroduodenoscopy (EGD) History of heart artery stent 2017 1 STENT History of permanent cardiac pacemaker placement For symptomatic bradycardia. History of repair of rotator cuff RT History of thumb surgery RT/LEFT THUMB History of tonsillectomy and adenoidectomy History of tooth extraction Hx of transurethral resection of prostate Nausea and vomiting after administration of anesthetic agent Family History Unknown No problems noted. Mother Alcohol abuse Bipolar disorder Cardiac disorder Myocardial infarction Breast cancer Brother Throat cancer Alcohol abuse Kidney disease Father Alcohol abuse Lung cancer Sister Lung cancer Other No family history of adverse response to anesthesia Denies family history of Ovarian cancer Prostate cancer Clotting disorder Colorectal cancer Social History Smoking Status: Former smoker Tobacco Type: Cigarettes packs per day: 1; Years Smoked: 15; Second Hand Exposure: No; Do You Dip or Chew Tobacco: No; Tobacco Cessation Education Requested by Patient: No Hx Alcohol Use: Yes Alcohol type: beer Alcohol Intake Frequency: Monthly or Less Hx Substance Use: No Preferred Language: [place] Communication Ability: Effective Tie Carrier Required: No Beliefs That Will Affect Care: None marital status: Current Living Situation: Spouse current occupational status: retired Other Information That Helps Us Care for You: No Feels Safe at Home: Yes Safety Concerns: Feels Safe At This Time Childhood Exposure to Second-Hand Smoke: No Dental Care, Regularly: Yes Physical Activity Frequency: Does not Exercise Seatbelt Use: always Sunscreen Use: No Assistive Devices: Cane and Glasses Review of Systems Review of Systems: REVIEW OF SYSTEMS: Constitutional: (+) fever, No sweats or chills Eyes: No diplopia, no worsening or blurred vision ENT: normal hearing, no trouble swallowing Respiratory: No cough, sputum, dyspnea at rest or on exertion Cardiovascular: No chest pain, tightness or palpitations Abdomen: (+) nausea, No pain, vomiting, diarrhea or constipation Musculoskeletal: (+) joint pain, calf pain, swelling Neurologic: No weakness, numbness/tingling, or balance problems Psychiatric: No anxiety or depression Skin: (+) tick bite, No rash or itch Physical Exam Physical Exam: PHYSICAL EXAM: General: awake, alert, no apparent distress Head: Normocephalic, atraumatic ENT: PERRL, EOMI, no pharyngeal exudate, mucous membranes moist, no lymphadenop athy Neuro: AAO x 3, speech clear and appropriate, strength intact bilaterally 5/5, sensation intact and equal all extremities and dermatomes, no pronator drift Chest: equal rise and fall of the chest, no accessory muscle use, no heaves or thrills, Clear to auscultation, No egophony, on room air, Cardiac: Regular rate and rhythm, telemetry reviewed no ectopy, skin warm dry, cap refill <3 seconds, peripheral pulses +2 no JVD, no murmur, no edema GI: NABS x 4 quadrants, soft, nontender to palpation, no rebound, guarding or tenderness : Spontaneously voiding, no pain, no CVA tenderness, Extremities: no peripheral edema or erythema, calfs nontender to palpation Psych: Normal mood and affect Skin: scab to left flank, no rash or erythema Results & Data Results & Data ([facility]) Vital Signs (Past 12 Hours) Vital Signs Temp Pulse Resp BP Pulse Ox 09/16/20 19:50 95 09/16/20 19:30 18 09/16/20 19:22 71 17 117/61 98 09/16/20 19:00 95 09/16/20 18:30 18 98 09/16/20 18:16 108/64 96 09/16/20 18:00 18 98 09/16/20 17:34 18 88 L 09/16/20 17:31 84 14 95 09/16/20 17:30 86 14 106/59 L 93 09/16/20 17:16 83 19 92 09/16/20 17:15 78 19 105/58 L 91 09/16/20 17:12 37.5 C 09/16/20 17:01 85 24 93 09/16/20 17:00 88 16 102/56 L 94 09/16/20 16:46 79 23 96 09/16/20 16:45 82 23 118/65 94 09/16/20 16:43 19 95 09/16/20 16:31 24 155/70 H 09/16/20 16:30 22 09/16/20 16:16 80 18 93 09/16/20 16:15 79 22 131/64 94 09/16/20 16:11 95 H 19 125/71 93 09/16/20 16:06 77 21 94 09/16/20 16:05 38.8 C H 79 19 144/98 H 95 09/16/20 16:04 88 21 144/98 H 95 Laboratory Results Abnormal lab results 09/16/20 09/16/20 09/16/20 Range/Units 16:20 16:20 16:44 RBC 4.21 L (4.7-6.1) M/uL Hgb 13.5 L (14.0-18.0) g/dL Hct 39.7 L (42-52) % RDW Std Deviation 47.7 H (36.4-46.3) fL Neut # (Auto) 6.66 H (1.4-6.5) K/uL Lymph # (Auto) 1.01 L (1.2-3.4) K/uL Immature Gran # (Auto) 0.03 H (0.00-0.02) K/uL BUN 19 H (7-18) mg/dl BUN/Creatinine Ratio 21.7 H (10-20) Glucose 118 H (70-99) mg/dl AST 39 H (15-37) U/L Alkaline Phosphatase 39 L (45-117) U/L Albumin 3.2 L (3.4-5.0) gm/dl Urine Protein 1+ H (Negative) Urine Ketones 2+ H (Negative) Urine Blood 3+ H (Negative) Urine RBC (Auto) >30 H (0-4) /hpf U Epithel Cells (Auto) 5-10 H (0-5) /lpf Diagnostic Findings Chest X-Ray 09/16/20 16:13 SINGLE VIEW CHEST CLINICAL HISTORY: Sepsis. FINDINGS: An AP, portable, upright chest radiograph is compared to study dated 09/01/2020 and correlated with chest CT dated 02/23/2010. A 2-lead cardiac pacemaker is unchanged in position. The heart is enlarged. The pulmonary vasculature is noncongested. Emphysema and chronic interstitial thickening is similar to previous. There is bibasilar scarring/atelectasis. No airspace consolidation or large pleural effusion is identified. No pneumothorax is seen. The skeletal structures are osteopenic. The bony thorax is grossly intact. IMPRESSION: 1. Cardiomegaly and cardiac pacemaker. There is no radiographic evidence of congestive failure. 2. Emphysema. 3. No airspace consolidation or large pleural effusion is identified. Electronically signed by: Satnam Verdugo M.D. 09/16/2020 6:52 PM Abdomen/Pelvis CT 09/16/20 17:11 CT SCAN OF THE ABDOMEN AND PELVIS WITHOUT IV CONTRAST CLINICAL HISTORY: Fever. Hematuria. COMPARISON STUDY: Abdominal CT dated 07/03/2015. TECHNIQUE: CT scan of the abdomen and pelvis is performed from the lung bases to the proximal femora. Images are reviewed in the axial, sagittal, and coronal planes. IV contrast was not administered for this examination. Note that the examination was performed in suboptimal fashion without IV contrast. A dose lowering technique was utilized adhering to the principles of ALARA. CT DOSE: 918.90 mGycm FINDINGS: Lung bases: The heart is enlarged and without pericardial effusion. Pacemaker leads are noted. Emphysematous change is suggested at the lung bases. There is bibasilar scarring/atelectasis. There is trace right pleural effusion. No airspace consolidation is seen typical for pneumonia. Scattered calcified granulomas are observed. A small hiatal hernia is noted. Liver: The unenhanced liver is normal in size, contour, and attenuation. There is no intrahepatic biliary ductal dilatation. Gallbladder: Unremarkable. Spleen: Normal in size and attenuation. Pancreas: The unenhanced pancreas is moderately atrophic and grossly unremarkable. Adrenal glands: Unremarkable. Kidneys: The unenhanced kidneys are normal in size and without hydronephrosis. There are no renal calculi identified. A 4.2 cm cyst is noted in the left upper pole. Abdominal vasculature: The abdominal aorta is normal in course and caliber noting moderate to advanced atherosclerotic calcification. Bowel: There is moderate to advanced diverticulosis of left colon without CT evidence of acute diverticulitis. No bowel obstruction is seen. Mild fecal retention is seen throughout the colon. A portion of the normal appendix is likely seen on image #[id number]. Peritoneum: There is no intraperitoneal free air or abdominal ascites. Lymphadenopathy: None. Pelvic viscera: The prostate gland is diminutive and heterogeneous. The bladder is normal as visualized. There is a fat-containing left inguinal hernia. Skeletal structures: The skeletal structures are osteopenic. There is moderate to advanced lumbosacral spondylosis. No lytic or blastic lesions are seen. IMPRESSION: 1. There are no acute infectious or inflammatory findings in the abdomen or pelvis. 2. Cardiomegaly and cardiac pacemaker. 3. Trace right pleural effusion. 4. Colonic diverticulosis without CT evidence of acute diverticulitis. 5. Additional findings as above. Electronically signed by: Satnam Verdugo M.D. 09/16/2020 6:[address] 09/16/20 17:11 CT SCAN OF THE BRAIN WITHOUT IV CONTRAST CLINICAL HISTORY: Generalized weakness. COMPARISON STUDY: CT of the brain dated 11/19/2008. TECHNIQUE: Unenhanced axial CT scan of the brain is performed from the vertex to the skull base. A dose lowering technique was utilized adhering to the principles of ALARA. CT DOSE: 690.05 mGycm FINDINGS: Brain parenchyma: There are age-related involutional changes noting moderate subcortical and periventricular microangiopathic change. There is no hemorrhage, mass effect, or evidence of acute territorial ischemia by CT criteria. Green- white matter differentiation is preserved. No extra-axial fluid collection is seen. Ventricles, sulci, cisterns: Prominent secondary to involutional change. Intracranial vasculature: There is atherosclerotic calcification of the cavernous carotid and vertebral arteries. Calvarium: Unremarkable. Sinuses and mastoids: The visualized paranasal sinuses are clear. The mastoid air cells are well pneumatized. Orbits: The bony orbits are grossly intact. There are bilateral ocular lens implants. IMPRESSION: There is no hemorrhage, mass effect, or evidence of acute territorial ischemia by CT criteria. Electronically signed by: Satnam Verdugo M.D. 09/16/2020 5:57 PM Chest CTA 09/16/20 18:55 CT ANGIOGRAM OF THE CHEST CLINICAL HISTORY: Sepsis. COMPARISON STUDY: Chest x-ray dated 09/16/2020. Chest CT dated 02/23/2010. TECHNIQUE: Following the IV administration of 108 cc of Optiray 350, CT angiogram of the chest was performed from the upper abdomen to the thoracic inlet utilizing the pulmonary embolus protocol. Images are reviewed in the axial, sagittal, and coronal planes. 3-D MIPS images are created and assessed. IV contrast was administered without complication. A dose lowering technique was utilized adhering to the principles of ALARA. CT DOSE: 348.24 mGy.cm FINDINGS: Thyroid: Imaged portions of the thyroid gland are normal in size and attenuation. Thoracic aorta: There is atherosclerotic calcification of the thoracic aorta, which is normal in caliber and demonstrates standard 3-vessel arch anatomy. No dissection is seen. Pulmonary vasculature: The pulmonary trunk is normal in caliber. There are no filling defects identified in main, lobar, or segmental pulmonary branches to suggest pulmonary embolus. Heart: A cardiac pacemaker is present in the left chest wall. The heart is mildly enlarged and without pericardial effusion. The coronary arteries are densely calcified. Lungs and pleural spaces: Emphysematous change is noted. The trachea and central airways are clear. There is trace right pleural effusion. No airspace consolidation is seen typical for pneumonia. Scarring/atelectasis is noted at the lung bases. There are scattered calcified granulomas. Mild diffuse peribronchial thickening is noted. Mediastinum: Subcentimeter mediastinal lymph nodes are not pathologically enlarged by size criteria. Angie: Clear. Axillae: There is no axillary lymphadenopathy. Upper abdomen: Partially visualized upper abdominal viscera is within normal limits. Skeletal structures: The skeletal structures are heterogeneously osteopenic. Degenerative change is noted in the shoulders and thoracic spine. No lytic or blastic bony lesions are seen. IMPRESSION: 1. There is no evidence of pulmonary embolus in the main, lobar, or segmental pulmonary arteries. 2. Cardiomegaly and cardiac pacemaker. There is no radiographic evidence of congestive failure. 3. Emphysema. 4. There is no airspace consolidation typical for pneumonia. 5. Trace right pleural effusion. 6. Additional findings as above. Electronically signed by: Satnam Verdugo M.D. 09/16/2020 7:35 PM Medications Administered Vancomycin HCl 1,500 mg/ (Sodium Chloride) 530 mls @ 200 mls/hr IV NOW ONE Stop: 09/16/20 22:17 Last Admin: 09/16/20 20:03 Dose: 200 mls/hr Documented by: [id number] Discontinued Medications Acetaminophen (Acetaminophen 1000 Mg/100 Ml Iv) Confirm Administered Dose 1,000 mg IV .STKerlink-MED ONE Stop: 09/16/20 16:25 Last Admin: 09/16/20 16:25 Dose: 1,000 mg Documented by: [id number] Acetaminophen (Acetaminophen 1000 Mg/100 Ml Iv) 1,000 mg IV NOW STA Stop: 09/16/20 16:26 Last Admin: 09/16/20 17:12 Dose: Not Given Documented by: [id number] Cefepime HCl (Maxipime) 2,000 mg in 20 mls @ 5 mls/min IV NOW STA; Protocol Stop: 09/16/20 19:42 Last Admin: 09/16/20 20:03 Dose: 5 mls/min Documented by: [id number] Ioversol (Optiray 350 500ml) 108 ml IV ONCE ONE Stop: 09/16/20 19:14 Last Admin: 09/16/20 19:15 Dose: 108 ml Documented by: [id number] Ondansetron HCl (Ondansetron Inj 2 Mg/Ml 2 Ml Vial) 4 mg IV NOW STA Stop: 09/16/20 16:30 Last Admin: 09/16/20 20:04 Dose: Not Given Documented by: [id number] ECG Additional Comments: Atrial-sensed ventricular-paced rhythm with prolonged AV conduction Abnormal ECG When compared with ECG of 23-OCT-2017 13:09, Vent. rate has increased BY 8 BPM Code Status & VTE Plan Code Status CODE: FULL VTE: SCD's, ASA, ambulation, Heparin 5000 TID VTE Prophylaxis Plan VTE Prophylaxis will be ordered: Yes Supervising Physician Co-Signing Physician Notes Patient seen and examined, chart reviewed, case discussed with PAVITHRA Foy and I agree with his assessment and plan as above. Briefly, patient is an 80yo male presenting with fever, nausea at home. Episode of decreased saturation to 88% on room air while asleep in ER which promptly improved with O2 To have right TKA performed on Monday with Dr. Hodges No obvious source of infection. Patient presently afebrile, HD stable. Does not appear to be septic or toxic. Labs largely unremarkable Exam with small scab on back as well as posterior thigh from prior tick bite Right knee mildly warm and swollen Remainder of exam is unremarkable Labs and images reviewed Assessment/Plan - single episode of fever. Infectious source unclear -Follow cultures -Image right knee -Remainder of plan as above PG Care Time/CCT Total # of Minutes Spent Total Time Spent with Patient: Total time spent is greater than 50% in coordination of care (as documented) at patient's floor/unit and/or counseling patient: Coding Level of Care Code 90013 Initial In Care Lvl 3 Diagnoses Fever R50.9 Fever type: unspecified Abnormal finding on urinalysis R82.90 Ischemic cardiomyopathy I25.5 CAD (coronary artery disease) I25.10 Associated angina: without angina Coronary Disease-Associated Artery/Lesion type: rosebud artery [place] vs. transplanted heart: rosebud heart Osteoarthritis of right knee M17.11 Osteoarthritis type: unspecified Hypertension I10 Hypertension type: essential hypertension Hyperlipidemia E78.5 Hyperlipidemia type: unspecified Renal cyst N28.1 BPH (benign prostatic hyperplasia) N40.1 Lower urinary tract symptom detail: unspecified Lower urinary tract symptom presence: symptoms present Iron (Fe) deficiency anemia D50.9 Iron deficiency anemia type: unspecified iron deficiency GERD (gastroesophageal reflux disease) K21.9 (1) BPH (benign prostatic hyperplasia) Lower urinary tract symptom detail: unspecified Lower urinary tract symptom presence: symptoms present Qualified Code(s): N40.1 - Benign prostatic hyperplasia with lower urinary tract symptoms (2) Fever Fever type: unspecified Qualified Code(s): R50.9 - Fever, unspecified (3) CAD (coronary artery disease) Associated angina: without angina Coronary Disease-Associated Artery/Lesion type: rosebud artery [place] vs. transplanted heart: rosebud heart Qualified Code(s): I25.10 - Atherosclerotic heart disease of rosebud coronary artery without angina pectoris (4) Hyperlipidemia Hyperlipidemia type: unspecified Qualified Code(s): E78.5 - Hyperlipidemia, unspecified (5) Iron (Fe) deficiency anemia Iron deficiency anemia type: unspecified iron deficiency Qualified Code(s): D50.9 - Iron deficiency anemia, unspecified (6) Osteoarthritis of right knee Osteoarthritis type: unspecified Qualified Code(s): M17.11 - Unilateral primary osteoarthritis, right knee (7) Hypertension Hypertension type: essential hypertension Qualified Code(s): I10 - Essential (primary) hypertension
[2020-09-16 20:47] LABS: Lyme Ab IgG w/WB Rflx Negative (Negative); Lyme Ab IgM w/WB Rflx Negative (Negative)
[2020-09-16] MEDS ORDERED: NITROGLYCERIN SL 0.4 MG/TAB TAB SL PRN (23:25)
[2020-09-16] MEDS ORDERED: NON-FORMULARY MEDICATION (Iron,Carbonyl-Vitamin C [Vitron-C] 65 mg iron- 125 mg tablet,del PO SCH (23:25)
[2020-09-16] MEDS ORDERED: ALPRAZolam 0.5 MG TABLET PO SCH (23:25)
[2020-09-17] MEDS: [UNRECOGNIZED DRUG - REMARK] SCH ×3 (00:03→15:30)
[2020-09-17] MEDS: HEPARIN SOD 5,000 UNIT/0.5 ML VIAL SQ SCH ×3 (00:31→13:37)
[2020-09-17] MEDS: POTASSIUM CHLORIDE 10 MEQ TABCR PO SCH ×2 (00:31→16:33)
[2020-09-17 00:44] LABS: Appearance Urine Clear (Clear); Bacteria Urine Automated Negative (Negative); Bilirubin Urine Negative (Negative); Blood Urine 2+ (Negative); Color Urine Yellow; Epithelial Cell Urine Auto 0-5 /lpf (0-5); Glucose Urine UA Negative (Negative); Ketones Urine Negative (Negative); Leukocyte Esterase Urine Negative (Negative); Nitrite Urine Negative (Negative); Protein Urine Negative (Negative); Specific Gravity Urine > 1.045 (1.000-1.030); Urobilinogen Urine Negative (Negative)
[2020-09-17] MEDS: ALPRAZolam 0.5 MG TABLET PO SCH ×2 (01:17→20:42)
[2020-09-17 06:34] LABS: Basophils # (auto) 0.02 K/uL (0-0.2); Basophils % (auto) 0.3 %; Hematocrit (blood only) 35.8 % (42-52); Hemoglobin 11.9 g/dL (14.0-18.0); Immature Granulocytes # (auto) 0.02 K/uL (0.00-0.02); Immature Granulocytes % (auto) 0.3 %; Lymphocytes # (auto) 0.85 K/uL (1.2-3.4); Lymphocytes % (auto) 14.6 %; Mean Corpuscular Hgb Conc 33.2 g/dL (32-36); Mean Corpuscular Volume 96.2 fL (80-100); Mean Platelet Volume 9.5 fL (7.4-10.4); Monocytes # (auto) 0.48 K/uL (0.11-0.59); Monocytes % (auto) 8.2 %; Neutrophils # (auto) 4.47 K/uL (1.4-6.5); Neutrophils % (auto) 76.6 %; Platelet Count 207 K/uL (130-400); RDW Coefficient of Variation 13.9 % (11.5-14.5); RDW Standard Deviation 49.4 fL (36.4-46.3); Red Blood Count 3.72 M/uL (4.7-6.1); White Blood Count 5.84 K/uL (4.8-10.8)
[2020-09-17 07:04] LABS: BUN Creatinine Ratio 24.3 (10-20); C Reactive Protein 6.29 mg/dl (0-0.29); Calcium 9.2 mg/dl (8.5-10.1); Creatinine Clr Calc Pharmacy 57.1 ml/min; Est GFR (African American) 91.9 ml/min; Est GFR (Non-African American) 79.3 ml/min; Potassium 3.7 mmol/L (3.5-5.1)
--- NOTE | 2020-09-17 08:07 | Hospitalist Progress Note ---
Date of Service September 17, 2020 Assessment & Plan (1) Fever: Fever as per HPI- no source and no elevated biomarkers Temp 38.8C afternoon 6/2 in ER CRP elevated to 6 from 5 --> follow on AM labs Procal 0.32 Lactic 1.4 WBC wnl and no further L shift Did have 2 tick bites in last month --> L lower leg and L thigh 1 month and 2 weeks ago -- ?too early for + abx testing as Lyme abx testing negative Did have L shift on admission -- given Vanco/cefepime in ER, no further abx ordered (no further L shift) Anaplasmosis pending All other imaging without source of infection (CT Chest/A/P) BCx pending -- ngtd (does have pacemaker of note -- follows with [facility]) Will obtain Xray of L knee given swelling/warmth No urine cx as no leuk est, WBC or bacteria. Did have hematuria (chronic) so could have passed a stone? No CVA tenderness Orthopedics consulted -- possible plans for TKA tomorrow if no source identified/no further fever/negative blood cultures. Eval to be undertaken this afternoon (prior H&P from this AM without knowing pt in hospital) (2) Abnormal finding on urinalysis: Elevated RBC with no hematuria -- hx hematuria. No stones noted on imaging but maybe passed small one? Clearing on repeat UA but still present ?stone. Does have 4.2cm cyst on L kidney. Followed by Urology and would recommend follow up imaging. -> Discussed with radiology and cyst there on imaging from 2016, was about 3.1cm at that time and definitely appears simple (3) Ischemic cardiomyopathy: No acute needs Continue home medications -- lasix 20mg, metoprolol 25mg, atorvastatin 40mg Nitro prn (4) CAD (coronary artery disease): As above He has stopped his Plavix last week for upcoming TKA on Monday --> per patient this was ortho recs and he will resume once finished with DVT proph with ASA 81mg BID (5) Osteoarthritis of right knee: As above surgery planned for Monday Orthopaedics consulted to notify patient is admitted- Dr. Carroll ODELL as above through the [id number] operative phase Heparin Subq for VTE- hold prior to surgery please (6) Hypertension: As above- well controlled BP 112/63 Continue to monitor (7) Hyperlipidemia: As above -- atorvastatin 40 (8) Renal cyst: Chronically noted- 3.1cm on prior imaging. Discussed with radiology and felt not significant. Can have reg Urology f/u outpatient (9) BPH (benign prostatic hyperplasia): Continue Alfuzosin and dutasteride (10) Iron (Fe) deficiency anemia: Mild remains on iron carbonyl vitamin c tabs. (11) GERD (gastroesophageal reflux disease): Continue PPI DVT Prophy -- ASA --Heparin SQ -- hold pre-operatively Dispo: continued inpatient stay hopeful for TKA tomorrow with Dr. Hodges Admission and Anticipated Discharge Date Admission Date: September 16, 2020 Subjective Patient evaluated this afternoon. Feeling better than admission. Little tired this morning, but otherwise well. No further fever since yesterday afternoon but did have some rigors last night which aren't completely unusual for him as he typically is cold. He had pork chops and green beans for dinner but his did not eat the same thing as she had steak and the patient does not like steak. He did endorse some nausea but no vomiting, diarrhea or change in bowels. Chronic knee pain and plans for replacement tomorrow with Dr. Hodges. He states he would ideally like to proceed with this and "get it done with" as he endorses having waited 2 months. Prior injection helpful in past but most recent without help. No erythema or drainage from knee. Discussed could possibly be that his lyme antibodies are not yet positive given recent tick bites x 2. One to lateral L hip 2 weeks ago that his "took a chunk out of me" instead of using tweezers and one to his posterior lateral left leg from about a month ago. Follows with Dr. Jackson from [facility]. No chest pain, shortness of breath, headache, further nausea, vomiting or other symptoms at this time. Review of Systems Review of Systems: All systems reviewed & are unremarkable except as noted in HPI & below Physical Exam Physical Exam: PHYSICAL EXAM: General: awake, alert, no apparent distress, laying in bed asleep upon entry, easily awoken Head: Normocephalic, atraumatic ENT: PERRL, EOMI, no pharyngeal exudate, mucous membranes slightly dry, no lymphadenopathy Neuro: AAO x 3, speech clear and appropriate, strength intact bilaterally 5/5, sensation intact and equal all extremities and dermatomes, no pronator drift Chest: equal rise and fall of the chest, no accessory muscle use, no heaves or thrills, Clear to auscultation, No egophony, on room air, Cardiac: RRR, systolic ejection murmur. cap refill <3 seconds. no edema. calves non-tender GI: NABS x 4 quadrants, soft, nontender to palpation, no rebound, guarding or tenderness : Spontaneously voiding, no pain, no CVA tenderness, Extremities: mild warmth to R knee, minimal swelling, non-tender Psych: Normal mood and affect Skin: scab to L posterior hip from prior tick removed as well as healed lesion to posterior lateral left leg from older tick bit skin cool, dry, no other obvious lesions appreciated Results & Data Results & Data ([facility]) Vital Signs (Past 12 Hours) Vital Signs Temp Pulse Pulse Resp BP BP Pulse Ox 09/17/20 07:27 37.2 C 84 20 99/51 L 96 09/17/20 00:56 36.5 C 101 H 18 130/71 95 09/16/20 23:40 68 17 116/54 L 95 09/16/20 22:30 72 20 92 09/16/20 22:01 71 17 93 09/16/20 22:00 68 20 113/55 L 94 09/16/20 21:30 70 19 94 09/16/20 21:01 69 20 95 09/16/20 21:00 69 15 120/61 96 09/16/20 20:30 70 21 95 Laboratory Results 09/17/20 09/17/20 09/17/20 Range/Units 05:31 05:31 05:31 WBC 5.84 (4.8-10.8) K/uL RBC 3.72 L (4.7-6.1) M/uL Hgb 11.9 L (14.0-18.0) g/dL Hct 35.8 L (42-52) % MCV 96.2 (80-100) fL MCH 32.0 (25-34) pg MCHC 33.2 (32-36) g/dL RDW Std Deviation 49.4 H (36.4-46.3) fL RDW Coeff of Harry 13.9 (11.5-14.5) % Plt Count 207 (130-400) K/uL MPV 9.5 (7.4-10.4) fL Immature Gran % (Auto) 0.3 % Neut % (Auto) 76.6 % Lymph % (Auto) 14.6 % Rapides % (Auto) 8.2 % Eos % (Auto) 0.0 % Baso % (Auto) 0.3 % Neut # (Auto) 4.47 (1.4-6.5) K/uL Lymph # (Auto) 0.85 L (1.2-3.4) K/uL [place]ides # (Auto) 0.48 (0.11-0.59) K/uL Eos # (Auto) 0.00 (0-0.5) K/uL Baso # (Auto) 0.02 (0-0.2) K/uL Immature Gran # (Auto) 0.02 (0.00-0.02) K/uL ESR 14 (0-20) mm/hr PT (9.0-12.0) Seconds INR (0.9-1.1) APTT (21.0-31.0) Seconds PTT Ratio Sodium 139 (136-145) mmol/L Potassium 3.7 (3.5-5.1) mmol/L Chloride 108 H (98-107) mmol/L Carbon Dioxide 25 (21-32) mmol/L Anion Gap 5.0 (3-11) BUN 22 H (7-18) mg/dl Creatinine 0.90 (0.6-1.4) mg/dl Est Cr Clr Drug Dosing 57.1 ml/min Est GFR ( Amer) 91.9 ml/min Est GFR (Non-Af Amer) 79.3 ml/min BUN/Creatinine Ratio 24.3 H (10-20) Glucose 125 H (70-99) mg/dl Lactate (0.4-2.0) mmol/L Calcium 9.2 (8.5-10.1) mg/dl Magnesium 2.0 (1.8-2.4) mg/dl Total Bilirubin (0.2-1) mg/dl AST (15-37) U/L ALT (12-78) U/L Alkaline Phosphatase (45-117) U/L Troponin I (0-0.045) ng/ml C-Reactive Protein 6.29 H (0-0.29) mg/dl Total Protein (6.4-8.2) gm/dl Albumin (3.4-5.0) gm/dl Globulin (2.5-4.0) gm/dl Albumin/Globulin Ratio (0.9-2) Procalcitonin (0-0.5) ng/ml Urine Color Urine Appearance (Clear) Urine pH (4.5-7.5) Ur Specific Hammond (1.000-1.030) Urine Protein (Negative) Urine Glucose (UA) (Negative) Urine Ketones (Negative) Urine Blood (Negative) Urine Nitrite (Negative) Urine Bilirubin (Negative) Urine Urobilinogen (Negative) Ur Leukocyte Esterase (Negative) Urine WBC (Auto) (0-5) /hpf Urine RBC (Auto) (0-4) /hpf U Hyaline Cast (Auto) (0-5) /lpf U Epithel Cells (Auto) (0-5) /lpf Urine Bacteria (Auto) (Negative) A. phagocytophilum DNA Lyme Disease IgG Ab (Negative) Lyme Disease IgM Ab (Negative) COVID-19 Eval Order SARS-CoV-2 (PCR) (Negative) Influ A Molecular Assay (Negative) Influ B Molecular Assay (Negative) 09/16/20 09/16/20 09/16/20 Range/Units Unknown 23:57 21:17 WBC (4.8-10.8) K/uL RBC (4.7-6.1) M/uL Hgb (14.0-18.0) g/dL Hct (42-52) % MCV (80-100) fL MCH (25-34) pg MCHC (32-36) g/dL RDW Std Deviation (36.4-46.3) fL RDW Coeff of Harry (11.5-14.5) % Plt Count (130-400) K/uL MPV (7.4-10.4) fL Immature Gran % (Auto) % Neut % (Auto) % Lymph % (Auto) % Rapides % (Auto) % Eos % (Auto) % Baso % (Auto) % Neut # (Auto) (1.4-6.5) K/uL Lymph # (Auto) (1.2-3.4) K/uL [place]ides # (Auto) (0.11-0.59) K/uL Eos # (Auto) (0-0.5) K/uL Baso # (Auto) (0-0.2) K/uL Immature Gran # (Auto) (0.00-0.02) K/uL ESR (0-20) mm/hr PT (9.0-12.0) Seconds INR (0.9-1.1) APTT (21.0-31.0) Seconds PTT Ratio Sodium (136-145) mmol/L Potassium (3.5-5.1) mmol/L Chloride (98-107) mmol/L Carbon Dioxide (21-32) mmol/L Anion Gap (3-11) BUN (7-18) mg/dl Creatinine (0.6-1.4) mg/dl Est Cr Clr Drug Dosing ml/min Est GFR ( Amer) ml/min Est GFR (Non-Af Amer) ml/min BUN/Creatinine Ratio (10-20) Glucose (70-99) mg/dl Lactate (0.4-2.0) mmol/L Calcium (8.5-10.1) mg/dl Magnesium (1.8-2.4) mg/dl Total Bilirubin (0.2-1) mg/dl AST (15-37) U/L ALT (12-78) U/L Alkaline Phosphatase (45-117) U/L Troponin I (0-0.045) ng/ml C-Reactive Protein 5.49 H (0-0.29) mg/dl Total Protein (6.4-8.2) gm/dl Albumin (3.4-5.0) gm/dl Globulin (2.5-4.0) gm/dl Albumin/Globulin Ratio (0.9-2) Procalcitonin (0-0.5) ng/ml Urine Color Yellow Urine Appearance Clear (Clear) Urine pH 5.0 (4.5-7.5) Ur Specific Hammond > 1.045 H (1.000-1.030) Urine Protein Negative (Negative) Urine Glucose (UA) Negative (Negative) Urine Ketones Negative (Negative) Urine Blood 2+ H (Negative) Urine Nitrite Negative (Negative) Urine Bilirubin Negative (Negative) Urine Urobilinogen Negative (Negative) Ur Leukocyte Esterase Negative (Negative) Urine WBC (Auto) 1-5 (0-5) /hpf Urine RBC (Auto) 5-10 H (0-4) /hpf U Hyaline Cast (Auto) 1-5 (0-5) /lpf U Epithel Cells (Auto) 0-5 (0-5) /lpf Urine Bacteria (Auto) Negative (Negative) A. phagocytophilum DNA Lyme Disease IgG Ab (Negative) Lyme Disease IgM Ab (Negative) COVID-19 Eval Order SARS-CoV-2 (PCR) (Negative) Influ A Molecular Assay Negative (Negative) Influ B Molecular Assay Negative (Negative) 09/16/20 09/16/20 09/16/20 Range/Units 21:17 17:09 16:44 WBC (4.8-10.8) K/uL RBC (4.7-6.1) M/uL Hgb (14.0-18.0) g/dL Hct (42-52) % MCV (80-100) fL MCH (25-34) pg MCHC (32-36) g/dL RDW Std Deviation (36.4-46.3) fL RDW Coeff of Harry (11.5-14.5) % Plt Count (130-400) K/uL MPV (7.4-10.4) fL Immature Gran % (Auto) % Neut % (Auto) % Lymph % (Auto) % Rapides % (Auto) % Eos % (Auto) % Baso % (Auto) % Neut # (Auto) (1.4-6.5) K/uL Lymph # (Auto) (1.2-3.4) K/uL [place] # (Auto) (0.11-0.59) K/uL Eos # (Auto) (0-0.5) K/uL Baso # (Auto) (0-0.2) K/uL Immature Gran # (Auto) (0.00-0.02) K/uL ESR 19 (0-20) mm/hr PT 11.3 (9.0-12.0) Seconds INR 1.1 (0.9-1.1) APTT 27.0 (21.0-31.0) Seconds PTT Ratio 1.0 Sodium (136-145) mmol/L Potassium (3.5-5.1) mmol/L Chloride (98-107) mmol/L Carbon Dioxide (21-32) mmol/L Anion Gap (3-11) BUN (7-18) mg/dl Creatinine (0.6-1.4) mg/dl Est Cr Clr Drug Dosing ml/min Est GFR ( Amer) ml/min Est GFR (Non-Af Amer) ml/min BUN/Creatinine Ratio (10-20) Glucose (70-99) mg/dl Lactate (0.4-2.0) mmol/L Calcium (8.5-10.1) mg/dl Magnesium (1.8-2.4) mg/dl Total Bilirubin (0.2-1) mg/dl AST (15-37) U/L ALT (12-78) U/L Alkaline Phosphatase (45-117) U/L Troponin I (0-0.045) ng/ml C-Reactive Protein (0-0.29) mg/dl Total Protein (6.4-8.2) gm/dl Albumin (3.4-5.0) gm/dl Globulin (2.5-4.0) gm/dl Albumin/Globulin Ratio (0.9-2) Procalcitonin (0-0.5) ng/ml Urine Color Dark Yellow Urine Appearance Clear (Clear) Urine pH 5.5 (4.5-7.5) Ur Specific Hammond 1.023 (1.000-1.030) Urine Protein 1+ H (Negative) Urine Glucose (UA) Negative (Negative) Urine Ketones 2+ H (Negative) Urine Blood 3+ H (Negative) Urine Nitrite Negative (Negative) Urine Bilirubin Negative (Negative) Urine Urobilinogen Negative (Negative) Ur Leukocyte Esterase Negative (Negative) Urine WBC (Auto) 1-5 (0-5) /hpf Urine RBC (Auto) >30 H (0-4) /hpf U Hyaline Cast (Auto) 1-5 (0-5) /lpf U Epithel Cells (Auto) 5-10 H (0-5) /lpf Urine Bacteria (Auto) Negative (Negative) A. phagocytophilum DNA Lyme Disease IgG Ab (Negative) Lyme Disease IgM Ab (Negative) COVID-19 Eval Order SARS-CoV-2 (PCR) (Negative) Influ A Molecular Assay (Negative) Influ B Molecular Assay (Negative) 09/16/20 09/16/20 09/16/20 Range/Units 16:20 16:20 16:20 WBC (4.8-10.8) K/uL RBC (4.7-6.1) M/uL Hgb (14.0-18.0) g/dL Hct (42-52) % MCV (80-100) fL MCH (25-34) pg MCHC (32-36) g/dL RDW Std Deviation (36.4-46.3) fL RDW Coeff of Harry (11.5-14.5) % Plt Count (130-400) K/uL MPV (7.4-10.4) fL Immature Gran % (Auto) % Neut % (Auto) % Lymph % (Auto) % Rapides % (Auto) % Eos % (Auto) % Baso % (Auto) % Neut # (Auto) (1.4-6.5) K/uL Lymph # (Auto) (1.2-3.4) K/uL [place]ides # (Auto) (0.11-0.59) K/uL Eos # (Auto) (0-0.5) K/uL Baso # (Auto) (0-0.2) K/uL Immature Gran # (Auto) (0.00-0.02) K/uL ESR (0-20) mm/hr PT (9.0-12.0) Seconds INR (0.9-1.1) APTT (21.0-31.0) Seconds PTT Ratio Sodium (136-145) mmol/L Potassium (3.5-5.1) mmol/L Chloride (98-107) mmol/L Carbon Dioxide (21-32) mmol/L Anion Gap (3-11) BUN (7-18) mg/dl Creatinine (0.6-1.4) mg/dl Est Cr Clr Drug Dosing ml/min Est GFR ( Amer) ml/min Est GFR (Non-Af Amer) ml/min BUN/Creatinine Ratio (10-20) Glucose (70-99) mg/dl Lactate 1.4 (0.4-2.0) mmol/L Calcium (8.5-10.1) mg/dl Magnesium (1.8-2.4) mg/dl Total Bilirubin (0.2-1) mg/dl AST (15-37) U/L ALT (12-78) U/L Alkaline Phosphatase (45-117) U/L Troponin I (0-0.045) ng/ml C-Reactive Protein (0-0.29) mg/dl Total Protein (6.4-8.2) gm/dl Albumin (3.4-5.0) gm/dl Globulin (2.5-4.0) gm/dl Albumin/Globulin Ratio (0.9-2) Procalcitonin 0.32 (0-0.5) ng/ml Urine Color Urine Appearance (Clear) Urine pH (4.5-7.5) Ur Specific Hammond (1.000-1.030) Urine Protein (Negative) Urine Glucose (UA) (Negative) Urine Ketones (Negative) Urine Blood (Negative) Urine Nitrite (Negative) Urine Bilirubin (Negative) Urine Urobilinogen (Negative) Ur Leukocyte Esterase (Negative) Urine WBC (Auto) (0-5) /hpf Urine RBC (Auto) (0-4) /hpf U Hyaline Cast (Auto) (0-5) /lpf U Epithel Cells (Auto) (0-5) /lpf Urine Bacteria (Auto) (Negative) A. phagocytophilum DNA Lyme Disease IgG Ab Negative (Negative) Lyme Disease IgM Ab Negative (Negative) COVID-19 Eval Order SARS-CoV-2 (PCR) (Negative) Influ A Molecular Assay (Negative) Influ B Molecular Assay (Negative) 09/16/20 09/16/20 09/16/20 Range/Units 16:20 16:20 16:18 WBC 8.16 (4.8-10.8) K/uL RBC 4.21 L (4.7-6.1) M/uL Hgb 13.5 L (14.0-18.0) g/dL Hct 39.7 L (42-52) % MCV 94.3 (80-100) fL MCH 32.1 (25-34) pg MCHC 34.0 (32-36) g/dL RDW Std Deviation 47.7 H (36.4-46.3) fL RDW Coeff of Harry 13.8 (11.5-14.5) % Plt Count 206 (130-400) K/uL MPV 9.1 (7.4-10.4) fL Immature Gran % (Auto) 0.4 % Neut % (Auto) 81.6 % Lymph % (Auto) 12.4 % Rapides % (Auto) 5.5 % Eos % (Auto) 0.0 % Baso % (Auto) 0.1 % Neut # (Auto) 6.66 H (1.4-6.5) K/uL Lymph # (Auto) 1.01 L (1.2-3.4) K/uL [place] # (Auto) 0.45 (0.11-0.59) K/uL Eos # (Auto) 0.00 (0-0.5) K/uL Baso # (Auto) 0.01 (0-0.2) K/uL Immature Gran # (Auto) 0.03 H (0.00-0.02) K/uL ESR (0-20) mm/hr PT (9.0-12.0) Seconds INR (0.9-1.1) APTT (21.0-31.0) Seconds PTT Ratio Sodium 137 (136-145) mmol/L Potassium 4.0 (3.5-5.1) mmol/L Chloride 106 (98-107) mmol/L Carbon Dioxide 23 (21-32) mmol/L Anion Gap 8.0 (3-11) BUN 19 H (7-18) mg/dl Creatinine 0.89 (0.6-1.4) mg/dl Est Cr Clr Drug Dosing 57.7 ml/min Est GFR ( Amer) 92.3 ml/min Est GFR (Non-Af Amer) 79.6 ml/min BUN/Creatinine Ratio 21.7 H (10-20) Glucose 118 H (70-99) mg/dl Lactate (0.4-2.0) mmol/L Calcium 8.9 (8.5-10.1) mg/dl Magnesium 2.1 (1.8-2.4) mg/dl Total Bilirubin 0.9 (0.2-1) mg/dl AST 39 H (15-37) U/L ALT 36 (12-78) U/L Alkaline Phosphatase 39 L (45-117) U/L Troponin I 0.019 (0-0.045) ng/ml C-Reactive Protein (0-0.29) mg/dl Total Protein 6.8 (6.4-8.2) gm/dl Albumin 3.2 L (3.4-5.0) gm/dl Globulin 3.6 (2.5-4.0) gm/dl Albumin/Globulin Ratio 0.9 (0.9-2) Procalcitonin (0-0.5) ng/ml Urine Color Urine Appearance (Clear) Urine pH (4.5-7.5) Ur Specific Hammond (1.000-1.030) Urine Protein (Negative) Urine Glucose (UA) (Negative) Urine Ketones (Negative) Urine Blood (Negative) Urine Nitrite (Negative) Urine Bilirubin (Negative) Urine Urobilinogen (Negative) Ur Leukocyte Esterase (Negative) Urine WBC (Auto) (0-5) /hpf Urine RBC (Auto) (0-4) /hpf U Hyaline Cast (Auto) (0-5) /lpf U Epithel Cells (Auto) (0-5) /lpf Urine Bacteria (Auto) (Negative) A. phagocytophilum DNA Lyme Disease IgG Ab (Negative) Lyme Disease IgM Ab (Negative) COVID-19 Eval Order SARS-CoV-2 (PCR) NEGATIVE (Negative) Influ A Molecular Assay (Negative) Influ B Molecular Assay (Negative) 09/16/20 09/16/20 Range/Units 16:18 16:13 WBC (4.8-10.8) K/uL RBC (4.7-6.1) M/uL Hgb (14.0-18.0) g/dL Hct (42-52) % MCV (80-100) fL MCH (25-34) pg MCHC (32-36) g/dL RDW Std Deviation (36.4-46.3) fL RDW Coeff of Harry (11.5-14.5) % Plt Count (130-400) K/uL MPV (7.4-10.4) fL Immature Gran % (Auto) % Neut % (Auto) % Lymph % (Auto) % [place] % (Auto) % Eos % (Auto) % Baso % (Auto) % Neut # (Auto) (1.4-6.5) K/uL Lymph # (Auto) (1.2-3.4) K/uL [place] # (Auto) (0.11-0.59) K/uL Eos # (Auto) (0-0.5) K/uL Baso # (Auto) (0-0.2) K/uL Immature Gran # (Auto) (0.00-0.02) K/uL ESR (0-20) mm/hr PT (9.0-12.0) Seconds INR (0.9-1.1) APTT (21.0-31.0) Seconds PTT Ratio Sodium (136-145) mmol/L Potassium (3.5-5.1) mmol/L Chloride (98-107) mmol/L Carbon Dioxide (21-32) mmol/L Anion Gap (3-11) BUN (7-18) mg/dl Creatinine (0.6-1.4) mg/dl Est Cr Clr Drug Dosing ml/min Est GFR ( Amer) ml/min Est GFR (Non-Af Amer) ml/min BUN/Creatinine Ratio (10-20) Glucose (70-99) mg/dl Lactate (0.4-2.0) mmol/L Calcium (8.5-10.1) mg/dl Magnesium (1.8-2.4) mg/dl Total Bilirubin (0.2-1) mg/dl AST (15-37) U/L ALT (12-78) U/L Alkaline Phosphatase (45-117) U/L Troponin I (0-0.045) ng/ml C-Reactive Protein (0-0.29) mg/dl Total Protein (6.4-8.2) gm/dl Albumin (3.4-5.0) gm/dl Globulin (2.5-4.0) gm/dl Albumin/Globulin Ratio (0.9-2) Procalcitonin (0-0.5) ng/ml Urine Color Urine Appearance (Clear) Urine pH (4.5-7.5) Ur Specific Hammond (1.000-1.030) Urine Protein (Negative) Urine Glucose (UA) (Negative) Urine Ketones (Negative) Urine Blood (Negative) Urine Nitrite (Negative) Urine Bilirubin (Negative) Urine Urobilinogen (Negative) Ur Leukocyte Esterase (Negative) Urine WBC (Auto) (0-5) /hpf Urine RBC (Auto) (0-4) /hpf U Hyaline Cast (Auto) (0-5) /lpf U Epithel Cells (Auto) (0-5) /lpf Urine Bacteria (Auto) (Negative) A. phagocytophilum DNA Pending Lyme Disease IgG Ab (Negative) Lyme Disease IgM Ab (Negative) COVID-19 Eval Order Covid19 at [facility] SARS-CoV-2 (PCR) (Negative) Influ A Molecular Assay (Negative) Influ B Molecular Assay (Negative) Diagnostic Findings Chest X-Ray 09/16/20 16:13 SINGLE VIEW CHEST CLINICAL HISTORY: Sepsis. FINDINGS: An AP, portable, upright chest radiograph is compared to study dated 09/01/2020 and correlated with chest CT dated 02/23/2010. A 2-lead cardiac pacemaker is unchanged in position. The heart is enlarged. The pulmonary vasculature is noncongested. Emphysema and chronic interstitial thickening is similar to previous. There is bibasilar scarring/atelectasis. No airspace consolidation or large pleural effusion is identified. No pneumothorax is seen. The skeletal structures are osteopenic. The bony thorax is grossly intact. IMPRESSION: 1. Cardiomegaly and cardiac pacemaker. There is no radiographic evidence of congestive failure. 2. Emphysema. 3. No airspace consolidation or large pleural effusion is identified. ACT 112: Negative or not required by law. Electronically signed by: Satnam Verdugo M.D. 09/16/2020 6:52 PM Abdomen/Pelvis CT 09/16/20 17:11 CT SCAN OF THE ABDOMEN AND PELVIS WITHOUT IV CONTRAST CLINICAL HISTORY: Fever. Hematuria. COMPARISON STUDY: Abdominal CT dated 07/03/2015. TECHNIQUE: CT scan of the abdomen and pelvis is performed from the lung bases to the proximal femora. Images are reviewed in the axial, sagittal, and coronal planes. IV contrast was not administered for this examination. Note that the examination was performed in suboptimal fashion without IV contrast. A dose lowering technique was utilized adhering to the principles of ALARA. CT DOSE: 918.90 mGycm FINDINGS: Lung bases: The heart is enlarged and without pericardial effusion. Pacemaker leads are noted. Emphysematous change is suggested at the lung bases. There is bibasilar scarring/atelectasis. There is trace right pleural effusion. No airspace consolidation is seen typical for pneumonia. Scattered calcified granulomas are observed. A small hiatal hernia is noted. Liver: The unenhanced liver is normal in size, contour, and attenuation. There is no intrahepatic biliary ductal dilatation. Gallbladder: Unremarkable. Spleen: Normal in size and attenuation. Pancreas: The unenhanced pancreas is moderately atrophic and grossly unremarkable. Adrenal glands: Unremarkable. Kidneys: The unenhanced kidneys are normal in size and without hydronephrosis. There are no renal calculi identified. A 4.2 cm cyst is noted in the left upper pole. Abdominal vasculature: The abdominal aorta is normal in course and caliber noting moderate to advanced atherosclerotic calcification. Bowel: There is moderate to advanced diverticulosis of left colon without CT evidence of acute diverticulitis. No bowel obstruction is seen. Mild fecal retention is seen throughout the colon. A portion of the normal appendix is likely seen on image #[id number]. Peritoneum: There is no intraperitoneal free air or abdominal ascites. Lymphadenopathy: None. Pelvic viscera: The prostate gland is diminutive and heterogeneous. The bladder is normal as visualized. There is a fat-containing left inguinal hernia. Skeletal structures: The skeletal structures are osteopenic. There is moderate to advanced lumbosacral spondylosis. No lytic or blastic lesions are seen. IMPRESSION: 1. There are no acute infectious or inflammatory findings in the abdomen or pelvis. 2. Cardiomegaly and cardiac pacemaker. 3. Trace right pleural effusion. 4. Colonic diverticulosis without CT evidence of acute diverticulitis. 5. Additional findings as above. ACT 112: Negative or not required by law. Electronically signed by: Satnam Verdugo M.D. 09/16/2020 6:[address] 09/16/20 17:11 CT SCAN OF THE BRAIN WITHOUT IV CONTRAST CLINICAL HISTORY: Generalized weakness. COMPARISON STUDY: CT of the brain dated 11/19/2008. TECHNIQUE: Unenhanced axial CT scan of the brain is performed from the vertex to the skull base. A dose lowering technique was utilized adhering to the principles of ALARA. CT DOSE: 690.05 mGycm FINDINGS: Brain parenchyma: There are age-related involutional changes noting moderate subcortical and periventricular microangiopathic change. There is no hemorrhage, mass effect, or evidence of acute territorial ischemia by CT criteria. Green- white matter differentiation is preserved. No extra-axial fluid collection is seen. Ventricles, sulci, cisterns: Prominent secondary to involutional change. Intracranial vasculature: There is atherosclerotic calcification of the cavernous carotid and vertebral arteries. Calvarium: Unremarkable. Sinuses and mastoids: The visualized paranasal sinuses are clear. The mastoid air cells are well pneumatized. Orbits: The bony orbits are grossly intact. There are bilateral ocular lens implants. IMPRESSION: There is no hemorrhage, mass effect, or evidence of acute territorial ischemia by CT criteria. ACT 112: Negative or not required by law. Electronically signed by: Satnam Verdugo M.D. 09/16/2020 5:57 PM Chest CTA 09/16/20 18:55 CT ANGIOGRAM OF THE CHEST CLINICAL HISTORY: Sepsis. COMPARISON STUDY: Chest x-ray dated 09/16/2020. Chest CT dated 02/23/2010. TECHNIQUE: Following the IV administration of 108 cc of Optiray 350, CT angiogram of the chest was performed from the upper abdomen to the thoracic inlet utilizing the pulmonary embolus protocol. Images are reviewed in the axial, sagittal, and coronal planes. 3-D MIPS images are created and assessed. IV contrast was administered without complication. A dose lowering technique was utilized adhering to the principles of ALARA. CT DOSE: 348.24 mGy.cm FINDINGS: Thyroid: Imaged portions of the thyroid gland are normal in size and attenuation. Thoracic aorta: There is atherosclerotic calcification of the thoracic aorta, which is normal in caliber and demonstrates standard 3-vessel arch anatomy. No dissection is seen. Pulmonary vasculature: The pulmonary trunk is normal in caliber. There are no filling defects identified in main, lobar, or segmental pulmonary branches to suggest pulmonary embolus. Heart: A cardiac pacemaker is present in the left chest wall. The heart is mildly enlarged and without pericardial effusion. The coronary arteries are densely calcified. Lungs and pleural spaces: Emphysematous change is noted. The trachea and central airways are clear. There is trace right pleural effusion. No airspace consolidation is seen typical for pneumonia. Scarring/atelectasis is noted at the lung bases. There are scattered calcified granulomas. Mild diffuse peribronchial thickening is noted. Mediastinum: Subcentimeter mediastinal lymph nodes are not pathologically enlarged by size criteria. Angie: Clear. Axillae: There is no axillary lymphadenopathy. Upper abdomen: Partially visualized upper abdominal viscera is within normal limits. Skeletal structures: The skeletal structures are heterogeneously osteopenic. Degenerative change is noted in the shoulders and thoracic spine. No lytic or blastic bony lesions are seen. IMPRESSION: 1. There is no evidence of pulmonary embolus in the main, lobar, or segmental pulmonary arteries. 2. Cardiomegaly and cardiac pacemaker. There is no radiographic evidence of congestive failure. 3. Emphysema. 4. There is no airspace consolidation typical for pneumonia. 5. Trace right pleural effusion. 6. Additional findings as above. ACT 112: Negative or not required by law. Electronically signed by: Satnam Verdugo M.D. 09/16/2020 7:35 PM PG Care Time/CCT Total # of Minutes Spent Total Time Spent with Patient: Total time spent is greater than 50% in coordination of care (as documented) at patient's floor/unit and/or counseling patient: Coding Level of Care Code 94594 Subseq Hosp Care Lvl 3 Diagnoses Fever R50.9 Fever type: unspecified Abnormal finding on urinalysis R82.90 Ischemic cardiomyopathy I25.5 CAD (coronary artery disease) I25.10 Coronary Disease-Associated Artery/Lesion type: [place] artery [place] vs. transplanted heart: [place] heart Associated angina: without angina Osteoarthritis of right knee M17.11 Osteoarthritis type: unspecified Hypertension I10 Hypertension type: essential hypertension Hyperlipidemia E78.5 Hyperlipidemia type: unspecified Renal cyst N28.1 BPH (benign prostatic hyperplasia) N40.1 Lower urinary tract symptom presence: symptoms present Lower urinary tract symptom detail: unspecified Iron (Fe) deficiency anemia D50.9 Iron deficiency anemia type: unspecified iron deficiency GERD (gastroesophageal reflux disease) K21.9 (1) Fever Fever type: unspecified Qualified Code(s): R50.9 - Fever, unspecified (2) CAD (coronary artery disease) Coronary Disease-Associated Artery/Lesion type: [place] artery [place] vs. transplanted heart: [place] heart Associated angina: without angina Qualified Code(s): I25.10 - Atherosclerotic heart disease of [place] coronary artery without angina pectoris (3) Osteoarthritis of right knee Osteoarthritis type: unspecified Qualified Code(s): M17.11 - Unilateral primary osteoarthritis, right knee (4) Hypertension Hypertension type: essential hypertension Qualified Code(s): I10 - Essential (primary) hypertension (5) Hyperlipidemia Hyperlipidemia type: unspecified Qualified Code(s): E78.5 - Hyperlipidemia, unspecified (6) BPH (benign prostatic hyperplasia) Lower urinary tract symptom presence: symptoms present Lower urinary tract symptom detail: unspecified Qualified Code(s): N40.1 - Benign prostatic hyperplasia with lower urinary tract symptoms (7) Iron (Fe) deficiency anemia Iron deficiency anemia type: unspecified iron deficiency Qualified Code(s): D50.9 - Iron deficiency anemia, unspecified
[2020-09-17] MEDS ORDERED: FUROSEMIDE 20 MG TAB PO SCH (09:00)
[2020-09-17 09:12] LABS: Albumin Level 2.9 gm/dl (3.4-5.0); Bilirubin Direct 0.2 mg/dl (0-0.2); Bilirubin,Total 0.7 mg/dl (0.2-1); Total Protein 5.9 gm/dl (6.4-8.2); Troponin I 0.04 ng/ml (0-0.045)
[2020-09-17] MEDS: PANTOprazole 40 MG TAB PO SCH (09:20)
[2020-09-17] MEDS: TELMISARTAN 20 MG TAB PO SCH (09:20)
[2020-09-17] MEDS: METOPROLOL SUCC 25MG EXT REL TAB PO SCH (09:20)
[2020-09-17] MEDS: LORATADINE 10 MG TAB PO SCH (09:20)
[2020-09-17] MEDS: ALFUZOSIN HCL 10 MG TAB PO SCH (09:21)
[2020-09-17] MEDS: ATORVASTATIN 40 MG TAB PO SCH (09:21)
[2020-09-17] MEDS: ASPIRIN 81 MG ECTAB PO SCH (09:21)
--- NOTE | 2020-09-17 12:40 | Electrocardiogram Report ---
Test Reason : Blood Pressure : / mmHG Vent. Rate : 086 BPM Atrial Rate : 086 BPM P-R Int : 286 ms QRS Dur : 194 ms QT Int : 438 ms P-R-T Axes : 061 -67 100 degrees QTc Int : 524 ms AV dual-paced rhythm with prolonged AV conduction Abnormal ECG When compared with ECG of 01-SEP-2020 12:10, Vent. rate has increased BY 16 BPM Confirmed by Omar Fenton ([id number]) on 09/17/2020 12:39:42 PM Referred By: REFERRED SELF Confirmed By:Omar Fenton
--- NOTE | 2020-09-17 14:58 | Orthopedic Consultation ---
Date of Service September 17, 2020 Assessment & Plan (1) Osteoarthritis of right knee: I looked over his chart in detail. Aside from his CRP being elevated I could not find any other issues. He is feeling well would like to have his right knee replaced tomorrow. I spoke to the hospitalist about this. I put him on as my last case for tomorrow. Hopefully the 48-hour blood cultures will be back by then. If he is feeling real well tomorrow and if lab values continue to be negative then we may proceed with knee replacement surgery. However, if he is not feeling well or if lab results come back positive then we will certainly postpone. He understands. History of Present Illness Reason for Consultation: Osteoarthritis of the right knee. Requesting Physician: . Attending Physician: George Nelson MD Te is a pleasant 80-year-old male who is been dealing with chronic worsening osteoarthritis of the right knee. I have done multiple aspirations and injections of his knee. He is to the point where he is having trouble ambulating on his knee. He has elected to proceed with a right total knee arthroplasty. He is scheduled to have his knee replaced tomorrow. Unfortunately last night after dinner he began feeling very weak. He was supposed to get his Covid test as an outpatient and had trouble making it to the facility. His took his temperature and it was 101.1. He was then brought to the emergency room. He had a full CAT scan of his head abdomen and pelvis. There was no source of an infection and no major issues were identified. Urinalysis and blood work was mostly negative. His CRP was little elevated. He was admitted overnight. Fortunately he is feeling much better now. He says he has good energy and has been eating well. He did have blood cultures drawn yesterday and were waiting for final blood cultures to come back. He would really like to have his knee replaced tomorrow. He is already been off his Plavix. His knee is really limiting his ability to ambulate. Orthopedics was consulted to evaluate and treat.. Allergies Allergy/AdvReac Type Severity Reaction Status Date / Time bee venom protein (honey bee) Allergy Intermediate stinging Verified 09/16/20 17:06 insects - PASSED OUT/syncope codeine AdvReac Mild NAUSEA AND Verified 09/16/20 17:06 VOMITNG Home Medications Medication Instructions Recorded Confirmed Type aspirin 81 mg PO QAM 02/20/18 09/16/20 History atorvastatin 40 mg PO QAM 02/20/18 09/16/20 History clopidogrel [Plavix] 75 mg PO QAM 02/20/18 09/16/20 History furosemide [Lasix] 20 mg PO QAM 02/20/18 09/16/20 History metoprolol succinate 25 mg PO QAM 02/20/18 09/16/20 History epinephrine 0.3 mg/0.3 mL 0.3 mg IM UD PRN ea 11/09/18 09/16/20 History injection, auto-injector iron,carbonyl 65 mg-vitamin C 125 1 tab PO QPM 11/09/18 09/16/20 History mg tablet,delayed release methylcellulose (laxative) 500 mg 500 mg PO BID tab 11/09/18 09/16/20 History tablet mwbqvcsv-qup-bzryd acid 300 1 tab PO QAM 11/09/18 09/16/20 History mcg-lycopene 600 mcg-lutein 300 mcg tablet loratadine 10 mg capsule 10 mg PO QAM 11/26/18 09/16/20 History telmisartan 20 mg tablet 20 mg PO QAM 11/26/18 09/16/20 History nitroglycerin 0.4 mg sublingual 0.4 mg SUBLINGUAL UD PRN #30 tab 05/07/20 09/16/20 Rx tablet alprazolam [Xanax] 2 mg PO HS 08/26/20 09/16/20 History mupirocin 1 appln TOP BID PRN 08/26/20 09/16/20 History pantoprazole 80 mg PO QAM 08/26/20 09/16/20 History potassium chloride 10 meq PO QPM 08/26/20 09/16/20 History alfuzosin 10 mg tablet,extended 10 mg PO DAILY #90 tab 09/09/20 09/16/20 Rx release 24 hr dutasteride 0.5 mg capsule 0.5 mg PO DAILY #90 cap 09/09/20 09/16/20 Rx amoxicillin 2,000 mg PO UD PRN 09/16/20 09/16/20 History Past Med/Surg History Medical History Anemia Anxiety BPH (benign prostatic hyperplasia) Cancer SKIN 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 Myocardial Infarction 11/14/2016 -- PCI x 1 to LAD, then balloon angioplasty the following day to 2nd Dx due to recurrent symptoms. 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 Follows with [facility]). Surgical History H/O hemorrhoidectomy History of cardiac cath 2017 History of carpal tunnel release RT/LEFT History of cataract surgery RT/LEFT History of colonoscopy History of esophagogastroduodenoscopy (EGD) History of heart artery stent 2017 1 STENT History of permanent cardiac pacemaker placement For symptomatic bradycardia. History of repair of rotator cuff RT History of thumb surgery RT/LEFT THUMB History of tonsillectomy and adenoidectomy History of tooth extraction Hx of transurethral resection of prostate Nausea and vomiting after administration of anesthetic agent Family History Unknown No problems noted. Mother Alcohol abuse Bipolar disorder Cardiac disorder Myocardial infarction Breast cancer Brother Throat cancer Alcohol abuse Kidney disease Father Alcohol abuse Lung cancer Sister Lung cancer Other No family history of adverse response to anesthesia Denies family history of Ovarian cancer Prostate cancer Clotting disorder Colorectal cancer Social History Smoking Status: Former smoker Tobacco Type: Cigarettes packs per day: 1; Years Smoked: 15; Second Hand Exposure: No; Do You Dip or Chew Tobacco: No; Tobacco Cessation Education Requested by Patient: No Hx Alcohol Use: Yes Alcohol type: beer Alcohol Intake Frequency: Monthly or Less Hx Substance Use: No Preferred Language: Somali Communication Ability: Effective Occupational Therapy Manager Required: No Beliefs That Will Affect Care: None marital status: Current Living Situation: Spouse current occupational status: retired Other Information That Helps Us Care for You: No Feels Safe at Home: Yes Safety Concerns: Feels Safe At This Time Childhood Exposure to Second-Hand Smoke: No Dental Care, Regularly: Yes Physical Activity Frequency: Does not Exercise Seatbelt Use: always Sunscreen Use: No Assistive Devices: Glasses Review of Systems All systems reviewed & are unremarkable except as noted in HPI & below. Physical Exam On physical examination of the right knee, he has a large effusion. His range of motion from 5 to 95 degrees mostly limited by the effusion. He has pain of the distal femoral condyles.. Constitutional WD/WN, vitals as above Eyes PERRL, conjunctivae normal, anicteric sclerae ENMT external ear and nose normal, oropharynx normal Neck trachea midline, no thyromegaly Respiratory normal respiratory effort Cardiovascular RRR, no murmur, no edema Gastrointestinal (Abdomen) normal bowel sounds, soft, nontender, no hepatosplenomegaly Psychiatric A+Ox3, euthymic affect Results & Data Results & Data Laboratory Results . Diagnostic Findings CT scan of the head, chest, abdomen, and pelvis was reviewed. I did not see any infectious pathologies or anything significant on the CAT scans.. PG Care Time/CCT Total # of Minutes Spent Total Time Spent with Patient: Total time spent is greater than 50% in coordination of care (as documented) at patient's floor/unit and/or counseling patient: Coding Level of Care Code 20657 Inpt Consult Level 4 (57 - DECISION FOR SURGERY) Diagnoses Osteoarthritis of right knee M17.11 Osteoarthritis type: unspecified (1) Osteoarthritis of right knee Osteoarthritis type: unspecified Qualified Code(s): M17.11 - Unilateral primary osteoarthritis, right knee
[2020-09-17] MEDS: SODIUM CHLORIDE 0.9% 1000ML 1,000 ML IV SCH (15:09)
--- NOTE | 2020-09-17 15:24 | XRay Report ---
XR knee LT 3V CLINICAL HISTORY: warmth, fever COMPARISON STUDY: None. FINDINGS: No joint effusion. Soft tissues are unremarkable. No fracture or dislocation within the lef t knee. Mild cartilage space narrowing within the medial compartment consistent with degenerative jayden nge. IMPRESSION: 1. No fractures within the left knee. 2. No significant joint effusion. ACT 112: Negative or not required by law. Electronically signed by: Dung Wolf M.D. 09/17/2020 3:23 PM
--- NOTE | 2020-09-17 16:55 | Cardiology Consultation ---
Date of Consultation September 17, 2020 Assessment & Plan (1) Preop cardiovascular exam: (2) Ischemic cardiomyopathy: (3) Osteoarthritis of right knee: (4) Fever: (5) CAD (coronary artery disease): (6) Acquired heart block: (7) Pacemaker: Given the patient's cardiac history but lack of active symptoms he was counseled place him as a moderate risk for any adverse perioperative cardiovascular event with his risk being approximately less than 5%. He was further counseled that no further cardiac testing or intervention would further lower this risk. He states he understands, he is accepting of this risk and wishes to proceed with the surgery. His Plavix is already been held in preparation and his aspirin will be continued uninterrupted throughout the perioperative period. Continue all other outpatient cardiac medications. History of Present Illness Reason for Consultation: Preop cardiovascular risk assessment Requesting Physician: Dr. Pierce Attending Physician: George Nelson MD History of Present Illness The patient is a very pleasant 80-year-old gentleman who normally follows with Dr. Jackson of our cardiology practice. He was planned to undergo total knee replacement surgery due to his underlying arthritis but several days ago developed joint pain and swelling along with fever-like symptoms. During this time he denied any chest pain, shortness of breath, palpitations, lightheadedness, dizziness or syncope. He presented to the emergency department and is planned to undergo surgery tentatively tomorrow. Cardiac problem list as per most recent outpatient cardiac evaluation. 1.Conduction system disease, status post dual-chamber pacemaker insertion, July of 2015. [employer] Ad[employer]a DR AGARWAL A2 DR 0 1 2.Atherosclerotic coronary artery disease with acute anterolateral myocardial infarction, 11/15/2016, undergoing urgent coronary intervention receiving drug-eluting stent to the left anterior descending with a repeat cardiac catheterization following day due to recurrent symptoms with patient undergoing balloon angioplasty at the ostium of second diagonal branch. 3.Left dominant coronary anatomy. 4.Apical hypokinesis with mild to moderate left ventricular dysfunction, EF 35 to 40% October 2017 5.Hypertension, mild. 6.Hyperlipidemia on therapy. Allergies Allergy/AdvReac Type Severity Reaction Status Date / Time bee venom protein (honey bee) Allergy Intermediate stinging Verified 09/16/20 17:06 insects - PASSED OUT/syncope codeine AdvReac Mild NAUSEA AND Verified 09/16/20 17:06 VOMITNG Home Medications Medication Instructions Recorded Confirmed Type aspirin 81 mg PO QAM 02/20/18 09/16/20 History atorvastatin 40 mg PO QAM 02/20/18 09/16/20 History clopidogrel [Plavix] 75 mg PO QAM 02/20/18 09/16/20 History furosemide [Lasix] 20 mg PO QAM 02/20/18 09/16/20 History metoprolol succinate 25 mg PO QAM 02/20/18 09/16/20 History epinephrine 0.3 mg/0.3 mL 0.3 mg IM UD PRN ea 11/09/18 09/16/20 History injection, auto-injector iron,carbonyl 65 mg-vitamin C 125 1 tab PO QPM 11/09/18 09/16/20 History mg tablet,delayed release methylcellulose (laxative) 500 mg 500 mg PO BID tab 11/09/18 09/16/20 History tablet yqkbepez-dht-irdnz acid 300 1 tab PO QAM 11/09/18 09/16/20 History mcg-lycopene 600 mcg-lutein 300 mcg tablet loratadine 10 mg capsule 10 mg PO QAM 11/26/18 09/16/20 History telmisartan 20 mg tablet 20 mg PO QAM 11/26/18 09/16/20 History nitroglycerin 0.4 mg sublingual 0.4 mg SUBLINGUAL UD PRN #30 tab 05/07/20 09/16/20 Rx tablet alprazolam [Xanax] 2 mg PO HS 08/26/20 09/16/20 History mupirocin 1 appln TOP BID PRN 08/26/20 09/16/20 History pantoprazole 80 mg PO QAM 08/26/20 09/16/20 History potassium chloride 10 meq PO QPM 08/26/20 09/16/20 History alfuzosin 10 mg tablet,extended 10 mg PO DAILY #90 tab 09/09/20 09/16/20 Rx release 24 hr dutasteride 0.5 mg capsule 0.5 mg PO DAILY #90 cap 09/09/20 09/16/20 Rx amoxicillin 2,000 mg PO UD PRN 09/16/20 09/16/20 History Patient History Medical History Anemia Anxiety BPH (benign prostatic hyperplasia) Cancer SKIN 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 Myocardial Infarction 11/14/2016 -- PCI x 1 to LAD, then balloon angioplasty the following day to 2nd Dx due to recurrent symptoms. 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 Follows with [facility]). Surgical History H/O hemorrhoidectomy History of cardiac cath 2017 History of carpal tunnel release RT/LEFT History of cataract surgery RT/LEFT History of colonoscopy History of esophagogastroduodenoscopy (EGD) History of heart artery stent 2017 1 STENT History of permanent cardiac pacemaker placement For symptomatic bradycardia. History of repair of rotator cuff RT History of thumb surgery RT/LEFT THUMB History of tonsillectomy and adenoidectomy History of tooth extraction Hx of transurethral resection of prostate Nausea and vomiting after administration of anesthetic agent Family History Unknown No problems noted. Mother Alcohol abuse Bipolar disorder Cardiac disorder Myocardial infarction Breast cancer Brother Throat cancer Alcohol abuse Kidney disease Father Alcohol abuse Lung cancer Sister Lung cancer Other No family history of adverse response to anesthesia Denies family history of Ovarian cancer Prostate cancer Clotting disorder Colorectal cancer Social History Smoking Status: Former smoker Tobacco Type: Cigarettes packs per day: 1; Years Smoked: 15; Second Hand Exposure: No; Do You Dip or Chew Tobacco: No; Tobacco Cessation Education Requested by Patient: No Hx Alcohol Use: Yes Alcohol type: beer Alcohol Intake Frequency: Monthly or Less Hx Substance Use: No Preferred Language: Uzbek Communication Ability: Effective Concrete Pointer Required: No Beliefs That Will Affect Care: None marital status: Current Living Situation: Spouse current occupational status: retired Other Information That Helps Us Care for You: No Feels Safe at Home: Yes Safety Concerns: Feels Safe At This Time Childhood Exposure to Second-Hand Smoke: No Dental Care, Regularly: Yes Physical Activity Frequency: Does not Exercise Seatbelt Use: always Sunscreen Use: No Assistive Devices: Glasses Review of Systems Review of Systems: All systems reviewed & are unremarkable except as noted in HPI & below Physical Exam Physical Exam: General: Awake, alert and oriented x 3. No acute distress. HEENT: Normocephalic, atraumatic. Pupils equal, round and reactive to light and accommodation. Extraocular muscles are intact. Anicteric sclera. Moist mucous membranes. Neck: No JVD. No bruit. Cardiovascular: Regular. Positive S-4. Normal S-1 and S-2. No S-3. No murmurs or rubs. Pulmonary: Clear to auscultation B/L. No rales, rhonchi or wheezing Abdomen: Bowel sounds x 4, soft. No rebound, guarding or tenderness. No organomegaly. Extremities: No clubbing, cyanosis or edema. +2 pedal pulses bilaterally. Skin: Warm and dry. Results & Data ([facility]) Vital Signs (Past 12 Hours) Vital Signs Temp Pulse Resp BP BP Pulse Ox 09/17/20 15:41 37.3 C 80 18 97/55 L 94 09/17/20 09:18 87 112/63 09/17/20 07:27 37.2 C 84 20 99/51 L 96 Diagnostic Findings 2D echocardiogram report from 11/10/2017: Interpretation Summary The examination is adequate to evaluate the referral indication. The left ventricular cavity size is normal. The wall thickness is borderline increased in segments with normal wall motion. There is a large sized apical, septal, anteroseptal, and inferior wall motion abnormality with mild hypokinesis to akinesis of the segments. The qualitative LV ejection fraction is 3539% (moderately reduced). Moderate mitral regurgitation is present. Moderate tricuspid regurgitation is present. Moderate pulmonary hypertension is present. Comparison to prior study, overall systolic function is not significantly changed. Pulmonary pressures have increased (1) Fever Fever type: unspecified Qualified Code(s): R50.9 - Fever, unspecified (2) CAD (coronary artery disease) Associated angina: without angina Coronary Disease-Associated Artery/Lesion type: [place] artery [place] vs. transplanted heart: [place] heart Qualified Code(s): I25.10 - Atherosclerotic heart disease of [place] coronary artery without angina pectoris (3) Osteoarthritis of right knee Osteoarthritis type: unspecified Qualified Code(s): M17.11 - Unilateral primary osteoarthritis, right knee
[2020-09-17] MEDS ORDERED: DOXYCYCLINE HYCLATE 100 MG CAP PO SCH (21:00)
[2020-09-18] MEDS: [UNRECOGNIZED DRUG - REMARK] SCH ×3 (01:08→19:23)
[2020-09-18] MEDS: SODIUM CHLORIDE 0.9% 1000ML 1,000 ML IV SCH ×2 (05:07→19:23)
[2020-09-18] MEDS ORDERED: ROPIVACAINE 0.5% HCL/PF 150 MG, BUPIVACAINE 0.75% MPF 20 ML, EPINEPHrine 30MG/30ML (OR ... INSTIL SCH (06:00)
[2020-09-18] MEDS ORDERED: GABAPENTIN 300 MG CAP PO SCH (06:00)
[2020-09-18] MEDS ORDERED: ACETAMINOPHEN 500 MG TAB PO SCH (06:00)
[2020-09-18] MEDS ORDERED: LR 60ML/HR IV SCH (06:00)
[2020-09-18] MEDS ORDERED: FAMOTIDINE 20 MG TAB PO SCH (06:00)
[2020-09-18] MEDS ORDERED: TRANEXAMIC ACID 1,000 MG **IV Pre-op IV SCH (06:00)
[2020-09-18] MEDS ORDERED: ceFAZolin 1000MG 1,000 MG/7.5 ML SYR IV SCH (06:00)
[2020-09-18] MEDS ORDERED: TRANEXAMIC ACID 1,000 MG **IV Intra-op IV SCH (06:00)
[2020-09-18] MEDS ORDERED: dexAMETHasone 4 MG TAB PO SCH (06:00)
[2020-09-18 06:17] LABS: Basophils # (auto) 0.02 K/uL (0-0.2); Basophils % (auto) 0.3 %; Hematocrit (blood only) 34.4 % (42-52); Hemoglobin 11.6 g/dL (14.0-18.0); Immature Granulocytes # (auto) 0.03 K/uL (0.00-0.02); Immature Granulocytes % (auto) 0.5 %; Lymphocytes # (auto) 1.09 K/uL (1.2-3.4); Mean Corpuscular Hgb Conc 33.7 g/dL (32-36); Mean Corpuscular Volume 94.8 fL (80-100); Mean Platelet Volume 9.3 fL (7.4-10.4); Monocytes % (auto) 10.5 %; Neutrophils # (auto) 3.99 K/uL (1.4-6.5); Neutrophils % (auto) 69.7 %; Platelet Count 149 K/uL (130-400); RDW Coefficient of Variation 13.9 % (11.5-14.5); RDW Standard Deviation 48.2 fL (36.4-46.3); Red Blood Count 3.63 M/uL (4.7-6.1); White Blood Count 5.73 K/uL (4.8-10.8)
[2020-09-18] MEDS: DOXYCYCLINE HYCLATE 100 MG in DEXTROSE 5% 100 ML IV SCH ×2 (06:51→19:24)
[2020-09-18 07:04] LABS: BUN Creatinine Ratio 20.7 (10-20); Calcium 8.3 mg/dl (8.5-10.1); Creatinine Clr Calc Pharmacy 62.7 ml/min; Est GFR (African American) 95.4 ml/min; Est GFR (Non-African American) 82.4 ml/min; Magnesium 1.9 mg/dl (1.8-2.4); Potassium 3.7 mmol/L (3.5-5.1)
--- NOTE | 2020-09-18 08:01 | Hospitalist Progress Note ---
Date of Service September 18, 2020 Assessment & Plan (1) Fever: Fever as per HPI- no source and no elevated biomarkers Temp 38.8C afternoon 6/2 in ER --> no further fevers CRP elevated to 6 from 5 --> repeat 5.46 Procal 0.32 Lactic 1.4 WBC wnl 5.7k, no further L shift Did have 2 tick bites in last month --> L lower leg and L thigh 1 month and 2 weeks ago -- ?too early for + abx testing as Lyme abx testing negative Did have L shift on admission -- given Vanco/cefepime in ER, no further abx or dered (no further L shift) Anaplasmosis pending -- negative on smear All other imaging without source of infection (CT Chest/A/P) BCx pending -- ngtd (does have pacemaker of note [facility] Will obtain Xray of L knee given swelling/warmth -- no acute findings No urine cx as no leuk est, WBC or bacteria. Did have hematuria (chronic) so could have passed a stone? No CVA tenderness --> improvement on repeat. CK elevated to 545, mild rhabdo -- contributing to weakness/possible due to fall last evening --> HOld statin tonight, repeat in AM NPO except Aspirin and metoprolol this morning NSS @100cc/hr pre-op (increased from 70cc/hr this morning) Orthopedics consulted -- possible plans for TKA this afternoon Labs in AM (2) Abnormal finding on urinalysis: Elevated RBC with no hematuria -- hx hematuria. No stones noted on imaging but maybe passed small one? Clearing on repeat UA but still present ?stone. Does have 4.2cm cyst on L kidney. Followed by Urology and would recommend follow up imaging. -> Discussed with radiology and cyst there on imaging from 2016, was about 3.1cm at that time and definitely appears simple (3) Ischemic cardiomyopathy: No acute needs. Trop 0.04 --> 0.039 x 2 on repeat Cardiology on consult -- patient understands risks and willing to proceed with OR as above Continue home medications -- lasix 20mg, metoprolol 25mg, atorvastatin 40mg, telmisartan 20mg --> holding lasix, telmisartan 20mg pre-op, was slightly dehydrated and getting IVF as above Nitro prn (4) CAD (coronary artery disease): As above He has stopped his Plavix last week for upcoming TKA on Monday --> per patient this was ortho recs and he will resume once finished with DVT proph with ASA 81mg BID (5) Osteoarthritis of right knee: As above surgery planned for Monday Orthopaedics consulted to notify patient is admitted- Dr. Hodges ASA as above through the [id number] operative phase Heparin Subq for VTE- holding pre-op (6) Hypertension: As above- well controlled BP 118/62 Continue to monitor (7) Hyperlipidemia: As above -- atorvastatin 40 --> holding given elevated CK as above (8) Renal cyst: Chronically noted- 3.1cm on prior imaging. Discussed with radiology and felt not significant. Can have reg Urology f/u outpatient (9) BPH (benign prostatic hyperplasia): Continue Alfuzosin and dutasteride (10) Iron (Fe) deficiency anemia: Mild remains on iron carbonyl vitamin c tabs. (11) GERD (gastroesophageal reflux disease): Continue PPI DVT Prophy -- ASA 81mg pre-operatively as above --Heparin SQ -- holding pre-operatively --> post operatively DVT proph per surgery Dispo: continued inpatient stay TKA with Dr. Hodges this afternoon Admission and Anticipated Discharge Date Admission Date: September 16, 2020 Subjective Patient evaluated this morning. Feels well. Did have hurt to his pride after slipping out of bed this morning due to his socks. No LOC, denies hitting his head. No further fever, chills, rigors. No chest pain ,shortness of breath abdominal pain, n/v/d at this time. Plans for proceeding with the total knee this afternoon. Discussed with continued tx for Lyme despite negative testing as ab may not yet be positive and he has already had improvement. Review of Systems Review of Systems: All systems reviewed & are unremarkable except as noted in HPI & below Physical Exam Physical Exam: PHYSICAL EXAM: General: awake, alert, no apparent distress, laying in bed asleep upon entry, easily awoken Head: Normocephalic, atraumatic ENT: PERRL, EOMI, no pharyngeal exudate, mucous membranes slightly dry, no lymphadenopathy Neuro: AAO x 3, speech clear and appropriate, strength intact bilaterally 5/5, s ensation intact and equal all extremities and dermatomes, no pronator drift Chest: equal rise and fall of the chest, no accessory muscle use, no heaves or thrills, Clear to auscultation, No egophony, on room air, Cardiac: RRR, systolic ejection murmur. cap refill <3 seconds. no edema. calves non-tender GI: NABS x 4 quadrants, soft, nontender to palpation, no rebound, guarding or tenderness : Spontaneously voiding, no pain, no CVA tenderness, Extremities: mild warmth to R knee, minimal swelling, non-tender Psych: Normal mood and affect Skin: scab to L posterior hip from prior tick removed as well as healed lesion to posterior lateral left leg from older tick bit skin cool, dry, no other obvious lesions appreciated Results & Data Results & Data ([facility]) Vital Signs (Past 12 Hours) Vital Signs Temp Pulse Resp BP Pulse Ox 09/18/20 07:42 36.9 C 78 16 118/62 91 09/18/20 03:21 36.9 C 102 H 16 112/68 92 09/17/20 23:16 37.5 C 70 20 110/67 92 Laboratory Results 09/18/20 09/18/20 09/17/20 Range/Units 05:59 05:59 18:53 WBC 5.73 (4.8-10.8) K/uL RBC 3.63 L (4.7-6.1) M/uL Hgb 11.6 L (14.0-18.0) g/dL Hct 34.4 L (42-52) % MCV 94.8 (80-100) fL MCH 32.0 (25-34) pg MCHC 33.7 (32-36) g/dL RDW Std Deviation 48.2 H (36.4-46.3) fL RDW Coeff of Harry 13.9 (11.5-14.5) % Plt Count 149 (130-400) K/uL MPV 9.3 (7.4-10.4) fL Immature Gran % (Auto) 0.5 % Neut % (Auto) 69.7 % Lymph % (Auto) 19.0 % [place] % (Auto) 10.5 % Eos % (Auto) 0.0 % Baso % (Auto) 0.3 % Neut # (Auto) 3.99 (1.4-6.5) K/uL Lymph # (Auto) 1.09 L (1.2-3.4) K/uL [place] # (Auto) 0.60 H (0.11-0.59) K/uL Eos # (Auto) 0.00 (0-0.5) K/uL Baso # (Auto) 0.02 (0-0.2) K/uL Immature Gran # (Auto) 0.03 H (0.00-0.02) K/uL Absolute Nucleated RBC (0-0) K/uL Nucleated RBC % (auto) % Sodium 137 (136-145) mmol/L Potassium 3.7 (3.5-5.1) mmol/L Chloride 107 (98-107) mmol/L Carbon Dioxide 24 (21-32) mmol/L Anion Gap 6.0 (3-11) BUN 17 (7-18) mg/dl Creatinine 0.82 (0.6-1.4) mg/dl Est Cr Clr Drug Dosing 62.7 ml/min Est GFR ( Amer) 95.4 ml/min Est GFR (Non-Af Amer) 82.4 ml/min BUN/Creatinine Ratio 20.7 H (10-20) Glucose 111 H (70-99) mg/dl Calcium 8.3 L (8.5-10.1) mg/dl Magnesium 1.9 (1.8-2.4) mg/dl Total Bilirubin (0.2-1) mg/dl Direct Bilirubin (0-0.2) mg/dl AST (15-37) U/L ALT (12-78) U/L Alkaline Phosphatase (45-117) U/L Troponin I 0.039 (0-0.045) ng/ml Total Protein (6.4-8.2) gm/dl Albumin (3.4-5.0) gm/dl Anaplasma Smear 09/17/20 09/17/20 09/17/20 Range/Units 13:12 05:31 05:31 WBC (4.8-10.8) K/uL RBC (4.7-6.1) M/uL Hgb (14.0-18.0) g/dL Hct (42-52) % MCV (80-100) fL MCH (25-34) pg MCHC (32-36) g/dL RDW Std Deviation (36.4-46.3) fL RDW Coeff of Harry (11.5-14.5) % Plt Count (130-400) K/uL MPV (7.4-10.4) fL Immature Gran % (Auto) % Neut % (Auto) % Lymph % (Auto) % [place] % (Auto) % Eos % (Auto) % Baso % (Auto) % Neut # (Auto) (1.4-6.5) K/uL Lymph # (Auto) (1.2-3.4) K/uL [place] # (Auto) (0.11-0.59) K/uL Eos # (Auto) (0-0.5) K/uL Baso # (Auto) (0-0.2) K/uL Immature Gran # (Auto) (0.00-0.02) K/uL Absolute Nucleated RBC (0-0) K/uL Nucleated RBC % (auto) % Sodium (136-145) mmol/L Potassium (3.5-5.1) mmol/L Chloride (98-107) mmol/L Carbon Dioxide (21-32) mmol/L Anion Gap (3-11) BUN (7-18) mg/dl Creatinine (0.6-1.4) mg/dl Est Cr Clr Drug Dosing ml/min Est GFR ( Amer) ml/min Est GFR (Non-Af Amer) ml/min BUN/Creatinine Ratio (10-20) Glucose (70-99) mg/dl Calcium (8.5-10.1) mg/dl Magnesium (1.8-2.4) mg/dl Total Bilirubin 0.7 (0.2-1) mg/dl Direct Bilirubin 0.2 (0-0.2) mg/dl AST 51 H (15-37) U/L ALT 43 (12-78) U/L Alkaline Phosphatase 32 L (45-117) U/L Troponin I 0.039 0.040 (0-0.045) ng/ml Total Protein 5.9 L (6.4-8.2) gm/dl Albumin 2.9 L (3.4-5.0) gm/dl Anaplasma Smear Cancelled 09/17/20 Range/Units 05:31 WBC (4.8-10.8) K/uL RBC (4.7-6.1) M/uL Hgb (14.0-18.0) g/dL Hct (42-52) % MCV (80-100) fL MCH (25-34) pg MCHC (32-36) g/dL RDW Std Deviation (36.4-46.3) fL RDW Coeff of Harry (11.5-14.5) % Plt Count (130-400) K/uL MPV (7.4-10.4) fL Immature Gran % (Auto) % Neut % (Auto) % Lymph % (Auto) % [place] % (Auto) % Eos % (Auto) % Baso % (Auto) % Neut # (Auto) (1.4-6.5) K/uL Lymph # (Auto) (1.2-3.4) K/uL [place] # (Auto) (0.11-0.59) K/uL Eos # (Auto) (0-0.5) K/uL Baso # (Auto) (0-0.2) K/uL Immature Gran # (Auto) (0.00-0.02) K/uL Absolute Nucleated RBC 0.00 (0-0) K/uL Nucleated RBC % (auto) 0.0 % Sodium (136-145) mmol/L Potassium (3.5-5.1) mmol/L Chloride (98-107) mmol/L Carbon Dioxide (21-32) mmol/L Anion Gap (3-11) BUN (7-18) mg/dl Creatinine (0.6-1.4) mg/dl Est Cr Clr Drug Dosing ml/min Est GFR ( Amer) ml/min Est GFR (Non-Af Amer) ml/min BUN/Creatinine Ratio (10-20) Glucose (70-99) mg/dl Calcium (8.5-10.1) mg/dl Magnesium (1.8-2.4) mg/dl Total Bilirubin (0.2-1) mg/dl Direct Bilirubin (0-0.2) mg/dl AST (15-37) U/L ALT (12-78) U/L Alkaline Phosphatase (45-117) U/L Troponin I (0-0.045) ng/ml Total Protein (6.4-8.2) gm/dl Albumin (3.4-5.0) gm/dl Anaplasma Smear See Comment PG Care Time/CCT Total # of Minutes Spent Total Time Spent with Patient: Total time spent is greater than 50% in coord ination of care (as documented) at patient's floor/unit and/or counseling patient: Coding Level of Care Code 93170 Subseq Hosp Care Lvl 3 Diagnoses Fever R50.9 Fever type: unspecified Abnormal finding on urinalysis R82.90 Ischemic cardiomyopathy I25.5 CAD (coronary artery disease) I25.10 Coronary Disease-Associated Artery/Lesion type: [place] artery [place] vs. transplanted heart: [place] heart Associated angina: without angina Osteoarthritis of right knee M17.11 Osteoarthritis type: unspecified Hypertension I10 Hypertension type: essential hypertension Hyperlipidemia E78.5 Hyperlipidemia type: unspecified Renal cyst N28.1 BPH (benign prostatic hyperplasia) N40.1 Lower urinary tract symptom presence: symptoms present Lower urinary tract symptom detail: unspecified Iron (Fe) deficiency anemia D50.9 Iron deficiency anemia type: unspecified iron deficiency GERD (gastroesophageal reflux disease) K21.9 (1) Fever Fever type: unspecified Qualified Code(s): R50.9 - Fever, unspecified (2) CAD (coronary artery disease) Coronary Disease-Associated Artery/Lesion type: [place] artery [place] vs. transplanted heart: [place] heart Associated angina: without angina Qualified Code(s): I25.10 - Atherosclerotic heart disease of [place] coronary artery without angina pectoris (3) Osteoarthritis of right knee Osteoarthritis type: unspecified Qualified Code(s): M17.11 - Unilateral primary osteoarthritis, right knee (4) Hypertension Hypertension type: essential hypertension Qualified Code(s): I10 - Essential (primary) hypertension (5) Hyperlipidemia Hyperlipidemia type: unspecified Qualified Code(s): E78.5 - Hyperlipidemia, unspecified (6) BPH (benign prostatic hyperplasia) Lower urinary tract symptom presence: symptoms present Lower urinary tract symptom detail: unspecified Qualified Code(s): N40.1 - Benign prostatic hyperplasia with lower urinary tract symptoms (7) Iron (Fe) deficiency anemia Iron deficiency anemia type: unspecified iron deficiency Qualified Code(s): D50.9 - Iron deficiency anemia, unspecified
[2020-09-18 08:24] LABS: C Reactive Protein 5.46 mg/dl (0-0.29)
[2020-09-18] MEDS ORDERED: BUPIVACAINE 0.5 % 5 MG/1 ML PF 10ML VIAL ONE (09:23)
[2020-09-18] MEDS ORDERED: BUPIVACAINE 0.25% 30 ML VIAL ONE (09:23)
[2020-09-18] MEDS: METOPROLOL SUCC 25MG EXT REL TAB PO SCH (10:00)
[2020-09-18] MEDS: ASPIRIN 81 MG ECTAB PO SCH (10:04)
[2020-09-18] MEDS: ALFUZOSIN HCL 10 MG TAB PO SCH (10:56)
[2020-09-18] MEDS: ATORVASTATIN 40 MG TAB PO SCH (10:57)
[2020-09-18] MEDS: PANTOprazole 40 MG TAB PO SCH (10:57)
--- NOTE | 2020-09-18 11:40 | Orthopedic Progress Note ---
Date of Service September 18, 2020 Assessment & Plan (1) Osteoarthritis of right knee: Overall he is doing well. He has been afebrile for about 48 hours. His white count is negative. He feels fine. His blood cultures were negative. I think it safe to proceed with a right knee replacement surgery. He has been n.p.o. The decision was made to proceed with surgery today. We will hopefully get this done later this afternoon. Roxane Tiwari was seen and examined at bedside this morning. Overall he looks fine. He says he feels fine and is looking forward to getting his knee replacement done. He was seen by cardiology and no further treatment was suggested. He is already been off his Plavix. He has been n.p.o. since midnight. Review of Systems All systems reviewed & are unremarkable except as noted in HPI & below. Physical Exam Physical examination of the right knee does show a large right knee effusion. His range of motion from 5 to 100 degrees. He has no instability.. Results & Data Results & Data Laboratory Results . Diagnostic Findings . PG Care Time/CCT Total # of Minutes Spent Total Time Spent with Patient: Total time spent is greater than 50% in coordination of care (as documented) at patient's floor/unit and/or counseling patient: Coding Level of Care Code 72222 Subseq Hosp Care Lvl 2 (57 - DECISION FOR SURGERY) Diagnoses Osteoarthritis of right knee M17.11 Osteoarthritis type: unspecified (1) Osteoarthritis of right knee Osteoarthritis type: unspecified Qualified Code(s): M17.11 - Unilateral primary osteoarthritis, right knee
--- NOTE | 2020-09-18 12:44 | History & Physical Bridge Note ---
Date of Service September 18, 2020 History & Physical Bridge Note I have examined the patient, reviewed the History & Physical and in the interval since the performance of the History & Physical I have noted the following changes of clinical significance: no changes noted
[2020-09-18] MEDS ORDERED: BUPIVACAINE 0.25% 30 ML VIAL INFIL ONE ×2 (14:29)
[2020-09-18] MEDS ORDERED: MIDAZOLAM HCL 1 MG/ML 2ML VIAL ONE (15:11)
[2020-09-18] MEDS ORDERED: LIDOCAINE 2% 2 ML VIAL/AMP(20MG/ML) INFIL ONE (15:11)
[2020-09-18] MEDS ORDERED: PROPOFOL IV EMULSION 10 MG/ML 20 ML VIAL IV ONE ×2 (15:11→17:04)
[2020-09-18] MEDS ORDERED: fentaNYL citrate 100 MCG/2 ML VIAL ONE (15:12)
[2020-09-18] MEDS ORDERED: ONDANSETRON INJ 2 MG/ML 2 ML VIAL ONE (15:12)
--- NOTE | 2020-09-18 15:25 | Anesthesiology Consultation ---
Date of Service September 18, 2020 Assessment & Plan Consults Requested none History Surgery Operation Date: 09/18/20 13:20 Proposed Procedures p Right Total Knee Arthroplasty - Ralph Hodges DO Height/Weight Height: 5 ft 6 in Weight: 76.1 kg Allergies Allergy/AdvReac Type Severity Reaction Status Date / Time bee venom protein (honey bee) Allergy Intermediate stinging Verified 09/16/20 17:06 insects - PASSED OUT/syncope codeine AdvReac Mild NAUSEA AND Verified 09/16/20 17:06 VOMITNG Medications Home Medications Medication Instructions Recorded Confirmed Last Taken aspirin 81 mg PO QAM 02/20/18 09/16/20 02/18/18 atorvastatin 40 mg PO QAM 02/20/18 09/16/20 02/21/18 clopidogrel [Plavix] 75 mg PO QAM 02/20/18 09/16/20 02/15/18 furosemide [Lasix] 20 mg PO QAM 02/20/18 09/16/20 02/20/18 metoprolol succinate 25 mg PO QAM 02/20/18 09/16/20 02/21/18 epinephrine 0.3 mg/0.3 mL 0.3 mg IM UD PRN ea 11/09/18 09/16/20 Unknown injection, auto-injector iron,carbonyl 65 mg-vitamin C 125 1 tab PO QPM 11/09/18 09/16/20 Unknown mg tablet,delayed release methylcellulose (laxative) 500 mg 500 mg PO BID tab 11/09/18 09/16/20 Unknown tablet hulsbqhj-[id number] acid 300 1 tab PO QAM 11/09/18 09/16/20 Unknown mcg-lycopene 600 mcg-lutein 300 mcg tablet loratadine 10 mg capsule 10 mg PO QAM 11/26/18 09/16/20 Unknown telmisartan 20 mg tablet 20 mg PO QAM 11/26/18 09/16/20 Unknown nitroglycerin 0.4 mg sublingual 0.4 mg SUBLINGUAL UD PRN #30 tab 05/07/20 09/16/20 Unknown tablet alprazolam [Xanax] 2 mg PO HS 08/26/20 09/16/20 Unknown mupirocin 1 appln TOP BID PRN 08/26/20 09/16/20 Unknown pantoprazole 80 mg PO QAM 08/26/20 09/16/20 Unknown potassium chloride 10 meq PO QPM 08/26/20 09/16/20 Unknown alfuzosin 10 mg tablet,extended 10 mg PO DAILY #90 tab 09/09/20 09/16/20 Unknown release 24 hr dutasteride 0.5 mg capsule 0.5 mg PO DAILY #90 cap 09/09/20 09/16/20 Unknown amoxicillin 2,000 mg PO UD PRN 09/16/20 09/16/20 Unknown Active Medications Generic Name Dose Route Start Last Admin Trade Name Freq PRN Reason Stop Dose Admin Alfuzosin HCl 10 mg 09/17/20 09:00 09/18/20 10:56 Alfuzosin Hcl 10 Mg Tab PO 10/17/20 08:59 Not Given DAILY KOSTA Alprazolam 1 mg 09/17/20 01:00 09/17/20 20:42 Alprazolam 0.5 Mg Tablet PO 10/17/20 00:59 1 mg HS KOSTA Administration Aspirin 81 mg 09/17/20 09:00 09/18/20 10:04 Aspirin 81 Mg Ectab PO 10/17/20 08:59 81 mg QAM KOSTA Administration Atorvastatin Calcium 40 mg 09/17/20 09:00 09/18/20 10:57 Atorvastatin 40 Mg Tab PO 10/17/20 08:59 Not Given QAM KOSTA Doxycycline Hyclate 100 mg 09/17/20 21:00 09/17/20 20:42 Doxycycline Hyclate 100 Mg Cap PO 09/27/20 20:59 100 mg BID KOSTA Administration Furosemide 20 mg 09/17/20 09:00 09/17/20 09:20 Furosemide 20 Mg Tab PO 10/17/20 08:59 20 mg QAM KOSTA Administration Heparin Sodium (Porcine) 5,000 units 09/16/20 23:25 09/17/20 13:37 Heparin Sod 5,000 Unit/0.5 Ml Vial SQ 10/16/20 23:24 5,000 units Q8 KOSTA Administration Sodium Chloride 1,000 mls @ 100 mls/hr 09/17/20 15:00 09/18/20 05:07 Nss 1000ml IV 10/17/20 14:59 70 mls/hr .Q10H KOSTA Administration Doxycycline Hyclate 100 mg/ 110 mls @ 50 mls/hr 09/18/20 06:00 09/18/20 10:10 Dextrose IV 09/28/20 05:59 Infused Q12H KOSTA Infusion Loratadine 10 mg 09/17/20 09:00 09/17/20 09:20 Loratadine 10 Mg Tab PO 10/17/20 08:59 10 mg QAM KOSTA Administration Metoprolol Succinate 25 mg 09/17/20 09:00 09/18/20 10:00 Metoprolol Succ 25mg Ext Rel Tab PO 10/17/20 08:59 25 mg QAM KOSTA Administration Miscellaneous 1 ea 09/17/20 00:00 09/18/20 10:55 Avodart~Order Awaiting Action N/A 10/17/20 00:00 Not Given QS KOSTA Miscellaneous 1 ea 09/17/20 00:00 09/18/20 10:55 Citrucel~Order Awaiting Action N/A 10/17/20 00:00 Not Given QS KOSTA Pantoprazole Sodium 80 mg 09/17/20 09:00 09/18/20 10:57 Pantoprazole 40 Mg Tab PO 10/17/20 08:59 Not Given QAM KOSTA Potassium Chloride 10 meq 09/16/20 23:25 09/17/20 16:33 Potassium Chloride 10 Meq Tabcr PO 10/16/20 23:24 10 meq 1700 KOSTA Administration Telmisartan 20 mg 09/17/20 09:00 09/17/20 09:20 Telmisartan 20 Mg Tab PO 10/17/20 08:59 20 mg QAM KOSTA Administration Past Medical History Medical History Anemia Anxiety BPH (benign prostatic hyperplasia) Cancer SKIN 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 Myocardial Infarction 11/14/2016 -- PCI x 1 to LAD, then balloon angioplasty the following day to 2nd Dx due to recurrent symptoms. 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 Follows with S cardio David). Past Family History Family History Unknown No problems noted. Mother Alcohol abuse Bipolar disorder Cardiac disorder Myocardial infarction Breast cancer Brother Throat cancer Alcohol abuse Kidney disease Father Alcohol abuse Lung cancer Sister Lung cancer Other No family history of adverse response to anesthesia Denies family history of Ovarian cancer Prostate cancer Clotting disorder Colorectal cancer Past Surgical History Surgical History H/O hemorrhoidectomy History of cardiac cath 2017 History of carpal tunnel release RT/LEFT History of cataract surgery RT/LEFT History of colonoscopy History of esophagogastroduodenoscopy (EGD) History of heart artery stent 2017 1 STENT History of permanent cardiac pacemaker placement For symptomatic bradycardia. History of repair of rotator cuff RT History of thumb surgery RT/LEFT THUMB History of tonsillectomy and adenoidectomy History of tooth extraction Hx of transurethral resection of prostate Nausea and vomiting after administration of anesthetic agent Social History Smoking Status: Former smoker tobacco type: cigarettes Do You Dip or Chew Tobacco: No Hx Alcohol Use: Yes Alcohol type: beer alcohol intake frequency: other Alcohol Intake Frequency Comment: "probably one beer every three months" Hx Substance Use: No substance use type: does not use Physical Exam Vital Signs Last Vital Signs Temp 36.9 C 09/18/20 07:42 Pulse 78 09/18/20 07:42 Resp 16 09/18/20 07:42 BP 118/62 09/18/20 07:42 Pulse Ox 96 09/18/20 07:42 Testing Laboratory Results 09/18/20 05:59 09/18/20 05:59 PT 11.3 Seconds (9.0-12.0) 09/16/20 17:09 INR 1.1 (0.9-1.1) 09/16/20 17:09 APTT 27.0 Seconds (21.0-31.0) 09/16/20 17:09 Urine Color Yellow 09/16/20 23:57 Urine Appearance Clear (Clear) 09/16/20 23:57 Urine pH 5.0 (4.5-7.5) 09/16/20 23:57 Ur Specific [place] > 1.045 (1.000-1.030) H 09/16/20 23:57 Urine Protein Negative (Negative) 09/16/20 23:57 Urine Glucose (UA) Negative (Negative) 09/16/20 23:57 Urine Ketones Negative (Negative) 09/16/20 23:57 Urine Nitrite Negative (Negative) 09/16/20 23:57 Ur Leukocyte Esterase Negative (Negative) 09/16/20 23:57 Urine WBC (Auto) 1-5 /hpf (0-5) 09/16/20 23:57 Urine RBC (Auto) 5-10 /hpf (0-4) H 09/16/20 23:57 U Hyaline Cast (Auto) 1-5 /lpf (0-5) 09/16/20 23:57 U Epithel Cells (Auto) 0-5 /lpf (0-5) 09/16/20 23:57 Urine Bacteria (Auto) Negative (Negative) 09/16/20 23:57 09/16/20 17:09 Aerobic Blood Culture - Preliminary Blood No growth in Aerobic bottle after 24 hours. Anaerobic Blood Culture - Preliminary No growth in Anaerobic bottle after 24 hours. 09/16/20 16:20 Aerobic Blood Culture - Preliminary Blood No growth in Aerobic bottle after 24 hours. Anaerobic Blood Culture - Preliminary No growth in Anaerobic bottle after 24 hours.
[2020-09-18] MEDS ORDERED: GABAPENTIN 300 MG CAP ONE (15:32)
[2020-09-18] MEDS ORDERED: FAMOTIDINE 20 MG TAB ONE (15:32)
[2020-09-18] MEDS ORDERED: dexAMETHasone 4 MG TAB PO ONE (15:32)
[2020-09-18] MEDS ORDERED: TRANEXAMIC ACID / 0.7% NACL 1000MG/100ML BAG IV ONE (15:32)
[2020-09-18] MEDS ORDERED: ACETAMINOPHEN 500 MG TAB ONE (15:32)
[2020-09-18] MEDS ORDERED: ORTHO JOINT ANESTHETIC ONE (15:40)
--- NOTE | 2020-09-18 17:10 | Operative Report ---
PG Post Operative Report Pre & Post Diagnosis Operation Date: 09/18/20 13:20 Pre-Op Diagnosis: Osteoarthritis of right knee. Post-Op Diagnosis: Osteoarthritis of right knee. I identified the patient and participated in the time-out.: Yes Procedure Operation Date: 09/18/20 13:20 Actual Procedures p Right total knee arthroplasty.(Right) - Ralph Hodges DO Surgeon Ralph Hodges DO Milling Machine Tender Ralph Karimi PAC Estimated Blood Loss 10 Findings Consistent with Post-Op Diagnosis Specimens Right femoral and tibial bone Complications none Disposition Disposition: Recovery Room Indications Te is a pleasant 80-year-old male who is been dealing with chronic increasing right knee pain and effusions. X-rays and clinical examination were diagnostic for advanced osteoarthritis of the right knee. After failing conservative treatment, he elected proceed with a right total knee arthroplasty. Description of Procedure Implants used: I used a Ashia Persona total knee arthroplasty system with a size 10 narrow femur, F tibia, 32 patella, and a size 11 medial congruent polyethylene bearing. All components were cemented in place with Simplex HV cement. Te arrived [facility] for the above procedure. He was seen in the preoperative holding area and the operative extremity was identified and signed. He was given a preoperative antibiotic, TXA, a spinal anesthetic and an adductor nerve block. He was taken back to the operating room and laid on the table in supine position. He was given basic sedation. The operative knee was then prepped and draped in sterile fashion. A timeout was done, and the patient and the operative extremity was properly identified. A midline incision was made directly over the patella. Dissection was taken down to the extensor mechanism. A subvastus arthrotomy was used. The medial retinaculum was released and the fat pad was mostly excised. The knee was flexed and the ACL, PCL, and meniscus were removed. A drill was sent down the center of the femoral canal followed by an intramedullary bonny. Off that bonny a distal femoral cutting block was placed. 9 mm was resected off the distal femur at 5 of valgus. A posterior referencing AP sizing guide was then placed on the distal femur. The femur measured to be a size 10 narrow. 2 drill holes were placed in 3 of external rotation. A 4-in-1 cutting block was then impacted into place. Anterior, posterior, and chamfer cuts were then made. The proximal tibia was then exposed. An external tibial alignment guide was placed. A tibial cut guide was then anchored in place and the proximal tibia was then resected. The posterior aspect of the knee was then opened up and any additional meniscus fragments and osteophytes were removed. The tibia measured to be a size F. The tibial plate was then placed in the appropriate rotation and the tibia was drilled and punched. Trial components were then placed. I used a size 11 medial congruent polyethylene insert. The knee was brought through a full range of motion and felt to be stable. The peg holes for the femoral component were then drilled. The patella was then everted and 9 mm was resected off the posterior aspect of the patella. The patella measured to be a size 32. 3 peg holes were then drilled. A trial patella was placed. The knee was once again brought through a full range of motion and felt to be stable. Trial components were then removed. The surrounding soft tissues were injected with 100 cc of an orthopedic pain control cocktail. All components were then cemented into place with Simplex HV cement. The final polyethylene insert was then snapped into place. Once cement was dry the tourniquet was deflated. Hemostasis was obtained. A dilute betadyne lavage was then done for 3 minutes. The joint was then irrigated with normal saline solution. The subvastus arthrotomy was then closed with #1 Vicryl suture. The skin was closed with 2-0 Vicryl, 3-0V lock suture, and lei. A soft compressive dressing was placed. He was then transferred to a hospital bed and taken to the postanesthesia care unit in stable condition. He tolerated the procedure well. Ralph Karimi PA-C, was present for the entire procedure. He was critical for patient positioning, prepping, draping, retraction exposure, wound closure and application of sterile dressing. I attest to the content of the Intraoperative Record and any orders documented therein. Any exceptions are noted below.
--- NOTE | 2020-09-18 17:49 | Anesthesiology Progress Note ---
Date of Service September 18, 2020 Anesthesia Post Procedure Vital Signs Vital Signs: Temp Pulse Pulse Resp BP BP Pulse Ox 09/18/20 17:40 66 14 112/58 L 98 09/18/20 17:32 36.9 C 77 14 119/62 98 09/18/20 15:35 36.8 C 75 16 133/74 96 09/18/20 15:25 37.0 C 79 18 146/66 H 97 09/18/20 07:42 36.9 C 78 16 118/62 96 09/18/20 03:21 36.9 C 102 H 16 112/68 92 09/17/20 23:16 37.5 C 70 20 110/67 92 Transfer of Care Handoff Completed per policy Notes Mental Status: alert / awake / arousable and participated in evaluation Patient Amnestic to Procedure: Yes Nausea / Vomiting: adequately controlled Pain: adequately controlled Airway Patency, RR, SpO2: stable & adequate BP & HR: stable & adequate Hydration State: stable & adequate Anesthetic Complications: no major complications apparent
[2020-09-18] MEDS ORDERED: MUPIROCIN 2% OINT 22 GM TUBE TOP PRN (19:16)
[2020-09-18] MEDS ORDERED: HYDROmorphone INJ 0.5 MG/0.5 ML SYR IV PRN (19:16)
[2020-09-18] MEDS ORDERED: METOCLOPRAMIDE HCL INJ 5 MG/ML 2 ML VIAL IV PRN (19:16)
[2020-09-18] MEDS ORDERED: bisacodyL 10 MG SUPP PR PRN (19:16)
[2020-09-18] MEDS ORDERED: MAGNESIUM HYDROXIDE SUSP 30 ML UDC PO PRN (19:16)
[2020-09-18] MEDS ORDERED: ONDANSETRON INJ 2 MG/ML 2 ML VIAL IV PRN (19:16)
[2020-09-18] MEDS ORDERED: NALOXONE HCL 0.4 MG/1 ML VIAL/CARP IV PRN (19:16)
[2020-09-18] MEDS ORDERED: NON-FORMULARY MEDICATION (Amoxicillin 500 mg tablet) PO PRN (19:16)
[2020-09-18] MEDS ORDERED: EPINEPHrine INJ 1 MG/ML AMP IM PRN (19:41)
[2020-09-18] MEDS ORDERED: SODIUM CHLORIDE 0.9% 1000ML 1,000 ML IV SCH (19:45)
[2020-09-18] MEDS: POTASSIUM CHLORIDE 10 MEQ TABCR PO SCH (19:50)
[2020-09-18] MEDS: ALPRAZolam 0.5 MG TABLET PO SCH (20:51)
[2020-09-18] MEDS: DOCUSATE SODIUM 100 MG CAP PO SCH (20:51)
[2020-09-18] MEDS: SENNA 8.6 MG TAB PO SCH (20:58)
[2020-09-18] MEDS: ACETAMINOPHEN 500 MG TAB PO SCH (21:12)
--- NOTE | 2020-09-18 22:09 | XRay Report ---
XR knee RT 1 or 2V routine CLINICAL HISTORY: Surgical Post Op COMPARISON: None. DISCUSSION: Prosthetic right knee joint is seen. Subcutaneous emphysema and skin lei are seen. Mild diffuse s oft tissue edema. IMPRESSION: Postoperative changes as detailed above. ACT 112: Negative or not required by law. The above report was generated using voice recognition software. It may contain grammatical, syntax o r spelling errors. Electronically signed by: Courtney Ojeda DO 09/18/2020 10:08 PM
[2020-09-18] MEDS: ceFAZolin 2000MG 2,000 MG/15 ML SYR IV SCH (23:06)
[2020-09-19] MEDS: ACETAMINOPHEN 500 MG TAB PO SCH ×3 (06:02→21:01)
[2020-09-19 06:52] LABS: Basophils # (auto) 0.02 K/uL (0-0.2); Basophils % (auto) 0.4 %; Hematocrit (blood only) 33.8 % (42-52); Hemoglobin 11.2 g/dL (14.0-18.0); Immature Granulocytes # (auto) 0.01 K/uL (0.00-0.02); Immature Granulocytes % (auto) 0.2 %; Lymphocytes % (auto) 21.4 %; Mean Corpuscular Hgb Conc 33.1 g/dL (32-36); Mean Corpuscular Volume 96.6 fL (80-100); Mean Platelet Volume 9.9 fL (7.4-10.4); Monocytes # (auto) 0.26 K/uL (0.11-0.59); Neutrophils # (auto) 3.76 K/uL (1.4-6.5); Platelet Count 138 K/uL (130-400); RDW Coefficient of Variation 13.9 % (11.5-14.5); RDW Standard Deviation 49.2 fL (36.4-46.3); White Blood Count 5.15 K/uL (4.8-10.8)
[2020-09-19 07:47] LABS: Albumin Level 2.6 gm/dl (3.4-5.0); Bilirubin Direct 0.2 mg/dl (0-0.2); Bilirubin,Total 0.6 mg/dl (0.2-1); Calcium 8.5 mg/dl (8.5-10.1); Creatinine Clr Calc Pharmacy 64.2 ml/min; Est GFR (African American) 96.4 ml/min; Est GFR (Non-African American) 83.2 ml/min; Magnesium 2.2 mg/dl (1.8-2.4); Potassium 4.5 mmol/L (3.5-5.1); Total Protein 5.5 gm/dl (6.4-8.2)
[2020-09-19] MEDS ORDERED: dexAMETHasone 4 MG TAB PO SCH (08:00)
[2020-09-19] MEDS: ceFAZolin 2000MG 2,000 MG/15 ML SYR IV SCH (08:17)
[2020-09-19] MEDS: METOPROLOL SUCC 25MG EXT REL TAB PO SCH (08:26)
[2020-09-19] MEDS: ALFUZOSIN HCL 10 MG TAB PO SCH (08:26)
[2020-09-19] MEDS: CLOPIDOGREL BISULFATE 75 MG TAB PO SCH (08:26)
[2020-09-19] MEDS: ASPIRIN 81 MG ECTAB PO SCH (08:26)
[2020-09-19] MEDS: MULTIVITAMIN TAB PO SCH (08:27)
[2020-09-19] MEDS: DOCUSATE SODIUM 100 MG CAP PO SCH ×2 (08:27→21:02)
[2020-09-19] MEDS: ATORVASTATIN 40 MG TAB PO SCH (08:27)
--- NOTE | 2020-09-19 08:33 | Hospitalist Progress Note ---
Date of Service September 19, 2020 Assessment & Plan (1) Osteoarthritis of right knee: Planned but admitted initially for fever earlier this week. Infectious work-up negative however treating empirically for Lyme not positive yet on titer for tick bites x 2 (Lyme/anaplasmosis negative) POD#1 s/p RIGHT knee with Dr. Hodges. EBL 10cc. H/h 11.2-33.8 -- acute blood loss surgery/dilutional from IVF. acceptable PT/OT consulted -- PT with recs for SNF. Will re-eval in AM as patient ideally would like OPPT already arranged for Monday. DVT proph -- ASA pre-op, Plavix resumed post-operatively If re-eval by therapy in AM with improvement, considering home with OPPT. If not, will need to have CM provide options for inpatient rehab. (2) Fever: Fever as per HPI- no source and no elevated biomarkers WORK-UP NEGATIVE TO DATE -- treated empirically for Lyme but was discontinued by ortho post-operatively. Has not gotten any further doses and no further fevers. Could consider waiting but if developed fevers again consider re-testing and treating if needed? Temp 38.8C afternoon / in ER --> no further fevers CRP elevated to 6 from 5 --> repeat 5.46 Procal 0.32 Lactic 1.4 WBC wnl 5.7k, no further L shift Did have 2 tick bites in last month --> L lower leg and L thigh 1 month and 2 weeks ago -- ?too early for + abx testing as Lyme abx testing negative Did have L shift on admission -- given Vanco/cefepime in ER, no further abx ordered (no further L shift) Anaplasmosis pending -- negative on smear All other imaging without source of infection (CT Chest/A/P) BCx pending -- ngtd (does have pacemaker of note -- follows with Emily Jackson) Will obtain Xray of L knee given swelling/warmth -- no acute findings No urine cx as no leuk est, WBC or bacteria. Did have hematuria (chronic) so could have passed a stone? No CVA tenderness --> improvement on repeat. CK elevated to 545, mild rhabdo -- contributing to weakness/possible due to fall other evening --> HOld statin again for tonight. Likley resume in AM (3) Abnormal finding on urinalysis: Elevated RBC with no hematuria -- hx hematuria. No stones noted on imaging but maybe passed small one? Clearing on repeat UA but still present ?stone. Does have 4.2cm cyst on L kidney. Followed by Urology and would recommend follow up imaging. -> Discussed with radiology and cyst there on imaging from 2016, was about 3.1cm at that time and definitely appears simple CHRONIC HEMATURIA, FOLLOWS WITH UROLOGY (4) Ischemic cardiomyopathy: No acute needs. Trop 0.04 --> 0.039 x 2 on repeat Cardiology on consult -- patient understands risks and willing to proceed with OR as above Continue home medications -- lasix 20mg, metoprolol 25mg, atorvastatin 40mg, telmisartan 20mg --> holding lasix, telmisartan 20mg POST-OP for BP 111/66 and can resume in AM Nitro prn (5) CAD (coronary artery disease): As above He has stopped his Plavix last week for upcoming TKA on Monday --> per patient this was ortho recs and he will resume once finished with DVT proph with ASA 81mg BID --> Per ortho, ASA and Plavix post-operatively for prophylaxis (6) Hypertension: BP 111/66 As above- continue BB, but holding furosemide, telmisartan Continue to monitor (7) Hyperlipidemia: As above -- atorvastatin 40 --> holding given elevated CK as above CK improving on AM labs but will hold for tonight while patient with better PO inake and can resume tomorrow (8) Renal cyst: Chronically noted- 3.1cm on prior imaging. Discussed with radiology and felt not significant. Can have reg Urology f/u outpatient (9) BPH (benign prostatic hyperplasia): Continue Alfuzosin and dutasteride (10) Iron (Fe) deficiency anemia: Mild remains on iron carbonyl vitamin c tabs. (11) GERD (gastroesophageal reflux disease): Continue PPI DVT Prophy -- ASA 81mg pre-operatively as above -- ASA + Plavix post-operativel Dispo: continued inpatient stay to see if able to make improvements with therapy tomorrow in hopes for d/c home with therapy Admission and Anticipated Discharge Date Admission Date: September 16, 2020 Subjective Patient evaluated this morning. Feeling well. No pain reported. Stated "good report" from OT but "bad report" from PT. Discussed with PT as patient has 1-3-6 steps in house -- they did not attempt steps due to some instability with walking on flat surface but agreeable to re- eval tomorrow to see if stronger and then possible d/c home with OPPT as already arranged for Monday. He is agreeable with plan. No fever, chills, chest pain, shortness of breath, abdominal pain, nausea or vomiting. Passing some gas but no BM. He states it has been a while since he had one. No abdominal pain. Hopeful for d/c today vs tomorrow over inpatient rehab if possible. Questions/concerns addressed at this time. Review of Systems Review of Systems: All systems reviewed & are unremarkable except as noted in HPI & below Physical Exam Physical Exam: PHYSICAL EXAM: General: awake, alert, no apparent distress, laying in bed asleep upon entry, easily awoken Head: Normocephalic, atraumatic ENT: PERRL, EOMI, no pharyngeal exudate, mucous membranes slightly dry, no lymphadenopathy Neuro: AAO x 3, speech clear and appropriate, strength intact bilaterally 5/5, sensation intact and equal all extremities and dermatomes, no pronator drift Chest: equal rise and fall of the chest, no accessory muscle use, no heaves or thrills, Clear to auscultation, No egophony, on room air, Cardiac: RRR, systolic ejection murmur. cap refill <3 seconds. calves non- tender GI: NABS x 4 quadrants, soft, nontender to palpation, no rebound, guarding or tenderness : Spontaneously voiding, no pain, no CVA tenderness, Extremities: minimal swelling to R knee, dressing c/d/i. NVI, calves non-tender. able to do ROM and lift leg straight off of bed. Psych: Normal mood and affect Skin: scab to L posterior hip from prior tick removed as well as healed lesion to posterior lateral left leg from older tick bit skin cool, dry, no other obvious lesions appreciated Results & Data Results & Data ([facility]) Vital Signs (Past 12 Hours) Vital Signs Temp Pulse Resp BP Pulse Ox 09/19/20 08:07 63 20 130/74 95 09/19/20 03:56 75 18 113/70 95 09/18/20 23:25 36.3 C L 60 18 104/58 L 95 09/18/20 21:15 36.4 C L 66 16 113/66 97 Laboratory Results 09/19/20 09/19/20 09/16/20 Range/Units 06:32 06:32 16:13 WBC 5.15 (4.8-10.8) K/uL RBC 3.50 L (4.7-6.1) M/uL Hgb 11.2 L (14.0-18.0) g/dL Hct 33.8 L (42-52) % MCV 96.6 (80-100) fL MCH 32.0 (25-34) pg MCHC 33.1 (32-36) g/dL RDW Std Deviation 49.2 H (36.4-46.3) fL RDW Coeff of Harry 13.9 (11.5-14.5) % Plt Count 138 (130-400) K/uL MPV 9.9 (7.4-10.4) fL Immature Gran % (Auto) 0.2 % Neut % (Auto) 73.0 % Lymph % (Auto) 21.4 % [place] % (Auto) 5.0 % Eos % (Auto) 0.0 % Baso % (Auto) 0.4 % Neut # (Auto) 3.76 (1.4-6.5) K/uL Lymph # (Auto) 1.10 L (1.2-3.4) K/uL [place] # (Auto) 0.26 (0.11-0.59) K/uL Eos # (Auto) 0.00 (0-0.5) K/uL Baso # (Auto) 0.02 (0-0.2) K/uL Immature Gran # (Auto) 0.01 (0.00-0.02) K/uL Sodium 141 (136-145) mmol/L Potassium 4.5 D (3.5-5.1) mmol/L Chloride 112 H (98-107) mmol/L Carbon Dioxide 25 (21-32) mmol/L Anion Gap 4.0 (3-11) BUN 18 (7-18) mg/dl Creatinine 0.80 (0.6-1.4) mg/dl Est Cr Clr Drug Dosing 64.2 ml/min Est GFR ( Amer) 96.4 ml/min Est GFR (Non-Af Amer) 83.2 ml/min BUN/Creatinine Ratio 22.0 H (10-20) Glucose 161 H (70-99) mg/dl Calcium 8.5 (8.5-10.1) mg/dl Magnesium 2.2 (1.8-2.4) mg/dl Total Bilirubin 0.6 (0.2-1) mg/dl Direct Bilirubin 0.2 (0-0.2) mg/dl AST 64 H (15-37) U/L ALT 56 (12-78) U/L Alkaline Phosphatase 33 L (45-117) U/L Total Creatine Kinase 326 H (39-308) U/L Total Protein 5.5 L (6.4-8.2) gm/dl Albumin 2.6 L (3.4-5.0) gm/dl A. phagocytophilum DNA Detected A (Not Detected) Diagnostic Findings Knee X-Ray 09/18/20 17:36 XR knee RT 1 or 2V routine CLINICAL HISTORY: Surgical Post Op COMPARISON: None. DISCUSSION: Prosthetic right knee joint is seen. Subcutaneous emphysema and skin lei are seen. Mild diffuse soft tissue edema. IMPRESSION: Postoperative changes as detailed above. ACT 112: Negative or not required by law. The above report was generated using voice recognition software. It may contain grammatical, syntax or spelling errors. Electronically signed by: Courtney Ojeda DO 09/18/2020 10:08 PM PG Care Time/CCT Total # of Minutes Spent Total Time Spent with Patient: Total time spent is greater than 50% in coordination of care (as documented) at patient's floor/unit and/or counseling patient: Coding Level of Care Code 88377 Subseq Hosp Care Lvl 3 Diagnoses Osteoarthritis of right knee M17.11 Osteoarthritis type: unspecified Fever R50.9 Fever type: unspecified Abnormal finding on urinalysis R82.90 Ischemic cardiomyopathy I25.5 CAD (coronary artery disease) I25.10 Coronary Disease-Associated Artery/Lesion type: [place] artery [place] vs. transplanted heart: [place] heart Associated angina: without angina Hypertension I10 Hypertension type: essential hypertension Hyperlipidemia E78.5 Hyperlipidemia type: unspecified Renal cyst N28.1 BPH (benign prostatic hyperplasia) N40.1 Lower urinary tract symptom presence: symptoms present Lower urinary tract symptom detail: unspecified Iron (Fe) deficiency anemia D50.9 Iron deficiency anemia type: unspecified iron deficiency GERD (gastroesophageal reflux disease) K21.9 (1) Fever Fever type: unspecified Qualified Code(s): R50.9 - Fever, unspecified (2) CAD (coronary artery disease) Coronary Disease-Associated Artery/Lesion type: [place] artery [place] vs. transplanted heart: [place] heart Associated angina: without angina Qualified Code(s): I25.10 - Atherosclerotic heart disease of [place] coronary artery without angina pectoris (3) Osteoarthritis of right knee Osteoarthritis type: unspecified Qualified Code(s): M17.11 - Unilateral primary osteoarthritis, right knee (4) Hypertension Hypertension type: essential hypertension Qualified Code(s): I10 - Essential (primary) hypertension (5) Hyperlipidemia Hyperlipidemia type: unspecified Qualified Code(s): E78.5 - Hyperlipidemia, unspecified (6) BPH (benign prostatic hyperplasia) Lower urinary tract symptom presence: symptoms present Lower urinary tract symptom detail: unspecified Qualified Code(s): N40.1 - Benign prostatic hyperplasia with lower urinary tract symptoms (7) Iron (Fe) deficiency anemia Iron deficiency anemia type: unspecified iron deficiency Qualified Code(s): D50.9 - Iron deficiency anemia, unspecified
--- NOTE | 2020-09-19 08:40 | Orthopedic Progress Note ---
Date of Service September 19, 2020 Assessment & Plan (1) Status post right knee replacement: Overall he is doing very well. Is not having much pain in the right knee. He was started back on his aspirin and Plavix for DVT prophylaxis. He will be seen by physical therapy today for ambulation and range of motion exercises. The nursing staff can change the dressing today after physical therapy. As long as the hospitalist feels it is okay he can be discharged later today. Full discharge instructions were placed. I already called in pain medications. He will follow-up with orthopedics in 2 weeks. Roxane Tiwari was seen and examined at bedside this morning. Markel is doing very well. Is not having any pain in the right knee. He has been up and ambulating to the bathroom. He has no complaints.. Review of Systems All systems reviewed & are unremarkable except as noted in HPI & below. Physical Exam On physical examination of the right knee, the dressing is clean and dry. His leg is out in full extension. He has active dorsiflexion and plantarflexion of his right ankle.. Results & Data Results & Data Laboratory Results . Diagnostic Findings Postoperative x-rays of the right knee show the prosthesis to be in anatomic alignment without any evidence of fracture, dislocation, or loosening. PG Care Time/CCT Total # of Minutes Spent Total Time Spent with Patient: Total time spent is greater than 50% in coordination of care (as documented) at patient's floor/unit and/or counseling patient: Coding Level of Care Code 42234 Post Operative Follow-Up Diagnoses Status post right knee replacement Z96.651
[2020-09-19] MEDS: LORATADINE 10 MG TAB PO SCH (16:21)
[2020-09-19] MEDS: DOCUSATE SODIUM/SENNA 50/8.6MG TAB PO SCH (16:23)
[2020-09-19] MEDS: POLYETHYLENE (MIRALAX) 17 GM PACK PO SCH (16:25)
[2020-09-19] MEDS: TELMISARTAN 20 MG TAB PO SCH (18:46)
[2020-09-19] MEDS: SENNA 8.6 MG TAB PO SCH (21:00)
[2020-09-19] MEDS: DOXYCYCLINE HYCLATE 100 MG CAP PO SCH (21:02)
[2020-09-19] MEDS: ALPRAZolam 0.5 MG TABLET PO SCH (21:02)
[2020-09-19] MEDS: POTASSIUM CHLORIDE 10 MEQ TABCR PO SCH (21:28)
[2020-09-20] MEDS: oxyCODONE HCL IR 5 MG TAB (IMMEDIATE RELEASE) PO PRN ×3 (03:41→13:39)
[2020-09-20] MEDS: ACETAMINOPHEN 500 MG TAB PO SCH ×2 (05:45→13:39)
[2020-09-20 06:32] LABS: Basophils # (auto) 0.03 K/uL (0-0.2); Basophils % (auto) 0.2 %; Hematocrit (blood only) 31.9 % (42-52); Hemoglobin 10.7 g/dL (14.0-18.0); Immature Granulocytes # (auto) 0.06 K/uL (0.00-0.02); Immature Granulocytes % (auto) 0.4 %; Lymphocytes # (auto) 2.39 K/uL (1.2-3.4); Lymphocytes % (auto) 14.3 %; Mean Corpuscular Hemoglobin 31.4 pg (25-34); Mean Corpuscular Hgb Conc 33.5 g/dL (32-36); Mean Corpuscular Volume 93.5 fL (80-100); Mean Platelet Volume 10.2 fL (7.4-10.4); Monocytes # (auto) 1.64 K/uL (0.11-0.59); Monocytes % (auto) 9.8 %; Neutrophils # (auto) 12.61 K/uL (1.4-6.5); Neutrophils % (auto) 75.3 %; Platelet Count 172 K/uL (130-400); RDW Coefficient of Variation 13.9 % (11.5-14.5); RDW Standard Deviation 47.7 fL (36.4-46.3); Red Blood Count 3.41 M/uL (4.7-6.1); White Blood Count 16.73 K/uL (4.8-10.8)
[2020-09-20 06:49] LABS: Calcium 8.8 mg/dl (8.5-10.1); Creatinine Clr Calc Pharmacy 61.9 ml/min; Est GFR (Non-African American) 81.9 ml/min; Potassium 4.1 mmol/L (3.5-5.1)
--- NOTE | 2020-09-20 07:34 | Orthopedic Progress Note ---
Date of Service September 20, 2020 Assessment & Plan (1) Status post right knee replacement: Overall he is doing fairly well. We will see how he does today with therapy. He was able to ambulate about 100 feet yesterday with therapy but his right leg felt weak and unsteady. There was some discussion about possible discharge to rehab facility. He does have a at home was able to take care of him and he lives mostly in a 1 floor house. He has therapy set up to come to his house tomorrow. He would really prefer to go home. We will see how he does with physical therapy today. If he has a little bit more strength in his right leg then I do recommend discharged home today. He is on aspirin for DVT prophylaxis. Full discharge instructions were placed in the discharge summary. He will follow-up with orthopedics in 2 weeks. Roxane Tiwari was seen and examined at bedside this morning. Overall he says he is feeling well. He is little bit more pain in his knee today. He also says he feels a little bit more stable. He has no new complaints.. Review of Systems All systems reviewed & are unremarkable except as noted in HPI & below. Physical Exam On physical examination the right knee, the dressing has been removed. His active dorsiflexion plantarflexion of his right ankle. Results & Data Results & Data Laboratory Results . Diagnostic Findings . PG Care Time/CCT Total # of Minutes Spent Total Time Spent with Patient: Total time spent is greater than 50% in co ordination of care (as documented) at patient's floor/unit and/or counseling patient: Coding Level of Care Code 15947 Post Operative Follow-Up Diagnoses Status post right knee replacement Z96.651
[2020-09-20] MEDS: ASPIRIN 81 MG ECTAB PO SCH (08:00)
[2020-09-20] MEDS: DOXYCYCLINE HYCLATE 100 MG CAP PO SCH (08:00)
[2020-09-20] MEDS: METOPROLOL SUCC 25MG EXT REL TAB PO SCH (08:01)
[2020-09-20] MEDS: MULTIVITAMIN TAB PO SCH (08:01)
[2020-09-20] MEDS: CLOPIDOGREL BISULFATE 75 MG TAB PO SCH (08:01)
[2020-09-20] MEDS: ALFUZOSIN HCL 10 MG TAB PO SCH (08:01)
[2020-09-20] MEDS: DOCUSATE SODIUM 100 MG CAP PO SCH (08:01)
[2020-09-20] MEDS: POLYETHYLENE (MIRALAX) 17 GM PACK PO SCH (08:02)
[2020-09-20] MEDS: LORATADINE 10 MG TAB PO SCH (08:02)
[2020-09-20] MEDS: DOCUSATE SODIUM/SENNA 50/8.6MG TAB PO SCH (08:03)
--- NOTE | 2020-09-20 12:35 | Discharge Summary ---
Date of Service September 20, 2020 Admission HPI Per Admitting Provider 80 YOM with past medical history ICM with EF 35-40%, CAD with REGULO stent to LAD, Pacemaker for complete HB, HTN, BPH with LUTS, GERD with inactive gastritis, mild Mitral regurgitation. Patient came to the emergency room via EMS today for felling generalized weakness and was unable to get out of his chair. He states that he did not start feeling well yesterday after dinner. They had pork chops and green beans, about 1-2 hours after dinner he just felt little nauseated with fever, his checked his temperature and it was 101.5, this was also associated with some left sided hip pain. He was up and down multiple times through the night to urinate without pain or discomfort. He experienced no nausea or vomiting or diarrhea. In the emergency room he had an episode of decreased SPo2 to 88 % while sleeping and was placed on 2L NC. He had routine labs drawn, blood cultures, UA, COVID with Influenza PCR, PCT and Lactate drawn. He had abdominal and pelvis CT scan performed, head CT scan performed, as well as CTA of the chest for PE; he was given 1 dose of Vancomycin and Cefepime by the EMD; and Hospitalist team was notified for admission. Upon further questioning the patient did have 2 tick bites within the last 2 months, with the most recent being on his left flank, where there is still a scabbed over area without any erythema or target sign, had right knee drained a few weeks ago as well with no acute erythema or effusion. Lyme and Anaplasmosis labs sent and pending. Of note the patient is to have his a total knee replacement on Monday at [facility] with Dr. Hodges; due to this, patient will be admitted and follow along with his biomarkers and cultures prior to his surgical procedure. There is no obvious infective source at this time. Temperature 101.8 at 1600, WBC 8, Lactate 1.4, PCT 0.32, COVID negative, Influenza A/B negative. For his low SPO2 while sleeping, the patient remained off oxygen for the entire interview and exam, with lowest SPo2 94%, He was also able to get up to the edge of the bed without assistance and ambulate around the room with no assistance or drop in his oxygenation status, he is voiding spontaneously without discomfort and weakness he was experiencing before is gone. Admission Exam Per Admitting Provider General: awake, alert, no apparent distress Head: Normocephalic, atraumatic ENT: PERRL, EOMI, no pharyngeal exudate, mucous membranes moist, no lymphadenopathy Neuro: AAO x 3, speech clear and appropriate, strength intact bilaterally 5/5, sensation intact and equal all extremities and dermatomes, no pronator drift Chest: equal rise and fall of the chest, no accessory muscle use, no heaves or thrills, Clear to auscultation, No egophony, on room air, Cardiac: Regular rate and rhythm, telemetry reviewed no ectopy, skin warm dry, cap refill <3 seconds, peripheral pulses +2 no JVD, no murmur, no edema GI: NABS x 4 quadrants, soft, nontender to palpation, no rebound, guarding or tenderness : Spontaneously voiding, no pain, no CVA tenderness, Extremities: no peripheral edema or erythema, calfs nontender to palpation Psych: Normal mood and affect Skin: scab to left flank, no rash or erythema Principal Diagnosis Right Knee Osteoarthritis, Fever, Possible Lyme Discharge Exam Constitutional WD/WN, vitals as above Eyes PERRL, conjunctivae normal, anicteric sclerae ENMT external ear and nose normal, oropharynx normal Mallampati Class: II Neck trachea midline, no thyromegaly normal visual inspection Respiratory normal respiratory effort Auscultation: lungs clear to auscultation bilaterally Cardiovascular Rate/Rhythm: regular rate and regular rhythm Heart Sounds: + murmur (LARY) Vessels: no JVD Extremities: normal capillary refill; no calf tenderness Gastrointestinal (Abdomen) normal bowel sounds, soft, nontender, no hepatosplenomegaly Musculoskeletal R knee -- dressing removed NVI good strength dorsiflexion/plantar flexion steady gait pulses palpable bilaterally Skin scab to L posterior hip from prior tick removed as well as healed lesion to posterior lateral left leg from older tick bit skin cool, dry, no other obvious lesions appreciated Neurologic moves all extremities Psychiatric A+Ox3, euthymic affect Orientation: alert and oriented x 3 Lymphatic no cervical or axillary lymphadenopathy Discharge Data Allergies Allergy/AdvReac Type Severity Reaction Status Date / Time bee venom protein (honey bee) Allergy Intermediate stinging Verified 09/16/20 17:06 insects - PASSED OUT/syncope codeine AdvReac Mild NAUSEA AND Verified 09/16/20 17:06 VOMITNG Procedures Performed Operation Date: 09/18/20 13:20 Actual Procedures p Right total knee arthroplasty.(Right) - Ralph Hodges, Ordered Studies 09/16/20 17:11 CT abd pelvis wo con Stat CT head/brain wo con Stat 09/16/20 18:55 CT angio chest PE protocol Stat Hospital Course (1) Status post right knee replacement: Planned but admitted initially for fever earlier this week. Infectious work-up negative however treating empirically for Lyme not positive yet on titer for tick bites x 2 (Lyme/anaplasmosis negative although may be too early) POD#2 s/p RIGHT knee with Dr. Hodges. EBL 10cc. H/h stable PT/OT consulted -- initially rec for rehab, however patient ideally wanted to return home with home therapy already arranged prior to surgery Stayed additional day and repeat evaluation with ability to do steps/steady gait and acceptable for return home with planned therapy DVT proph-- resumed his Plavix and continued ASA Follow up with ortho in 2 weeks post -op (2) Fever: Fever as per HPI- no source and no elevated biomarkers WORK-UP NEGATIVE TO DATE given Vanco/cefepime in ER, no further abx ordered (no further L shift) Did have 2 tick bites in last month --> L lower leg and L thigh 1 month and 2 weeks ago -- ?too early for + abx testing as Lyme abx testing negative --> Sent rx to complete course of doxy given improvement of symptoms and no recurrance of fever/chills/fatigue/joint pain Temp 38.8C afternoon 6/2 in ER --> no further fevers since that time CRP elevated to 6 from 5 --> repeat 5.46 Procal 0.32 Lactic 1.4 WBC wnl 5.7k, no further L shift Anaplasmosis negative All other imaging without source of infection (CT Chest/A/P) BCx pending -- ngtd (does have pacemaker of note -- follows with Emily Jackson) Xray of L knee given swelling/warmth -- no acute findings No urine cx as no leuk est, WBC or bacteria. Did have hematuria (chronic) so could have passed a stone? No CVA tenderness --> improvement on repeat. CK elevated to 545, mild rhabdo -- contributing to weakness/possible due to fall other evening --> Held statin and improved, almost at baseline and to continue to hold tonight and resume tomorrow (3) Abnormal finding on urinalysis: Elevated RBC with no hematuria -- hx hematuria. No stones noted on imaging but maybe passed small one? Clearing on repeat UA but still present ?stone. Does have 4.2cm cyst on L kidney. Followed by Urology and would recommend follow up imaging. -> Discussed with radiology and cyst there on imaging from 2016, was about 3.1cm at that time and definitely appears simple CHRONIC HEMATURIA, FOLLOWS WITH UROLOGY -- f./u routine at d/c (4) Ischemic cardiomyopathy: No acute needs. Trop 0.04 --> 0.039 x 2 on repeat Cardiology on consult -- patient understands risks and willing to proceed with OR as above Continue home medications -- lasix 20mg, metoprolol 25mg, atorvastatin 40mg, t elmisartan 20mg held lasix/telmisartan while in hospital for 2 days for low BP/dehydration, improved on labs and continued at d/c (5) CAD (coronary artery disease): As above He has stopped his Plavix last week for upcoming TKA on Monday --> per patient this was ortho recs and he will resume once finished with DVT proph with ASA 81mg BID --> Per ortho, ASA and Plavix post-operatively for prophylaxis (6) Hypertension: Chronic Continue home meds at d/c as above (7) Hyperlipidemia: As above -- atorvastatin 40 --> held given elevated CK as above CK improving on AM, almost back to wnl 321, but will hold for tonight and patient to resume tomorrow (8) Renal cyst: Chronically noted- 3.1cm on prior imaging. Discussed with radiology and felt not significant. Can have reg Urology f/u outpatient (9) BPH (benign prostatic hyperplasia): Continue Alfuzosin and dutasteride (10) Iron (Fe) deficiency anemia: Mild remains on iron carbonyl vitamin c tabs. (11) GERD (gastroesophageal reflux disease): Continue PPI DVT Prophy -- ASA 81mg pre-operatively as above -- ASA + Plavix post-operatively Discharge home with therapy through [facility] Total Time Total Time Spent Total Time Spent (In Minutes): 65 Discharge Plan Discharge Items Patient Disposition: Home - Home Health Services Reason For Visit: FEVER Discharge Diagnosis: Right knee replacement, possible Lyme Disease Activity: As commented below Non-emergency contact: Surgeon Call non-emergency contact if: your wound has increased redness and your wound has increased drainage Follow-up/Referrals: Jay Salvador MD [Primary Care Provider] - Diet: Regular Addtl Attending Provider Instructions: Activity and Therapy Recommendations: * If you are using [facility] then therapy will be provided at your home until they feel you have accomplished all of your goals. * If you are using [facility] then Physical Therapy will be provided until they feel you are ready to start Outpatient Physical Therapy. * If you are not using home therapy then Outpatient Physical Therapy should start about 3-5 days from your day of surgery. Therapy will last about 6-10 weeks * It is important not to put a pillow under your knee when you are relaxing or sleeping. It is just as important to make sure you are getting your knee perfectly straight as it is to regain your knee bend. * You were shown a series of exercises in the hospital. Do these exercises three times each day including the exercises you were shown in physical therapy. * Get up and walk several times each day. For the first four weeks, try not to stand or walk for more than one hour at a time. If you do stand or walk for more than one hour, you will not hurt anything, but your leg will likely swell. * As you feel comfortable, you may change from the walker or crutches to a cane and then to independent walking. Medications: * Narcotic You will likely be sent home from the hospital with a prescription for the narcotic pain medication that worked best throughout your stay. * Aspirin Most patients will be required to take Aspirin 81mg twice a day for 6 weeks after surgery. This is obtained [id number] and a prescription is not necessary. * Other medications may be prescribed for specific circumstances. If you have any questions, please call the office at . * Resume previous home medications unless otherwise instructed TEDs/Elastic Stockings: The white elastic stockings help limit swelling and prevent blood clots from forming in your legs.~ The more you wear them, the more they work. Wear them for six weeks. Dressing Care: The dressing can be changed after physical therapy on postop day #1. Daily dry dressing changes for a few days, especially if the incision is still draining some. If the incision is not draining then you may leave the lei open to air. If there is a little bit of drainage or if the lei are getting stuck on your clothing then cover the incision with a dry dressing. The lei will be removed at your 2 week follow-up appointment. Showering: You may shower 5 days from the day of surgery as long as the incision is no longer draining. You may shower with the lei exposed. Let soapy water run over the lei and pat them dry. Do not scrub or soak the incision. Things To Watch For: * Drainage from the incision site that occurs more than one week after your surgery. * Increased redness at the incision site. * Fever above 102 degrees Fahrenheit. * Unusual chest pain or shortness of breath. * Call [facility] at with any of the above probl ems Follow-Up Visit: Follow-up with Dr. Hodges's PA (Ralph Karimi) 2-3 weeks after your day of surgery. He will remove your lei and answer any questions. If you have any additional questions or concerns, Dr Hodges is usually in the office at the same time and will be available An appointment was probably scheduled when you signed-up for surgery in the office. If you have any questions call Office Instructions: More detailed instructions as well as Frequently Asked Questions were provided in a folder by our office when you signed-up for surgery. Please review these instructions when you get home. If you have any further questions or concerns, please feel free to call the office at [phone] Addtl [employer] Provider Instructions: You have been hospitalized for a fever. Infectious work-up has been negative. Blood cultures remain no growth to date. Given your symptoms and history of Tick Bites, you were started on an will continue Doxycycline 100mg by mouth for another 6 days to complete the course of treatment. You should continue to hold your statin for today and can resume this tomorrow. Please follow up with your PCP in the next week to monitor your progress. You may want to ask about repeating your LFTs to ensure they are stable. Please follow up with orthopedics in the next two weeks for follow-up. You have therapy alreadt arranged to begin tomorrow. Please return to the emergency department with any repeat fevers, chills, chest pain, uncontrolled pain or for any other symptoms that are concerning for you. It has been a pleasure being a part of the medical team providing for you while you have been in the hospital. Take care! Pending Studies at Discharge: Yes Studies:: Blood cultures -- no growth to date Stand-Alone Forms: [facility], Opioid Pain Management Medications and DC Order Prescriptions: New oxycodone 5 mg Tablet 5 mg PO Q4H PRN (Reason: pain) Qty: 40 RF: 0 doxycycline hyclate 100 mg Capsule 100 mg PO BID 6 Days Qty: 13 RF: 0 Continued nitroglycerin [Nitrostat] 0.4 mg tablet, sublingual 0.4 mg Sublingual UD PRN (Reason: Chest Pain) Qty: 30 RF: 1 epinephrine 0.3 mg/0.3 mL auto-injector 0.3 mg IM UD PRN (Reason: anaphylaxis) RF: 0 methylcellulose (laxative) 500 mg tablet 500 mg PO BID RF: 0 Centrum Silver Men 300-600-300 mcg tablet 1 tab PO QAM RF: 0 Vitron-C 65 mg iron- 125 mg tablet,delayed release (DR/EC) 1 tab PO QPM RF: 0 loratadine 10 mg capsule 10 mg PO QAM RF: 0 telmisartan 20 mg tablet 20 mg PO QAM RF: 0 dutasteride [Avodart] 0.5 mg capsule 0.5 mg PO DAILY Qty: 90 RF: 3 alfuzosin [Uroxatral] 10 mg tablet extended release 24 hr 10 mg PO DAILY Qty: 90 RF: 3 atorvastatin 40 mg Tablet 40 mg PO QAM RF: 0 clopidogrel [Plavix] 75 mg Tablet 75 mg PO QAM RF: 0 aspirin 81 mg Tablet,Delayed Release (Dr/Ec) 81 mg PO QAM RF: 0 furosemide [Lasix] 20 mg Tablet 20 mg PO QAM RF: 0 metoprolol succinate 25 mg Tablet Extended Release 24 Hr 25 mg PO QAM RF: 0 potassium chloride 10 mEq Capsule, Extended Release 10 meq PO QPM RF: 0 alprazolam [Xanax] 2 mg Tablet 2 mg PO HS RF: 0 pantoprazole 40 mg tablet,delayed release (DR/EC) 80 mg PO QAM RF: 0 mupirocin 2 % ointment 1 appln TOP BID PRN (Reason: Skin Irritation) RF: 0 amoxicillin 500 mg tablet 2,000 mg PO UD PRN (Reason: Prophylaxis) RF: 0 Discharge Orders: Discharge Order (Routine); Ordered 09/20/20 Ordered By: Ralph Hodges Admission Data Admit Date/Time: 09/16/20 21:27 Attending Provider: George Nelson Admit Provider: Logan Foy Primary Care Provider: Jay Salvador Coding Level of Care Code D/C Day Management >30 mins Diagnoses Status post right knee replacement Z96.651 Fever R50.9 Fever type: unspecified Abnormal finding on urinalysis R82.90 Ischemic cardiomyopathy I25.5 CAD (coronary artery disease) I25.10 Associated angina: without angina Coronary Disease-Associated Artery/Lesion type: [place] artery [place] vs. transplanted heart: [place] heart Hypertension I10 Hypertension type: essential hypertension Hyperlipidemia E78.5 Hyperlipidemia type: unspecified Renal cyst N28.1 BPH (benign prostatic hyperplasia) N40.1 Lower urinary tract symptom detail: unspecified Lower urinary tract symptom presence: symptoms present Iron (Fe) deficiency anemia D50.9 Iron deficiency anemia type: unspecified iron deficiency GERD (gastroesophageal reflux disease) K21.9
== END 2020-09-20 14:30 | disposition home health service (06) | DRG 855 ==
LOC: ED 16:00 → SUATTDRO 21:27 → 3W 21:27

== ENCOUNTER 2023-02-24 10:35 | Inpatient (IN) ==
[2023-02-24 12:09] LABS: Appearance Urine Clear (Clear); Bacteria Urine Automated Negative (Negative); Bilirubin Urine Negative (Negative); Blood Urine 1+ (Negative); Color Urine Yellow; Epithelial Cell Urine Auto 0-5 /lpf (0-5); Glucose Urine UA Negative (Negative); Ketones Urine Negative (Negative); Leukocyte Esterase Urine Negative (Negative); Nitrite Urine Negative (Negative); Protein Urine Negative (Negative); Specific Gravity Urine 1.013 (1.000-1.030); Urobilinogen Urine Negative (Negative); WBC Urine Automated 0 /hpf (0-5); pH Urine 5.5 (4.5-7.5)
[2023-02-24 12:11] LABS: Basophils # (auto) 0.06 K/uL (0.00-0.20); Basophils % (auto) 0.4 %; Eosinophils # (auto) 0.08 K/uL (0.00-0.50); Eosinophils % (auto) 0.5 %; Hematocrit (blood only) 39.9 % (42.0-52.0); Hemoglobin 13.3 g/dl (14.0-18.0); Immature Granulocytes # (auto) 0.08 K/uL (0.01-0.20); Immature Granulocytes % (auto) 0.5 %; Lymphocytes # (auto) 3.53 K/uL (1.20-3.40); Mean Corpuscular Hemoglobin 32.4 pg (25.0-34.0); Mean Corpuscular Hgb Conc 33.3 g/dL (32.0-36.0); Mean Corpuscular Volume 97.1 fL (80.0-100.0); Mean Platelet Volume 9.5 fL (9.4-12.4); Monocytes # (auto) 1.13 K/uL (0.11-0.59); Monocytes % (auto) 7.3 %; Neutrophils % (auto) 68.3 %; Platelet Count 276 K/uL (130-400); RDW Coefficient of Variation 13.3 % (11.5-14.5); RDW Standard Deviation 47.7 fL (36.4-46.3); Red Blood Count 4.11 M/uL (4.70-6.10); White Blood Count 15.38 K/ul (4.8-10.8)
--- NOTE | 2023-02-24 12:12 | Emergency Department Note ---
Impression & Plan Diverticulitis large intestine, Abdominal pain, lower, History of CAD (coronary artery disease) ED Provider Note Provider: Bryson Hollins MD DATE OF SERVICE: 02/24/2023 CHIEF COMPLAINT: Lower abdominal discomfort, weakness HISTORY OF PRESENT ILLNESS: Patient is a 82-year-old gentleman past medical history including heart block/cardiomyopathy with pacemaker, GERD, CAD, hypertension, and prior episode several years ago diverticulitis presenting here today complaining of about 1 to 2 days of some lower abdominal discomfort. Worsening low bit weak this morning. No falls or trauma. No fevers reported. No nausea or vomiting. Hard firm stool without blood yesterday. Feels somewhat similar to prior episode of diverticulitis several years ago. Denies significant history of abdominal surgeries. Denies testicular pain or urinary symptoms. Did need today. Did take his GERD medication. PAST MEDICAL HISTORY: As noted above MEDICATIONS:Reviewed home medication list and states compliance SOCIAL HISTORY: Former smoker PHYSICAL EXAM: GENERAL: alert and oriented in no acute distress on stretcher Head: normocephalic and atraumatic EYES: No injection, discharge or icterus. NECK: Trachea midline. ENT: Mucous membranes pink and moist. LUNGS: Airway patent. No retractions or tachypnea HEART: Regular rate and rhythm. ABDOMEN: Soft with some mild lower abdominal tenderness particular in the right lower quadrant. SKIN: Acyanotic, warm, dry, without rashes EXTREMITIES: Without swelling, tenderness or deformity NEUROLOGICAL: No focal deficits. No aphasia. No facial droop or slurred speech. Ambulatory. EK bpm AV paced rhythm without PVC. No acute ST segment elevation with inferior T wave changes noted. QTc 434. CONTINUOUS CARDIAC MONITORING: was ordered and showed a heart rate in AV paced rhythm approximately 60s-70s bpm Patient's laboratory studies and imaging reviewed. Differential includes Appendicitis, testicular torsion, infections, diverticulitis, UTI, obstruction, mesenteric ischemia, aortic pathology, inflammatory bowel disease, renal colic, PUD, pancreatitis, biliary pathology, hernia, volvulus, constipation, as well as other pathologies. IMPRESSION/MEDICAL DECISION MAKING: No trauma reported. 2 days of lower abdominal symptoms slightly tender to the right lower quadrant. History of diverticulitis somewhat similar. Could be at play. Denies significant nausea or vomiting or upper abdominal pain. Denies chest pain. Blood work here with evidence of leukocytosis but no significant anemia. No evidence of any severe electrolyte abnormalities or kidney dysfunction. No blood work consistent with hepatitis or pancreatitis. Negative urinalysis for signs of infection. Doubt this represent kidney stone. If CT of the abdomen pelvis to look for intra-abdominal prickly bowel related issues given location of the pain was completed. Question appendicitis versus colitis/enteritis, versus other pathology. Not in any severe pain or distress here. Given history of heart failure issues did not give aggressive IV fluids. Location of pain does not seem consistent with ACS. Troponin is normal. CT scan per radiology consistent with diverticulitis possible contained perforation. Discussed with the patient. Declined pain medicines here. Covered with Zosyn for antibiotics. Discussed with general surgery who recommended conservative care with IV antibiotics. Hospitalist team contacted. Home cardiac medications ordered. DIAGNOSIS: Diverticulitis, lower abdominal pain, history of CAD/CHF DISPOSITION: Hospitalist will evaluate Patient was agreeable with this plan. Past Med/Surg History Medical History (Updated 02/24/23 @ 15:53 by Dung Munoz PA-C) Congestive heart failure BPH with obstruction/lower urinary tract symptoms History of trigger finger Essential tremor Resolved with discontinuation of Bupropion per pt Ischemic cardiomyopathy EF 35-40% by echo in 2018. 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 Follows with [facility] ([facility]). Myocardial Infarction 11/14/2016 -- PCI x 1 to LAD, then balloon angioplasty the following day to 2nd Dx due to recurrent symptoms. Hyperlipidemia Hypertension Surgical History Hx of total knee replacement History of permanent cardiac pacemaker placement For symptomatic bradycardia. Nausea and vomiting after administration of anesthetic agent History of carpal tunnel release RT/LEFT History of thumb surgery RT/LEFT THUMB History of repair of rotator cuff RT Hx of transurethral resection of prostate History of colonoscopy History of esophagogastroduodenoscopy (EGD) History of tooth extraction History of cataract surgery RT/LEFT History of heart artery stent 2017 1 STENT History of cardiac cath 2017 History of tonsillectomy and adenoidectomy H/O hemorrhoidectomy Family History Unknown No problems noted. Mother Alcohol abuse Bipolar disorder Cardiac disorder Myocardial infarction Breast cancer Brother Throat cancer Alcohol abuse Kidney disease Father Alcohol abuse Lung cancer Sister Lung cancer Other No family history of adverse response to anesthesia Denies family history of Ovarian cancer Prostate cancer Clotting disorder Colorectal cancer Social History Smoking Status: Former smoker Tobacco Type: Cigarettes packs per day: 1; Second Hand Exposure: No; Do You Dip or Chew Tobacco: No; Hx Alcohol Use: Yes Alcohol type: beer Alcohol Intake Frequency: Monthly or Less Hx Substance Use: No Preferred Language: Hebrew Communication Ability: Effective Tyre Retreader Required: No Beliefs That Will Affect Care: None marital status: Current Living Situation: Spouse current occupational status: retired Feels Safe at Home: Yes Childhood Exposure to Second-Hand Smoke: No Dental Care, Regularly: Yes Physical Activity Frequency: Does not Exercise Seatbelt Use: always Sunscreen Use: No Assistive Devices: None Allergies Allergies Allergy/AdvReac Type Severity Reaction Status Date / Time bee venom protein (honey bee) Allergy Intermediate stinging Verified 02/21/23 11:40 insects - PASSED OUT/syncope codeine AdvReac Mild NAUSEA AND Verified 02/21/23 11:40 VOMITNG Home Meds Home Medications Medication Instructions Recorded Confirmed aspirin 81 mg tablet,delayed 81 mg PO QAM 02/20/18 02/24/23 release atorvastatin 40 mg tablet 40 mg PO QAM 02/20/18 02/24/23 clopidogrel 75 mg tablet (Plavix) 75 mg PO QAM 02/20/18 02/24/23 furosemide 20 mg tablet (Lasix) 20 mg PO QAM 02/20/18 02/24/23 epinephrine 0.3 mg/0.3 mL 0.3 mg IM UD PRN anaphylaxis 11/09/18 02/24/23 injection, auto-injector iron,carbonyl 65 mg-vitamin C 125 1 tab PO QPM 11/09/18 02/24/23 mg tablet,delayed release (Vitron-C) [id number] 300 mcg-K 60 1 tab PO QAM 11/09/18 02/24/23 mcg-lycop 600 mcg-lutein 300 mcg tablet (Centrum Silver Men) potassium chloride 10 mEq 10 meq PO QPM 08/26/20 02/24/23 capsule,extended release amoxicillin 500 mg tablet 2,000 mg PO UD PRN Prophylaxis 09/16/20 02/24/23 loratadine 10 mg capsule 10 mg PO QAM Allergic Symptoms 09/21/20 02/24/23 sacubitril 49 mg-valsartan 51 mg 1 tab PO BID 01/10/22 02/24/23 tablet (Entresto) dutasteride 0.5 mg capsule 0.5 mg PO QAM 02/24/23 02/24/23 (Avodart) metoprolol succinate 50 mg 50 mg PO QAM 02/24/23 02/24/23 tablet,extended release 24 hr spironolactone 25 mg tablet 12.5 mg PO QAM 02/24/23 02/24/23 Previous Rx's Medication Instructions Recorded nitroglycerin 0.4 mg sublingual 0.4 mg sublingual UD PRN Chest 05/07/20 tablet (Nitrostat) Pain #30 tabs Denis Hose #1 ea 09/22/20 pantoprazole 40 mg tablet,delayed 40 mg PO DAILY #90 tabs 06/03/22 release alfuzosin 10 mg tablet,extended 10 mg PO DAILY #90 tabs 10/04/22 release 24 hr (Uroxatral) Results & Data (ED) Vital Signs Vital Signs - 24 hr 02/24/23 11:08 02/24/23 12:02 02/24/23 12:02 Temperature 36.4 C L Temperature Source Temporal Artery Scan Pulse Rate 76 61 Pulse Rate [Apical] 61 Pulse Rate from SpO2 Sensor Respiratory Rate 16 14 Respiratory Effort / Characteristics Non-Labored Respiratory Depth Normal Blood Pressure 138/82 Blood Pressure [Left Arm] 117/64 Blood Pressure Mean 100 Blood Pressure Mean [Left Arm] 81 Blood Pressure Position Sitting Pulse Oximetry 97 98 Oxygen Delivery Method Room Air Room Air Sepsis Recent Fever Within 48 Hours No Sepsis New/Unexplained Change in Mental Status No Sepsis Action Taken by Nursing No Action Required 02/24/23 13:22 02/24/23 13:22 02/24/23 13:42 Temperature Temperature Source Pulse Rate 77 Pulse Rate [Apical] 65 Pulse Rate from SpO2 Sensor 77 Respiratory Rate 21 20 Respiratory Effort / Characteristics Respiratory Depth Blood Pressure Blood Pressure [Left Arm] 134/71 Blood Pressure Mean Blood Pressure Mean [Left Arm] 92 Blood Pressure Position Pulse Oximetry 98 98 Oxygen Delivery Method Room Air Room Air Sepsis Recent Fever Within 48 Hours Sepsis New/Unexplained Change in Mental Status Sepsis Action Taken by Nursing 02/24/23 14:00 02/24/23 14:26 02/24/23 14:26 Temperature Temperature Source Pulse Rate 62 75 Pulse Rate [Apical] Pulse Rate from SpO2 Sensor 62 78 Respiratory Rate 16 18 Respiratory Effort / Characteristics Respiratory Depth Blood Pressure 146/63 H Blood Pressure [Left Arm] Blood Pressure Mean 110 Blood Pressure Mean [Left Arm] Blood Pressure Position Pulse Oximetry 96 98 Oxygen Delivery Method Room Air Room Air Sepsis Recent Fever Within 48 Hours Sepsis New/Unexplained Change in Mental Status Sepsis Action Taken by Nursing 02/24/23 14:30 02/24/23 14:30 02/24/23 15:00 Temperature Temperature Source Pulse Rate 62 68 Pulse Rate [Apical] Pulse Rate from SpO2 Sensor 60 67 Respiratory Rate 19 14 Respiratory Effort / Characteristics Respiratory Depth Blood Pressure 122/61 Blood Pressure [Left Arm] Blood Pressure Mean 86 Blood Pressure Mean [Left Arm] Blood Pressure Position Pulse Oximetry 97 97 Oxygen Delivery Method Room Air Room Air Sepsis Recent Fever Within 48 Hours Sepsis New/Unexplained Change in Mental Status Sepsis Action Taken by Nursing 02/24/23 15:00 02/24/23 15:30 02/24/23 15:30 Temperature Temperature Source Pulse Rate 69 Pulse Rate [Apical] Pulse Rate from SpO2 Sensor Respiratory Rate 20 Respiratory Effort / Characteristics Respiratory Depth Blood Pressure 131/61 142/81 H Blood Pressure [Left Arm] Blood Pressure Mean 101 108 Blood Pressure Mean [Left Arm] Blood Pressure Position Pulse Oximetry 98 Oxygen Delivery Method Room Air Sepsis Recent Fever Within 48 Hours Sepsis New/Unexplained Change in Mental Status Sepsis Action Taken by Nursing 02/24/23 16:00 02/24/23 16:00 02/24/23 16:03 Temperature Temperature Source Pulse Rate 62 62 Pulse Rate [Apical] Pulse Rate from SpO2 Sensor 62 Respiratory Rate 21 Respiratory Effort / Characteristics Respiratory Depth Blood Pressure 123/67 Blood Pressure [Left Arm] Blood Pressure Mean 72 Blood Pressure Mean [Left Arm] Blood Pressure Position Pulse Oximetry 98 Oxygen Delivery Method Room Air Sepsis Recent Fever Within 48 Hours Sepsis New/Unexplained Change in Mental Status Sepsis Action Taken by Nursing 02/24/23 16:30 02/24/23 16:30 Temperature Temperature Source Pulse Rate 60 Pulse Rate [Apical] Pulse Rate from SpO2 Sensor 60 Respiratory Rate 17 Respiratory Effort / Characteristics Respiratory Depth Blood Pressure 114/64 Blood Pressure [Left Arm] Blood Pressure Mean 78 Blood Pressure Mean [Left Arm] Blood Pressure Position Pulse Oximetry 97 Oxygen Delivery Method Room Air Sepsis Recent Fever Within 48 Hours Sepsis New/Unexplained Change in Mental Status Sepsis Action Taken by Nursing Laboratory Data 02/24/23 11:43 02/24/23 11:43 Lab Results 02/24/23 Range/Units 11:43 WBC 15.38 H (4.8-10.8) K/ul RBC 4.11 L (4.70-6.10) M/uL Hgb 13.3 L (14.0-18.0) g/dl Hct 39.9 L (42.0-52.0) % MCV 97.1 (80.0-100.0) fL MCH 32.4 (25.0-34.0) pg MCHC 33.3 (32.0-36.0) g/dL RDW Std Deviation 47.7 H (36.4-46.3) fL RDW Coeff of Harry 13.3 (11.5-14.5) % Plt Count 276 (130-400) K/uL MPV 9.5 (9.4-12.4) fL Immature Gran % (Auto) 0.5 % Neut % (Auto) 68.3 % Lymph % (Auto) 23.0 % [place] % (Auto) 7.3 % Eos % (Auto) 0.5 % Baso % (Auto) 0.4 % Neut # (Auto) 10.50 H (1.40-6.50) K/uL Lymph # (Auto) 3.53 H (1.20-3.40) K/uL [place] # (Auto) 1.13 H (0.11-0.59) K/uL Eos # (Auto) 0.08 (0.00-0.50) K/uL Baso # (Auto) 0.06 (0.00-0.20) K/uL Immature Gran # (Auto) 0.08 (0.01-0.20) K/uL Sodium 141 (136-145) mmol/L Potassium 3.8 (3.5-5.1) mmol/L Chloride 107 (98-107) mmol/L Carbon Dioxide 28 (21-32) mmol/L Anion Gap 6 (3-11) BUN 20 (6-23) mg/dl Creatinine 0.82 (0.6-1.4) mg/dl Est Cr Clr Drug Dosing 60.5 ml/min Est GFR ( Amer) 94.1 ml/min Est GFR (Non-Af Amer) 81.2 ml/min BUN/Creatinine Ratio 24.4 H (10-20) Glucose 95 (70-99(Fasting)) mg/dl Calcium 9.6 (8.6-10.3) mg/dl Total Bilirubin 1.0 (0.2-1.0) mg/dl AST 20 (13-39) U/L ALT 16 (7-52) U/L Alkaline Phosphatase 37 (34-104) U/L Troponin I High Sens 7.9 (0-20) pg/ml Total Protein 7.1 (6.0-8.3) gm/dl Albumin 4.2 (3.4-5.0) gm/dl Globulin 2.9 (2.5-4.0) gm/dl Albumin/Globulin Ratio 1.4 (0.9-2) Lipase 7 L (11-82) U/L Urine Color Yellow Urine Appearance Clear (Clear) Urine pH 5.5 (4.5-7.5) Ur Specific [place] 1.013 (1.000-1.030) Urine Protein Negative (Negative) Urine Glucose (UA) Negative (Negative) Urine Ketones Negative (Negative) Urine Blood 1+ H (Negative) Urine Nitrite Negative (Negative) Urine Bilirubin Negative (Negative) Urine Urobilinogen Negative (Negative) Ur Leukocyte Esterase Negative (Negative) Urine WBC (Auto) 0 (0-5) /hpf Urine RBC (Auto) 5-10 H (0-4) /hpf U Hyaline Cast (Auto) 1-5 (0-5) /lpf U Epithel Cells (Auto) 0-5 (0-5) /lpf Urine Bacteria (Auto) Negative (Negative) SARS-CoV-2, RNA, NAAT NEGATIVE (NEGATIVE) Administered Medications Aspirin (Aspirin 81 Mg Ectab) 81 mg PO QAM [facility] Stop: 03/26/23 15:14 Last Admin: 02/24/23 15:28 Dose: 81 mg Documented By: KIRK Discontinued Medications Piperacillin Sod/Tazobactam Sod (Zosyn) 4.5 gm in 100 mls @ 200 mls/hr IV NOW ONE Stop: 02/24/23 15:19 Last Infusion: 02/24/23 15:31 Dose: Infused Documented By: Admin: 02/24/23 15:01 Dose: 200 mls/hr Documented By: KIRK Ioversol (Optiray 320 100ml) 89 ml IV ONCE ONE Stop: 02/24/23 14:15 Last Admin: 02/24/23 14:15 Dose: 89 ml Documented By: PHILLY Metoprolol Tartrate (Metoprolol Tartrate 50 Mg Tab) 50 mg PO NOW STA Stop: 02/24/23 15:08 Last Admin: 02/24/23 15:27 Dose: 50 mg Documented By: KIRK Imaging Data Radiologist's Impression: Abdomen/Pelvis CT 02/24/23 12:14 CT abd pelvis IV con only CLINICAL HISTORY: abd pain, infection, ?divertic TECHNIQUE: Helical axial images of the abdomen and pelvis were obtained and displayed. Automated dose lowering techniques and/or adjustment according to patient size were utilized for this exam. This exam was performed with intravenous contrast. CT DOSE: 749.15 mGy.cm COMPARISON: Comparison is made to CT abdomen pelvis 09/16/2020 FINDINGS: Lower chest: Interstitial thickening is noted. Liver: Unremarkable. No focal lesions are seen. Gallbladder and biliary tree: No calcified gallstones. Normal caliber wall. No intra- or extrahepatic biliary ductal dilation. Pancreas: Unremarkable, no focal lesions. Spleen: Unremarkable. Adrenals: Unremarkable. Kidneys and ureters: Left renal cyst is seen. Bladder: Unremarkable. Reproductive organs: Prostatic calcifications are seen which may represent prior hemorrhage or granulomatous disease. Bowel: Numerous diverticula are seen with bowel wall thickening and surrounding fat stranding most prominent in the sigmoid colon. There is irregularity of the wall concerning for contained perforation. Lymph nodes Retroperitoneal: Unremarkable. Pelvic: Unremarkable. Mesenteric: Unremarkable. Peritoneum: Fat stranding is seen about the4 sigmoid colon. Vessels: Atherosclerotic calcifications are seen. Abdominal wall: Small bilateral fat-containing inguinal hernias are seen. Bones: Degenerative changes in the visualized spine. IMPRESSION: There is acute diverticulitis with irregularity of the colonic wall, contained perforation cannot be entirely excluded. Fat stranding is seen without evidence of abscess formation. ACT 112: Negative or not required by law. Electronically signed by: Santos Ambrocio M.D. 02/24/2023 2:43 PM Discharge Plan Visit Data Chief Complaint: Abdominal Pain Stated Complaint: ABD PAIN ED Provider: Bryson Hollins Discharge Problem: Diverticulitis large intestine, Abdominal pain, lower, History of CAD (coronary artery disease) Patient Disposition: Being Evaluated by Hospitalist Forms Stand Alone Forms: My [facility] Prescriptions Prescriptions: No Action nitroglycerin [Nitrostat] 0.4 mg tablet, sublingual 0.4 mg Sublingual UD PRN (Reason: Chest Pain) Qty: 30 1RF loratadine 10 mg capsule 10 mg PO QAM (DME) [facility] [place] See Rx Instructions .MEDSUPPLY Qty: 1 0RF Rx Instructions: As directed pantoprazole 40 mg tablet,delayed release (DR/EC) 40 mg PO DAILY Qty: 90 3RF epinephrine 0.3 mg/0.3 mL auto-injector 0.3 mg IM UD PRN (Reason: anaphylaxis) Centrum Silver Men 300-600-300 mcg tablet 1 tab PO QAM Vitron-C 65 mg iron- 125 mg tablet,delayed release (DR/EC) 1 tab PO QPM alfuzosin [Uroxatral] 10 mg tablet extended release 24 hr 10 mg PO DAILY Qty: 90 3RF Rx Instructions: administer after the same meal each day Entresto 49-51 mg tablet 1 tab PO BID atorvastatin 40 mg Tablet 40 mg PO QAM clopidogrel [Plavix] 75 mg Tablet 75 mg PO QAM aspirin 81 mg Tablet,Delayed Release (Dr/Ec) 81 mg PO QAM furosemide [Lasix] 20 mg Tablet 20 mg PO QAM potassium chloride 10 mEq Capsule, Extended Release 10 meq PO QPM amoxicillin 500 mg tablet 2,000 mg PO UD PRN (Reason: Prophylaxis) Rx Instructions: take 4 tablet 1 hour before appointment metoprolol succinate 50 mg tablet extended release 24 hr 50 mg PO QAM dutasteride [Avodart] 0.5 mg capsule 0.5 mg PO QAM spironolactone 25 mg tablet 12.5 mg PO QAM Referrals Referrals: José Salvador, RN [Registered Nurse] - Discharge Problem: Diverticulitis large intestine Qualifiers: Diverticulitis bleeding: without bleeding Diverticulitis complication: with perforation and without abscess Qualified Code(s): K57.20 - Diverticulitis of large intestine with perforation and abscess without bleeding
[2023-02-24 12:24] LABS: Albumin Globulin Ratio 1.4 (0.9-2); Albumin Level 4.2 gm/dl (3.4-5.0); BUN Creatinine Ratio 24.4 (10-20); Calcium 9.6 mg/dl (8.6-10.3); Creatinine Clr Calc Pharmacy 60.5 ml/min; Est GFR (African American) 94.1 ml/min; Est GFR (Non-African American) 81.2 ml/min; Globulin 2.9 gm/dl (2.5-4.0); Potassium 3.8 mmol/L (3.5-5.1); Total Protein 7.1 gm/dl (6.0-8.3)
[2023-02-24 12:30] LABS: Troponin I High Sensitivity 7.9 pg/ml (0-20)
--- NOTE | 2023-02-24 13:15 | Electrocardiogram Report ---
Test Reason : Blood Pressure : / mmHG Vent. Rate : 062 BPM Atrial Rate : 062 BPM P-R Int : 158 ms QRS Dur : 144 ms QT Int : 428 ms P-R-T Axes : 086 148 -28 degrees QTc Int : 434 ms AV dual-paced rhythm Biventricular pacemaker detected Abnormal ECG When compared with ECG of 28-JAN-2022 00:14, Vent. rate has decreased BY 22 BPM Confirmed by Eric Willson ([id number]) on 02/24/2023 1:15:16 PM Referred By: Confirmed By:Eric Willson
[2023-02-24] MEDS ORDERED: OPTIRAY 320 100ml IV ONE (14:14)
--- NOTE | 2023-02-24 14:45 | CT Scan Report ---
CT abd pelvis IV con only CLINICAL HISTORY: abd pain, infection, ?divertic TECHNIQUE: Helical axial images of the abdomen and pelvis were obtained and displayed. Automated dose lowering techniques and/or adjustment according to patient size were utilized for this exam. This e xam was performed with intravenous contrast. CT DOSE: 749.15 mGy.cm COMPARISON: Comparison is made to CT abdomen pelvis 09/16/2020 FINDINGS: Lower chest: Interstitial thickening is noted. Liver: Unremarkable. No focal lesions are seen. Gallbladder and biliary tree: No calcified gallstones. Normal caliber wall. No intra- or extrahepatic biliary ductal dilation. Pancreas: Unremarkable, no focal lesions. Spleen: Unremarkable. Adrenals: Unremarkable. Kidneys and ureters: Left renal cyst is seen. Bladder: Unremarkable. Reproductive organs: Prostatic calcifications are seen which may represent prior hemorrhage or granul omatous disease. Bowel: Numerous diverticula are seen with bowel wall thickening and surrounding fat stranding most pr ominent in the sigmoid colon. There is irregularity of the wall concerning for contained perforation. Lymph nodes Retroperitoneal: Unremarkable. Pelvic: Unremarkable. Mesenteric: Unremarkable. Peritoneum: Fat stranding is seen about the4 sigmoid colon. Vessels: Atherosclerotic calcifications are seen. Abdominal wall: Small bilateral fat-containing inguinal hernias are seen. Bones: Degenerative changes in the visualized spine. IMPRESSION: There is acute diverticulitis with irregularity of the colonic wall, contained perforation cannot be entirely excluded. Fat stranding is seen without evidence of abscess formation. ACT 112: Negative or not required by law. Electronically signed by: Santos Ambrocio M.D. 02/24/2023 2:43 PM
[2023-02-24] MEDS ORDERED: PIPERACILLIN/TAZOBACTAM 4.5 GM/100 ML BAG IV ONE (14:50)
[2023-02-24] MEDS ORDERED: METOPROLOL TARTRATE 50 MG TAB PO STA (15:07)
[2023-02-24] MEDS: ASPIRIN 81 MG ECTAB PO SCH (15:28)
--- NOTE | 2023-02-24 15:48 | Surgery Consultation ---
Date of Consultation February 24, 2023 Assessment & Plan (1) Acute diverticulitis: Patient is a 82 yo male with PMH of CAD, Stroke, Diverticulitis, chronic back pain, pacemaker, GERD, cardiomypathy, BPH, HLD, HTN chronic anticoagulation that presented to the [facility] ER today with c/o RLQ pain that started yesterday and became worse this AM. He does N/V, Fever, chills, SOB , CP, however reports he was feeling "off". He rates his pain a 5/10, and describes it as if someone put eggs shells in his RLQ. His last BM was yesterday and reports it was firmer than usually. He reports a history of diverticulitis and the last episode was 5-6 years ago. He had his pacemaker replace last October/2022 and is taking Plavix for anticoagulation. WBC 15 VSS , afebrile abdomen soft, TTP in RLQ reports pain will radiate across bladder area CT scan reading : IMPRESSION: There is acute diverticulitis with irregularity of the colonic wall, contained perforation cannot be entirely excluded. Fat stranding is seen without evidence of abscess formation. Recommendations: Admit to medicine Keep NPO IV fluids for hydration IV antibiotics IV analgesics Case discussed with bessemer converter operator surgeon Dr. Smith Supervising Physician Co-Signing Physician Notes I personally saw and evaluated the patient with Vianey ARSHAD and agree with the assessment and plan. 82-year-old male with diverticulitis His CT images and results were personally viewed and interpreted by myself, he does have inflammation of the sigmoid colon without any abscess formation He is being admitted to the medical team We will keep him n.p.o. and give IV antibiotics we will follow his abdominal exam No plans for any surgical intervention at this time History of Present Illness Reason for Consultation: Diverticulitis Requesting Physician: Dr. Hollins History of Present Illness Patient is a 82 yo male with PMH of CAD, Stroke, Diverticulitis, chronic back pain, pacemaker, GERD, cardiomypathy, BPH, HLD, HTN chronic anticoagulation that presented to the [facility] ER today with c/o RLQ pain that started yesterday and became worse this AM. He does N/V, Fever, chills, SOB , CP, however reports he was feeling "off". He rates his pain a 5/10, and describes it as if someone put eggs shells in his RLQ. His last BM was yesterday and reports it was firmer than usually. He reports a history of diverticulitis and the last episode was 5-6 years ago. He had his pacemaker replace last October/2022 and is taking Plavix for anticoagulation. Allergies Allergy/AdvReac Type Severity Reaction Status Date / Time bee venom protein (honey bee) Allergy Intermediate stinging Verified 02/21/23 11:40 insects - PASSED OUT/syncope codeine AdvReac Mild NAUSEA AND Verified 02/21/23 11:40 VOMITNG Home Medications Medication Instructions Recorded Confirmed Type aspirin 81 mg tablet,delayed 81 mg PO QAM 02/20/18 02/24/23 History release atorvastatin 40 mg tablet 40 mg PO QAM 02/20/18 02/24/23 History clopidogrel 75 mg tablet (Plavix) 75 mg PO QAM 02/20/18 02/24/23 History furosemide 20 mg tablet (Lasix) 20 mg PO QAM 02/20/18 02/24/23 History epinephrine 0.3 mg/0.3 mL 0.3 mg IM UD PRN anaphylaxis 11/09/18 02/24/23 History injection, auto-injector iron,carbonyl 65 mg-vitamin C 125 1 tab PO QPM 11/09/18 02/24/23 History mg tablet,delayed release (Vitron-C) plpqvykj-cd-vhcwf 300 mcg-K 60 1 tab PO QAM 11/09/18 02/24/23 History mcg-lycop 600 mcg-lutein 300 mcg tablet (Centrum Silver Men) nitroglycerin 0.4 mg sublingual 0.4 mg sublingual UD PRN Chest 05/07/20 02/24/23 Rx tablet (Nitrostat) Pain #30 tabs potassium chloride 10 mEq 10 meq PO QPM 08/26/20 02/24/23 History capsule,extended release amoxicillin 500 mg tablet 2,000 mg PO UD PRN Prophylaxis 09/16/20 02/24/23 History loratadine 10 mg capsule 10 mg PO QAM Allergic Symptoms 09/21/20 02/24/23 History Denis Mistycasey #1 ea 09/22/20 02/24/23 Rx sacubitril 49 mg-valsartan 51 mg 1 tab PO BID 01/10/22 02/24/23 History tablet (Entresto) pantoprazole 40 mg tablet,delayed 40 mg PO DAILY #90 tabs 06/03/22 02/24/23 Rx release alfuzosin 10 mg tablet,extended 10 mg PO DAILY #90 tabs 10/04/22 02/24/23 Rx release 24 hr (Uroxatral) dutasteride 0.5 mg capsule 0.5 mg PO QAM 02/24/23 02/24/23 History (Avodart) metoprolol succinate 50 mg 50 mg PO QAM 02/24/23 02/24/23 History tablet,extended release 24 hr spironolactone 25 mg tablet 12.5 mg PO QAM 02/24/23 02/24/23 History Patient History Medical History (Updated 02/24/23 @ 15:53 by Dung Munoz PA-C) Congestive heart failure BPH with obstruction/lower urinary tract symptoms History of trigger finger Essential tremor Resolved with discontinuation of Bupropion per pt Ischemic cardiomyopathy EF 35-40% by echo in 2018. 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 Follows with S cardio ([facility]). Myocardial Infarction 11/14/2016 -- PCI x 1 to LAD, then balloon angioplasty the following day to 2nd Dx due to recurrent symptoms. Hyperlipidemia Hypertension Surgical History Hx of total knee replacement History of permanent cardiac pacemaker placement For symptomatic bradycardia. Nausea and vomiting after administration of anesthetic agent History of carpal tunnel release RT/LEFT History of thumb surgery RT/LEFT THUMB History of repair of rotator cuff RT Hx of transurethral resection of prostate History of colonoscopy History of esophagogastroduodenoscopy (EGD) History of tooth extraction History of cataract surgery RT/LEFT History of heart artery stent 2017 1 STENT History of cardiac cath 2017 History of tonsillectomy and adenoidectomy H/O hemorrhoidectomy Family History Unknown No problems noted. Mother Alcohol abuse Bipolar disorder Cardiac disorder Myocardial infarction Breast cancer Brother Throat cancer Alcohol abuse Kidney disease Father Alcohol abuse Lung cancer Sister Lung cancer Other No family history of adverse response to anesthesia Denies family history of Ovarian cancer Prostate cancer Clotting disorder Colorectal cancer Social History Smoking Status: Former smoker Tobacco Type: Cigarettes packs per day: 1; Smoking End Date: 02/15/78; Second Hand Exposure: No; Do You Dip or Chew Tobacco: No; Hx Alcohol Use: No Hx Substance Use: No Preferred Language: Bengali Communication Ability: Effective Hematology Nurse Required: No Beliefs That Will Affect Care: None marital status: Current Living Situation: Spouse Current Living Situation Comment: home with current occupational status: retired Other Information That Helps Us Care for You: No Feels Safe at Home: No Is there a partner from a previous relationship who is making you feel unsafe now?: No Any Concerns about Your Family Situation: No Would You Like to Speak to Someone About Your Situation: No Safety Concerns: Feels Safe At This Time Childhood Exposure to Second-Hand Smoke: No Dental Care, Regularly: Yes Physical Activity Frequency: Does not Exercise Seatbelt Use: always Sunscreen Use: No Assistive Devices: Denture - Upper, Denture - Lower and Glasses Review of Systems Constitutional: no fever, no chills and no sweats Respiratory: no dyspnea Cardiovascular: no chest pain Gastrointestinal: + abdominal pain; no nausea and no vomit ing Genitourinary: no problem reported Physical Exam Physical Exam: alert oriented pleasant Constitutional: cooperative and comfortable; no acute distress Respiratory: normal respiratory effort and able to speak in complete sentences; no respiratory distress Gastrointestinal (Abdomen): Percussion/Palpation: + abdomen tender (RLQ) and abdomen soft; no guarding Results & Data Vital Signs (Past 12 Hours) Vital Signs Temp Pulse Pulse Resp BP BP Pulse Ox 02/24/23 15:30 69 20 02/24/23 15:30 142/81 H 98 02/24/23 15:00 131/61 02/24/23 15:00 68 14 97 02/24/23 14:30 62 19 97 02/24/23 14:30 122/61 02/24/23 14:26 75 18 98 02/24/23 14:26 146/63 H 02/24/23 14:00 62 16 96 02/24/23 13:42 77 20 98 02/24/23 13:22 65 21 134/71 98 02/24/23 13:22 02/24/23 12:02 61 02/24/23 12:02 61 14 117/64 98 02/24/23 11:08 97.5 F L 76 16 138/82 97 O2 Del Method 02/24/23 15:30 02/24/23 15:30 Room Air 02/24/23 15:00 02/24/23 15:00 Room Air 02/24/23 14:30 Room Air 02/24/23 14:30 02/24/23 14:26 Room Air 02/24/23 14:26 02/24/23 14:00 Room Air 02/24/23 13:42 02/24/23 13:22 Room Air 02/24/23 13:22 Room Air 02/24/23 12:02 02/24/23 12:02 Room Air 02/24/23 11:08 Room Air Diagnostic Findings [place], [place] [phone] CT Scan Report Patient: JUAN ALBERTO MEADOWS Admit Date: 02/24/23 MR#: [id number] Address[address]: [address] Acct ID:[id number] Address2: Date: 1940 [facility] Zip: [place] [address] Age: 82 Location: ED Sex: M Room/Bed: Att Phy: Diagnosis: ABD PAIN Mariia Phy: PCP,NO Service Date: 02/24/23 [facility] Phy: Interpreting Phy: Santos Ambrocio MDAdmit Phy: Ordering Phy: Bryson Hollins M.D. cc: ~ CT abd pelvis IV con only CLINICAL HISTORY: abd pain, infection, ?divertic TECHNIQUE: Helical axial images of the abdomen and pelvis were obtained and displayed. Automated dose lowering techniques and/or adjustment according to patient size were utilized for this exam. This exam was performed with intravenous contrast. CT DOSE: 749.15 mGy.cm COMPARISON: Comparison is made to CT abdomen pelvis 09/16/2020 FINDINGS: Lower chest: Interstitial thickening is noted. Liver: Unremarkable. No focal lesions are seen. Gallbladder and biliary tree: No calcified gallstones. Normal caliber wall. No intra- or extrahepatic biliary ductal dilation. Pancreas: Unremarkable, no focal lesions. Spleen: Unremarkable. Adrenals: Unremarkable. Kidneys and ureters: Left renal cyst is seen. Bladder: Unremarkable. Reproductive organs: Prostatic calcifications are seen which may represent prior hemorrhage or granulomatous disease. Bowel: Numerous diverticula are seen with bowel wall thickening and surrounding fat stranding most prominent in the sigmoid colon. There is irregularity of the wall concerning for contained perforation. Lymph nodes Retroperitoneal: Unremarkable. Pelvic: Unremarkable. Mesenteric: Unremarkable. Peritoneum: Fat stranding is seen about the4 sigmoid colon. Vessels: Atherosclerotic calcifications are seen. Abdominal wall: Small bilateral fat-containing inguinal hernias are seen. Bones: Degenerative changes in the visualized spine. IMPRESSION: There is acute diverticulitis with irregularity of the colonic wall, contained perforation cannot be entirely excluded. Fat stranding is seen without evidence of abscess formation. ACT 112: Negative or not required by law. Electronically signed by: Santos Ambrocio M.D. 02/24/2023 2:43 PM Dictated: 02/24/231426 Transcribed: 02/24/231426 PG Care Time/CCT Total # of Minutes Spent Total Time Spent with Patient: Total time spent is greater than 50% in coordination of care (as documented) at patient's floor/unit and/or counseling patient: Coding Level of Care Code 52726 INT INP/OBS CARE 2/55MIN Diagnoses Acute diverticulitis K57.92
--- NOTE | 2023-02-24 15:58 | History & Physical Report ---
Date of Service February 24, 2023 Assessment & Plan (1) Acute diverticulitis: Plan: Transverse lower quadrant abdominal pain starting at 0400 on 02/24 Hx of diverticulitis; patient came in because it felt similar to prior episodes CT abd/pelvis revealed acute diverticulitis, and fat stranding without evidence of abscess formation; contained perforation could not be entirely excluded Appreciate general surgery consult; general surgery does not wish to proceed with surgical intervention at this time; antibiotic therapy for now Zosyn started in the ED Continue Zosyn 4.5g IV q8h Keep patient n.p.o. except p.o. medications; bowel rest Leukocytosis of 15.38 with a neutrophil predominant Afebrile Electrolytes WNL Lipase low at 7 UA negative Acetaminophen 650 mg p.o. q6h as needed for pain/fever Famotidine 20 mg IV twice daily A.m. CBC, BMP (2) Hypertension: Plan: BP 142/81 at time of admission Continue metoprolol (3) Hyperlipidemia: Plan: Continue atorvastatin (4) Congestive heart failure: Plan: Last echo on 06/02/2021 showed an LVEF of 34% and pulmonary hypertension Continue Entresto Continue Lasix, spironolactone, and potassium chloride tablets (5) History of CAD (coronary artery disease): Plan: Acute anterior wall SC November 2016 s/p stenting Continue Plavix and aspirin (6) Pacemaker: Plan: Dual-chamber pacemaker placed at [facility] on 07/22/2015 (7) BPH (benign prostatic hyperplasia): Plan: Continue alfuzosin (8) GERD (gastroesophageal reflux disease): Plan: Continue pantoprazole Plan Disposition: Admit to [facility] telemetry Full code Keep n.p.o. for now, then advance to AHA diet as tolerated VTE PPx: Lovenox 40 mg SQ q24h History of Present Illness Chief Complaint: Abdominal pain Primary Care Provider: DENICE PCP Te is an 82-year-old male with PMH of CAD, CHF, diverticulitis, cardiomyopathy, BPH, GERD, arthritis, HTN, pacemaker, and HLD. He presented for abdominal pain that started at 0400 on the morning of 02/24. He reports that this pain feels similar to past experiences of diverticulitis. The pain is located transversely across the lower abdomen. He rates the pain 5 and describes it as "intermittent, sharp" stabbing pain that waxes and wanes. He did not take any pain medications at home. No recent changes in diet. No sick contacts. Last bowel movement yesterday on 02/23. Patient manages his own medications; did not take morning meds. Vital signs stable at time of admission. ED course: Zosyn 4.5g, metoprolol 50 mg p.o., aspirin 81 mg p.o., and Entresto ROS: Patient endorses chronic dry cough, abdominal pain. Patient denies fever, chills, nightsweats, unintentional weight loss, CP, pleuritic CP, SOB, urinary s/s, blood in the urine/stool, burning with urination, back pain, saddle anesthesia, or numbness/tingling in the legs. PMHx of permanent pacemaker placement, SC s/p stent, CVA, and skin cancer. No PMHx of kidney stones, appendectomy, cholecystectomy, hernias, DVT/PE, or diabetes. Allergies Allergy/AdvReac Type Severity Reaction Status Date / Time bee venom protein (honey bee) Allergy Intermediate stinging Verified 02/21/23 11:40 insects - PASSED OUT/syncope codeine AdvReac Mild NAUSEA AND Verified 02/21/23 11:40 VOMITNG Home Medications Medication Instructions Recorded Confirmed Type aspirin 81 mg tablet,delayed 81 mg PO QAM 02/20/18 02/24/23 History release atorvastatin 40 mg tablet 40 mg PO QAM 02/20/18 02/24/23 History clopidogrel 75 mg tablet (Plavix) 75 mg PO QAM 02/20/18 02/24/23 History furosemide 20 mg tablet (Lasix) 20 mg PO QAM 02/20/18 02/24/23 History epinephrine 0.3 mg/0.3 mL 0.3 mg IM UD PRN anaphylaxis 11/09/18 02/24/23 History injection, auto-injector iron,carbonyl 65 mg-vitamin C 125 1 tab PO QPM 11/09/18 02/24/23 History mg tablet,delayed release (Vitron-C) [id number] 300 mcg-K 60 1 tab PO QAM 11/09/18 02/24/23 History mcg-lycop 600 mcg-lutein 300 mcg tablet (Centrum Silver Men) nitroglycerin 0.4 mg sublingual 0.4 mg sublingual UD PRN Chest 05/07/20 02/24/23 Rx tablet (Nitrostat) Pain #30 tabs potassium chloride 10 mEq 10 meq PO QPM 08/26/20 02/24/23 History capsule,extended release amoxicillin 500 mg tablet 2,000 mg PO UD PRN Prophylaxis 09/16/20 02/24/23 History loratadine 10 mg capsule 10 mg PO QAM Allergic Symptoms 09/21/20 02/24/23 History Denis Hose #1 ea 09/22/20 02/24/23 Rx sacubitril 49 mg-valsartan 51 mg 1 tab PO BID 01/10/22 02/24/23 History tablet (Entresto) pantoprazole 40 mg tablet,delayed 40 mg PO DAILY #90 tabs 06/03/22 02/24/23 Rx release alfuzosin 10 mg tablet,extended 10 mg PO DAILY #90 tabs 10/04/22 02/24/23 Rx release 24 hr (Uroxatral) dutasteride 0.5 mg capsule 0.5 mg PO QAM 02/24/23 02/24/23 History (Avodart) metoprolol succinate 50 mg 50 mg PO QAM 02/24/23 02/24/23 History tablet,extended release 24 hr spironolactone 25 mg tablet 12.5 mg PO QAM 02/24/23 02/24/23 History Past Med/Surg History Medical History (Updated 02/24/23 @ 15:53 by Dung Munoz PA-C) Congestive heart failure BPH with obstruction/lower urinary tract symptoms History of trigger finger Essential tremor Resolved with discontinuation of Bupropion per pt Ischemic cardiomyopathy EF 35-40% by echo in 2017. 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 Follows with S cardio ([facility]). Myocardial Infarction 11/14/2016 -- PCI x 1 to LAD, then balloon angioplasty the following day to 2nd Dx due to recurrent symptoms. Hyperlipidemia Hypertension Surgical History Hx of total knee replacement History of permanent cardiac pacemaker placement For symptomatic bradycardia. Nausea and vomiting after administration of anesthetic agent History of carpal tunnel release RT/LEFT History of thumb surgery RT/LEFT THUMB History of repair of rotator cuff RT Hx of transurethral resection of prostate History of colonoscopy History of esophagogastroduodenoscopy (EGD) History of tooth extraction History of cataract surgery RT/LEFT History of heart artery stent 2017 1 STENT History of cardiac cath 2017 History of tonsillectomy and adenoidectomy H/O hemorrhoidectomy Family History Unknown No problems noted. Mother Alcohol abuse Bipolar disorder Cardiac disorder Myocardial infarction Breast cancer Brother Throat cancer Alcohol abuse Kidney disease Father Alcohol abuse Lung cancer Sister Lung cancer Other No family history of adverse response to anesthesia Denies family history of Ovarian cancer Prostate cancer Clotting disorder Colorectal cancer Social History Smoking Status: Former smoker Tobacco Type: Cigarettes packs per day: 1; Second Hand Exposure: No; Do You Dip or Chew Tobacco: No; Hx Alcohol Use: Yes Alcohol type: beer Alcohol Intake Frequency: Monthly or Less Hx Substance Use: No Preferred Language: Greek Communication Ability: Effective Needlemaker Required: No Beliefs That Will Affect Care: None marital status: Current Living Situation: Spouse current occupational status: retired Feels Safe at Home: Yes Childhood Exposure to Second-Hand Smoke: No Dental Care, Regularly: Yes Physical Activity Frequency: Does not Exercise Seatbelt Use: always Sunscreen Use: No Assistive Devices: None Review of Systems Review of Systems: See HPI above Physical Exam Physical Exam: General: no acute distress; non-toxic appearing; well-nourished; cooperative HEENT: normocephalic, atraumatic; no scleral icterus; PERRLA w/ EOMs intact; moist mucus membrane; vision and hearing grossly intact Neck: supple; no JVD; no lymphadenopathy; trachea midline Skin: warm, dry without signs of tenting; no cyanosis; no rashes, bruising, lesions, or erythema noted CV: chest wall NTP; RRR; S1/S2 normal; no murmurs/rubs/gallops; pulses intact and symmetric at radial, DP, and PT Lungs: no acute respiratory distress; symmetrical chest wall expansion; clear breath sounds across all lung torres w/o adventitious sounds; no wheezing ABD: Soft, NTP; BS present; no rebound/guarding; mild distention; no rashes, bruising; tympanic to percussion; negative Sousa sign, negative psoas sign, negative McBurney's point tenderness MSK: no tics or fasciculations; no edema noted in the LEs b/l Neuro: A&Ox3; normal mood and affect; fluent speech; no focal deficits; sensation intact in the LEs b/l Results & Data Results & Data Vital Signs (Past 12 Hours) Vital Signs Temp Pulse Pulse Resp BP BP Pulse Ox 02/24/23 15:30 69 20 02/24/23 15:30 142/81 H 98 02/24/23 15:00 131/61 02/24/23 15:00 68 14 97 02/24/23 14:30 62 19 97 02/24/23 14:30 122/61 02/24/23 14:26 75 18 98 02/24/23 14:26 146/63 H 02/24/23 14:00 62 16 96 02/24/23 13:42 77 20 98 02/24/23 13:22 65 21 134/71 98 02/24/23 13:22 02/24/23 12:02 61 02/24/23 12:02 61 14 117/64 98 02/24/23 11:08 36.4 C L 76 16 138/82 97 O2 Del Method 02/24/23 15:30 02/24/23 15:30 Room Air 02/24/23 15:00 02/24/23 15:00 Room Air 02/24/23 14:30 Room Air 02/24/23 14:30 02/24/23 14:26 Room Air 02/24/23 14:26 02/24/23 14:00 Room Air 02/24/23 13:42 02/24/23 13:22 Room Air 02/24/23 13:22 Room Air 02/24/23 12:02 02/24/23 12:02 Room Air 02/24/23 11:08 Room Air Laboratory Results Abnormal lab results 02/24/23 Range/Units 11:43 WBC 15.38 H (4.8-10.8) K/ul RBC 4.11 L (4.70-6.10) M/uL Hgb 13.3 L (14.0-18.0) g/dl Hct 39.9 L (42.0-52.0) % RDW Std Deviation 47.7 H (36.4-46.3) fL Neut # (Auto) 10.50 H (1.40-6.50) K/uL Lymph # (Auto) 3.53 H (1.20-3.40) K/uL [place] # (Auto) 1.13 H (0.11-0.59) K/uL BUN/Creatinine Ratio 24.4 H (10-20) Lipase 7 L (11-82) U/L Urine Blood 1+ H (Negative) Urine RBC (Auto) 5-10 H (0-4) /hpf Diagnostic Findings Abdomen/Pelvis CT 02/24/23 12:14 CT abd pelvis IV con only CLINICAL HISTORY: abd pain, infection, ?divertic TECHNIQUE: Helical axial images of the abdomen and pelvis were obtained and displayed. Automated dose lowering techniques and/or adjustment according to patient size were utilized for this exam. This exam was performed with intrave nous contrast. CT DOSE: 749.15 mGy.cm COMPARISON: Comparison is made to CT abdomen pelvis 09/16/2020 FINDINGS: Lower chest: Interstitial thickening is noted. Liver: Unremarkable. No focal lesions are seen. Gallbladder and biliary tree: No calcified gallstones. Normal caliber wall. No intra- or extrahepatic biliary ductal dilation. Pancreas: Unremarkable, no focal lesions. Spleen: Unremarkable. Adrenals: Unremarkable. Kidneys and ureters: Left renal cyst is seen. Bladder: Unremarkable. Reproductive organs: Prostatic calcifications are seen which may represent prior hemorrhage or granulomatous disease. Bowel: Numerous diverticula are seen with bowel wall thickening and surrounding fat stranding most prominent in the sigmoid colon. There is irregularity of the wall concerning for contained perforation. Lymph nodes Retroperitoneal: Unremarkable. Pelvic: Unremarkable. Mesenteric: Unremarkable. Peritoneum: Fat stranding is seen about the4 sigmoid colon. Vessels: Atherosclerotic calcifications are seen. Abdominal wall: Small bilateral fat-containing inguinal hernias are seen. Bones: Degenerative changes in the visualized spine. IMPRESSION: There is acute diverticulitis with irregularity of the colonic wall, contained perforation cannot be entirely excluded. Fat stranding is seen without evidence of abscess formation. ACT 112: Negative or not required by law. Electronically signed by: Santos Ambrocio M.D. 02/24/2023 2:43 PM Code Status & VTE Plan Code Status Full code VTE Prophylaxis Plan VTE Prophylaxis will be ordered: Yes Supervising Physician Co-Signing Physician Notes Patient seen and examined, chart reviewed, case discussed with OWEN Cheng and I agree with the assessment and plan as above except as otherwise noted Labs and images reviewed Te is an 82-year-old male with history of CAD, CHF, BPH, GERD who presents with abdominal pain and was found to have acute diverticulitis similar to prior episodes of diverticulitis. There is no evidence of abscess or free air. Mild leukocytosis. On exam lungs are clear. abdomen is tender in the left lower quadrant but without rebound/guarding. He feels this pain was originally around an 8/10, has now greatly improved to tolerable and around 4/10. Agree with Zosyn every 8 hours. Appears relatively euvolemic. No chest pain or chest pressure on admission. PG Care Time/CCT Total # of Minutes Spent Total Time Spent with Patient: Total time spent is greater than 50% in coordination of care (as documented) at patient's floor/unit and/or counseling patient: Coding [place] [address] INT INP/OBS CARE 2/55MIN Patient Type Established Medical Decision Making Moderate Complexity Diagnoses Acute diverticulitis K57.92 Essential hypertension I10 Hypertension type: essential hypertension Hyperlipidemia, unspecified hyperlipidemia type E78.5 Hyperlipidemia type: unspecified Congestive heart failure I50.9 History of CAD (coronary artery disease) Z86.79 Pacemaker Z95.0 BPH (benign prostatic hyperplasia) N40.0 GERD (gastroesophageal reflux disease) K21.9 (2) Hypertension Hypertension type: essential hypertension Qualified Code(s): I10 - Essential (primary) hypertension (3) Hyperlipidemia Hyperlipidemia type: unspecified Qualified Code(s): E78.5 - Hyperlipidemia, unspecified
[2023-02-24] MEDS ORDERED: NITROGLYCERIN SL 0.4 MG/TAB TAB SL PRN (21:31)
[2023-02-24] MEDS ORDERED: ACETAMINOPHEN 325 MG TAB PO PRN (21:31)
[2023-02-24] MEDS ORDERED: EPINEPHrine INJ 1 MG/ML AMP IM PRN (21:50)
[2023-02-24] MEDS: FAMOTIDINE 20 MG in SYRINGE 3 ML IV SCH (23:03)
[2023-02-24] MEDS: PIPERACILLIN/TAZOBACTAM 4.5 GM in DEXTROSE 5% MINI-B 100 ML IV SCH (23:03)
[2023-02-24] MEDS: ENOXAPARIN INJ 40 MG/0.4 ML SYR SQ SCH (23:04)
[2023-02-24] MEDS: VALSARTAN/SACUBITRIL 51/49 MG TAB PO SCH (23:06)
[2023-02-24] MEDS: POTASSIUM CHLORIDE 10 MEQ TABCR PO SCH (23:07)
[2023-02-25] MEDS: PIPERACILLIN/TAZOBACTAM 4.5 GM in DEXTROSE 5% MINI-B 100 ML IV SCH ×3 (05:59→21:35)
[2023-02-25 06:55] LABS: Basophils # (auto) 0.07 K/uL (0.00-0.20); Basophils % (auto) 0.4 %; Eosinophils # (auto) 0.01 K/uL (0.00-0.50); Eosinophils % (auto) 0.1 %; Hematocrit (blood only) 37.7 % (42.0-52.0); Hemoglobin 12.7 g/dl (14.0-18.0); Immature Granulocytes # (auto) 0.06 K/uL (0.01-0.20); Immature Granulocytes % (auto) 0.4 %; Lymphocytes # (auto) 2.63 K/uL (1.20-3.40); Mean Corpuscular Hemoglobin 32.2 pg (25.0-34.0); Mean Corpuscular Hgb Conc 33.7 g/dL (32.0-36.0); Mean Corpuscular Volume 95.7 fL (80.0-100.0); Mean Platelet Volume 9.5 fL (9.4-12.4); Monocytes # (auto) 1.57 K/uL (0.11-0.59); Monocytes % (auto) 9.6 %; Neutrophils # (auto) 12.09 K/uL (1.40-6.50); Neutrophils % (auto) 73.5 %; Platelet Count 266 K/uL (130-400); RDW Coefficient of Variation 13.2 % (11.5-14.5); RDW Standard Deviation 46.8 fL (36.4-46.3); Red Blood Count 3.94 M/uL (4.70-6.10); White Blood Count 16.43 K/ul (4.8-10.8)
[2023-02-25 07:30] LABS: BUN Creatinine Ratio 21.9 (10-20); Calcium 9.1 mg/dl (8.6-10.3); Creatinine Clr Calc Pharmacy 48.1 ml/min; Est GFR (African American) 75.2 ml/min; Est GFR (Non-African American) 64.9 ml/min; Potassium 3.7 mmol/L (3.5-5.1)
[2023-02-25] MEDS: FINASTERIDE 5 MG TAB PO SCH (08:12)
[2023-02-25] MEDS: SPIRONOLACTONE 12.5 MG TAB PO SCH (08:12)
[2023-02-25] MEDS: ATORVASTATIN 40 MG TAB PO SCH (08:12)
[2023-02-25] MEDS: METOPROLOL SUCC 50MG EXT REL TAB PO SCH (08:12)
[2023-02-25] MEDS: PANTOprazole 40 MG TAB PO SCH (08:12)
[2023-02-25] MEDS: LORATADINE 10 MG TAB PO SCH (08:12)
[2023-02-25] MEDS: VALSARTAN/SACUBITRIL 51/49 MG TAB PO SCH ×2 (08:12→20:15)
[2023-02-25] MEDS: CLOPIDOGREL BISULFATE 75 MG TAB PO SCH (08:13)
[2023-02-25] MEDS: TAMSULOSIN HCL 0.4 MG CAP PO SCH (08:13)
[2023-02-25] MEDS: FAMOTIDINE 20 MG in SYRINGE 3 ML IV SCH ×2 (08:17→21:34)
[2023-02-25] MEDS ORDERED: FUROSEMIDE 20 MG TAB PO SCH (09:00)
[2023-02-25] MEDS: ASPIRIN 81 MG ECTAB PO SCH (09:17)
--- NOTE | 2023-02-25 12:15 | Surgery Progress Note ---
Date of Service February 25, 2023 Assessment & Plan (1) Acute diverticulitis: Plan: He remains with leukocytosis however he is afebrile We will give him another day of n.p.o. and IV antibiotics and repeat his labs in the morning Watch for any fevers or tachycardia we will follow along his abdominal exam Admission and Anticipated Discharge Date Admission Date: February 24, 2023 Subjective Patient seen and examined. States his abdominal pain is improved. No fevers or chills. Afebrile. Review of Systems Constitutional: no fever and no chills Gastrointestinal: + abdominal pain; no nausea and no vomit ing Physical Exam Constitutional: WD/WN, vitals as above Gastrointestinal (Abdomen): Inspection/Auscultation: abdomen normal to inspection; abdomen not distended Percussion/Palpation: + abdomen tender (Mild left lower quadrant) and abdomen soft; no guarding, abdomen not rigid and no hernia Results & Data Vital Signs (Past 12 Hours) Vital Signs Temp Pulse Pulse Resp BP Pulse Ox O2 Del Method 02/25/23 11:52 37.1 C 67 18 94/52 L 94 Room Air 02/25/23 08:00 Room Air 02/25/23 07:48 37.3 C 67 18 101/48 L 95 Room Air 02/25/23 07:00 67 02/25/23 03:31 37.0 C 72 17 109/53 L 94 Room Air PG Care Time/CCT Total # of Minutes Spent Total Time Spent with Patient: Total time spent is greater than 50% in coordination of care (as documented) at patient's floor/unit and/or counseling patient: Coding Level of Care Code 24254 SUB INP/OBS CARE 05/11MIN Diagnoses Acute diverticulitis K57.92
--- NOTE | 2023-02-25 17:00 | Hospitalist Progress Note ---
Date of Service February 25, 2023 Assessment & Plan (1) Acute diverticulitis: Plan: - Transverse lower quadrant abdominal pain starting at 0400 on 02/24 - CT abd/pelvis revealed acute diverticulitis, and fat stranding without evidence of abscess formation; contained perforation could not be entirely excluded - Appreciate general surgery consult; general surgery does not wish to proceed with surgical intervention at this time; antibiotic therapy for now, keep NPO - Continue Zosyn 4.5g IV q8h - NPO for bowel rest, meds and ice chips okay - Leukocytosis of 16, Hgb 12.7 - patient baseline ~13 - Acetaminophen 650 mg p.o. q6h as needed for pain/fever - Famotidine 20 mg IV twice daily - CBC and BMP in am (2) Hypertension: Plan: 02/25 BPs 90-100/50-60s -Hold am Metoprolol (3) Hyperlipidemia: Plan: Continue atorvastatin (4) Congestive heart failure: Plan: Last echo on 06/02/2021 showed an LVEF of 34% and pulmonary hypertension Continue Entresto, spironolactone, and potassium chloride tablets Hold Lasix in setting of hypotension and NPO (5) History of CAD (coronary artery disease): Plan: Acute anterior wall [place] November 2016 s/p stenting Continue Plavix and aspirin (6) Pacemaker: Plan: Dual-chamber pacemaker placed at [facility] on 07/22/2015 (7) BPH (benign prostatic hyperplasia): Plan: Continue alfuzosin (8) GERD (gastroesophageal reflux disease): Plan: Continue pantoprazole Plan Disposition: continued hospital stay, PT/OT consulted. VTE PPx: Lovenox 40 mg SQ q24h Admission and Anticipated Discharge Date Admission Date: February 24, 2023 Supervising Physician Co-Signing Physician Notes Attending Attestation & Progress Note: Chart reviewed, care plan d/w OWEN Roque. I agree w/ the elliott components of her documentation. 82yo male with chronic systolic/diastolic CHF with EF mid 30s, pacemaker status, etc -- here with acute sigmoid diverticulitis complicated by microperforation. Remains NPO, on IV zosyn. Appreciate gen surg assistance. Labs acceptable. Vitals - BPs low-normal, otherwise stable. Cont current care plan. Defer diet advancement to gen surg. [place] Art MD Subjective 1630-Te was evaluated lying in bed. Overall feeling well, but hungry. Reports that he does not normally eat nuts, but did eat almonds last Monday, questioning if that was the cause of this diverticulitis episode. Overall abdominal pain has improved. He has not had any bowel movements. Denies any difficulty urinating, different from his baseline with BPH. He has been ambulating to bathroom without difficulty, he denies any lightheadedness or dizziness. Denies any chest pain or shortness of breath. Review of Systems Review of Systems: All systems reviewed & are unremarkable except as noted in Subjective Physical Exam Constitutional: WD/WN, vitals as above Neck: trachea midline, no thyromegaly Respiratory: normal respiratory effort, lungs clear to auscultation Cardiovascular: RRR, no murmur, no edema Gastrointestinal (Abdomen): normal bowel sounds, soft, nontender, no hepatosplenomegaly denies pain even with deep palpation Skin: no rashes, warm and dry Psychiatric: A+Ox3, euthymic affect Results & Data Results & Data Vital Signs (Past 12 Hours) Vital Signs Temp Pulse Pulse Pulse Resp BP BP 02/25/23 16:10 36.9 C 72 16 101/61 02/25/23 15:52 70 02/25/23 15:25 36.6 C 67 16 96/52 L 94/48 L 02/25/23 11:52 37.1 C 67 18 94/52 L 02/25/23 08:00 02/25/23 07:48 37.3 C 67 18 101/48 L 02/25/23 07:00 67 Pulse Ox O2 Del Method 02/25/23 16:10 97 Room Air 02/25/23 15:25 97 Room Air 02/25/23 11:52 94 Room Air 02/25/23 07:48 95 Room Air Laboratory Results Laboratory Results - last 24 hr 02/25/23 06:34 WBC 16.43 H RBC 3.94 L Hgb 12.7 L Hct 37.7 L MCV 95.7 MCH 32.2 MCHC 33.7 RDW Std Deviation 46.8 H RDW Coeff of Harry 13.2 Plt Count 266 MPV 9.5 Immature Gran % (Auto) 0.4 Neut % (Auto) 73.5 Lymph % (Auto) 16.0 [place] % (Auto) 9.6 Eos % (Auto) 0.1 Baso % (Auto) 0.4 Neut # (Auto) 12.09 H Lymph # (Auto) 2.63 [place] # (Auto) 1.57 H Eos # (Auto) 0.01 Baso # (Auto) 0.07 Immature Gran # (Auto) 0.06 Sodium 139 Potassium 3.7 Chloride 105 Carbon Dioxide 27 Anion Gap 7 BUN 23 Creatinine 1.05 Est Cr Clr Drug Dosing 48.1 Est GFR ( Amer) 75.2 Est GFR (Non-Af Amer) 64.9 BUN/Creatinine Ratio 21.9 H Glucose 99 Calcium 9.1 Magnesium 2.0 PG Care Time/CCT Total # of Minutes Spent Total Time Spent with Patient: Total time spent is greater than 50% in coordination of care (as documented) at patient's floor/unit and/or counseling patient: Coding Level of Care Code 66138 SUB INP/OBS CARE 2MIN Diagnoses Acute diverticulitis K57.92 Essential hypertension I10 Hypertension type: essential hypertension Hyperlipidemia, unspecified hyperlipidemia type E78.5 Hyperlipidemia type: unspecified Congestive heart failure I50.9 History of CAD (coronary artery disease) Z86.79 Pacemaker Z95.0 BPH (benign prostatic hyperplasia) N40.0 GERD (gastroesophageal reflux disease) K21.9 (2) Hypertension Hypertension type: essential hypertension Qualified Code(s): I10 - Essential (primary) hypertension (3) Hyperlipidemia Hyperlipidemia type: unspecified Qualified Code(s): E78.5 - Hyperlipidemia, unspecified
[2023-02-25] MEDS: POTASSIUM CHLORIDE 10 MEQ TABCR PO SCH (20:16)
[2023-02-25] MEDS: ENOXAPARIN INJ 40 MG/0.4 ML SYR SQ SCH (21:35)
[2023-02-26] MEDS: PIPERACILLIN/TAZOBACTAM 4.5 GM in DEXTROSE 5% MINI-B 100 ML IV SCH ×3 (05:52→20:33)
[2023-02-26 06:48] LABS: Basophils # (auto) 0.05 K/uL (0.00-0.20); Basophils % (auto) 0.3 %; Eosinophils # (auto) 0.08 K/uL (0.00-0.50); Eosinophils % (auto) 0.5 %; Hematocrit (blood only) 37.3 % (42.0-52.0); Hemoglobin 12.7 g/dl (14.0-18.0); Immature Granulocytes # (auto) 0.09 K/uL (0.01-0.20); Immature Granulocytes % (auto) 0.6 %; Lymphocytes % (auto) 21.2 %; Mean Corpuscular Hemoglobin 32.6 pg (25.0-34.0); Mean Corpuscular Volume 95.9 fL (80.0-100.0); Mean Platelet Volume 9.9 fL (9.4-12.4); Monocytes # (auto) 1.41 K/uL (0.11-0.59); Monocytes % (auto) 9.7 %; Neutrophils # (auto) 9.88 K/uL (1.40-6.50); Neutrophils % (auto) 67.7 %; Platelet Count 258 K/uL (130-400); RDW Coefficient of Variation 13.4 % (11.5-14.5); RDW Standard Deviation 47.7 fL (36.4-46.3); Red Blood Count 3.89 M/uL (4.70-6.10); White Blood Count 14.61 K/ul (4.8-10.8)
[2023-02-26 07:02] LABS: BUN Creatinine Ratio 24.1 (10-20); Calcium 9.3 mg/dl (8.6-10.3); Creatinine Clr Calc Pharmacy 46.8 ml/min; Est GFR (African American) 72.7 ml/min; Est GFR (Non-African American) 62.7 ml/min; Potassium 3.7 mmol/L (3.5-5.1)
[2023-02-26] MEDS: PANTOprazole 40 MG TAB PO SCH (08:14)
[2023-02-26] MEDS: VALSARTAN/SACUBITRIL 51/49 MG TAB PO SCH ×2 (08:15→20:32)
[2023-02-26] MEDS: ASPIRIN 81 MG ECTAB PO SCH (08:15)
[2023-02-26] MEDS: SPIRONOLACTONE 12.5 MG TAB PO SCH (08:15)
[2023-02-26] MEDS: FINASTERIDE 5 MG TAB PO SCH (08:15)
[2023-02-26] MEDS: TAMSULOSIN HCL 0.4 MG CAP PO SCH (08:15)
[2023-02-26] MEDS: LORATADINE 10 MG TAB PO SCH (08:15)
[2023-02-26] MEDS: CLOPIDOGREL BISULFATE 75 MG TAB PO SCH (08:15)
[2023-02-26] MEDS: ATORVASTATIN 40 MG TAB PO SCH (08:15)
[2023-02-26] MEDS: FAMOTIDINE 20 MG in SYRINGE 3 ML IV SCH ×2 (08:19→20:38)
--- NOTE | 2023-02-26 10:34 | Surgery Progress Note ---
Date of Service February 26, 2023 Assessment & Plan (1) Diverticulitis large intestine: Plan: We will advance his diet to full liquids for lunch, if he tolerates this he can be advanced to low fiber and possibly discharge later today or tomorrow He does still have a mild leukocytosis of 14, but clinically looks very good without tachycardia or fevers or abdominal pain He should be discharged on p.o. antibiotics for total of 2 weeks We will follow (2) Acute diverticulitis: Admission and Anticipated Discharge Date Admission Date: February 24, 2023 Subjective Patient seen and examined. Denies any abdominal pain. Denies nausea or vomiting. Has been tolerating sips. Afebrile. Review of Systems Constitutional: no fever and no chills Physical Exam Constitutional: WD/WN, vitals as above Gastrointestinal (Abdomen): Inspection/Auscultation: abdomen normal to inspection; abdomen not distended Percussion/Palpation: abdomen soft; abdomen nontender and no guarding Results & Data Vital Signs (Past 12 Hours) Vital Signs Temp Pulse Pulse Resp BP BP Pulse Ox 02/26/23 08:00 02/26/23 07:33 36.7 C 60 18 112/78 94 02/26/23 03:17 36.4 C L 85 18 115/65 97 02/26/23 00:00 60 02/25/23 23:21 36.8 C 63 18 96/53 L 97 O2 Del Method 02/26/23 08:00 Room Air 02/26/23 07:33 Room Air 02/26/23 03:17 Room Air 02/26/23 00:00 02/25/23 23:21 Room Air PG Care Time/CCT Total # of Minutes Spent Total Time Spent with Patient: Total time spent is greater than 50% in coordination of care (as documented) at patient's floor/unit and/or counseling patient: Coding Level of Care Code 53633 SUB INP/OBS CARE 05/11MIN Diagnoses Diverticulitis large intestine K57.20 Diverticulitis bleeding: without bleeding Diverticulitis complication: with perforation and without abscess Acute diverticulitis K57.92 (1) Diverticulitis large intestine Diverticulitis bleeding: without bleeding Diverticulitis complication: with perforation and without abscess Qualified Code(s): K57.20 - Diverticulitis of large intestine with perforation and abscess without bleeding
--- NOTE | 2023-02-26 13:34 | Hospitalist Progress Note ---
Date of Service February 26, 2023 Assessment & Plan (1) Acute diverticulitis: Plan: - Transverse lower quadrant abdominal pain starting at 0400 on 02/24 - CT abd/pelvis revealed acute diverticulitis, and fat stranding without evidence of abscess formation; contained perforation could not be entirely excluded - General surgery consult: does not wish to proceed with surgical intervention at this time; increase diet to full liquids for lunch and can be increased again if well tolerated. - Continue Zosyn 4.5g IV q8h --> discharge with PO antibiotics last day 03/09 - Leukocytosis improved to 14.6, hgb stable - Acetaminophen 650 mg p.o. q6h as needed for pain/fever - Famotidine 20 mg IV twice daily - CBC and BMP in am (2) Hypertension: Plan: 02/26 BPs continue to be soft, 110s/70s -Continue to hold Hold am Metoprolol (3) Hyperlipidemia: Plan: Continue atorvastatin (4) Congestive heart failure: Plan: Last echo on 06/02/2021 showed an LVEF of 34% and pulmonary hypertension Continue Entresto, spironolactone, and potassium chloride tablets Hold Lasix in setting of hypotension (5) History of CAD (coronary artery disease): Plan: Acute anterior wall [place] November 2016 s/p stenting Continue Plavix and aspirin (6) Pacemaker: Plan: Dual-chamber pacemaker placed at [facility] on 07/22/2015 (7) BPH (benign prostatic hyperplasia): Plan: Continue alfuzosin (8) GERD (gastroesophageal reflux disease): Plan: Continue pantoprazole Plan Disposition: continued hospital stay, likely discharge 02/26 if WBC decreasing and tolerating diet VTE PPx: Lovenox 40 mg SQ q24h Admission and Anticipated Discharge Date Admission Date: February 24, 2023 Supervising Physician Co-Signing Physician Notes Attending Attestation & Progress Note: Chart reviewed, care plan d/w OWEN Roque. I agree w/ the elliott components of her documentation. 82yo male with chronic systolic/diastolic CHF with EF mid 30s, pacemaker status, etc -- here with acute sigmoid diverticulitis complicated by microperforation. Cont IV zosyn. Thus far tolerating diet. Abd pain resolved. Appreciate gen surg assistance. Labs acceptable. Vitals - BPs low-normal at times, otherwise stable. Diet advancement per gen surg. Cuba Art MD Subjective 1305- Patient seen sitting up in bed. Just finished eating lunch, full liquid diet, about five minutes ago. So far denies any nausea or abdominal pain. Walked the halls last night, reports being a busy body and very unsual for him to just be in a bed all day. Denies CP or SOB, independent with ADLs. Tele - Paced, 60s with PVCs Review of Systems Review of Systems: All systems reviewed & are unremarkable except as noted in Subjective Physical Exam Constitutional: WD/WN, vitals as above Neck: trachea midline, no thyromegaly Respiratory: normal respiratory effort, lungs clear to auscultation Cardiovascular: RRR, no murmur, no edema Gastrointestinal (Abdomen): normal bowel sounds, soft, nontender, no hepatosplenomegaly denies pain even with deep palpation Skin: no rashes, warm and dry Psychiatric: A+Ox3, euthymic affect Results & Data Results & Data Vital Signs (Past 12 Hours) Vital Signs Temp Pulse Resp BP BP Pulse Ox O2 Del Method 02/26/23 11:15 36.5 C 69 18 119/71 96 Room Air 02/26/23 08:00 Room Air 02/26/23 07:33 36.7 C 60 18 112/78 94 Room Air 02/26/23 03:17 36.4 C L 85 18 115/65 97 Room Air Laboratory Results Laboratory Results - last 24 hr 02/26/23 05:21 WBC 14.61 H RBC 3.89 L Hgb 12.7 L Hct 37.3 L MCV 95.9 MCH 32.6 MCHC 34.0 RDW Std Deviation 47.7 H RDW Coeff of Harry 13.4 Plt Count 258 MPV 9.9 Immature Gran % (Auto) 0.6 Neut % (Auto) 67.7 Lymph % (Auto) 21.2 Benzie % (Auto) 9.7 Eos % (Auto) 0.5 Baso % (Auto) 0.3 Neut # (Auto) 9.88 H Lymph # (Auto) 3.10 Benzie # (Auto) 1.41 H Eos # (Auto) 0.08 Baso # (Auto) 0.05 Immature Gran # (Auto) 0.09 Sodium 138 Potassium 3.7 Chloride 105 Carbon Dioxide 26 Anion Gap 7 BUN 26 H Creatinine 1.08 Est Cr Clr Drug Dosing 46.8 Est GFR ( Amer) 72.7 Est GFR (Non-Af Amer) 62.7 BUN/Creatinine Ratio 24.1 H Glucose 85 Calcium 9.3 PG Care Time/CCT Total # of Minutes Spent Total Time Spent with Patient: Total time spent is greater than 50% in coordination of care (as documented) at patient's floor/unit and/or counseling patient: Coding Level of Care Code 56969 SUB INP/OBS CARE 235MIN Diagnoses Acute diverticulitis K57.92 Essential hypertension I10 Hypertension type: essential hypertension Hyperlipidemia, unspecified hyperlipidemia type E78.5 Hyperlipidemia type: unspecified Congestive heart failure I50.9 History of CAD (coronary artery disease) Z86.79 Pacemaker Z95.0 BPH (benign prostatic hyperplasia) N40.0 GERD (gastroesophageal reflux disease) K21.9 (2) Hypertension Hypertension type: essential hypertension Qualified Code(s): I10 - Essential (primary) hypertension (3) Hyperlipidemia Hyperlipidemia type: unspecified Qualified Code(s): E78.5 - Hyperlipidemia, unspecified
[2023-02-26] MEDS: ENOXAPARIN INJ 40 MG/0.4 ML SYR SQ SCH (20:31)
[2023-02-26] MEDS: POTASSIUM CHLORIDE 10 MEQ TABCR PO SCH (20:32)
[2023-02-27] MEDS: PIPERACILLIN/TAZOBACTAM 4.5 GM in DEXTROSE 5% MINI-B 100 ML IV SCH ×2 (05:27→13:50)
[2023-02-27 08:10] LABS: Basophils # (auto) 0.03 K/uL (0.00-0.20); Basophils % (auto) 0.3 %; Eosinophils # (auto) 0.15 K/uL (0.00-0.50); Eosinophils % (auto) 1.3 %; Hematocrit (blood only) 38.9 % (42.0-52.0); Hemoglobin 13.3 g/dl (14.0-18.0); Immature Granulocytes # (auto) 0.05 K/uL (0.01-0.20); Immature Granulocytes % (auto) 0.4 %; Lymphocytes # (auto) 3.29 K/uL (1.20-3.40); Lymphocytes % (auto) 28.1 %; Mean Corpuscular Hemoglobin 32.1 pg (25.0-34.0); Mean Corpuscular Hgb Conc 34.2 g/dL (32.0-36.0); Mean Platelet Volume 9.7 fL (9.4-12.4); Monocytes % (auto) 11.1 %; Neutrophils # (auto) 6.87 K/uL (1.40-6.50); Neutrophils % (auto) 58.8 %; Platelet Count 292 K/uL (130-400); RDW Coefficient of Variation 13.3 % (11.5-14.5); RDW Standard Deviation 45.7 fL (36.4-46.3); Red Blood Count 4.14 M/uL (4.70-6.10); White Blood Count 11.69 K/ul (4.8-10.8)
[2023-02-27 08:36] LABS: Calcium 8.9 mg/dl (8.6-10.3); Potassium 3.9 mmol/L (3.5-5.1)
[2023-02-27 08:42] LABS: Creatinine Clr Calc Pharmacy 45.9 ml/min; Est GFR (African American) 71.1 ml/min; Est GFR (Non-African American) 61.3 ml/min
[2023-02-27] MEDS: PANTOprazole 40 MG TAB PO SCH (09:03)
[2023-02-27] MEDS: LORATADINE 10 MG TAB PO SCH (09:03)
[2023-02-27] MEDS: ATORVASTATIN 40 MG TAB PO SCH (09:03)
[2023-02-27] MEDS: TAMSULOSIN HCL 0.4 MG CAP PO SCH (09:03)
[2023-02-27] MEDS: FINASTERIDE 5 MG TAB PO SCH (09:04)
[2023-02-27] MEDS: SPIRONOLACTONE 12.5 MG TAB PO SCH (09:04)
[2023-02-27] MEDS: CLOPIDOGREL BISULFATE 75 MG TAB PO SCH (09:04)
[2023-02-27] MEDS: ASPIRIN 81 MG ECTAB PO SCH (09:04)
[2023-02-27] MEDS: VALSARTAN/SACUBITRIL 51/49 MG TAB PO SCH (09:04)
[2023-02-27] MEDS: FAMOTIDINE 20 MG in SYRINGE 3 ML IV SCH (09:05)
--- NOTE | 2023-02-27 10:59 | Surgery Progress Note ---
Date of Service February 27, 2023 Assessment & Plan (1) Diverticulitis large intestine: Plan: He is tolerating his low fiber diet and his white counts come down to 11 today He can be discharged from a surgical standpoint We will give him 2 weeks of oral antibiotics Surgery will sign off at this time, please call with any questions or concerns (2) Acute diverticulitis: Admission and Anticipated Discharge Date Admission Date: February 24, 2023 Subjective Patient seen and examined. Denies abdominal pain. Tolerating low fiber diet yesterday. Afebrile. Review of Systems Constitutional: no fever and no chills Gastrointestinal: no abdominal pain, no nausea and no vomiting Physical Exam Constitutional: WD/WN, vitals as above Gastrointestinal (Abdomen): Inspection/Auscultation: abdomen normal to inspection; abdomen not distended Percussion/Palpation: abdomen soft; abdomen nontender and no guarding Results & Data Vital Signs (Past 12 Hours) Vital Signs Temp Pulse Pulse Resp BP BP Pulse Ox 02/27/23 07:56 36.5 C 65 16 108/66 98 02/27/23 07:21 72 02/27/23 03:16 36.7 C 63 16 94/58 L 97 02/26/23 23:57 69 02/26/23 23:07 36.6 C 61 16 110/71 96 O2 Del Method 02/27/23 07:56 Room Air 02/27/23 07:21 02/27/23 03:16 Room Air 02/26/23 23:57 02/26/23 23:07 Room Air PG Care Time/CCT Total # of Minutes Spent Total Time Spent with Patient: Total time spent is greater than 50% in coordination of care (as documented) at patient's floor/unit and/or counseling patient: Coding Level of Care Code 22671 SUB INP/OBS CARE 05/11MIN Diagnoses Diverticulitis large intestine K57.20 Diverticulitis bleeding: without bleeding Diverticulitis complication: with perforation and without abscess Acute diverticulitis K57.92 (1) Diverticulitis large intestine Diverticulitis bleeding: without bleeding Diverticulitis complication: with perforation and without abscess Qualified Code(s): K57.20 - Diverticulitis of large intestine with perforation and abscess without bleeding
[2023-02-27] MEDS: METOPROLOL SUCC 50MG EXT REL TAB PO SCH (11:27)
--- NOTE | 2023-02-27 14:56 | Discharge Summary ---
Date of Service February 27, 2023 Admission HPI Per Admitting Provider Te is an 82-year-old male with PMH of CAD, CHF, diverticulitis, cardiomyopathy, BPH, GERD, arthritis, HTN, pacemaker, and HLD. He presented for abdominal pain that started at 0400 on the morning of 02/24. He reports that this pain feels similar to past experiences of diverticulitis. The pain is located transversely across the lower abdomen. He rates the pain 08/24 and describes it as "intermittent, sharp" stabbing pain that waxes and wanes. He did not take any pain medications at home. No recent changes in diet. No sick contacts. Last bowel movement yesterday on 02/23. Patient manages his own med ications; did not take morning meds. Vital signs stable at time of admission. ED course: Zosyn 4.5g, metoprolol 50 mg p.o., aspirin 81 mg p.o., and Entresto ROS: Patient endorses chronic dry cough, abdominal pain. Patient denies fever, chills, nightsweats, unintentional weight loss, CP, pleuritic CP, SOB, urinary s/s, blood in the urine/stool, burning with urination, back pain, saddle anesthesia, or numbness/tingling in the legs. PMHx of permanent pacemaker placement, NM s/p stent, CVA, and skin cancer. No PMHx of kidney stones, appendectomy, cholecystectomy, hernias, DVT/PE, or diabetes. Discharge Data Allergies Allergy/AdvReac Type Severity Reaction Status Date / Time bee venom protein (honey bee) Allergy Intermediate stinging Verified 02/21/23 11:40 insects - PASSED OUT/syncope codeine AdvReac Mild NAUSEA AND Verified 02/21/23 11:40 VOMITNG Consultations 02/24/23 15:04 Consult General Surgery Routine ED Decision to Admit Stat Ordered Studies 02/24/23 12:14 CT abd pelvis IV con only Stat Hospital Course (1) Acute diverticulitis: - Transverse lower quadrant abdominal pain starting at 0400 on 02/24 - CT abd/pelvis revealed acute diverticulitis, and fat stranding without evidence of abscess formation; contained perforation could not be entirely excluded - General surgery consult: does not wish to proceed with surgical intervention at this time; increase diet to full liquids for lunch and can be increased again if well tolerated. - Continue Zosyn 4.5g IV q8h --> discharge with PO antibiotics last day 03/09 - Leukocytosis improved to 14.6, hgb stable - Acetaminophen 650 mg p.o. q6h as needed for pain/fever - Famotidine 20 mg IV twice daily - CBC and BMP in am (2) Hypertension: 02/26 BPs continue to be soft, 110s/70s -Continue to hold Hold am Metoprolol (3) Hyperlipidemia: Continue atorvastatin (4) Congestive heart failure: Last echo on 06/02/2021 showed an LVEF of 34% and pulmonary hypertension Continue Entresto, spironolactone, and potassium chloride tablets Hold Lasix in setting of hypotension (5) History of CAD (coronary artery disease): Acute anterior wall [place] November 2016 s/p stenting Continue Plavix and aspirin (6) Pacemaker: Dual-chamber pacemaker placed at [facility] on 07/22/2015 (7) BPH (benign prostatic hyperplasia): Continue alfuzosin (8) GERD (gastroesophageal reflux disease): Continue pantoprazole Plan Disposition: continued hospital stay, likely discharge 02/26 if WBC decreasing and tolerating diet VTE PPx: Lovenox 40 mg SQ q24h Discharge Plan Discharge Items Patient Disposition: Home - Self-Care Reason For Visit: DIVERTICULITIS Discharge Diagnosis: Sigmoid diverticulitis with microperforation - improved Congestive heart failure - stable Activity: As commented below Activity Comment: gradually increase activities over the next 7-10 days Non-emergency contact: Primary Care Provider and Die Cleaner Call non-emergency contact if: you have any medication questions, your symptoms worsen, your pain is worsening, your pain is unusual for you, your pain is concerning for you and you have a fever Follow-up/Referrals: George Serrano DO [Physician] - 03/06/23 11:30 am (5-7 days - f/u from diverticulitis ) Diet: Heart Healthy and Low Fiber Fluids: 1500ml (6 cups) Addtl Attending Provider Instructions: Mr Brock, You were hospitalized due to an episode of diverticulitis. This was in the left side of your colon called the sigmoid colon. There was suspicion that you had microperforation from the diverticulitis on the CT scan. This is when a small amount of air seeps from the colon due to the sick bowel from diverticulitis. You improved nicely with IV antibiotics, diet restriction, and supportive care. [facility] General Surgery saw you in consult and assisted with your care during the stay. You are tolerating a low fiber diet on day of discharge. Recommendations - 1. antibiotics - * amoxicillin-clavulanate - 875mg twice daily x 14 days, first dose TONIGHT. 2. diet - * LOW FIBER x 10 days * please see low fiber handout 3. fiber supplement - DO NOT TAKE YOUR FIBER SUPPLEMENT at this time. Recommend waiting about 3 weeks before resuming this or as directed by your family doctor. 4. please speak to your family doctor about the benefits/risks of having a colonoscopy in about 2 months. 5. focus on good hydration over the next 1-2 weeks. With your congestive heart failure you can still have up to 1500ml each day of liquids. This amount will keep you hydrated, and it is not too much fluid for your heart to handle. Do not exceed 1500ml of fluid per 24-hour period. Follow-up - see separate section Return to [facility] if - * you have fever over 100 degrees * you have recurrent abdominal pains * you have nausea and/or vomiting * you develop severe diarrhea * you have shortness of breath * any other concerns It was our pleasure to care for you! -Dr Art Pending Studies at Discharge: No Stand-Alone Forms: My [facility], Smoking Cessation Medications and DC Order Prescriptions: New amoxicillin-pot clavulanate 875-125 mg tablet 1 tab PO BID 14 Days Qty: 28 0RF Rx Instructions: first dose PM of 02/27/23 Continued nitroglycerin [Nitrostat] 0.4 mg tablet, sublingual 0.4 mg Sublingual UD PRN (Reason: Chest Pain) Qty: 30 1RF loratadine 10 mg capsule 10 mg PO QAM (DME) Denis Walker [facility] See Rx Instructions .MEDSUPPLY Qty: 1 0RF Rx Instructions: As directed pantoprazole 40 mg tablet,delayed release (DR/EC) 40 mg PO DAILY Qty: 90 3RF epinephrine 0.3 mg/0.3 mL auto-injector 0.3 mg IM UD PRN (Reason: anaphylaxis) Centrum Silver Men 300-600-300 mcg tablet 1 tab PO QAM Vitron-C 65 mg iron- 125 mg tablet,delayed release (DR/EC) 1 tab PO QPM alfuzosin [Uroxatral] 10 mg tablet extended release 24 hr 10 mg PO DAILY Qty: 90 3RF Rx Instructions: administer after the same meal each day atorvastatin 40 mg Tablet 40 mg PO QAM clopidogrel [Plavix] 75 mg Tablet 75 mg PO QAM aspirin 81 mg Tablet,Delayed Release (Dr/Ec) 81 mg PO QAM furosemide [Lasix] 20 mg Tablet 20 mg PO QAM potassium chloride 10 mEq Capsule, Extended Release 10 meq PO QPM amoxicillin 500 mg tablet 2,000 mg PO UD PRN (Reason: Prophylaxis) Rx Instructions: take 4 tablet 1 hour before appointment metoprolol succinate 50 mg tablet extended release 24 hr 50 mg PO QAM dutasteride [Avodart] 0.5 mg capsule 0.5 mg PO QAM spironolactone 25 mg tablet 12.5 mg PO QAM Held Entresto 49-51 mg tablet 1 tab PO BID Hold Instructions: HOLD UNTIL YOU SEE DR SERRANO OR ONE OF HIS PARTNERS Discharge Orders: Discharge Order (Routine); Ordered 02/27/23 Ordered By: Cuba Flores/Other Patient Handouts: Low-Fiber Diet, Diverticulosis and Diverticulitis Admission Data Admit Date/Time: 02/24/23 16:30 Attending Provider: Cuba Art Admit Provider: Jay Kearney Primary Care Provider: PCP,DENICE Other Providers: Jay Kearney; Johnnie Smith Coding Diagnoses Acute diverticulitis K57.92 Essential hypertension I10 Hypertension type: essential hypertension Hyperlipidemia, unspecified hyperlipidemia type E78.5 Hyperlipidemia type: unspecified Congestive heart failure I50.9 History of CAD (coronary artery disease) Z86.79 Pacemaker Z95.0 BPH (benign prostatic hyperplasia) N40.0 GERD (gastroesophageal reflux disease) K21.9
--- OUTSIDE RECORDS SUMMARY | 2023-02-28 08:50 | External Medical Summary | Summary of Care ---
Author Name Unknown Organization [facility] Address [address] [place] [address] Phone [phone] Care Team Providers Care Solar Fabrication Technician Name Role Phone George Bloom DO Primary Care Provider [phone] Reason for Visit * Reason Onset Date Comments Pacemaker Questions 02/22/2023 Encounter Details Date Type Department Care Team (Late st Contact Info) Description 02/22/2023 Telephone Cardiology Monica Damon [address] [place] [id number] Yamilka Sharma DO [address] [place] [phone] Pacemaker Questions Allergies Active Allergy Reactions Criticality Noted Date Comments Bee Venom 01/05/2007 Codeine Nausea/vomiting 11/30/2016 documented as of this encounter (statuses as of 02/22/2023) Medications Medication Sig Dispensed Refills Start Date End Date Status ASPIR-81 81 MG PO TBEC Take 1 Tablet by mouth in the morning. 0 Active CITRUCEL PO POWD once daily 0 Active dutasteride (AVODART) 0.5 MG Capsule Take 1 Capsule by mouth in the morning. 0 Active Multiple Vitamins-Minerals (CENTRUM ADULTS) TABS Take by mouth 1 Tablet daily . 0 Active Loratadine 10 MG Cap Take 1 Capsule by mouth daily as needed for Allergies. 0 Active Iron-Vitamin C (VITRON-C) 65-125 MG TabletIndications:An emia Take 1 Tab by mouth daily. 30 Tab 5 01/23/2017 Active pantoprazole (PROTONIX) 40 MG TBEC TAKE 1 TABLET DAILY 90 Tab 3 01/21/2019 Active Nitroglycerin 0.4 MG Sublingual Tablet Sublingual (Nitrostat) Place 1 Tab under the tongue every 5 minutes as needed for Pain, Chest. 25 Tab 5 11/19/2020 Active Additional Information Patient not taking.Reported on 06/13/2022 Melatonin 10 MG Oral Tablet Take 1 Tablet by mouth at bedtime. 0 Active Alfuzosin HCl ER 10 MG Oral Tablet Extended Release 24 Hour Take 1 Tablet by mouth in the morning. 30 Tablet 5 08/27/2021 Active Clopidogrel Bisulfate 75 MG Oral Tablet (pLAVix) 1 tablet by mouth daily 90 Tablet 3 05/30/2022 Active Atorvastatin Calcium 40 MG Oral Tablet (Lipitor)Indications :ASCVD (arteriosclerotic cardiovascular disease) Take 1 Tablet by mouth in the morning. 90 Tablet 3 05/30/2022 Active Entresto 49-51 MG Oral Tablet (sacubitril-valsarta n 49-51 mg per tab)Indications:Isch emic cardiomyopathy Take 1 Tablet by mouth in the morning and 1 Tablet before bedtime. 180 Tablet 3 05/30/2022 Active Metoprolol Succinate ER 50 MG Oral Tablet Extended Release 24 Hour (toPROL XL) Take 1 Tablet by mouth in the morning. 90 Tablet 3 05/30/2022 Active Furosemide 20 MG Oral Tablet (Lasix)Indications:S inus node dysfunction (HCC),AVB (atrioventricular block) Take 1 Tablet by mouth daily as needed (swelling or shortness of breath). 90 Tablet 3 08/19/2022 Active Spironolactone 25 MG Oral Tablet (Aldactone) Take 0.5 Tablets by mouth in the morning. 45 Tablet 3 11/30/2022 Active documented as of this encounter (statuses as of 02/22/2023) Active Problems Problem Noted Date Diagnosed Date NICM (nonischemic cardiomyopathy) 09/17/2021 Coronary artery disease invo lving [place] coronary artery of [place] heart without angina pectoris 09/17/2021 HTN, goal below 140/90 09/17/2021 Hyperlipidemia with target LDL less than 70 06/0 06/2021 Anemia 01/16/2017 Cardiac pacemaker in situ 09/01/2015 Sinus node dysfunction 07/13/2015 CHB (complete heart block) 07/13/2015 Hemorrhoids 09/30/2009 Disorder of male genital organs 01/05/2007 Decreased libido 01/05/2007 Benign localized hyperplasia of prostate with urinary obstruction and other lower urinary tract symptoms (LUTS)(600.21) 01/05/2007 documented as of this encounter (statuses as of 02/22/2023) Immunizations Name Administration Dates Next Due Seasonal Influenza, Quadrivalent Hd (Fluzone Hd) 01/24/2023 documented as of this encounter Social History Tobacco Use Types Packs/Day Years Used Date Smoking Tobacco: Former Cigarettes 1 15 Smokeless Tobacco: Never Alcohol Use Standard Drinks/Week Comments Yes 0 (1 standard drink = 0.6 oz pur e alcohol) one beer a week Sex and Gender Information Value Date Recorded Sex Assigned at Not on file Gender Identity Not on file Sexual Orientation Not on file Job Start Date Occupation Industry Not on file Not on file Not on file documented as of this encounter Miscellaneous Notes * Telephone Encounter - Gina Georges RN - 02/22/2023 10:03 AM EST Per Yamilka Sharma DO patient had a remote pacer check today. All within normal function. Will bedocumented in [facility]. Patient will have his 02/24/2023 appointment canceled and follow remotely every3 months with a HRC in 1 year. He was contacted and is agreeable. Gina Georges RN documented in this encounter Plan of Treatment Upcoming Encounters Date Type Department Care Team (Late st Contact Info) Description 02/24/2023 10:30 AM EST Cardiac Studies Cardiology, [facility] [address] [place] [address] [place], Pac[facility] Clinic [facility] [address] [place] [id number] 05/30/2023 11:00 AM EST Cardiac Studies Cardiac Studies, [facility] [address] [facility] [place] [id number] 06/19/2023 10:30 AM EST Office Visit Cardiology, [facility] [address] [place] [address] Corey Joseph PA-C [address] [place] [id number] Scheduled Procedures Name Priority Associated Diagnoses Date/Ti me COLONOSCOPY FLEXIBLE PROXIMA L DIAGNOSTIC Recall Diverticulosis of colon (without mention of hemorrhage) Unspecified hemorrhoids without mention of complication Health Maintenance Due Date Last Done Comments Pneumococcal Vaccine: 65+ Years (1 - PCV) 1944 Depression Screening 1950 Albumin/Creatinine Ratio 1956 DTaP,Tdap,and Td Vaccines (1 - Tdap) 1957 COVID-19 Vaccine (5 - 2022- season) 2022 01/06/2022, 01/06/2022, 07/16/2020, Additional history exists GFR 01/13/2024 01/12/2023, 11/16, 11/28/2022, Additional history exists Zoster Vaccines Completed 01/11/2019, 08/15, 12/16/2014 Influenza Vaccine (FLU shot) Completed 01/2023, 01/03/2020, 01/10/2018 GARDASIL-HPV IMMUNIZATION SERIES Aged Out No longer eligible based on patient's age to complete this topic Hepatitis B Aged Out No longer eligi ble based on patient's age to complete this topic MENINGOCOCCAL (MENACTRA/MENVEO) Aged Out No longer eligible based on patient's age to complete this topic documented as of this encounter Medical Devices Not on filedocumented as of this encounter Care Teams Solar Fabrication Technician Relationship Specialty Start Date End Date George Bloom DO [address] [place] [address] PCP - General Family Medicine 11/28/22 documented as of this encounter
--- OUTSIDE RECORDS SUMMARY | 2023-02-28 08:50 | External Medical Summary ---
Author Name Unknown Address Unknown Organization K01:[facility] - [facility] [address] [place] [address] Laboratory Report Ordering Provider Test Date Status KAITY MELÉNDEZ 02/23/2023 15:17:10 Final Observation Date Value Abnormality Reference (Units ) Status BUN 02/23/2023 15:17:10 20 6-20 (mg/dL) Final Creatinine 02/23/2023 15:17:10 0.9 0.6-1.2 (mg/dL) Final Glomerular filtration rate/1.73 sq M.predicted [Volume Rate/Area] in Serum, Plasma or Blood by Creatinine-based formula (CKD-EPI) 02/23/2023 15:17:10 85 >=60 (mL/min) Final eGFR is calculated based on the CKD-EPI 2020 equation SODIUM 02/23/2023 15:17:10 141 135-146 (m mol/L) Final Potassium 02/23/2023 15:17:10 4.1 3.5-5.1 (m mol/L) Final Cl 02/23/2023 15:17:10 107 98-107 (mm ol/L) Final CO2 02/23/2023 15:17:10 22 22-32 (mmo l/L) Final Anion gap 02/23/2023 15:17:10 12 7-15 (mmol /L) Final Glucose 02/23/2023 15:17:10 117 70-120 (mg /dL) Final Calcium 02/23/2023 15:17:10 9.7 8.4-10.2 ( mg/dL) Final Performing Location [facility] - [address] [place] [address]
--- OUTSIDE RECORDS SUMMARY | 2023-02-28 08:50 | External Medical Summary | Summary of Care ---
Author Name Unknown Organization [facility] Address [address] [place] [address] Phone [phone] Care Team Providers Care Lamination Builder Name Role Phone George Bloom DO Primary Care Provider [phone] Reason for Visit * Reason Comments Outpatient Testing Encounter Details Date Type Department Care Team (Late st Contact Info) Description 02/23/2023 3:10 PM EST Laboratory Laboratory, [facility] [address] [place] [place] [phone] [facility] [address] [place] [address] Encounter for monitoring diuretic therapy Allergies Active Allergy Reactions Criticality Noted Date Comments Bee Venom 01/05/2007 Codeine Nausea/vomiting 11/30/2016 documented as of this encounter (statuses as of 02/23/2023) Medications Medication Sig Dispensed Refills Start Date [...] as of this encounter (statuses as of 02/23/2023) Active Problems Problem Noted Date Diagnosed Date NICM (nonischemic cardiomyopathy) 09/17/2021 Coronary artery disease invo lving tribe coronary artery of tribe heart without angina pectoris 09/17/2021 HTN, goal below 140/90 09/17/2021 Hyperlipidemia with target LDL less than 70 06/2021 Anemia 01/16/2017 Cardiac pacemaker in situ 09/01/2015 Sinus node dysfunction 07/13/2015 CHB (complete heart block) 07/13/2015 Hemorrhoids 09/30/2009 Disorder of male genital organs 01/05/2007 Decreased libido 01/05/2007 Benign localized hyperplasia of prostate with urinary obstruction and other lower urinary tract symptoms (LUTS)(600.21) 01/05/2007 documented as of this encounter (statuses as of 02/23/2023) Immunizations Name Administration Dates Next Due Seasonal [...] on file documented as of this encounter Plan of Treatment Upcoming Encounters Date Type Department Care Team (Late st Contact Info) Description 05/30/2023 11:00 AM EST Cardiac Studies Cardiac Studies, [facility] [address] [place] [address] 06/19/2023 10:30 AM EST Office Visit Cardiology, [facility] [address] [place] [address] Corey Joseph, PAXavierC [address] [place] [phone] Pending Results Name Type Priority Associated Diagnoses Date /Time BASIC METABOLIC PANEL Lab Routine Encounter for monitoring diuretic therapy 02/23/2023 3:17 PM EST Scheduled Procedures Name Priority Associated Diagnoses Date/Ti me COLONOSCOPY FLEXIBLE PROXIMA L DIAGNOSTIC Recall Diverticulosis of colon (without mention of hemorrhage) Unspecified hemorrhoids without mention of complication Health Maintenance Due Date Last Done Comments Pneumococcal Vaccine: 65+ Years (1 - PCV) 1944 Depression Screening 1950 Albumin/Creatinine Ratio 1956 DTaP,Tdap,and Td Vaccines (1 - Tdap) 1957 COVID-19 Vaccine (5 - 2022-24 season) 2022 01/06/2022, 01/06/2022, 07/16/2020, Additional history [...] Not on filedocumented as of this encounter Visit Diagnoses Diagnosis Encounter for monitoring diuretic therapy Encounter for therapeutic drug monitoring documented in this encounter Care Teams Lamination Builder Relationship Specialty Start Date End Date George Bloom DO [address] [place] [address] PCP - General Family Medicine 11/28/22 documented as of this encounter
--- OUTSIDE RECORDS SUMMARY | 2023-02-28 18:42 | External Medical Summary | Summary of Care ---
Author Name Unknown Organization [facility] Address [address] [place] [address] Phone [phone] Care Team Providers Care Guide Winder Name Role Phone George Bloom DO Primary Care Provider [phone] Reason for Visit * Reason Onset Date Comments Test Results 02/24/2023 Encounter Details Date Type Department Care Team (Late st Contact Info) Description 02/24/2023 Telephone Cardiology, [facility] [address] [place] [id number] Corey Joseph PA-C [address] [place], [place] [phone] Test Results Allergies Active Allergy Reactions Criticality Noted Date Comments Bee Venom 01/05/2007 Codeine Nausea/vomiting 11/30/2016 documented as of this encounter (statuses as of 02/24/2023) Medications Medication Sig Dispensed Refills Start Date [...] as of this encounter (statuses as of 02/24/2023) Active Problems Problem Noted Date Diagnosed Date NICM (nonischemic cardiomyopathy) 09/17/2021 Coronary artery disease invo lving [place] coronary artery of [place] heart without angina pectoris 09/17/2021 HTN, goal [...] as of this encounter (statuses as of 02/24/2023) Immunizations Name Administration Dates Next Due Seasonal [...] encounter Miscellaneous Notes * Telephone Encounter - Shari Alexander CMA - 02/24/2023 10:20 AM EST Portal message sent * Telephone Encounter - Shari Alexander CMA - 02/24/2023 10:19 AM EST ----- Message from Corey Joseph PA-C sent at 02/24/2023 8:53 AM EST ----- Kidney function and potassium are normal. Continue as prescribed. Follow-up as scheduled, or as needed. documented in this encounter Plan of Treatment Upcoming Encounters Date Type Department Care Team (Late st Contact Info) Description 05/30/2023 11:00 AM EST Cardiac Studies Cardiac Studies, [address] [place] [address] 06/19/2023 10:30 AM EST Office Visit Cardiology, [facility] [address] [place] [address] Corey Joseph PA-C [address] [place] [phone] Scheduled Procedures Name Priority Associated Diagnoses Date/Ti [...] 01/06/2022, 01/06/2022, 07/16/2020, Additional history exists GFR 02/24/2024 02/23/2023, 12/17, 12/08/2022, Additional history exists Zoster Vaccines Completed 01/11/2019, [...] filedocumented as of this encounter Care Teams Guide Winder Relationship Specialty Start Date End Date George Bloom DO [address] [facility], [place] [address] PCP - General Family Medicine 11/28/22 documented as of this encounter
== END 2023-02-27 15:49 | disposition home or self-care (01) | DRG 392 ==
LOC: ED 10:35 → 2N 16:30 → SUATTDRO 16:30 → 2N 20:49

== ENCOUNTER 2024-03-30 08:27 | Inpatient (IN) ==
--- NOTE | 2024-03-30 09:00 | XRay Report ---
XR chest 1V portable CLINICAL HISTORY: Cough. Abdominal pain. COMPARISON STUDY: Chest radiograph and chest CT March 15, 2024. FINDINGS: Dual lead left subclavian pacer is in place. Cardiomediastinal silhouette is stable. There is no pneumothorax or pleural effusion. Subtle interstitial thickening persists. Minimal left basilar opacity is unchanged. IMPRESSION: 1. No change in subtle interstitial thickening. This may reflect mild pulmonary edema. 2. No change in left basilar opacity which could reflect a small focus of pneumonia or atelectasis. ACT 112: Negative or not required by law. Electronically signed by: Scott Frank M.D. 03/30/2024 8:57 AM
--- NOTE | 2024-03-30 09:10 | Emergency Department Note ---
Impression & Plan CHF (congestive heart failure), Cough, Lower abdominal pain, Diverticulitis, Leukocytosis ED Provider Note NAME: JUAN ALBERTO MEADOWS AGE: 83 SEX: M : 1940 ARRIVES VIA: Walk-In INFORMANT: Patient ED PROVIDER(S): [Satnam Keene MD] CHIEF COMPLAINT: Abdominal pain HISTORY OF PRESENT ILLNESS: Patient is an 83-year-old male presents to the ER with complaints of lower abdominal pain. The patient was seen in the ED and diagnosed with pneumonia about 2 weeks ago. He states his cough is better but is persistent. He now, for the last several days has increased pain in the lower abdomen with coughing or moving. He states that he is able to urinate without difficulty. There has been no fever. No diarrhea. The patient thinks he may have pulled a muscle from all the coughing. PMHx/PSHx/Social Hx: See Below PHYSICAL EXAM: GENERAL: Patient is in no acute distress. HEENT: No acute trauma, normocephalic atraumatic, mucous membranes moist, no nasal congestion, no scleral icterus. NECK: No stridor, no adenopathy, no meningismus, trachea is midline. LUNGS: Clear to auscultation bilaterally, no wheeze, no rhonchi, breath sounds equal. HEART: 2/6 systolic murmur, regular rate and rhythm. ABDOMEN: Soft, tender directly over the lower pelvis/bladder. No obvious hernia. No distention. EXTREMITIES: No cyanosis or edema, full range of motion of all the joints without pain or difficulty, no signs for acute trauma. NEUROLOGIC: Oriented x 3, no acute motor or sensory deficits, no focal weakness. SKIN: No rash, no jaundice, no diaphoresis. Groin: No obvious large hernia, no cellulitis. DIFFERENTIAL DIAGNOSIS: Diverticulitis, bowel perforation, UTI, pneumonia, hernia, among others. EMERGENCY DEPARTMENT PROCEDURES: MEDICAL DECISION MAKING: There is a moderate leukocytosis with a white count of 15,000, this would be consistent with infection. The patient does have some anemia however, this appears to be an issue that is already known. There is a normal platelet count. There is no concerning liver enzyme elevation, no renal failure. BNP is elevated consistent with fluid overload. Chest x-ray suggests heart failure, no pneumonia. ECG shows an AV pacemaker, no obvious acute ischemia. Cardiac enzyme testing x 1 does not suggest acute cardiac injury. No evidence for pancreatitis by our testing. Urinalysis does not show infection. Abdominal and pelvis CT shows diverticulitis without perforation. No mention of abscess. On exam, the patient was tender in the lower mid pelvis. He was not toxic or febrile. The patient was given IV Zosyn as antibiotic coverage. He received IV Lasix for the CHF. He is doing well. Given the leukocytosis, the heart failure and diverticulitis, I do think a hospital stay is warranted. The patient's heart failure may be causing his cough. No other explanation for the persistent cough was found by today's ED workup I spoke with the patient and case management. The on-call hospitalist was consulted. Prior/Outside records/notes reviewed: Today's EMS notes describing his presentation and transport to this hospital. ECG per my interpretation: Indication was abdominal pain. The ECG shows what appears to be an AV pacemaker with a rate of 81. There is no acute ST elevation, no PVCs. The QTc is 471. Continuous Cardiac Monitoring per my interpretation: An order was placed for continuous cardiac monitoring. The monitor shows a rate of 68 with AV pacing. Imaging/x-ray results per my interpretation: Chest x-ray shows what appears to be chronic change, no pneumothorax. Mild CHF was suspected. Chronic Medical/Social conditions affecting care: Advanced age. Care/Management discussed with: Case management, the on-call hospitalist. 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) joint dysfunction Numbness of right lower extremity Low back pain radiating to right lower extremity Lumbosacral radiculopathy Lumbar radiculopathy, chronic Back pain Cough Cardiomyopathy CHB (complete heart block) Paresthesia of both feet Impaired glucose metabolism Vertebral artery occlusion Stroke GERD (gastroesophageal reflux disease) Iron (Fe) deficiency anemia (~09/2020) BPH (benign prostatic hyperplasia) Renal cyst Arthritis (Acute) Acquired heart block (Chronic) CAD (coronary artery disease) (Chronic) GERD (gastroesophageal reflux disease) BPH (benign prostatic hyperplasia) Congestive heart failure BPH with obstruction/lower urinary tract symptoms Ischemic cardiomyopathy (Chronic) EF 40-44% May 2022 Hypertension Hyperlipidemia Anemia Medical History History of CVA (cerebrovascular accident) per pt, incidental finding approx 2 years ago. denies residual. 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 Follows with S cardio David). per pt, last check 02/2023. Myocardial Infarction 11/14/2016 -- PCI x 1 to LAD, then balloon angioplasty the following day to 2nd Dx due to recurrent symptoms. Surgical History Hx of total knee replacement History of permanent cardiac pacemaker placement Nausea and vomiting after administration of anesthetic agent History of carpal tunnel release History of thumb surgery History of repair of rotator cuff Hx of transurethral resection of prostate History of colonoscopy History of esophagogastroduodenoscopy (EGD) History of tooth extraction History of cataract surgery History of heart artery stent History of cardiac cath History of tonsillectomy and adenoidectomy H/O hemorrhoidectomy Family History Unknown No problems noted. Mother Alcohol abuse Bipolar disorder Cardiac disorder Myocardial infarction Breast cancer Brother Throat cancer Alcohol abuse Kidney disease Father Alcohol abuse Lung cancer Sister Lung cancer Other No family history of adverse response to anesthesia Denies family history of Ovarian cancer Prostate cancer Clotting disorder Colorectal cancer Social History Smoking Status: Never smoker Tobacco Type: Cigarettes Age Started Using Tobacco: 14; Age Quit Using Tobacco: 36; packs per day: 1; Second Hand Exposure: No; Do You Dip or Chew Tobacco: No; Tobacco Cessation Education Requested by Patient: No Hx Alcohol Use: No Hx Substance Use: No Preferred Language: German Communication Ability: Effective 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: No Beliefs That Will Affect Care: None marital status: Current Living Situation: Spouse current occupational status: retired Other Information That Helps Us Care for You: No Feels Safe at Home: Yes Safety Concerns: Feels Safe At This Time Childhood Exposure to Second-Hand Smoke: No Dental Care, Regularly: Yes Physical Activity Frequency: Does not Exercise Seatbelt Use: always Sunscreen Use: No Assistive Devices: Cane, Glasses and Walker Allergies Allergies Allergy/AdvReac Type Severity Reaction Status Date / Time bee venom protein (honey bee) Allergy Severe Anaphylaxis Verified 03/30/24 10:43 codeine AdvReac Intermediate Nausea, Verified 03/30/24 10:43 vomiting Home Meds Home Medications Medication Instructions Recorded Confirmed aspirin 81 mg tablet,delayed 81 mg PO QAM 02/20/18 03/30/24 release atorvastatin 40 mg tablet 40 mg PO QAM 02/20/18 03/30/24 clopidogrel 75 mg tablet (Plavix) 75 mg PO QAM 02/20/18 03/30/24 epinephrine 0.3 mg/0.3 mL 0.3 mg IM UD PRN anaphylaxis 11/09/18 03/30/24 injection, auto-injector iron,carbonyl 65 mg-vitamin C 125 1 tab PO QPM 11/09/18 03/30/24 mg tablet,delayed release (Vitron-C) gsokuyyg-em-[id number] 300 mcg-K 60 1 tab PO QAM 11/09/18 03/30/24 mcg-lycop 600 mcg-lutein 300 mcg tablet (Centrum Silver Men) loratadine 10 mg capsule 10 mg PO QAM PRN Allergic Symptoms 09/21/20 03/30/24 sacubitril 49 mg-valsartan 51 mg 1 tab PO BID 01/10/22 03/30/24 tablet (Entresto) metoprolol succinate 50 mg 50 mg PO QAM 02/24/23 03/30/24 tablet,extended release 24 hr spironolactone 25 mg tablet 12.5 mg PO QAM 02/24/23 03/30/24 furosemide 20 mg tablet (Lasix) 20 mg PO QAM PRN Fluid Retention 03/13/23 03/30/24 hydrocodone-homatropine 5 mg-1.5 5 ml PO Q6H PRN Pneumonia 03/22/24 03/30/24 mg/5 mL oral syrup albuterol sulfate 90 mcg/actuation 2 puff inhalation QID PRN 03/30/24 03/30/24 aerosol inhaler SOB/Wheezing Previous Rx's Medication Instructions Recorded Denis Hose #1 ea 09/22/20 nitroglycerin 0.4 mg sublingual 0.4 mg sublingual UD PRN Chest 03/13/23 tablet (Nitrostat) Pain #30 tabs pantoprazole 40 mg tablet,delayed 40 mg PO BID 6 weeks #84 tabs 03/30/23 release dutasteride 0.5 mg capsule 0.5 mg PO DAILY #90 caps 09/25/23 alfuzosin 10 mg tablet,extended 10 mg PO DAILY #90 tabs 10/13/23 release 24 hr (Uroxatral) benzonatate 100 mg capsule 100 mg PO TID PRN cough #30 caps 01/26/24 cyclobenzaprine 5 mg tablet 5 mg PO TID PRN muscle spasm #30 03/06/24 tabs Results & Data (ED) Vital Signs Vital Signs - 24 hr 03/30/24 08:34 03/30/24 08:44 03/30/24 08:56 Pulse Rate 76 91 H Pulse Rate [Apical] 73 Pulse Rate from SpO2 Sensor Pulse Rhythm Pulse Rhythm [Apical] Regular Pulse Strength [Apical] Normal Respiratory Rate 20 20 Respiratory Effort / Characteristics Non-Labored Spontaneous Non-Labored Spontaneous Respiratory Depth Normal Normal Respiratory Pattern Regular Regular Blood Pressure 141/70 H Blood Pressure [Right Arm] 128/71 Blood Pressure Mean 93 Blood Pressure Mean [Right Arm] 90 Blood Pressure Position [Right Arm] Semi-fowlers Pulse Oximetry 98 97 Oxygen Delivery Method Room Air Room Air Sepsis Recent Fever Within 48 Hours No Sepsis New/Unexplained Change in Mental Status N/A Sepsis Action Taken by Nursing No Action Required 03/30/24 08:56 03/30/24 09:00 03/30/24 09:12 Pulse Rate 73 70 68 Pulse Rate [Apical] Pulse Rate from SpO2 Sensor 71 Pulse Rhythm Regular Pulse Rhythm [Apical] Pulse Strength [Apical] Respiratory Rate 20 20 17 Respiratory Effort / Characteristics Respiratory Depth Respiratory Pattern Blood Pressure 122/88 Blood Pressure [Right Arm] Blood Pressure Mean 99 Blood Pressure Mean [Right Arm] Blood Pressure Position [Right Arm] Pulse Oximetry 97 98 Oxygen Delivery Method Nasal Cannula Room Air Sepsis Recent Fever Within 48 Hours Sepsis New/Unexplained Change in Mental Status Sepsis Action Taken by Nursing 03/30/24 09:45 03/30/24 10:13 03/30/24 11:00 Pulse Rate 63 75 Pulse Rate [Apical] 68 Pulse Rate from SpO2 Sensor 63 73 Pulse Rhythm Pulse Rhythm [Apical] Regular Pulse Strength [Apical] Normal Respiratory Rate 18 18 18 Respiratory Effort / Characteristics Non-Labored Spontaneous Respiratory Depth Normal Respiratory Pattern Regular Blood Pressure 140/68 Blood Pressure [Right Arm] 129/69 Blood Pressure Mean 92 Blood Pressure Mean [Right Arm] 89 Blood Pressure Position [Right Arm] Semi-fowlers Pulse Oximetry 94 97 97 Oxygen Delivery Method Room Air Room Air Sepsis Recent Fever Within 48 Hours Sepsis New/Unexplained Change in Mental Status Sepsis Action Taken by Nursing 03/30/24 11:00 03/30/24 11:21 Pulse Rate 78 Pulse Rate [Apical] Pulse Rate from SpO2 Sensor 83 Pulse Rhythm Pulse Rhythm [Apical] Pulse Strength [Apical] Respiratory Rate 24 Respiratory Effort / Characteristics Respiratory Depth Respiratory Pattern Blood Pressure 140/68 Blood Pressure [Right Arm] Blood Pressure Mean 91 Blood Pressure Mean [Right Arm] Blood Pressure Position [Right Arm] Pulse Oximetry 99 Oxygen Delivery Method Sepsis Recent Fever Within 48 Hours Sepsis New/Unexplained Change in Mental Status Sepsis Action Taken by Residential Medications Current Medication List: was personally reviewed by me Laboratory Data Attestation: I reviewed the patient's lab results. 03/30/24 08:50 03/30/24 08:50 Lab Results 03/30/24 03/30/24 Range/Units 08:50 11:13 WBC 15.28 H (4.8-10.8) K/ul RBC 3.84 L (4.70-6.10) M/uL Hgb 11.9 L (14.0-18.0) g/dl Hct 37.0 L (42.0-52.0) % MCV 96.4 (80.0-100.0) fL MCH 31.0 (25.0-34.0) pg MCHC 32.2 (32.0-36.0) g/dL RDW Std Deviation 48.5 H (36.4-46.3) fL RDW Coeff of Harry 13.8 (11.5-14.5) % Plt Count 372 (130-400) K/uL MPV 9.5 (9.4-12.4) fL Immature Gran % (Auto) 0.4 % Neut % (Auto) 66.1 % Lymph % (Auto) 23.2 % [place] % (Auto) 9.2 % Eos % (Auto) 0.8 % Baso % (Auto) 0.3 % Neut # (Auto) 10.10 H (1.40-6.50) K/uL Lymph # (Auto) 3.54 H (1.20-3.40) K/uL [place] # (Auto) 1.41 H (0.11-0.59) K/uL Eos # (Auto) 0.12 (0.00-0.50) K/uL Baso # (Auto) 0.05 (0.00-0.20) K/uL Immature Gran # (Auto) 0.06 (0.01-0.20) K/uL Sodium 141 (136-145) mmol/L Potassium 3.6 (3.5-5.1) mmol/L Chloride 107 (98-107) mmol/L Carbon Dioxide 27 (21-32) mmol/L Anion Gap 7 (3-11) BUN 16 (6-23) mg/dl Creatinine 0.84 (0.6-1.4) mg/dl Est Cr Clr Drug Dosing 58.0 ml/min eGFR 85.46 BUN/Creatinine Ratio 19.0 (10-20) Glucose 98 (70-99(Fasting)) mg/dl Calcium 9.1 (8.6-10.3) mg/dl Magnesium 2.0 (1.7-2.4) mg/dl Total Bilirubin 0.8 (0.2-1.0) mg/dl AST 18 (13-39) U/L ALT 16 (7-52) U/L Alkaline Phosphatase 32 L (34-104) U/L Troponin I High Sens 11.2 (0-20) pg/ml B-Natriuretic Peptide 354 H (0-100) pg/ml Total Protein 7.0 (6.0-8.3) gm/dl Albumin 3.5 (3.4-5.0) gm/dl Globulin 3.5 (2.5-4.0) gm/dl Albumin/Globulin Ratio 1.0 (0.9-2) Lipase 8 L (11-82) U/L Urine Color Yellow Urine Appearance Clear (Clear) Urine pH 6.0 (4.5-7.5) Ur Specific [place] 1.024 (1.000-1.030) Urine Protein Negative (Negative) Urine Glucose (UA) Negative (Negative) Urine Ketones Negative (Negative) Urine Blood 1+ H (Negative) Urine Nitrite Negative (Negative) Urine Bilirubin Negative (Negative) Urine Urobilinogen Negative (Negative) Ur Leukocyte Esterase Negative (Negative) Urine WBC (Auto) 0-5 (0-5) /hpf Urine RBC (Auto) 0-2 (0-2) /hpf U Hyaline Cast (Auto) 0-2 (0-2) /lpf U Epithel Cells (Auto) 0-2 (0-2) /hpf Urine Bacteria (Auto) None Seen (None Seen) Administered Medications Ampicillin Sodium/Sulbactam Sodium (Unasyn) 3,000 mg in 100 mls @ 200 mls/hr IV Q6H [facility] Stop: 04/09/24 15:59 Last Admin: 03/30/24 15:24 Dose: 200 mls/hr Documented By: CIRILO Discontinued Medications Furosemide (Furosemide 40 Mg/4 Ml Vial) 40 mg IV ONE ONE Stop: 03/30/24 10:39 Last Admin: 03/30/24 10:49 Dose: 40 mg Documented By: Piperacillin Sod/Tazobactam Sod (Zosyn) 4.5 gm in 100 mls @ 200 mls/hr IV NOW ONE Stop: 03/30/24 11:07 Last Infusion: 03/30/24 11:37 Dose: Infused Documented By: Admin: 03/30/24 10:49 Dose: 200 mls/hr Documented By: Piperacillin Sod/Tazobactam Sod (Zosyn) 4.5 gm in 100 mls @ 25 mls/hr IV Q8H [facility]; Protocol Stop: 04/09/24 12:19 Last Admin: 03/30/24 12:37 Dose: Not Given Documented By: CIRILO Ioversol (Optiray 320 100ml) 94 ml IV ONCE ONE Stop: 03/30/24 09:47 Last Admin: 03/30/24 09:46 Dose: 94 ml Documented By: PHILLY Metoprolol Succinate (Metoprolol Succ 50mg Ext Rel Tab) 50 mg PO NOW STA Stop: 03/30/24 11:32 Last Admin: 03/30/24 11:58 Dose: 50 mg Documented By: MSG Imaging Data Radiologist's Impression: Abdomen/Pelvis CT 03/30/24 08:38 CT OF THE ABDOMEN AND PELVIS WITH CONTRAST CLINICAL HISTORY: Diffuse abdominal pain. COMPARISON STUDY: CT of the abdomen and pelvis August 22, 2023 and KUB March 06, 2024. Chest CT March 15, 2024 TECHNIQUE: Following IV administration of 94 mL of Optiray, axial images of the abdomen and pelvis were obtained from the lung bases to the proximal femurs. Images were reviewed in the axial, sagittal, and coronal planes. IV contrast was administered without complication. Automated exposure control was utilized for the study. A dose lowering technique was utilized adhering to the principles of ALARA. CT DOSE: 772.14 mGy.cm FINDINGS: Pacer leads are partially imaged. The heart is enlarged. Mild left lower lobe opacity has decreased since CT of March 15, 2024. There is a trace left pleural effusion. No pneumatosis, free air or portal venous gas is present. Liver, spleen, adrenal glands, right kidney and pancreas are unremarkable. There is no biliary or pancreatic ductal dilatation. Water attenuation 4.6 cm left renal lesion represents a cyst. There is no hydronephrosis. There is no evidence for a bowel obstruction. There is extensive colonic diverticulosis. Note is made of moderate circumferential wall thickening of the distal descending and proximal sigmoid colon with adjacent inflammation. A small amount of fluid is present. There is no extraluminal gas. No fluid collections are present. Inflammation extends to the bladder. There is mild bladder wall thickening. No gas within the bladder is present. There is also mild wall thickening of the distal sigmoid colon with an inflamed diverticulum. There is mild adjacent infiltration. IMPRESSION: 1. Acute diverticulitis of the distal descending and proximal sigmoid colon. Moderate inflammation and colonic wall thickening. No free air or abscess. Small amount of fluid. Suspected additional site of acute diverticulitis of the distal sigmoid colon. Inflammation adjacent to the bladder with mild bladder wall thickening which may be reactive. No gas within the bladder. However, findings could be correlated with urinalysis to exclude an occult colovesicular fistula. 2. No bowel obstruction. 3. Mild left lower lobe opacity which has improved since chest CT of March 15, 2024. This favors resolving pneumonia. A chest CT in 3 months to ensure complete resolution is recommended. ACT 112: Negative or not required by law. Electronically signed by: Scott Frank M.D. 03/30/2024 10:30 AM Chest X-Ray 03/30/24 08:38 XR chest 1V portable CLINICAL HISTORY: Cough. Abdominal pain. COMPARISON STUDY: Chest radiograph and chest CT March 15, 2024. FINDINGS: Dual lead left subclavian pacer is in place. Cardiomediastinal silhouette is stable. There is no pneumothorax or pleural effusion. Subtle interstitial thickening persists. Minimal left basilar opacity is unchanged. IMPRESSION: 1. No change in subtle interstitial thickening. This may reflect mild pulmonary edema. 2. No change in left basilar opacity which could reflect a small focus of pneumonia or atelectasis. ACT 112: Negative or not required by law. Electronically signed by: Scott Frank M.D. 03/30/2024 8:57 AM Discharge Plan Visit Data Chief Complaint: Abdominal Pain Stated Complaint: COUGH, ABD PAIN ED Provider: Satnam Keene Discharge Problem: CHF (congestive heart failure), Cough, Lower abdominal pain, Diverticulitis, Leukocytosis Patient Disposition: Admitted As Inpatient Condition: Fair Discharge Instructions Interventions: ED Discharge Assessment Last Done: 03/30/24 12:04 Discharge Problem: CHF (congestive heart failure) Qualifiers: Heart failure type: unspecified Heart failure chronicity: acute Qualified Code(s): I50.9 - Heart failure, unspecified Cough Qualifiers: Cough type: subacute Qualified Code(s): R05.2 - Subacute cough Leukocytosis Qualifiers: Leukocytosis type: unspecified Qualified Code(s): D72.829 - Elevated white blood cell count, unspecified
[2024-03-30 09:18] LABS: Basophils # (auto) 0.05 K/uL (0.00-0.20); Basophils % (auto) 0.3 %; Eosinophils # (auto) 0.12 K/uL (0.00-0.50); Eosinophils % (auto) 0.8 %; Hemoglobin 11.9 g/dl (14.0-18.0); Immature Granulocytes # (auto) 0.06 K/uL (0.01-0.20); Immature Granulocytes % (auto) 0.4 %; Lymphocytes # (auto) 3.54 K/uL (1.20-3.40); Lymphocytes % (auto) 23.2 %; Mean Corpuscular Hgb Conc 32.2 g/dL (32.0-36.0); Mean Corpuscular Volume 96.4 fL (80.0-100.0); Mean Platelet Volume 9.5 fL (9.4-12.4); Monocytes # (auto) 1.41 K/uL (0.11-0.59); Monocytes % (auto) 9.2 %; Neutrophils % (auto) 66.1 %; Platelet Count 372 K/uL (130-400); RDW Coefficient of Variation 13.8 % (11.5-14.5); RDW Standard Deviation 48.5 fL (36.4-46.3); Red Blood Count 3.84 M/uL (4.70-6.10); White Blood Count 15.28 K/ul (4.8-10.8)
[2024-03-30 09:36] LABS: Albumin Level 3.5 gm/dl (3.4-5.0); Bilirubin,Total 0.8 mg/dl (0.2-1.0); Calcium 9.1 mg/dl (8.6-10.3); Globulin 3.5 gm/dl (2.5-4.0); Potassium 3.6 mmol/L (3.5-5.1)
[2024-03-30 09:42] LABS: Troponin I High Sensitivity 11.2 pg/ml (0-20)
[2024-03-30] MEDS: OPTIRAY 320 100ml IV ONE (09:46)
--- NOTE | 2024-03-30 10:33 | CT Scan Report ---
CT OF THE ABDOMEN AND PELVIS WITH CONTRAST CLINICAL HISTORY: Diffuse abdominal pain. COMPARISON STUDY: CT of the abdomen and pelvis August 22, 2023 and KUB March 06, 2024. Chest CT Novem 2023 TECHNIQUE: Following IV administration of 94 mL of Optiray, axial images of the abdomen and pelvis we re obtained from the lung bases to the proximal femurs. Images were reviewed in the axial, sagittal, and coronal planes. IV contrast was administered without complication. Automated exposure control wa s utilized for the study. A dose lowering technique was utilized adhering to the principles of ALARA . CT DOSE: 772.14 mGy.cm FINDINGS: Pacer leads are partially imaged. The heart is enlarged. Mild left lower lobe opacity has d ecreased since CT of March 15, 2024. There is a trace left pleural effusion. No pneumatosis, free air or portal venous gas is present. Liver, spleen, adrenal glands, right kidney and pancreas are unr emarkable. There is no biliary or pancreatic ductal dilatation. Water attenuation 4.6 cm left renal l esion represents a cyst. There is no hydronephrosis. There is no evidence for a bowel obstruction. Th ere is extensive colonic diverticulosis. Note is made of moderate circumferential wall thickening of the distal descending and proximal sigmoid colon with adjacent inflammation. A small amount of fluid is present. There is no extraluminal gas. No fluid collections are present. Inflammation extends to t he bladder. There is mild bladder wall thickening. No gas within the bladder is present. There is als o mild wall thickening of the distal sigmoid colon with an inflamed diverticulum. There is mild adjac ent infiltration. IMPRESSION: 1. Acute diverticulitis of the distal descending and proximal sigmoid colon. Moderate inflammation an d colonic wall thickening. No free air or abscess. Small amount of fluid. Suspected additional site o f acute diverticulitis of the distal sigmoid colon. Inflammation adjacent to the bladder with mild bl adder wall thickening which may be reactive. No gas within the bladder. However, findings could be co rrelated with urinalysis to exclude an occult colovesicular fistula. 2. No bowel obstruction. 3. Mild left lower lobe opacity which has improved since chest CT of March 15, 2024. This favors r esolving pneumonia. A chest CT in 3 months to ensure complete resolution is recommended. ACT 112: Negative or not required by law. Electronically signed by: Scott Frank M.D. 03/30/2024 10:30 AM
[2024-03-30] MEDS: FUROSEMIDE 40 MG/4 ML VIAL IV ONE (10:49)
[2024-03-30] MEDS: PIPERACILLIN/TAZOBACTAM 4.5 GM/100 ML BAG IV ONE (10:49)
[2024-03-30] MEDS: METOPROLOL SUCC 50MG EXT REL TAB PO STA (11:58)
--- NOTE | 2024-03-30 12:05 | History & Physical Report ---
Date of Service March 30, 2024 Assessment & Plan (1) Acute diverticulitis: Plan: This is a 83-year-old gentleman with past medical history of CAD, CHF, ischemic cardiomyopathy, hypertension, hyperlipidemia, diverticulitis who presented to the emergency department on 03/30/2024 with a chief complaint of abdominal pain. Patient w/ recurrent diverticulitis, last episode 08/2023. hx of microperforation CTAP 03/30/2024: Acute diverticulitis of the distal descending and proximal sigmoid colon. Moderate inflammation and colonic wall thickening. No free air or abscess. Small amount of fluid. Suspect additional site of acute diverticulitis at the distal sigmoid colon. Inflammation adjacent to the bladder with mild bladder wall thickening which may be reactive. No gas within the bladder however findings could be correlated with urinalysis to exclude an occult colovesicular fistula. No bowel obstruction. CBC 03/30: Leukocytosis of 15.28, mild anemia of 11.9. BNP 03/30: renal/electrolytes stable Lipase 03/30: 8 Urinalysis pending S/p IV Zosyn in ED, switch to Unasyn on admission Clear liquid diet Multi-modal pain approach including Tylenol and IV Dilaudid Zofran prn for N/V If pain not improving, consider repeat CTAP scan in 1-2 days given history of microperforations. AM CBC, BMP (2) Congestive heart failure: Plan: Patient w/ hx of ischemic cardiopathy, CAD, s/p ICD. CXR: no change in subtle interstitial thickening. may reflect mild pulmonary edema. BNP 03/30: 354, slightly elevated from last admission (03/15 231) Last echo 05/2023: EF 45-49% Routinely follows with Dr. Jackson outpatient, last visit 12/2023 s/p IV Lasix 40mg in ED Reassess for further doses of Lasix in AM patient currently at baseline weight, without LE edema, and lungs clear to auscultation. Continue Spironolactone, Entresto, Metoprolol (3) Pneumonia: Plan: Recently diagnosed with pneumonia 03/15 in ER respiratory Biofire negative 03/15 Completed outpatient course of abx including Doxycycline and Augmentin along with prednisone approx. 1 week ago. Seems to have resolved, patient w/ lingering cough but appears more chronic per pt history CXR as above. albuterol inhaler prn for SOB/wheezing benzonatate capsules prn for cough Plan Chronic conditions: hx of CVA: ASA, Plavix HLD: statin GERD: PPI BPH: alfuzosin, dutasteride Diet: clear liquid DVT prophylaxis: Lovenox Code status: full Disposition: med tele, probable downgrade to medical 03/31 History of Present Illness Primary Care Provider: George Bloom DO This is a 83-year-old gentleman with past medical history of CAD, CHF, ischemic cardiomyopathy, hypertension, hyperlipidemia, diverticulitis who presented to the emergency department on 03/30/2024 with a chief complaint of abdominal pain. The patient was seen and examined at bedside. He was resting comfortably at time of encounter and was alert and oriented x 3. Patient was recently in our emergency department on 03/15/2024 and was diagnosed with pneumonia. He was discharged home on prednisone, doxycycline, and Augmentin. Patient states that he completed his antibiotics last week. He states that while he was on antibiotic therapy he was experiencing loose to liquid stools. He then states that he took Imodium for this which helped. He states that he took Imodium approximately 3 days ago and has not had a bowel movement since then. When he was moving his bowels he denied any overt signs of GI bleeding including melena or hematochezia. He denies any nausea, vomiting, fevers, chills. He is still persisting with a cough but states that he has been persisting with this for about a year now. He believes that his pneumonia has resolved. He denies any shortness of breath or chest pain. He denies any lower extremity edema. Patient states that he does have diuretics to use on an as-needed basis outpatient but very rarely uses them. He does follow with Dr. Jackson for cardiology on a 6-month basis. His last echocardiogram was 05/2023 and wishes EF at that time was 45 to 49%. He reports he did not take his morning medications this morning. Metoprolol given in ED to prevent rebound tachycardia. Patient also reports he has had multiple episodes of diverticulitis in the past, one including a microperforation. He has not had follow up colonoscopies following these episodes. He was told his "colon would perforate" if he had a CN so he has not went through with this. ED workup was significant for leukocytosis of 15.28. CTAP revealing sigmoid diverticulitis. Chest x-ray without change from previous in regards to subtle interstitial thickening. At time of evaluation, patient had stable vitals. He was given 40 mg IV Lasix and IV Zosyn in the emergency department. Allergies Allergy/AdvReac Type Severity Reaction Status Date / Time bee venom protein (honey bee) Allergy Severe Anaphylaxis Verified 03/30/24 10:43 codeine AdvReac Intermediate Nausea, Verified 03/30/24 10:43 vomiting Home Medications Medication Instructions Recorded Confirmed Type aspirin 81 mg tablet,delayed 81 mg PO QAM 02/20/18 03/30/24 History release atorvastatin 40 mg tablet 40 mg PO QAM 02/20/18 03/30/24 History clopidogrel 75 mg tablet (Plavix) 75 mg PO QAM 02/20/18 03/30/24 History epinephrine 0.3 mg/0.3 mL 0.3 mg IM UD PRN anaphylaxis 11/09/18 03/30/24 History injection, auto-injector iron,carbonyl 65 mg-vitamin C 125 1 tab PO QPM 11/09/18 03/30/24 History mg tablet,delayed release (Vitron-C) uffebflh-ti-iamjo 300 mcg-K 60 1 tab PO QAM 11/09/18 03/30/24 History mcg-lycop 600 mcg-lutein 300 mcg tablet (Centrum Silver Men) loratadine 10 mg capsule 10 mg PO QAM PRN Allergic Symptoms 09/21/20 03/30/24 History Denis Walker #1 ea 09/22/20 03/19/24 Rx sacubitril 49 mg-valsartan 51 mg 1 tab PO BID 01/10/22 03/30/24 History tablet (Entresto) metoprolol succinate 50 mg 50 mg PO QAM 02/24/23 03/30/24 History tablet,extended release 24 hr spironolactone 25 mg tablet 12.5 mg PO QAM 02/24/23 03/30/24 History furosemide 20 mg tablet (Lasix) 20 mg PO QAM PRN Fluid Retention 03/13/23 03/30/24 History nitroglycerin 0.4 mg sublingual 0.4 mg sublingual UD PRN Chest 03/13/23 03/30/24 Rx tablet (Nitrostat) Pain #30 tabs pantoprazole 40 mg tablet,delayed 40 mg PO BID 6 weeks #84 tabs 03/30/23 03/30/24 Rx release dutasteride 0.5 mg capsule 0.5 mg PO DAILY #90 caps 09/25/23 03/30/24 Rx alfuzosin 10 mg tablet,extended 10 mg PO DAILY #90 tabs 10/13/23 03/30/24 Rx release 24 hr (Uroxatral) benzonatate 100 mg capsule 100 mg PO TID PRN cough #30 caps 01/26/24 03/30/24 Rx cyclobenzaprine 5 mg tablet 5 mg PO TID PRN muscle spasm #30 03/06/24 03/30/24 Rx tabs hydrocodone-homatropine 5 mg-1.5 5 ml PO Q6H PRN Pneumonia 03/22/24 03/30/24 History mg/5 mL oral syrup albuterol sulfate 90 mcg/actuation 2 puff inhalation QID PRN 03/30/24 03/30/24 History aerosol inhaler SOB/Wheezing Past Med/Surg History Problem List (Updated 03/30/24 @ 15:56 by Satnam Keene MD) Leukocytosis (Acute) Diverticulitis (Acute) Lower abdominal pain (Acute) Cough (Acute) CHF (congestive heart failure) (Acute) Sacroiliitis Acute diverticulitis History of CAD (coronary artery disease) (Acute) Abdominal pain, lower (Acute) Diverticulitis large intestine (Acute) Scoliosis of lumbar region due to degenerative disease of spine in adult SI (sacroiliac) joint dysfunction Numbness of right lower extremity Low back pain radiating to right lower extremity Lumbosacral radiculopathy Lumbar radiculopathy, chronic Back pain Cough Cardiomyopathy CHB (complete heart block) Paresthesia of both feet Impaired glucose metabolism Vertebral artery occlusion Stroke GERD (gastroesophageal reflux disease) Iron (Fe) deficiency anemia (~09/2020) BPH (benign prostatic hyperplasia) Renal cyst Arthritis (Acute) Acquired heart block (Chronic) CAD (coronary artery disease) (Chronic) GERD (gastroesophageal reflux disease) BPH (benign prostatic hyperplasia) Congestive heart failure BPH with obstruction/lower urinary tract symptoms Ischemic cardiomyopathy (Chronic) EF 40-44% May 2022 Hypertension Hyperlipidemia Anemia Medical History History of CVA (cerebrovascular accident) per pt, incidental finding approx 2 years ago. denies residual. 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 Follows with [facility]). per pt, last check 02/2023. Myocardial Infarction 11/14/2016 -- PCI x 1 to LAD, then balloon angioplasty the following day to 2nd Dx due to recurrent symptoms. Surgical History Hx of total knee replacement History of permanent cardiac pacemaker placement Nausea and vomiting after administration of anesthetic agent History of carpal tunnel release History of thumb surgery History of repair of rotator cuff Hx of transurethral resection of prostate History of colonoscopy History of esophagogastroduodenoscopy (EGD) History of tooth extraction History of cataract surgery History of heart artery stent History of cardiac cath History of tonsillectomy and adenoidectomy H/O hemorrhoidectomy Family History Unknown No problems noted. Mother Alcohol abuse Bipolar disorder Cardiac disorder Myocardial infarction Breast cancer Brother Throat cancer Alcohol abuse Kidney disease Father Alcohol abuse Lung cancer Sister Lung cancer Other No family history of adverse response to anesthesia Denies family history of Ovarian cancer Prostate cancer Clotting disorder Colorectal cancer Social History Smoking Status: Never smoker Tobacco Type: Cigarettes Age Started Using Tobacco: 14; Age Quit Using Tobacco: 36; packs per day: 1; Second Hand Exposure: No; Do You Dip or Chew Tobacco: No; Tobacco Cessation Education Requested by Patient: No Hx Alcohol Use: No Hx Substance Use: No Preferred Language: Bengali Communication Ability: Effective C Consultant Required: No Beliefs That Will Affect Care: None marital status: Current Living Situation: Spouse current occupational status: retired Other Information That Helps Us Care for You: No Feels Safe at Home: Yes Safety Concerns: Feels Safe At This Time Childhood Exposure to Second-Hand Smoke: No Dental Care, Regularly: Yes Physical Activity Frequency: Does not Exercise Seatbelt Use: always Sunscreen Use: No Assistive Devices: Cane, Glasses and Walker Physical Exam 2 Constitutional: WD/WN, vitals as above Eyes: PERRL, conjunctivae normal, anicteric sclerae Respiratory: clear to auscultation. no wheezes, rales, or rhonchi Cardiovascular: regular rate, rhythm. no LE edema Gastrointestinal (Abdomen): tender to palpation over suprapubic area. soft bowel sounds Psychiatric: A+Ox3, euthymic affect Results & Data Results & Data Vital Signs (Past 12 Hours) Vital Signs Pulse Pulse Resp BP BP Pulse Ox O2 Del Method 03/30/24 11:00 75 18 140/68 97 03/30/24 10:13 68 18 129/69 97 Room Air 03/30/24 09:45 63 18 94 Room Air 03/30/24 09:12 68 17 03/30/24 09:00 70 20 122/88 98 Room Air 03/30/24 08:56 73 20 97 Nasal Cannula 03/30/24 08:56 73 20 128/71 97 Room Air 03/30/24 08:44 91 H 03/30/24 08:34 76 20 141/70 H 98 Room Air Laboratory Results 03/30/24 08:50 03/30/24 08:50 Diagnostic Findings Abdomen/Pelvis CT 03/30/24 08:38 CT OF THE ABDOMEN AND PELVIS WITH CONTRAST CLINICAL HISTORY: Diffuse abdominal pain. COMPARISON STUDY: CT of the abdomen and pelvis August 22, 2023 and KUB March 06, 2024. Chest CT March 15, 2024 TECHNIQUE: Following IV administration of 94 mL of Optiray, axial images of the abdomen and pelvis were obtained from the lung bases to the proximal femurs. Images were reviewed in the axial, sagittal, and coronal planes. IV contrast was administered without complication. Automated exposure control was utilized for the study. A dose lowering technique was utilized adhering to the principles of ALARA. CT DOSE: 772.14 mGy.cm FINDINGS: Pacer leads are partially imaged. The heart is enlarged. Mild left lower lobe opacity has decreased since CT of March 15, 2024. There is a trace left pleural effusion. No pneumatosis, free air or portal venous gas is present. Liver, spleen, adrenal glands, right kidney and pancreas are unremarkable. There is no biliary or pancreatic ductal dilatation. Water attenuation 4.6 cm left renal lesion represents a cyst. There is no hydronephrosis. There is no evidence for a bowel obstruction. There is extensive colonic diverticulosis. Note is made of moderate circumferential wall thickening of the distal descending and proximal sigmoid colon with adjacent inflammation. A small amount of fluid is present. There is no extraluminal gas. No fluid collections are present. Inflammation extends to the bladder. There is mild bladder wall thickening. No gas within the bladder is present. There is also mild wall thickening of the distal sigmoid colon with an inflamed diverticulum. There is mild adjacent infiltration. IMPRESSION: 1. Acute diverticulitis of the distal descending and proximal sigmoid colon. Moderate inflammation and colonic wall thickening. No free air or abscess. Small amount of fluid. Suspected additional site of acute diverticulitis of the distal sigmoid colon. Inflammation adjacent to the bladder with mild bladder wall thickening which may be reactive. No gas within the bladder. However, findings could be correlated with urinalysis to exclude an occult colovesicular fistula. 2. No bowel obstruction. 3. Mild left lower lobe opacity which has improved since chest CT of March 15, 2024. This favors resolving pneumonia. A chest CT in 3 months to ensure complete resolution is recommended. ACT 112: Negative or not required by law. Electronically signed by: Scott Frank M.D. 03/30/2024 10:30 AM Chest X-Ray 03/30/24 08:38 XR chest 1V portable CLINICAL HISTORY: Cough. Abdominal pain. COMPARISON STUDY: Chest radiograph and chest CT March 15, 2024. FINDINGS: Dual lead left subclavian pacer is in place. Cardiomediastinal silhouette is stable. There is no pneumothorax or pleural effusion. Subtle interstitial thickening persists. Minimal left basilar opacity is unchanged. IMPRESSION: 1. No change in subtle interstitial thickening. This may reflect mild pulmonary edema. 2. No change in left basilar opacity which could reflect a small focus of pneumonia or atelectasis. ACT 112: Negative or not required by law. Electronically signed by: Scott Frank M.D. 03/30/2024 8:57 AM Supervising Physician Co-Signing Physician Notes I personally examined the patient and verified all elliott points of history and exam, discussed case, and agree with decision making with Sheldon Turner PAC feeling better since getting admitted. Lower abdominal pain. Recurrent diverticulitis. Vitals noted, in general he is awake and alert pleasant no distress. HEENT normocephalic atraumatic mucous membranes moist. Breathing unlabored no accessory muscle use good effort. Abdomen is soft maybe look mild lower abdominal tenderness no guarding rebound or rigidity. Recurrent diverticulitisthis time no perforation. Continue enteric gram- negative and anaerobic coverage. Serial exams. Anticipate rapid resolution given how quickly is looking better. Discussed long-term strategies for management given his age and comorbidities. Otherwise as above. PG Care Time/CCT Total # of Minutes Spent Total Time Spent with Patient: Total time spent is greater than 50% in coordination of care (as documented) at patient's floor/unit and/or counseling patient: Coding Level of Care Code 32181 INT INP/OBS CARE MIN Diagnoses Acute diverticulitis K57.92 Chronic systolic congestive heart failure I50.22 Heart failure chronicity: chronic Heart failure type: systolic Pneumonia J18.9 (2) Congestive heart failure Heart failure chronicity: chronic Heart failure type: systolic Qualified Code(s): I50.22 - Chronic systolic (congestive) heart failure
[2024-03-30 12:18] LABS: Appearance Urine Clear (Clear); Bacteria Urine Automated None Seen (None Seen); Bilirubin Urine Negative (Negative); Blood Urine 1+ (Negative); Cast Urine Automated 0-2 /lpf (0-2); Color Urine Yellow; Epithelial Cell Urine Auto 0-2 /hpf (0-2); Glucose Urine UA Negative (Negative); Ketones Urine Negative (Negative); Leukocyte Esterase Urine Negative (Negative); Nitrite Urine Negative (Negative); Protein Urine Negative (Negative); RBC Urine Automated 0-2 /hpf (0-2); Specific Gravity Urine 1.024 (1.000-1.030); Urobilinogen Urine Negative (Negative); WBC Urine Automated 0-5 /hpf (0-5)
[2024-03-30] MEDS ORDERED: ONDANSETRON INJ 2 MG/ML 2 ML VIAL IV PRN (12:20)
[2024-03-30] MEDS ORDERED: ALBUTEROL HFA 8 GM INHALER INH PRN (12:20)
[2024-03-30] MEDS ORDERED: POLYETHYLENE (MIRALAX) 17 GM PACK PO PRN (12:20)
[2024-03-30] MEDS ORDERED: BENZONATATE 100 MG CAPSULE PO PRN (12:20)
[2024-03-30] MEDS ORDERED: ACETAMINOPHEN 325 MG TAB PO PRN (12:20)
[2024-03-30] MEDS ORDERED: HYDROmorphone INJ 0.5 MG/0.5 ML SYR IV PRN ×2 (12:20)
[2024-03-30] MEDS: PIPERACILLIN/TAZOBACTAM 4.5 GM/100 ML BAG IV SCH (12:37)
[2024-03-30] MEDS: AMPICILLIN/SULBACTAM SOD 3,000 MG/100 ML BAG IV SCH (15:24)
[2024-03-30] MEDS: VALSARTAN/SACUBITRIL 51/49 MG TAB PO SCH (21:05)
[2024-03-30] MEDS: ENOXAPARIN INJ 40 MG/0.4 ML SYR SQ SCH (21:05)
[2024-03-30] MEDS: PANTOprazole 40 MG TAB PO SCH (21:05)
[2024-03-30] MEDS: FINASTERIDE 5 MG TAB PO SCH (21:47)
--- NOTE | 2024-03-31 06:03 | Electrocardiogram Report ---
Test Reason : Blood Pressure : */* mmHG Vent. Rate : 81 BPM Atrial Rate : 81 BPM P-R Int : 162 ms QRS Dur : 126 ms QT Int : 406 ms P-R-T Axes : 73 87 -37 degrees QTcB Int : 471 ms AV dual-paced rhythm Abnormal ECG When compared with ECG of 15-Mar-2024 14:31, Vent. rate has increased by 14 bpm Confirmed by Zac Frederick ([id number]) on 03/31/2024 6:03:09 AM Referred By: REFERRED SELF Confirmed By: Zac Frederick
--- NOTE | 2024-03-31 07:49 | Hospitalist Progress Note ---
Date of Service March 31, 2024 Assessment & Plan (1) Acute diverticulitis: Plan: 83-year-old gentleman with past medical history of CAD, CHF, ischemic cardiomyopathy, hypertension, hyperlipidemia, diverticulitis who presented to the emergency department on 03/30/2024 with a chief complaint of abdominal pain. Patient w/ recurrent diverticulitis, last episode 08/2023. hx of microperforation --was tx March w/ IV Zosyn & dc on 14d augmentin. Cipro/Flagyl in August CTAP on admission w/ acute diverticulitis DISTAL DESCENDING/PROXIMAL SIGMOID colon. Mod colonic wall thickening but NO free air/abscess. small amt fluid. Suspect additional acute diverticulitis at distal sigmoid colon. ?bladder fistula but UA not indicative of such WBC 15.2k on admission, UA 1+ blood/no bacteria Given Zosyn in ER, continued on Unasyn/clear liquid diet on admission WBC unchanged/slightly worse today -->abx escalated to ZOSYN IV Surgery consulted, appreciate recs/assistance Also check cdiff given leukocytosis and diarrhea last week w/ recent abx for PNA. (imaging noting resolution but needing CT chest 3 months to ensure resolution) Continue clear liquid for now, make NPO if any worsening abd pain but reports some improvement. Possible repeat CT 1-2 days if worsening Labs/exam in follow up Rec for outpt f/u colorectal to discuss c-scope once resolved for screening/discussion given this is his 3rd episode in 1 yr period of time. (2) Congestive heart failure: Plan: Patient w/ hx of ischemic cardiopathy, CAD, s/p ICD. CXR noting possible mild pulmonary edema Was given 40mg IV lasix in ER and deferred any following. As admitted with above, remains on clear liquid diet and no IVF at this time On lasix 20mg prn at home and will monitor if needed. Will place spironolactone on hold for now but noting was given in AM. 97% on RA/no significant LE edema Remains on metoprolol, entresto prn lasix if needed but would avoid scheduled spironolactone given BPs Monitor I&O, weights (3) Pneumonia: Plan: Recently diagnosed with pneumonia 03/15 in ER respiratory Biofire negative 03/15 Completed outpatient course of abx including Doxycycline and Augmentin along with prednisone approx. 1 week ago. Seems to have resolved, patient w/ lingering cough but appears more chronic per pt history CXR noted as above albuterol as needed, tessalon pearls for cough if needed Rec CT 3 month to ensure resolution. Abx adjusted as above Plan Chronic conditions: hx of CVA: ASA, Plavix HLD: statin GERD: PPI BID continued. Did have EGD this year/hernia BPH: alfuzosin, dutasteride DVT prophylaxis: Lovenox once daily Dispo: continued inpatient stay, abx changed to Zosyn and surgery consulted. continue clear liquid diet for now/check for cdiff if diarrhea occurs. Spironolactone on hold. Admission and Anticipated Discharge Date Admission Date: March 30, 2024 Supervising Physician Co-Signing Physician Notes The patient was not seen by me. The chart was reviewed. Case discussed with OWEN Marie. Agree with assessment and plan Subjective Evaluated this morning. Getting up to go to the bathroom. Reports feeling a little better than yesterday,he thought it was his bladder/urinary infection. Lower abdominal cramping/less tender but on clear liquids. Discussed escalating abx to ZOsyn given WBC. Not moved bowels in a couple days per nursing however patient did report having diarrhea this past week and given recent abx use will send next stool for cdiff. He reports he needs to move his bowels now, hat obtained by nursing and will send for sample. Discussed continue liquid for now but surgery consult to weigh in and would encourage at least cscope in follow up for screening given he did an EGD despite him saying he wouldn't want surgery. No CP/SOB at present time, recovering from pneumonia. Questions/concerns addressed at this time. Physical Exam Physical Exam: General: 83 yo male sitting up in bed, getting up to use bathroom, NAD HEENT : head atraumatic, normocephalic, mmm, trachea midline Resp: even/unlabored, faint bibasilar crackles but no overt wheezing/rales, on room air CV:paced on telemetry, faint systolic murmur, no pitting edema/calf tenderness GI: +BS throughout, slightly hyperactive, slight distension, +suprapubic discomfort/LLQ discomfort but no guarding/rebound no rodríguez MSK/Neuro: nonfocal/answering questions appropriately Psych: AOx3, cooperative with exam Results & Data Results & Data Vital Signs (Past 12 Hours) Vital Signs Temp Pulse Pulse Resp BP Pulse Ox O2 Del Method 03/31/24 07:37 71 03/31/24 03:24 37.3 C 66 16 104/53 L 95 Room Air 03/31/24 00:10 Room Air 03/30/24 22:41 37.5 C 70 16 99/62 L 94 Room Air 03/30/24 21:48 66 Laboratory Results 03/31/24 03/30/24 Range/Units 07:54 11:13 WBC 15.56 H (4.8-10.8) K/ul RBC 3.59 L (4.70-6.10) M/uL Hgb 11.1 L (14.0-18.0) g/dl Hct 33.5 L (42.0-52.0) % MCV 93.3 (80.0-100.0) fL MCH 30.9 (25.0-34.0) pg MCHC 33.1 (32.0-36.0) g/dL RDW Std Deviation 46.0 (36.4-46.3) fL RDW Coeff of Harry 13.5 (11.5-14.5) % Plt Count 350 (130-400) K/uL MPV 9.5 (9.4-12.4) fL Immature Gran % (Auto) 0.6 % Neut % (Auto) 69.7 % Lymph % (Auto) 19.3 % [place] % (Auto) 9.8 % Eos % (Auto) 0.3 % Baso % (Auto) 0.3 % Neut # (Auto) 10.84 H (1.40-6.50) K/uL Lymph # (Auto) 3.00 (1.20-3.40) K/uL [place] # (Auto) 1.53 H (0.11-0.59) K/uL Eos # (Auto) 0.05 (0.00-0.50) K/uL Baso # (Auto) 0.05 (0.00-0.20) K/uL Immature Gran # (Auto) 0.09 (0.01-0.20) K/uL Sodium 137 (136-145) mmol/L Potassium 3.7 (3.5-5.1) mmol/L Chloride 103 (98-107) mmol/L Carbon Dioxide 27 (21-32) mmol/L Anion Gap 7 (3-11) BUN 15 (6-23) mg/dl Creatinine 0.87 (0.6-1.4) mg/dl Est Cr Clr Drug Dosing 56.0 ml/min eGFR 84.56 BUN/Creatinine Ratio 17.2 (10-20) Glucose 100 H (70-99(Fasting)) mg/dl Calcium 8.8 (8.6-10.3) mg/dl Magnesium 1.9 (1.7-2.4) mg/dl Total Creatine Kinase 24 L (30-223) U/L Urine Color Yellow Urine Appearance Clear (Clear) Urine pH 6.0 (4.5-7.5) Ur Specific [place] 1.024 (1.000-1.030) Urine Protein Negative (Negative) Urine Glucose (UA) Negative (Negative) Urine Ketones Negative (Negative) Urine Blood 1+ H (Negative) Urine Nitrite Negative (Negative) Urine Bilirubin Negative (Negative) Urine Urobilinogen Negative (Negative) Ur Leukocyte Esterase Negative (Negative) Urine WBC (Auto) 0-5 (0-5) /hpf Urine RBC (Auto) 0-2 (0-2) /hpf U Hyaline Cast (Auto) 0-2 (0-2) /lpf U Epithel Cells (Auto) 0-2 (0-2) /hpf Urine Bacteria (Auto) None Seen (None Seen) Diagnostic Findings Abdomen/Pelvis CT 03/30/24 08:38 CT OF THE ABDOMEN AND PELVIS WITH CONTRAST CLINICAL HISTORY: Diffuse abdominal pain. COMPARISON STUDY: CT of the abdomen and pelvis August 22, 2023 and KUB March 06, 2024. Chest CT March 15, 2024 TECHNIQUE: Following IV administration of 94 mL of Optiray, axial images of the abdomen and pelvis were obtained from the lung bases to the proximal femurs. Images were reviewed in the axial, sagittal, and coronal planes. IV contrast was administered without complication. Automated exposure control was utilized for the study. A dose lowering technique was utilized adhering to the principles of ALARA. CT DOSE: 772.14 mGy.cm FINDINGS: Pacer leads are partially imaged. The heart is enlarged. Mild left lower lobe opacity has decreased since CT of March 15, 2024. There is a trace left pleural effusion. No pneumatosis, free air or portal venous gas is present. Liver, spleen, adrenal glands, right kidney and pancreas are unremarkable. There is no biliary or pancreatic ductal dilatation. Water attenuation 4.6 cm left renal lesion represents a cyst. There is no hydronephrosis. There is no evidence for a bowel obstruction. There is extensive colonic diverticulosis. Note is made of moderate circumferential wall thickening of the distal descending and proximal sigmoid colon with adjacent inflammation. A small amount of fluid is present. There is no extraluminal gas. No fluid collections are present. Inflammation extends to the bladder. There is mild bladder wall thickening. No gas within the bladder is present. There is also mild wall thickening of the distal sigmoid colon with an inflamed diverticulum. There is mild adjacent infiltration. IMPRESSION: 1. Acute diverticulitis of the distal descending and proximal sigmoid colon. Moderate inflammation and colonic wall thickening. No free air or abscess. Small amount of fluid. Suspected additional site of acute diverticulitis of the distal sigmoid colon. Inflammation adjacent to the bladder with mild bladder wall thickening which may be reactive. No gas within the bladder. However, findings could be correlated with urinalysis to exclude an occult colovesicular fistula. 2. No bowel obstruction. 3. Mild left lower lobe opacity which has improved since chest CT of March 15, 2024. This favors resolving pneumonia. A chest CT in 3 months to ensure complete resolution is recommended. ACT 112: Negative or not required by law. Electronically signed by: Scott Frank M.D. 03/30/2024 10:30 AM PG Care Time/CCT Total # of Minutes Spent Total Time Spent with Patient: Total time spent is greater than 50% in coordination of care (as documented) at patient's floor/unit and/or counseling patient: Coding Level of Care Code 77625 SUB INP/OBS CARE 50MIN Diagnoses Acute diverticulitis K57.92 Chronic systolic congestive heart failure I50.22 Heart failure chronicity: chronic Heart failure type: systolic Pneumonia J18.9 (2) Congestive heart failure Heart failure chronicity: chronic Heart failure type: systolic Qualified Code(s): I50.22 - Chronic systolic (congestive) heart failure
[2024-03-31 08:13] LABS: Basophils # (auto) 0.05 K/uL (0.00-0.20); Basophils % (auto) 0.3 %; Eosinophils # (auto) 0.05 K/uL (0.00-0.50); Eosinophils % (auto) 0.3 %; Hematocrit (blood only) 33.5 % (42.0-52.0); Hemoglobin 11.1 g/dl (14.0-18.0); Immature Granulocytes # (auto) 0.09 K/uL (0.01-0.20); Immature Granulocytes % (auto) 0.6 %; Lymphocytes % (auto) 19.3 %; Mean Corpuscular Hemoglobin 30.9 pg (25.0-34.0); Mean Corpuscular Hgb Conc 33.1 g/dL (32.0-36.0); Mean Corpuscular Volume 93.3 fL (80.0-100.0); Mean Platelet Volume 9.5 fL (9.4-12.4); Monocytes # (auto) 1.53 K/uL (0.11-0.59); Monocytes % (auto) 9.8 %; Neutrophils # (auto) 10.84 K/uL (1.40-6.50); Neutrophils % (auto) 69.7 %; Platelet Count 350 K/uL (130-400); RDW Coefficient of Variation 13.5 % (11.5-14.5); Red Blood Count 3.59 M/uL (4.70-6.10); White Blood Count 15.56 K/ul (4.8-10.8)
[2024-03-31] MEDS: SPIRONOLACTONE 12.5 MG TAB PO SCH (08:25)
[2024-03-31] MEDS: CLOPIDOGREL BISULFATE 75 MG TAB PO SCH (08:26)
[2024-03-31] MEDS: ATORVASTATIN 40 MG TAB PO SCH (08:26)
[2024-03-31] MEDS: ASPIRIN 81 MG ECTAB PO SCH (08:26)
[2024-03-31] MEDS: METOPROLOL SUCC 50MG EXT REL TAB PO SCH (08:26)
[2024-03-31] MEDS: TAMSULOSIN HCL 0.4 MG CAP PO SCH (08:26)
[2024-03-31 08:30] LABS: BUN Creatinine Ratio 17.2 (10-20); Calcium 8.8 mg/dl (8.6-10.3); Magnesium 1.9 mg/dl (1.7-2.4); Potassium 3.7 mmol/L (3.5-5.1)
[2024-03-31] MEDS ORDERED: FINASTERIDE 5 MG TAB PO SCH (09:00)
--- OUTSIDE RECORDS SUMMARY | 2024-03-31 09:11 | External Medical Summary | Summary of Care ---
Author Name Unknown Organization [facility] Address [address] [place] [address] Phone [phone] Care Team Providers Care Manager Integrity Name Role Phone George Bloom DO Primary Care Provider [phone] Reason for Visit * Reason Comments eRx-Medication Refill Encounter Details Date Type Department Care Team (Late st Contact Info) Description 03/29/2024 Refill Cardiology, [facility] [address] [place] [id number] Medhat Briceno PA-C [address] [place] [phone] Allergies Active Allergy Reactions Criticality Noted Date Comments Bee Venom 01/05/2007 Codeine Nausea/vomiting 11/30/2016 documented as of this encounter (statuses as of 03/29/2024) Medications ASPIR-81 81 MG PO TBEC Take 1 Tablet by mouth in the morning. Active CITRUCEL PO POWD once daily Ac tive dutasteride (AVODART) 0.5 MG Capsule Take 1 Capsule by mouth every evening. Active Multiple Vitamins-Minerals (CENTRUM ADULTS) TABS Take by mouth 1 Tablet daily . Active Loratadine 10 MG Cap Take 1 Capsule by mouth daily as needed for Allergies. Active Iron-Vitamin C (VITRON-C) 65-125 MG TabletIndications :Anemia Take 1 Tab by mouth daily. 30 Tab 5 017 Active Nitroglycerin 0.4 MG Sublingual Tablet Sublingual (Nitrostat) Place 1 Tab under the tongue every 5 minutes as needed for Pain, Chest. 25 Tab 5 021 Active Melatonin 10 MG Oral Tablet Take 2 Tablets by mouth at bedtime. Active Alfuzosin HCl ER 10 MG Oral Tablet Extended Release 24 Hour Take 1 Tablet by mouth every afternoon. 30 Tablet 5 022 Active Furosemide 20 MG Oral Tablet (Lasix)Indication s:Sinus node dysfunction (HCC),AVB (atrioventricular block) Take 1 Tablet by mouth daily as needed (swelling or shortness of breath). 90 Tablet 3 023 Active Benzonatate 100 MG Oral CapsuleIndication s:Upper respiratory tract infection, unspecified type Take 1 Capsule by mouth 3 times a day as needed for Cough (may make you sleepy). 15 Capsule 023 Active Additional Information Patient not taking.Reported on 06/19/2023 Entresto 49-51 MG Oral Tablet (sacubitril-valsa rtan 49-51 mg per tab)Indications:I schemic cardiomyopathy Take 1 Tablet by mouth in the morning and 1 Tablet before bedtime. 180 Tablet 3 024 Active Clopidogrel Bisulfate 75 MG Oral Tablet (pLAVix)Indicatio ns:Coronary artery disease involving [place] coronary artery of [place] heart without angina pectoris Take 1 Tablet by mouth in the morning. 90 Tablet 3 024 Active Atorvastatin Calcium 40 MG Oral Tablet (Lipitor)Indicati ons:ASCVD (arteriosclerotic cardiovascular disease) Take 1 Tablet by mouth daily. 90 Tablet 3 024 Active Pantoprazole Sodium 40 MG Oral Tablet Delayed Release (Protonix) Take 1 Tablet by mouth in the morning. 90 Tablet 3 024 Active Spironolactone 25 MG Oral Tablet (Aldactone) TAKE 1/2 (ONE-HALF) TABLET BY MOUTH IN THE MORNING 45 Tablet 3 024 Active Metoprolol Succinate ER 50 MG Oral Tablet Extended Release 24 Hour (toPROL XL) TAKE 1 TABLET BY MOUTH IN THE MORNING 90 Tablet 3 12/13/2 024 Active Metoprolol Succinate ER 50 MG Oral Tablet Extended Release 24 Hour (toPROL XL) TAKE 1 TABLET BY MOUTH IN THE MORNING 90 Tablet 3 023 2023 Discontinued documented as of this encounter (statuses as of 03/29/2024) Active Problems Problem Noted Date Diagnosed Date NICM (nonischemic cardiomyopathy) 09/17/2021 Coronary artery disease invo lving [place] coronary artery of [place] heart without angina pectoris 09/17/2021 HTN, goal [...] as of this encounter (statuses as of 03/29/2024) Immunizations Name Administration Dates Next Due Seasonal Influenza, High Dos e, Trivalent, PF, IM (Fluzone HD) 12/29/2023 Seasonal Influenza, Quadrivalent Hd (Fluzone Hd) 01/24/2023 documented as of this encounter Social History Tobacco Use Types Packs/Day Years Used Date Smoking Tobacco: Former Cigarettes 1 15 Smokeless Tobacco: Never Alcohol Use Standard Drinks/Week Comments Yes 0 (1 standard drink = 0.6 oz pur e alcohol) one beer a week Utilities Answer Date Recorded Do you have trouble paying y our heating, water, or electric bill? (Adult - for ages 18 years and over) Not on file 10/03/2023 Is your family able to pay t he heat, water, or electric bill? (Household - for ages 0-17 years) Not on file 10/03/2023 Does your family have access to good internet? (Household - for ages 0-17 years) Not on file 10/03/2023 Social Connections Answer Date Recorded How often do you feel lonely or isolated from those around you? (Adult - for ages 18 years and over) Not on file 10/03/2023 Sex and Gender Information Value Date Recorded Sex Assigned at Not on file Legal Sex Male 6:31 AM EST Gender Identity Not on file Sexual Orientation Not on file documented as of this encounter Miscellaneous Notes * Telephone Encounter - Lia Zapien RPh - 03/29/2024 4:06 PM ESTSigned Prescriptions: Disp Refills Metoprolol Succinate ER 50 MG Oral Tablet *90 Tab*3 Sig: TAKE 1 TABLET BY MOUTH IN THE MORNINGAuthorizing Provider: MEDHAT BRICENO User: LIA ZAPIEN--- documented in this encounter Plan of Treatment Upcoming Encounters Date Type Department Care Team (Late st Contact Info) Description 07/05/2024 1:00 PM EDT Cardiac Studies Cardiac Studies, [facility] [address] [facility] [place] [phone] 07/05/2024 2:00 PM EDT Office Visit Cardiology, [facility] [address] [place] [phone] Medhat Briceno PA-C [email or web address] [place] [phone] Scheduled Procedures Name Priority Associated Diagnoses Date/Ti me COLONOSCOPY FLEXIBLE PROXIMA L DIAGNOSTIC Recall Diverticulosis of colon (without mention of hemorrhage) Unspecified hemorrhoids without mention of complication Health Maintenance Due Date Last Done Comments Depression Screening 1950 Albumin/Creatinine Ratio 1956 DTap/Tdap Vaccines (1 - Tdap) 1959 COVID-19 Vaccine ( season) 2023 03/13/2023, 01/06/2022, 01/06/2022, Additional history exists Pneumococcal Vaccine: 65+ Years Completed 01/12/2015, 12/16/2013 Zoster Vaccines Completed 01/11/2019, 08/15, 12/16/2014 Influenza Vaccine (FLU shot) Completed , 01/24/2023, 01/14/2023, Additional history exists HPV (Gardasil) Vaccine Aged Out No lo nger eligible based on patient's age to complete this topic Hepatitis B Vaccine Aged Out No longe r eligible based on patient's age to complete this topic MENINGOCOCCAL (MENACTRA/MENVEO) Aged Out No longer eligible based on patient's age to complete this topic documented as of this encounter Medical Devices Not on filedocumented as of this encounter Care Teams Manager Integrity Relationship Specialty Start Date End Date George Bloom DO [address] [facility] [place] [address] PCP - General Family Medicine 11/28/22 documented as of this encounter
--- NOTE | 2024-03-31 10:27 | Surgery Consultation ---
Date of Consultation March 31, 2024 Assessment & Plan (1) Diverticulitis: IV zosyn con't clears for now fulls tomorrow responding well History of Present Illness Attending Physician: Matheus Resendez MD History of Present Illness This is a 83YO admitted with recurrent diverticulitis. He has been hospitalized previously and treated as outpatient. He came to ED with complaints of lower abdominal pain which has mainly resolved. He has also been treated for pneumonia about 2 weeks ago. There has been no fever. No change in bowel habits. CT scan shows likely uncomplicated diverticulitis. Allergies Allergy/AdvReac Type Severity Reaction Status Date / Time bee venom protein (honey bee) Allergy Severe Anaphylaxis Verified 03/30/24 10:43 codeine AdvReac Intermediate Nausea, Verified 03/30/24 10:43 vomiting Home Medications Medication Instructions Recorded Confirmed Type aspirin 81 mg tablet,delayed 81 mg PO QAM 02/20/18 03/30/24 History release atorvastatin 40 mg tablet 40 mg PO QAM 02/20/18 03/30/24 History clopidogrel 75 mg tablet (Plavix) 75 mg PO QAM 02/20/18 03/30/24 History epinephrine 0.3 mg/0.3 mL 0.3 mg IM UD PRN anaphylaxis 11/09/18 03/30/24 History injection, auto-injector iron,carbonyl 65 mg-vitamin C 125 1 tab PO QPM 11/09/18 03/30/24 History mg tablet,delayed release (Vitron-C) yathyrzt-gz-llrvu 300 mcg-K 60 1 tab PO QAM 11/09/18 03/30/24 History mcg-lycop 600 mcg-lutein 300 mcg tablet (Centrum Silver Men) loratadine 10 mg capsule 10 mg PO QAM PRN Allergic Symptoms 09/21/20 03/30/24 History Denis Walker #1 ea 09/22/20 03/19/24 Rx sacubitril 49 mg-valsartan 51 mg 1 tab PO BID 01/10/22 03/30/24 History tablet (Entresto) metoprolol succinate 50 mg 50 mg PO QAM 02/24/23 03/30/24 History tablet,extended release 24 hr spironolactone 25 mg tablet 12.5 mg PO QAM 02/24/23 03/30/24 History furosemide 20 mg tablet (Lasix) 20 mg PO QAM PRN Fluid Retention 03/13/23 03/30/24 History nitroglycerin 0.4 mg sublingual 0.4 mg sublingual UD PRN Chest 03/13/23 03/30/24 Rx tablet (Nitrostat) Pain #30 tabs pantoprazole 40 mg tablet,delayed 40 mg PO BID 6 weeks #84 tabs 03/30/23 03/30/24 Rx release dutasteride 0.5 mg capsule 0.5 mg PO DAILY #90 caps 09/25/23 03/30/24 Rx alfuzosin 10 mg tablet,extended 10 mg PO DAILY #90 tabs 10/13/23 03/30/24 Rx release 24 hr (Uroxatral) benzonatate 100 mg capsule 100 mg PO TID PRN cough #30 caps 01/26/24 03/30/24 Rx cyclobenzaprine 5 mg tablet 5 mg PO TID PRN muscle spasm #30 03/06/24 03/30/24 Rx tabs hydrocodone-homatropine 5 mg-1.5 5 ml PO Q6H PRN Pneumonia 03/22/24 03/30/24 History mg/5 mL oral syrup albuterol sulfate 90 mcg/actuation 2 puff inhalation QID PRN 03/30/24 03/30/24 History aerosol inhaler SOB/Wheezing Patient History Medical History History of CVA (cerebrovascular accident) per pt, incidental finding approx 2 years ago. denies residual. 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 Follows with S cardio ([facility]). per pt, last check 02/2023. Myocardial Infarction 11/14/2016 -- PCI x 1 to LAD, then balloon angioplasty the following day to 2nd Dx due to recurrent symptoms. Surgical History Hx of total knee replacement History of permanent cardiac pacemaker placement Nausea and vomiting after administration of anesthetic agent History of carpal tunnel release History of thumb surgery History of repair of rotator cuff Hx of transurethral resection of prostate History of colonoscopy History of esophagogastroduodenoscopy (EGD) History of tooth extraction History of cataract surgery History of heart artery stent History of cardiac cath History of tonsillectomy and adenoidectomy H/O hemorrhoidectomy Family History Unknown No problems noted. Mother Alcohol abuse Bipolar disorder Cardiac disorder Myocardial infarction Breast cancer Brother Throat cancer Alcohol abuse Kidney disease Father Alcohol abuse Lung cancer Sister Lung cancer Other No family history of adverse response to anesthesia Denies family history of Ovarian cancer Prostate cancer Clotting disorder Colorectal cancer Social History Smoking Status: Never smoker Tobacco Type: Cigarettes Age Started Using Tobacco: 14; Age Quit Using Tobacco: 36; packs per day: 1; Second Hand Exposure: No; Do You Dip or Chew Tobacco: No; Tobacco Cessation Education Requested by Patient: No Hx Alcohol Use: No Hx Substance Use: No Preferred Language: Slovak Communication Ability: Effective 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 Beliefs That Will Affect Care: None marital status: Current Living Situation: Spouse current occupational status: retired Other Information That Helps Us Care for You: No Feels Safe at Home: Yes Safety Concerns: Feels Safe At This Time Childhood Exposure to Second-Hand Smoke: No Dental Care, Regularly: Yes Physical Activity Frequency: Does not Exercise Seatbelt Use: always Sunscreen Use: No Assistive Devices: Cane, Glasses and Walker Review of Systems Constitutional: no fever, no chills and no anorexia Eyes: no problem reported Ear, Nose, Mouth, Throat: no problem reported Respiratory: + cough; no dyspnea Cardiovascular: no chest pain Gastrointestinal: + abdominal pain; no nausea, no vomiting and no change in bowel habits Genitourinary: no dysuria Musculoskeletal: no back pain Integumentary: no problem reported Neurologic: no localized weakness and no generalized weakness Psychiatric: no behavioral changes Hematologic / Lymphatic: no easy bleeding and no easy bruising Physical Exam Constitutional: WD/WN, vitals as above Eyes: PERRL, conjunctivae normal, anicteric sclerae ENMT: external ear and nose normal, oropharynx normal Neck: trachea midline Respiratory: normal respiratory effort, lungs clear to auscultation Cardiovascular: RRR, no murmur, no edema pacer present Gastrointestinal (Abdomen): Inspection/Auscultation: abdomen normal to inspection and normal bowel sounds; abdomen not distended Percussion/Palpation: + abdomen tender (mild) and abdomen soft; no guarding and abdomen not rigid Musculoskeletal: Head/Neck/Chest: normocephalic and head atraumatic Skin: no rashes, warm and dry Results & Data Vital Signs (Past 12 Hours) Vital Signs Temp Pulse Pulse Resp BP Pulse Ox O2 Del Method 03/31/24 09:44 Room Air 03/31/24 09:08 37.0 C 70 20 101/61 97 Room Air 03/31/24 07:37 71 03/31/24 03:24 37.3 C 66 16 104/53 L 95 Room Air 03/31/24 00:10 Room Air 03/30/24 22:41 37.5 C 70 16 99/62 L 94 Room Air Diagnostic Findings CT OF THE ABDOMEN AND PELVIS WITH CONTRAST CLINICAL HISTORY: Diffuse abdominal pain. COMPARISON STUDY: CT of the abdomen and pelvis August 22, 2023 and KUB March 06, 2024. Chest CT March 15, 2024 TECHNIQUE: Following IV administration of 94 mL of Optiray, axial images of the abdomen and pelvis were obtained from the lung bases to the proximal femurs. Images were reviewed in the axial, sagittal, and coronal planes. IV contrast was administered without complication. Automated exposure control was utilized for the study. A dose lowering technique was utilized adhering to the principles of ALARA. CT DOSE: 772.14 mGy.cm FINDINGS: Pacer leads are partially imaged. The heart is enlarged. Mild left lower lobe opacity has decreased since CT of March 15, 2024. There is a trace left pleural effusion. No pneumatosis, free air or portal venous gas is present. Liver, spleen, adrenal glands, right kidney and pancreas are unremarkable. There is no biliary or pancreatic ductal dilatation. Water attenuation 4.6 cm left renal lesion represents a cyst. There is no hydronephrosis. There is no evidence for a bowel obstruction. There is extensive colonic diverticulosis. Note is made of moderate circumferential wall thickening of the distal descending and proximal sigmoid colon with adjacent inflammation. A small amount of fluid is present. There is no extraluminal gas. No fluid collections are present. Inflammation extends to the bladder. There is mild bladder wall thickening. No gas within the bladder is present. There is also mild wall thickening of the distal sigmoid colon with an inflamed diverticulum. There is mild adjacent infiltration. IMPRESSION: 1. Acute diverticulitis of the distal descending and proximal sigmoid colon. Moderate inflammation and colonic wall thickening. No free air or abscess. Small amount of fluid. Suspected additional site of acute diverticulitis of the distal sigmoid colon. Inflammation adjacent to the bladder with mild bladder wall thickening which may be reactive. No gas within the bladder. However, findings could be correlated with urinalysis to exclude an occult colovesicular fistula. 2. No bowel obstruction. 3. Mild left lower lobe opacity which has improved since chest CT of March 15, 2024. This favors resolving pneumonia. A chest CT in 3 months to ensure complete resolution is recommended.
[2024-03-31] MEDS: PIPERACILLIN/TAZOBACTAM 4.5 GM/100 ML BAG IV ONE (10:44)
[2024-03-31] MEDS: PIPERACILLIN/TAZOBACTAM 4.5 GM/100 ML BAG IV SCH (14:39)
[2024-04-01 06:43] LABS: Basophils # (auto) 0.05 K/uL (0.00-0.20); Basophils % (auto) 0.5 %; Eosinophils # (auto) 0.21 K/uL (0.00-0.50); Eosinophils % (auto) 2.1 %; Hematocrit (blood only) 32.1 % (42.0-52.0); Hemoglobin 10.6 g/dl (14.0-18.0); Immature Granulocytes # (auto) 0.05 K/uL (0.01-0.20); Immature Granulocytes % (auto) 0.5 %; Lymphocytes # (auto) 3.39 K/uL (1.20-3.40); Lymphocytes % (auto) 33.1 %; Mean Corpuscular Hemoglobin 31.2 pg (25.0-34.0); Mean Corpuscular Volume 94.4 fL (80.0-100.0); Mean Platelet Volume 9.8 fL (9.4-12.4); Monocytes # (auto) 1.07 K/uL (0.11-0.59); Monocytes % (auto) 10.4 %; Neutrophils # (auto) 5.47 K/uL (1.40-6.50); Neutrophils % (auto) 53.4 %; Platelet Count 352 K/uL (130-400); RDW Coefficient of Variation 13.3 % (11.5-14.5); RDW Standard Deviation 45.8 fL (36.4-46.3); White Blood Count 10.24 K/ul (4.8-10.8)
[2024-04-01 07:09] LABS: BUN Creatinine Ratio 14.4 (10-20); Calcium 8.8 mg/dl (8.6-10.3); Creatinine Clr Calc Pharmacy 54.2 ml/min; Potassium 3.5 mmol/L (3.5-5.1)
--- NOTE | 2024-04-01 07:46 | Hospitalist Progress Note ---
Date of Service April 01, 2024 Assessment & Plan (1) Acute diverticulitis: Plan: 83-year-old gentleman with past medical history of CAD, CHF, ischemic cardiomyopathy, hypertension, hyperlipidemia, diverticulitis who presented to the emergency department on 03/30/2024 with a chief complaint of abdominal pain. Patient w/ recurrent diverticulitis, last episode 08/2023. hx of microperforation --was tx March w/ IV Zosyn & dc on 14d augmentin. Cipro/Flagyl in August CTAP on admission w/ acute diverticulitis DISTAL DESCENDING/PROXIMAL SIGMOID colon. Mod colonic wall thickening but NO free air/abscess. small amt fluid. Suspect additional acute diverticulitis at distal sigmoid colon. ?bladder fistula but UA not indicative of such WBC 15.2k on admission, UA 1+ blood/no bacteria Zosyn in ER, continued on Unasyn IV on admission and clear liquid diet provided WBC essentially unchanged/maybe slight improvement. ABx changed to Zosyn and have been continued and clear liquid diet continued as ok by surgery who was consulted/following WBC now normalized, afebrile. Surgery advancing diet to full liquid for today, continued inpatient stay and likely able to advance to low fiber diet in AM Rec for outpt f/u colorectal to discuss c-scope once resolved for screening/discussion given this is his 3rd episode in 1 yr period of time. Also surgery rec f/u colorectal surgery Labs/exam in AM (2) Congestive heart failure: Plan: Patient w/ hx of ischemic cardiopathy, CAD, s/p ICD. Reports improvement in repeat ECHO compared to prior to 45-50% earlier this year and has repeat this upcoming year with Corey Joseph On metoprolol, entresto, low dose spironolactone daily at baseline with lasix 20mg prn as needed for weight gain and reports to take 1-2x/wk but hadn't this past week. (Possible, Suspected, Likely) Acute on chronic systolic CHF treated and resolved in ED as CXR noting possible mild pulmonary edema Minimal BNP elevation but 95% on RA and no LE edema and had been continued on spironolactone daily with decreased weight on repeat but no IVF for above and placed on hold/PO hydration encouraged as above Remains on metoprolol, entrestro, spironolactone likely able to be resumed in AM pending BP/renal function but could consider holding for another 24-48 hours. K stable 3.5 but ordered PO x 1 and will monitor volume status/I&O prior to resuming Outpt f/u [facility] cards as already arranged (3) Pneumonia: Plan: Recently diagnosed with pneumonia 03/15 in ER [facility] negative 03/15 Completed outpatient course of abx including Doxycycline and Augmentin along with prednisone approx. 1 week ago, could have causeed increased weight gain/fluid retention as cause for above as well CXR noted, albuterol/tessalon pearls No significant cough, CXR does note recs for CT chest 3 months to ensure resolution. Plan Chronic conditions: hx of CVA: ASA, Plavix continued. mentation stable HLD: statin continued GERD: PPI BID continued. Did have EGD this year/hernia BPH: alfuzosin, dutasteride DVT prophylaxis: Lovenox once daily while inpatient Dispo: diet advanced to full liquids, surgery following and remains on Zosyn. Possible dc in AM on PO abx/low fiber diet pending course. PT consulted for completeness to ensure no needs prior to dc but appears to be doing well/suspect no needs at dc except follow up colorectal surgeon given 3rd episode in past year, rec c-scope in f/u once healed from current episode Admission and Anticipated Discharge Date Admission Date: March 30, 2024 Supervising Physician Co-Signing Physician Notes PA Supervision Note: I did not personally see or examine the patient today, but I verified all elliott points of OWEN Ramírez's assessment and plan with the following exceptions/additions: None Subjective Eval this morning, sitting up in bed. Reports feeling improved. Saw surgery this morning, diet advanced for lunch to full liquids. Breathing stable, holding diuretics as discussed. No trouble breathing. Improved cough and reports he had not been taking his prn last prior to admission but that he is to be taking 1-2x/wk. Discussed they gave him 40mg IV on admission and status appears stable for now. Can monitor weight in AM/likely able to resume his spironolactone. No fever/chills, chest pain. No nausea/vomiting. Moved his bowels. Questions/concerns addressed. Physical Exam 2 Physical Exam: General: 83 yo male sitting up in bed, NAD, reports improved HEENT : head atraumatic, normocephalic, mmm, trachea midline Resp: even/unlabored, faint bibasilar crackles but no overt wheezing/rales, on room air 95% CV:paced on telemetry, faint systolic murmur, no pitting edema/calf tenderness GI: +BS throughout, decreased distension, faint LLE discomfort but no overt guarding/rebound,no rigidity no rodríguez MSK/Neuro: nonfocal/answering questions appropriately Psych: AOx3, cooperative with exam Results & Data Results & Data Vital Signs (Past 12 Hours) Vital Signs Temp Pulse Pulse Resp BP Pulse Ox O2 Del Method 04/01/24 03:51 36.9 C 72 18 109/64 96 Room Air 03/31/24 23:21 36.9 C 66 16 94/46 L 96 Room Air 03/31/24 22:07 67 03/31/24 20:00 Room Air Laboratory Results 04/01/24 06:10 04/01/24 06:10 PG Care Time/CCT Total # of Minutes Spent Total Time Spent with Patient: Total time spent is greater than 50% in coordination of care (as documented) at patient's floor/unit and/or counseling patient: Coding Level of Care Code 06042 SUB INP/OBS CARE 3/50MIN Diagnoses Acute diverticulitis K57.92 Chronic systolic congestive heart failure I50.22 Heart failure chronicity: chronic Heart failure type: systolic Pneumonia J18.9 (2) Congestive heart failure Heart failure chronicity: chronic Heart failure type: systolic Qualified Code(s): I50.22 - Chronic systolic (congestive) heart failure
[2024-04-01] MEDS: POTASSIUM CHLORIDE 10 MEQ TABCR PO STA (10:07)
--- NOTE | 2024-04-01 11:12 | Surgery Progress Note ---
<Statement entered by Bhavya Jose DO - 04/01/24 13:19> I have seen and examined this patient with the surgical PA and I agree with this plan. Date of Service April 01, 2024 Assessment & Plan (1) Diverticulitis: Plan: Patient here with diverticulitis without abscess/perf WBC 10. Vitals stable and patient afebrile Feels better than admission and pain improving. No n/v Tolerating clears, will start pt on full liquids and see how he fairs Will then ultimately transition to low fiber and course of po abx for home No plans for surgical intervention indicated at this time Admission and Anticipated Discharge Date Admission Date: March 30, 2024 Subjective Patient report feeling better. Denies worsening abdominal pain and overall feels improved. No nausea/vomiting. he is passing gas Physical Exam Physical Exam: awake/alert, no distress Gastrointestinal (Abdomen): Percussion/Palpation: + abdomen tender (mild lower abdominal discomfort) and abdomen soft Results & Data Vital Signs (Past 12 Hours) Vital Signs Temp Pulse Pulse Resp BP BP Pulse Ox 04/01/24 09:21 04/01/24 07:47 71 04/01/24 07:46 97.9 F 60 20 112/61 95 04/01/24 03:51 98.4 F 72 18 109/64 96 03/31/24 23:21 98.4 F 66 16 94/46 L 96 O2 Del Method 04/01/24 09:21 Room Air 04/01/24 07:47 04/01/24 07:46 Room Air 04/01/24 03:51 Room Air 03/31/24 23:21 Room Air PG Care Time/CCT Total # of Minutes Spent Total Time Spent with Patient: Total time spent is greater than 50% in coordination of care (as documented) at patient's floor/unit and/or counseling patient: Coding Level of Care Code 91687 SUB INP/OBS CARE Diagnoses Diverticulitis K57.92
--- NOTE | 2024-04-02 07:44 | Surgery Progress Note ---
Date of Service April 02, 2024 Assessment & Plan (1) Diverticulitis: Plan: Patient here w/ uncomplicated diverticulitis WBC 10 yesterday, vitals stable and patient afebrile Pain much improved from admission, he is tolerating advancing diet, will trial low fiber this AM Would recommend home on course of po abx for 2 weeks total Recommend outpt colonoscopy in 6-8 weeks if he has not had one recently and remain on low finer diet for 4-6 weeks time May dispo when ready per medicine Admission and Anticipated Discharge Date Admission Date: March 30, 2024 Supervising Physician Co-Signing Physician Notes I have seen and examined this patient this am. He continues to feel improved with very minimal tenderness he admits to the very low suprapubic area. He has had a low fiber diet this am and tolerated. From a surgical standpoint, he may be discharged on oral abx, low fiber diet for 1-2 weeks and recommendation for a colonoscopy after 6-8 weeks. General surgery will sign off at this time. Subjective Patient reports feeling much better overall. Has some residual pain in mid/lower abdomen but it is much improved. No nausea/vomiting. He is tolerating fulls no issues and is hungry for more. Physical Exam Physical Exam: awake/alert, no distress Respiratory: normal respiratory effort Gastrointestinal (Abdomen): Percussion/Palpation: + abdomen tender (improved mild lower abdominal discomfort) and abdomen soft Results & Data Vital Signs (Past 12 Hours) Vital Signs Temp Pulse Pulse Resp BP Pulse Ox O2 Del Method 04/02/24 04:30 98.4 F 66 18 110/51 L 97 Room Air 04/01/24 23:35 98.2 F 60 18 107/56 L 97 Room Air 04/01/24 22:22 68 PG Care Time/CCT Total # of Minutes Spent Total Time Spent with Patient: Total time spent is greater than 50% in coordination of care (as documented) at patient's floor/unit and/or counseling patient: Coding Level of Care Code 14060 SUB INP/OBS CARE 05/11MIN Diagnoses Diverticulitis K57.92
[2024-04-02 07:47] VITALS: RESP 16
[2024-04-02 08:49] LABS: Hematocrit (blood only) 34.1 % (42.0-52.0); Hemoglobin 11.1 g/dl (14.0-18.0); Mean Corpuscular Hemoglobin 31.4 pg (25.0-34.0); Mean Corpuscular Hgb Conc 32.6 g/dL (32.0-36.0); Mean Corpuscular Volume 96.3 fL (80.0-100.0); Mean Platelet Volume 9.8 fL (9.4-12.4); Platelet Count 369 K/uL (130-400); RDW Coefficient of Variation 13.2 % (11.5-14.5); Red Blood Count 3.54 M/uL (4.70-6.10); White Blood Count 9.01 K/ul (4.8-10.8)
[2024-04-02 09:09] LABS: Calcium 8.8 mg/dl (8.6-10.3); Creatinine Clr Calc Pharmacy 48.7 ml/min; Potassium 3.9 mmol/L (3.5-5.1)
--- NOTE | 2024-04-02 10:44 | Discharge Summary ---
Discharge Summary Date of Service April 02, 2024 Principal Dx & Hospital Course #1 = Principal Diagnosis (1) Acute diverticulitis: Presented with abdominal pain. History of recurrent diverticulitis with microperforation. Last episode in August 2023 and treated with Cipro/Flagyl - CT A/P on admission w/ acute diverticulitis DISTAL DESCENDING/PROXIMAL SIGMOID colon. Mod colonic wall thickening but NO free air/abscess - Leukocytosis on admission resolved - General surgery consulted - Well-tolerated advancement in diet. Recommend low fiber diet x 4-6 weeks after discharge - Treated with IV Zosyn while hospitalized, discharged on Augmentin for total of 14 day antibiotic regimen - Recommend outpatient colonoscopy in 6-8 weeks - Recommend outpatient colorectal surgery follow-up given this is his third episode of diverticulitis in 1 year time period (2) Congestive heart failure: Suspected Acute on chronic systolic CHF treated and resolved in ED as CXR noting possible mild pulmonary edema - Patient w/ hx of ischemic cardiopathy, CAD, s/p ICD - Reports improvement in repeat ECHO compared to prior to 45-50% earlier this year and has repeat this upcoming year with Corey Joseph - Continue metoprolol, Entresto, spironolactone, PRN Lasix - Outpt f/u [facility] cardiology as already arranged (3) Pneumonia: Recently diagnosed with pneumonia 03/15 in ER. Biofire negative 03/15 - Completed outpatient course of abx including Doxycycline and Augmentin along with prednisone approx. 1 week ago, could have caused increased weight gain/fluid retention as cause for above as well - CXR this admission shows no change in left basilar opacity - Albuterol/Tessalon pearls - Recommend CT chest in 3 months to ensure resolution of pneumonia (4) Anemia: With mild, normocytic anemia for years. B12 and folate normal in 2021. No iron levels checked since 2017 but pt reports he has iron levels checked at Cardiology [facility] office/lab EGD without evidence of celiac disease early 2023 Does have microscopic hematuria for many years, pt does not recall having a cystoscopy but has been followed by Urology for decades for prostate issues Recommend outpt workup for microscopic hematuria Recommend colonoscopy to r/o colon CA Dr. Rodriguez discussed recommendations with pt and his Plan Chronic conditions: hx of CVA: ASA, Plavix continued. mentation stable HLD: statin continued GERD: PPI BID continued. Did have EGD this year which showed gastritis/hernia BPH: alfuzosin, dutasteride DVT prophylaxis: Lovenox once daily while inpatient CODE STATUS: Full code Notes For Next Care Provider Third episode of diverticulitis this year. Recommend follow-up with colorectal surgery outpatient. Recommend repeat colonoscopy in 6-8 weeks. Recommend low fiber diet for 4-6 weeks. Treatment with Augmentin outpatient for total of 14 day antibiotic course. Recommend CT Chest in 3 months to ensure resolution in pneumonia. Recommend outpatient workup for microscopic hematuria Follow up anemia Medication Changes From Visit Augmentin BID until 04/12/2024 Admission HPI Per Admitting Provider This is a 83-year-old gentleman with past medical history of CAD, CHF, ischemic cardiomyopathy, hypertension, hyperlipidemia, diverticulitis who presented to the emergency department on 03/30/2024 with a chief complaint of abdominal pain. The patient was seen and examined at bedside. He was resting comfortably at time of encounter and was alert and oriented x 3. Patient was recently in our emergency department on 03/15/2024 and was diagnosed with pneumonia. He was discharged home on prednisone, doxycycline, and Augmentin. Patient states that he completed his antibiotics last week. He states that while he was on antibiotic therapy he was experiencing loose to liquid stools. He then states that he took Imodium for this which helped. He states that he took Imodium approximately 3 days ago and has not had a bowel movement since then. When he was moving his bowels he denied any overt signs of GI bleeding including melena or hematochezia. He denies any nausea, vomiting, fevers, chills. He is still persisting with a cough but states that he has been persisting with this for about a year now. He believes that his pneumonia has resolved. He denies any shortness of breath or chest pain. He denies any lower extremity edema. Patient states that he does have diuretics to use on an as-needed basis outpatient but very rarely uses them. He does follow with Dr. Jackson for cardiology on a 6-month basis. His last echocardiogram was 05/2023 and wishes EF at that time was 45 to 49%. He reports he did not take his morning medications this morning. Metoprolol given in ED to prevent rebound tachycardia. Patient also reports he has had multiple episodes of diverticulitis in the past, one including a microperforation. He has not had follow up colonoscopies following these episodes. He was told his "colon would perforate" if he had a CN so he has not went through with this. ED workup was significant for leukocytosis of 15.28. CTAP revealing sigmoid diverticulitis. Chest x-ray without change from previous in regards to subtle interstitial thickening. At time of evaluation, patient had stable vitals. He was given 40 mg IV Lasix and IV Zosyn in the emergency department. Discharge Exam General: No acute distress, nondiaphoretic, well-developed, well-nourished. Skin: The skin was without rashes, erythema, edema, or bruising. Cardiac: Regular rate and rhythm without murmurs gallops or rubs. Pulm: Clear to auscultation bilaterally without wheezes, rales or rhonchi. No respiratory distress. 96% on room air. Abdominal: Verye minimal tenderness to palpation of LLQ. No guarding/rebound/rigidity. Soft, nondistended. Bowel sounds present. Neuro: A&O x3. No focal neurological deficits. Discharge Plan Discharge Items Patient Disposition: Home - Self-Care Reason For Visit: DIVERTICULITIS Discharge Diagnosis: Recurrent diverticulitis Condition on Discharge: Fair Activity: Resume your previous activity Non-emergency contact: Primary Care Provider Call non-emergency contact if: you have any medication questions and your symptoms worsen Follow-up/Referrals: George Serrano DO [Primary Care Provider] - 04/08/24 9:30 am () Diet: Heart Healthy and Low Fiber Addtl Attending Provider Instructions: Mr. Brock, You were admitted to the hospital due to a recurrent episode of diverticulitis. Diverticulitis is a condition in which small pouches form in your colon (large intestine) and become inflamed or infected. You were treated with IV antibiotics while in the hospital and seen by our general surgery team. You will continue oral antibiotics at home. Upon discharge from the hospital: * Take Augmentin (oral antibiotic) twice daily until 04/12/2024. This will complete a 2-week antibiotic course. It is important to finish this antibiotic course even if you feel better. * Follow a low fiber diet for 4-6 weeks. These foods include breads, biscuits, pancakes, waffles, bagels, saltines, polly crackers bananas, melons, applesauce, white rice, pasta, tender meat, fish and poultry, ham, walls, shellfish, lunch meat, dairy products. * Avoid high-fiber foods and raw fruits and vegetables. These include whole grains, popcorn, brown rice, oatmeal, granola, quinoa, nuts, seeds, dried beans, baked beans, peas and lentils, dried fruit. * Stay physically active as tolerated. * Recommend outpatient colonoscopy in 6-8 weeks. * Recommend follow-up with colorectal surgeon outpatient. * Recommend follow-up with PCP in 1-2 weeks. Please return to the hospital if you experience any of the following: Fever of 100.5 F or higher, severe cramps in your belly (specifically left lower side), persistent severe nausea and vomiting, bleeding from your rectum, lightheadedness, dizziness, shortness of breath, chest pain, passing out, confusion, or any other symptoms concerning for you. It was a pleasure taking care of you while you were in the hospital, Irish Chinchilla PA-C Pending Studies at Discharge: No Stand-Alone Forms: My [facility] [employer], Smoking Cessation Medications and DC Order Prescriptions: New amoxicillin-pot clavulanate 875-125 mg tablet 1 tab PO BID Qty: 22 0RF Continued loratadine 10 mg capsule 10 mg PO QAM PRN (Reason: Allergic Symptoms) (DME) [facility] [place] See Rx Instructions .MEDSUPPLY Qty: 1 0RF Rx Instructions: As directed pantoprazole 40 mg tablet,delayed release (DR/EC) 40 mg PO BID 42 Days Qty: 84 1RF dutasteride 0.5 mg capsule 0.5 mg PO DAILY Qty: 90 3RF epinephrine 0.3 mg/0.3 mL auto-injector 0.3 mg IM UD PRN (Reason: anaphylaxis) Centrum Silver Men 300-600-300 mcg tablet 1 tab PO QAM Vitron-C 65 mg iron- 125 mg tablet,delayed release (DR/EC) 1 tab PO QPM furosemide [Lasix] 20 mg tablet 20 mg PO QAM PRN (Reason: Fluid Retention) nitroglycerin [Nitrostat] 0.4 mg tablet, sublingual 0.4 mg Sublingual UD PRN (Reason: Chest Pain) Qty: 30 1RF Entresto 49-51 mg tablet 1 tab PO BID Hold Instructions: HOLD UNTIL YOU SEE DR SERRANO OR ONE OF HIS PARTNERS alfuzosin [Uroxatral] 10 mg tablet extended release 24 hr 10 mg PO DAILY Qty: 90 3RF Rx Instructions: administer after the same meal each day benzonatate 100 mg capsule 100 mg PO TID PRN (Reason: cough) Qty: 30 0RF cyclobenzaprine 5 mg tablet 5 mg PO TID PRN (Reason: muscle spasm) Qty: 30 0RF atorvastatin 40 mg Tablet 40 mg PO QAM clopidogrel [Plavix] 75 mg Tablet 75 mg PO QAM aspirin 81 mg Tablet,Delayed Release (Dr/Ec) 81 mg PO QAM metoprolol succinate 50 mg tablet extended release 24 hr 50 mg PO QAM spironolactone 25 mg tablet 12.5 mg PO QAM hydrocodone-homatropine 5-1.5 mg/5 mL Syrup 5 ml PO Q6H PRN (Reason: Pneumonia) albuterol sulfate 90 mcg/actuation Hfa Aerosol Inhaler 2 puff INHALATION QID PRN (Reason: SOB/Wheezing) Discharge Orders: Discharge Order (Routine); Ordered 04/02/24 Ordered By: Irish Flores/Other Patient Handouts: Diverticulitis Dc Admission Data Admit Date/Time: 03/30/24 11:25 Attending Provider: Jamaica Rodriguez Admit Provider: Larissa Turner Primary Care Provider: George Srerano Other Providers: Georges Lopez; John Rizzo Other Interventions: Discharge Summary Assessment (RN) Last Done: 04/02/24 10:08 Hospital Stay Data Consultations 03/30/24 10:56 ED Decision to Admit Stat 03/31/24 10:00 Consult General Surgery Routine Diagnostic Imagining Performed 03/30/24 08:38 CT abd pelvis IV con only Stat Pending Results Patient Have Any Pending Studies at Discharge: No Discharge Instructions Given to Patient (Per Discharging Provider) Mr. Brock, Sherif were admitted to the hospital due to a recurrent episode of diverticulitis. Diverticulitis is a condition in which small pouches form in your colon (large intestine) and become inflamed or infected. You were treated with IV antibiotics while in the hospital and seen by our general surgery team. You will continue oral antibiotics at home. Upon discharge from the hospital: * Take Augmentin (oral antibiotic) twice daily until 04/12/2024. This will complete a 2-week antibiotic course. It is important to finish this antibiotic course even if you feel better. * Follow a low fiber diet for 4-6 weeks. These foods include breads, biscuits, pancakes, waffles, bagels, saltines, polly crackers bananas, melons, applesauce, white rice, pasta, tender meat, fish and poultry, ham, walls, shellfish, lunch meat, dairy products. * Avoid high-fiber foods and raw fruits and vegetables. These include whole grains, popcorn, brown rice, oatmeal, granola, quinoa, nuts, seeds, dried beans, baked beans, peas and lentils, dried fruit. * Stay physically active as tolerated. * Recommend outpatient colonoscopy in 6-8 weeks. * Recommend follow-up with colorectal surgeon outpatient. * Recommend follow-up with PCP in 1-2 weeks. Please return to the hospital if you experience any of the following: Fever of 100.5 F or higher, severe cramps in your belly (specifically left lower side), persistent severe nausea and vomiting, bleeding from your rectum, lightheadedness, dizziness, shortness of breath, chest pain, passing out, confusion, or any other symptoms concerning for you. It was a pleasure taking care of you while you were in the hospital, Irish Chinchilla PA-C Supervising Physician Co-Signing Physician Notes PA Supervision Note: I personally saw and examined the patient. I verified all elliott points and agree with OWEN Chinchilla with the following exceptions and/or additions: S-Pt feeling much better. Only very mild/minimal pain in bladder region. Is tolerating low fiber diet O- Vitals reviewed Gen: [AAOx3, NAD] HEENT: [anicteric sclerae, EOMI] CV: [RRR no mgr nl S1S2] Pulm: [CTAB no wcr] Abd: [+BS soft NT ND no masses or hernias] Ext: [no edema, 2+ DP pulses] Skin: [no rashes, warm/dry] Neuro: [full strength throughout] A/P-83 yo male with acute recurrent diverticulitis. Much improved with bowel rest, antibiotics. 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 Coding Level of Care Code 29062 INP/OBS DISCH >30 MIN Diagnoses Acute diverticulitis K57.92 Chronic systolic congestive heart failure I50.22 Heart failure chronicity: chronic Heart failure type: systolic Pneumonia J18.9 Anemia D64.9
[2024-04-02 11:45] VITALS: BP 99/51; PULSE 61; TEMP 97.9; O2SAT 95
== END 2024-04-02 14:32 | disposition home or self-care (01) | DRG 391 ==
LOC: ED 08:27 → SUATTDRO 11:25 → 2N 11:25